=== PATIENT | female | born 1985 | race Caucasian/White ===

== ENCOUNTER → 2017-01-07 | Outpatient (CLI) | payer OTHER ==
[~2017-01-07] MED LIST: PRENTAB55 PO; ZOFR20TA PO
--- NOTE | 2017-01-07 13:58 | REP ---
MRI BRAIN WITHOUT CONTRAST: HISTORY: Migraine headache. COMPARISON: 12/13/2013. There are no areas of abnormal signal intensity in the brain. There is no intraparenchymal hemorrhage, infarct, mass or midline shift. The ventricular system is normal in appearance. There is no extracerebral collection. Mucosal thickening is present in the left maxillary and frontal sinuses. IMPRESSION: There is no intracranial lesion. Signed by Edison Deal MD 01/07/2017 01:59 P
== END ==
LOC: M RAD 12:25
PROVIDERS: ATTEND Psychiatry & Neurology Neurology
DX: G43.719 Chronic migraine without aura, intractable, without status migrainosus (principal); M43.02 Spondylolysis, cervical region; M54.2 Cervicalgia; Q07.00 Arnold-Chiari syndrome without spina bifida or hydrocephalus

== ENCOUNTER → 2017-01-17 | Outpatient (CLI) | payer OTHER ==
--- NOTE | 2017-01-18 09:28 | REP ---
MR CERVICAL SPINE WITHOUT AND WITH CONTRAST: HISTORY: Cervicalgia. CONTRAST: ProHance 16.8 mL. COMPARISON: 06/19/2007. A disc bulge and small left paracentral disc protrusion are present at the C5-6 level. There is minimal effacement of the thecal sac without spinal cord compression. Uncinate process hypertrophy is present on the right. This produces minimal narrowing of the right C5 neural foramen. The left C5 neural foramen is patent. There is no other disc bulge or herniation. The remaining neural foramina are patent. The spinal cord is normal in signal intensity. The cerebellar tonsils extend 4 mm inferior through the foramen magnum. There is no abnormal enhancement. The C5-6 intervertebral disc is decreased in height consistent with disc degeneration. Normal signal intensity is present in the cervical vertebral bodies. IMPRESSION: There is cervical spondylosis at the C5-6 level without spinal cord compression. There is no significant change compared to the previous study. Signed by Edison Deal MD 01/18/2017 09:38 A
--- NOTE | 2017-01-18 13:29 | REP ---
MR CINE VIEWS: HISTORY: Cervicalgia. A 2D phase contrast CSF flow study was performed with a velocity encoding of 10 cm/s. CSF flow is present in the prepontine and medullary cisterns, aqueduct and Sylvius, fourth ventricle and outlet foramina. CSF is present in the subarachnoid space posterior to the cerebellar tonsils. CSF flow is present in the anterior and posterior subarachnoid space at the cervicomedullary junction. The CSF flow appears normal. IMPRESSION: CSF flow study as described above. Signed by Edison Deal MD 01/18/2017 01:36 P
== END ==
LOC: M RAD 15:48
PROVIDERS: ATTEND Psychiatry & Neurology Neurology
DX: Q07.00 Arnold-Chiari syndrome without spina bifida or hydrocephalus (principal); M54.2 Cervicalgia; M43.02 Spondylolysis, cervical region
CPT/HCPCS: 72156; 76125; A9576

== ENCOUNTER → 2017-11-09 | Outpatient (CLI) | payer OTHER ==
[2017-11-09 10:32] LABS: HEMATOCRIT 44.4 % (36.0-47.0); HEMOGLOBIN 14.7 g/dl (12.0-16.0); MEAN CORPUSCULAR HEMOGLOBIN 28.4 pg (27.0-33.0); MEAN CORPUSCULAR HGB CONC 33.1 g/dl (32.0-36.5); MEAN CORPUSCULAR VOLUME 85.7 fl (80.0-96.0); PLATELET COUNT, AUTOMATED 161 10^3/uL (150-450); RED BLOOD COUNT 5.18 10^6/uL (4.00-5.40); RED CELL DISTRIBUTION WIDTH 12.6 % (11.5-14.5); WHITE BLOOD COUNT 6.3 10^3/uL (4.0-10.0)
[2017-11-09 11:02] LABS: ALBUMIN 4.1 GM/DL (3.2-5.2); ALBUMIN/GLOBULIN RATIO 1.05 (1.00-1.93); ALKALINE PHOSPHATASE 41 U/L (45-117); ALT/SGPT 26 U/L (12-78); ANION GAP 7 MEQ/L (8-16); AST/SGOT 16 U/L (7-37); BILIRUBIN,TOTAL 0.7 MG/DL (0.2-1.0); BLOOD UREA NITROGEN 19 MG/DL (7-18); CALCIUM LEVEL 8.7 MG/DL (8.5-10.1); CARBON DIOXIDE LEVEL 30 MEQ/L (21-32); CHLORIDE LEVEL 104 MEQ/L (98-107); CHOLESTEROL LEVEL 191 MG/DL (<200); CHOLESTEROL RISK RATIO 4.897 (<5); CREATININE FOR GFR 0.91 MG/DL (0.55-1.02); GLOMERULAR FILTRATION RATE > 60.0 (>60); GLUCOSE, FASTING 92 MG/DL (70-105); HDL CHOLESTEROL 39 MG/DL (>40); IRON (FE) 77 UG/DL (50-170); NON-HDL-C 152 MG/DL; PERCENT SATURATION 23.5 % (13.2-45.0); POTASSIUM SERUM 3.9 MEQ/L (3.5-5.1); SODIUM LEVEL 141 MEQ/L (136-145); THYROXINE (T4) 7.6 UG/DL (4.5-12.0); TOTAL IRON BINDING CAPACITY 328 UG/DL (250-450); TRIGLYCERIDES LEVEL 125 MG/DL (<150); URIC ACID 4.9 MG/DL (2.6-6.0)
[2017-11-09 11:20] LABS: ESTIMATED AVERAGE GLUCOSE 105 MG/DL (60-110); HEMOGLOBIN A1c 5.3 %
[2017-11-09 11:34] LABS: TOTAL 25(OH) VITAMIN D 24.8 NG/ML (30.0-100.0)
[2017-11-09 11:36] LABS: TOTAL T3 110.6 NG/DL (60.0-181.0)
[2017-11-09 11:38] LABS: VITAMIN B12 LEVEL 445 PG/ML (247-911)
== END ==
LOC: M LAB 09:53
DX: D64.9 Anemia, unspecified (principal); E03.9 Hypothyroidism, unspecified; M79.671 Pain in right foot
CPT/HCPCS: 73630

== ENCOUNTER 2018-05-16 15:09 | Emergency (ER) | payer MEDICAID, OTHER ==
[2018-05-16] MEDS: predniSONE 20 MG TAB PO (16:10)
[2018-05-16] MEDS: ALBUTEROL SULFATE 2.5 MG/0.5 ML INH NEB SOLN NEB (16:14)
== END 2018-05-16 16:59 | disposition home or self-care (01) ==
LOC: M ED 15:09
DX: J45.901 Unspecified asthma with (acute) exacerbation (principal); E03.9 Hypothyroidism, unspecified; G93.5 Compression of brain; M35.1 Other overlap syndromes; Z79.899 Other long term (current) drug therapy; Z79.82 Long term (current) use of aspirin; Z79.890 Hormone replacement therapy
CPT/HCPCS: 71046

== ENCOUNTER 2018-10-23 13:22 | Emergency (ER) | payer MEDICAID, OTHER ==
[~2018-10-23] VITALS: Ht 172.7 cm; Wt 86.4 kg
[~2018-10-23 13:22] MED LIST changes: +ALBU17IN2 INH; +ALBU83IN NEB; +ASPI81TA85 PO; +LEVO112T2 PO; +PRED20TA PO; -ZOFR20TA PO; +ZOFR4TAB16 PO
[2018-10-23] MEDS ORDERED: ALL10TAB27 PO (13:32)
[2018-10-23] MEDS ORDERED: ALBU83IN NEB (13:32)
[2018-10-23] MEDS ORDERED: VITA50005 PO (13:32)
[2018-10-23] MEDS ORDERED: diazePAM 5 MG TAB PO ONE (14:15)
[2018-10-23] MEDS ORDERED: KETOROLAC 60 MG/2 ML VIAL (J1885) IM ONE (14:15)
[2018-10-23] MEDS ORDERED: ROBA500T PO (14:44)
[2018-10-23] MEDS ORDERED: NAPR-49 PO (14:44)
[2018-10-23 14:55] VITALS: BP 126/86
== END 2018-10-23 15:02 | disposition home or self-care (01) ==
LOC: M ED 13:22
DX: S43.402A Unspecified sprain of left shoulder joint, initial encounter (principal); J45.909 Unspecified asthma, uncomplicated; S93.401A Sprain of unspecified ligament of right ankle, initial encounter; X50.1XXA Overexertion from prolonged static or awkward postures, initial encounter; Y92.9 Unspecified place or not applicable
CPT/HCPCS: 96372; 99283; J1885

== ENCOUNTER → 2018-11-22 | Outpatient (CLI) | payer OTHER ==
[~2018-11-22] MED LIST changes: +ALL10TAB28 PO; +NAPR-50 PO; +ROBA500T PO; +VITA50005 PO
[2018-11-22 10:15] LABS: HEMATOCRIT 44.1 % (36.0-47.0); HEMOGLOBIN 14.8 g/dl (12.0-15.5); MEAN CORPUSCULAR HGB CONC 33.6 g/dl (32.0-36.5); MEAN CORPUSCULAR VOLUME 86.3 fl (80.0-96.0); PLATELET COUNT, AUTOMATED 168 10^3/uL (150-450); RED BLOOD COUNT 5.11 10^6/uL (4.00-5.40); WHITE BLOOD COUNT 6.3 10^3/uL (4.0-10.0)
[2018-11-22 10:48] LABS: ALBUMIN 3.7 GM/DL (3.2-5.2); ALT/SGPT 19 U/L (12-78); BILIRUBIN,TOTAL 0.7 MG/DL (0.2-1.0); BLOOD UREA NITROGEN 13 MG/DL (7-18); CALCIUM LEVEL 8.4 MG/DL (8.5-10.1); CARBON DIOXIDE LEVEL 27 MEQ/L (21-32); CHLORIDE LEVEL 106 MEQ/L (98-107); CHOLESTEROL LEVEL 160 MG/DL (<200); CHOLESTEROL RISK RATIO 3.902 (<5); CREATININE FOR GFR 0.96 MG/DL (0.55-1.30); GLOMERULAR FILTRATION RATE > 60.0 (>60); GLUCOSE, FASTING 88 MG/DL (70-100); HDL CHOLESTEROL 41 MG/DL (>40); LDL CHOLESTEROL 102 MG/DL (<100); NON-HDL-C 119 MG/DL; POTASSIUM SERUM 4.1 MEQ/L (3.5-5.1); SODIUM LEVEL 139 MEQ/L (136-145); TOTAL PROTEIN 7.3 GM/DL (6.4-8.2); TRIGLYCERIDES LEVEL 87 MG/DL (<150)
[2018-11-22 14:42] LABS: TOTAL 25(OH) VITAMIN D 34.7 NG/ML (30.0-100.0)
== END ==
LOC: M LAB 09:07
PROVIDERS: ATTEND Family Medicine
DX: E03.9 Hypothyroidism, unspecified (principal)

== ENCOUNTER → 2019-04-27 | Outpatient (REF) | payer OTHER ==
[~2019-04-27] MED LIST changes: -NAPR-50 PO; +NAPR-837 PO
== END ==
LOC: M LAB REF 10:07
PROVIDERS: ATTEND Physician Assistant
DX: R30.0 Dysuria (principal)

== ENCOUNTER → 2019-07-27 | Outpatient (REF) | payer MEDICAID ==
[~2019-07-27] MED LIST changes: -ALBU17IN2 INH; -ALL10TAB28 PO; +ALL10TAB29 PO; +PROV108A INH
== END ==
LOC: M LAB REF 19:31
PROVIDERS: ATTEND Nurse Practitioner Family
DX: R30.0 Dysuria (principal)

== ENCOUNTER → 2019-08-01 | Outpatient (REF) | payer OTHER, MEDICAID ==
[2019-08-01 19:30] LABS: APPEARANCE, URINE CLOUDY (CLEAR); BACTERIA, URINE AUTO 1+ (NEGATIVE); BILIRUBIN, URINE AUTO NEGATIVE (NEGATIVE); BLOOD, URINE BLOOD NEGATIVE (NEGATIVE); COLOR, URINE YELLOW (YELLOW); GLUCOSE, URINE (UA) AUTO NEGATIVE (NEGATIVE); KETONE, URINE AUTO NEGATIVE (NEGATIVE); LEUKOCYTE ESTERASE, URINE AUTO TRACE (NEGATIVE); MUCUS, URINE SMALL (NEGATIVE); NITRITE, URINE AUTO NEGATIVE (NEGATIVE); PROTEIN, URINE AUTO NEGATIVE (NEGATIVE); RBC, URINE AUTO 1 /HPF (0-3); SPECIFIC GRAVITY URINE AUTO 1.019 (1.002-1.035); SQUAMOUS EPITHELIAL CELL UR AU 24 /HPF (0-6); UROBILINOGEN, URINE AUTO 0.2 mg/dL (0.0-2.0); WBC, URINE AUTO 2 /HPF (0-3)
== END ==
LOC: M LAB REF 18:45
PROVIDERS: ATTEND Nurse Practitioner Family
DX: R30.0 Dysuria (principal)

== ENCOUNTER → 2019-08-10 | Outpatient (REF) | payer OTHER, MEDICAID ==
[2019-08-10 12:24] LABS: FREE T4 0.87 NG/DL (0.76-1.46); THYROID STIMULATING HORMONE 2.52 uIU/ML (0.358-3.740)
== END ==
LOC: M LAB REF 11:50
PROVIDERS: ATTEND Nurse Practitioner Women's Health
DX: O36.80X0 Pregnancy with inconclusive fetal viability, not applicable or unspecified (principal); Z3A.00 Weeks of gestation of pregnancy not specified

== ENCOUNTER → 2019-08-15 | Outpatient (REF) | payer OTHER, MEDICAID ==
[2019-08-15 13:56] LABS: HEMOGLOBIN A1c 5.1 %
[2019-08-15 13:57] LABS: APPEARANCE, URINE HAZY (CLEAR); BACTERIA, URINE AUTO 1+ (NEGATIVE); BILIRUBIN, URINE AUTO NEGATIVE (NEGATIVE); BLOOD, URINE BLOOD NEGATIVE (NEGATIVE); COLOR, URINE YELLOW (YELLOW); GLUCOSE, URINE (UA) AUTO NEGATIVE (NEGATIVE); KETONE, URINE AUTO NEGATIVE (NEGATIVE); LEUKOCYTE ESTERASE, URINE AUTO 3+ (NEGATIVE); MUCUS, URINE MODERATE (NEGATIVE); NITRITE, URINE AUTO NEGATIVE (NEGATIVE); PROTEIN, URINE AUTO NEGATIVE (NEGATIVE); RBC, URINE AUTO 1 /HPF (0-3); SPECIFIC GRAVITY URINE AUTO 1.021 (1.002-1.035); SQUAMOUS EPITHELIAL CELL UR AU 9 /HPF (0-6); UROBILINOGEN, URINE AUTO 0.2 mg/dL (0.0-2.0); WBC, URINE AUTO 3 /HPF (0-3)
[2019-08-15 14:05] LABS: ALBUMIN 3.8 GM/DL (3.2-5.2); ALT/SGPT 20 U/L (12-78); BILIRUBIN,TOTAL 0.8 MG/DL (0.2-1.0); BLOOD UREA NITROGEN 11 MG/DL (7-18); CALCIUM LEVEL 8.8 MG/DL (8.5-10.1); CARBON DIOXIDE LEVEL 27 MEQ/L (21-32); CHLORIDE LEVEL 106 MEQ/L (98-107); CHOLESTEROL LEVEL 150 MG/DL (<200); CHOLESTEROL RISK RATIO 3.658 (<5); CREATININE FOR GFR 0.91 MG/DL (0.55-1.30); GLOMERULAR FILTRATION RATE > 60.0 (>60); GLUCOSE, FASTING 85 MG/DL (70-100); HDL CHOLESTEROL 41 MG/DL (>40); LDL CHOLESTEROL 93 MG/DL (<100); NON-HDL-C 109 MG/DL; POTASSIUM SERUM 3.9 MEQ/L (3.5-5.1); SODIUM LEVEL 138 MEQ/L (136-145); TOTAL 25(OH) VITAMIN D 28.3 NG/ML (30.0-100.0); TOTAL PROTEIN 7.3 GM/DL (6.4-8.2); TRIGLYCERIDES LEVEL 81 MG/DL (<150)
== END ==
LOC: M LAB REF 12:20
PROVIDERS: ATTEND Nurse Practitioner Family
DX: Z00.01 Encounter for general adult medical examination with abnormal findings (principal); R30.0 Dysuria

== ENCOUNTER → 2019-08-21 | Outpatient (REF) | payer OTHER | LOC: M LAB REF 13:21 | PROVIDERS: ATTEND Nurse Practitioner Women's Health | DX: O36.80X0 Pregnancy with inconclusive fetal viability, not applicable or unspecified (principal); Z32.01 Encounter for pregnancy test, result positive; Z3A.00 Weeks of gestation of pregnancy not specified ==

== ENCOUNTER → 2019-09-18 | Outpatient (REF) | payer OTHER ==
[2019-09-18 13:46] LABS: HEMATOCRIT 42.5 % (36.0-47.0); HEMOGLOBIN 14.2 g/dl (12.0-15.5); MEAN CORPUSCULAR HEMOGLOBIN 29.6 pg (27.0-33.0); MEAN CORPUSCULAR HGB CONC 33.4 g/dl (32.0-36.5); MEAN CORPUSCULAR VOLUME 88.7 fl (80.0-96.0); PLATELET COUNT, AUTOMATED 146 10^3/uL (150-450); RED BLOOD COUNT 4.79 10^6/uL (4.00-5.40); WHITE BLOOD COUNT 9.4 10^3/uL (4.0-10.0)
[2019-09-19 12:06] LABS: HEPATITIS C VIRUS ABY INDEX 0.1 INDEX (<0.8); HIV 1&2 SCREEN CENTAUR NEGATIVE (NEGATIVE); RUBELLA IgG QUALITATIVE IMMUNE (IMMUNE)
== END ==
LOC: M LAB REF 12:53
PROVIDERS: ATTEND Nurse Practitioner Women's Health
DX: Z34.01 Encounter for supervision of normal first pregnancy, first trimester (principal); Z3A.00 Weeks of gestation of pregnancy not specified

== ENCOUNTER 2019-12-07 10:22 | Outpatient (CLI) | payer OTHER ==
[~2019-12-07] VITALS: Ht 172.7 cm; Wt 95.5 kg
[2019-12-07] MEDS ORDERED: PRENTAB9 PO (11:22)
[2019-12-07] MEDS ORDERED: ACET1TAB55 PO (11:22)
[2019-12-07] MEDS ORDERED: PRIL20TA2 PO (11:22)
[2019-12-07] MEDS ORDERED: PLAQ200T4 PO (11:22)
[2019-12-07] MEDS ORDERED: ZOFR4TAB16 PO (11:22)
[2019-12-07 11:23] VITALS: BP 136/81
--- NOTE | 2019-12-07 13:10 | REP ---
Obstetric ultrasound for hematuria: There is a single intrauterine gestation in a breech presentation. The heart rate is 137 beats minute. The placenta is anterior. There is no previa. There is no abruptio. The amniotic fluid volume subjectively is normal. The amniotic fluid index is 10.7 (9.7 - 21.6). Umbilical artery mid cord Doppler assessment: S/D ratio 2.82 (2.30-3.30) Resistive Index 0.65 (0.59-0.75 Diastolic Velocity 12.4 (>10 cm/sec). Gestational age by LMP is 22 weeks 1 day/PALOMA 04/10/2020. Electronically Signed by Cesar Gabriel MD 12/07/2019 01:01 P
--- NOTE | 2019-12-07 14:23 | IPNPDOC ---
Text Note Date of Service The patient was seen on 12/07/19. NOTE Outpatient 34yo PALOMA 04/10/2020 patient of [facility]. Presents @ 22w1d with reports of bleeding. Reports "feeling full" but denies LOF, regular UC. Reports sporadic movement. FH via doppler 130's-150's Abdomen soft, gravid, nontender. No UC Spec exam - cervix visually LTC. No evidence of blood in vagina Urine significant for gross hematuria. UA 1+ protein, 3+ blood, RBC TNTC. O therwise negative TVUS shows cervical length 5.5cm, no previa, abruption or inner os funneling. Renal scan essentially normal Pt reports 2nd void upon arrival clear, no visible blood Discharged home. Routine precautions. Urine sent for culture. Keep next appt with [facility]. Will update [facility] oncall provider VS,Fausto, I+O VS, Fausto, I+O Vital Signs Date Time Temp Pulse Resp B/P (MAP) Pulse Ox O2 Delivery O2 Flow Rate FiO2 12/07/19 11:23 98.3 86 18 136/81 (99) 97 Room Air Patience Rubio CNM Dec 07, 2019 14:23
--- NOTE | 2019-12-07 15:45 | REP ---
Renal ultrasound for hematuria: The right kidney measures 11.6 x 4.9 x 3.6 cm. The left kidney measures 15 24 x 5.0 x 6.0 cm. The kidneys are in the normal size range, however, the left kidney is larger than right. The The there is mild dilatation of the right renal pelvis. There is no dilatation of the left renal pelvis. There are no solid or cystic masses. There are no renal calculi. With color Doppler ultrasound there are bilateral ureteral jets into the bladder. Impression: Mild dilatation of the right renal pelvis. No renal calculi. No solid or cystic renal masses. Both kidneys are normal size, however are asymmetric in size. The Electronically Signed by Cesar Gabriel MD 12/07/2019 12:44 P
== END 2019-12-07 13:30 | disposition home or self-care (01) ==
LOC: M LDO 10:22
PROVIDERS: ATTEND Advanced Practice Midwife
DX: O26.852 Spotting complicating pregnancy, second trimester (principal); Z3A.22 22 weeks gestation of pregnancy

== ENCOUNTER → 2020-10-17 | Outpatient (REF) | payer OTHER ==
[~2020-10-17] MED LIST changes: +ACET1TAB55 PO; -ALL10TAB29 PO; -ASPI81TA85 PO; +ASPI81TA86 PO; +CETI-24 PO; +PLAQ200T4 PO; +PRENTAB9 PO; +PRIL20TA2 PO
[2020-10-17 17:17] LABS: BASO # 0.1 10^3/uL (0.0-0.2); BASO % 0.8 % (0.0-1.0); EOS # 0.2 10^3/uL (0.0-0.5); EOS % 2.4 % (0.0-3.0); HEMATOCRIT 41.9 % (36.0-47.0); HEMOGLOBIN 12.7 g/dl (12.0-15.5); LYMPH % 26.1 % (24.0-44.0); MEAN CORPUSCULAR HEMOGLOBIN 24.1 pg (27.0-33.0); MEAN CORPUSCULAR HGB CONC 30.3 g/dl (32.0-36.5); MEAN CORPUSCULAR VOLUME 79.7 fl (80.0-96.0); MONO # 0.7 10^3/uL (0.0-0.8); MONO % 9.2 % (0.0-5.0); NEUTROPHILS # 4.8 10^3/uL (1.5-8.5); NEUTROPHILS % 61.2 % (36.0-66.0); PLATELET COUNT, AUTOMATED 188 10^3/uL (150-450); RED BLOOD COUNT 5.26 10^6/uL (4.00-5.40); WHITE BLOOD COUNT 7.8 10^3/uL (4.0-10.0)
[2020-10-17 17:39] LABS: ALBUMIN 3.8 GM/DL (3.2-5.2); ALT/SGPT 23 U/L (12-78); BILIRUBIN,TOTAL 0.5 MG/DL (0.2-1.0); BLOOD UREA NITROGEN 13 MG/DL (7-18); CALCIUM LEVEL 8.8 MG/DL (8.5-10.1); CARBON DIOXIDE LEVEL 29 MEQ/L (21-32); CHLORIDE LEVEL 104 MEQ/L (98-107); CREATININE FOR GFR 1.06 MG/DL (0.55-1.30); FERRITIN 10 NG/ML (8-252); FREE T4 0.93 NG/DL (0.76-1.46); GLOMERULAR FILTRATION RATE > 60.0 (>60); GLUCOSE, FASTING 103 MG/DL (70-100); IRON (FE) 47 UG/DL (50-170); SODIUM LEVEL 140 MEQ/L (136-145); TOTAL IRON BINDING CAPACITY 393 UG/DL (250-450); TOTAL PROTEIN 7.8 GM/DL (6.4-8.2)
[2020-10-17 17:41] LABS: TOTAL 25(OH) VITAMIN D 20.9 NG/ML (30.0-100.0)
== END ==
LOC: M LAB REF 16:18
PROVIDERS: ATTEND Physician Assistant
DX: D50.9 Iron deficiency anemia, unspecified (principal); E55.9 Vitamin D deficiency, unspecified

== ENCOUNTER → 2020-11-06 | Outpatient (REF) | payer OTHER ==
[2020-11-06 17:22] LABS: BASO # 0.1 10^3/uL (0.0-0.2); BASO % 0.8 % (0.0-1.0); EOS # 0.2 10^3/uL (0.0-0.5); EOS % 3.4 % (0.0-3.0); HEMATOCRIT 40.3 % (36.0-47.0); HEMOGLOBIN 12.5 g/dl (12.0-15.5); LYMPH # 1.6 10^3/uL (1.5-5.0); MEAN CORPUSCULAR HEMOGLOBIN 25.3 pg (27.0-33.0); MEAN CORPUSCULAR VOLUME 81.4 fl (80.0-96.0); MONO # 0.7 10^3/uL (0.0-0.8); MONO % 10.9 % (0.0-5.0); NEUTROPHILS # 3.7 10^3/uL (1.5-8.5); NEUTROPHILS % 59.6 % (36.0-66.0); PLATELET COUNT, AUTOMATED 149 10^3/uL (150-450); RED BLOOD COUNT 4.95 10^6/uL (4.00-5.40); WHITE BLOOD COUNT 6.2 10^3/uL (4.0-10.0)
[2020-11-06 17:38] LABS: ALBUMIN 3.7 GM/DL (3.2-5.2); ALT/SGPT 20 U/L (12-78); BILIRUBIN,TOTAL 0.4 MG/DL (0.2-1.0); BLOOD UREA NITROGEN 17 MG/DL (7-18); CALCIUM LEVEL 8.6 MG/DL (8.5-10.1); CARBON DIOXIDE LEVEL 28 MEQ/L (21-32); CHLORIDE LEVEL 107 MEQ/L (98-107); CREATININE FOR GFR 0.84 MG/DL (0.55-1.30); FERRITIN 9 NG/ML (8-252); FREE T4 0.98 NG/DL (0.76-1.46); GLOMERULAR FILTRATION RATE > 60.0 (>60); GLUCOSE, FASTING 96 MG/DL (70-100); IRON (FE) 35 UG/DL (50-170); PERCENT SATURATION 9.4 % (13.2-45.0); POTASSIUM SERUM 4.8 MEQ/L (3.5-5.1); SODIUM LEVEL 139 MEQ/L (136-145); TOTAL IRON BINDING CAPACITY 373 UG/DL (250-450); TOTAL PROTEIN 7.2 GM/DL (6.4-8.2)
[2020-11-06 17:40] LABS: TOTAL 25(OH) VITAMIN D 22.9 NG/ML (30.0-100.0)
== END ==
LOC: M LAB REF 16:18
PROVIDERS: ATTEND Physician Assistant
DX: E55.9 Vitamin D deficiency, unspecified (principal); E03.9 Hypothyroidism, unspecified; D50.9 Iron deficiency anemia, unspecified

== ENCOUNTER → 2020-12-23 | Outpatient (REF) | payer OTHER ==
[~2020-12-23] MED LIST changes: +ACET-683 PO; +ACET-897 PO; +ALBU83IN INH; +ASPI-161 PO; +DOXY100T27 PO; +FERR1TAB8 PO; +FERR325T18; +FLAG500T PO; +IBUP-1022 PO; +IBUP1TAB6 PO; +LEVO125T4; +MACR100C43 PO; +NITR100C2; +PHEN-501; +PHEN1TAB74 PO; +PRED5TA PO; +PROAAER10 INH; +SYNT125T PO; +VITA1CAP14 PO; +VITA500T21; +VITA500T21 PO
== END ==
LOC: M LAB REF 08:22
PROVIDERS: ATTEND Physician Assistant
DX: R30.0 Dysuria (principal)

== ENCOUNTER 2020-12-24 19:17 | Inpatient (IN) | payer OTHER ==
[~2020-12-24] VITALS: Ht 172.7 cm; Wt 97.8 kg
[~2020-12-24 19:17] MED LIST changes: -ACET-683 PO; -ACET-897 PO; -ALBU83IN INH; -ASPI-161 PO; -DOXY100T27 PO; -FERR1TAB8 PO; -FERR325T18; -FLAG500T PO; -IBUP-1022 PO; -IBUP1TAB6 PO; -LEVO125T4; -MACR100C43 PO; -NITR100C2; -PHEN-501; -PHEN1TAB74 PO; -PRED5TA PO; -PROAAER10 INH; -SYNT125T PO; -VITA1CAP14 PO; -VITA500T21; -VITA500T21 PO
--- OUTSIDE RECORDS SUMMARY | 2020-12-24 19:24 | CCD | Continuity of Care Document ---
Author Author Carrie SMITH PA Organization Unknown Address [address] [place] [address] [place] [address] Phone [phone] Care Team Providers Care Administration Internship Name Role Phone [facility] AUTM [phone] Problems Active Problems Provider Date Asthma without status asthmaticus Onset: Tobacco user Onset: Social History Type Date Description Comments Sex Unknown Tobacco Use Start: Unknown End: Unknown Quit 2010 ETOH Use Denies alcohol use Tobacco Use Start: Unknown End: Unknown Patient is a former smoker Smoking Status Reviewed: 06/19/20 Patient is a former smoker Allergies, Adverse Reactions, Alerts Description No Known Drug Allergies Medications Active Medications SIG Qnty Indications Ordering Provide r Date Macrobid 100mg Capsules 1 tab by mouth twice a day x 7 days 14caps R30.0 Claudia Fuentes JR. 12/23/2020 Phenazopyridine HCL 200mg Tablets take one tab by mouth three times a day x 2 days 6tabs R30.0 Kenan Green JR., M.D. 12/23/2020 Fluconazole 150mg Tablets 1 by mouth day one, may repeat in one week if needed 2tabs R30.0 Kenan Green JR., M.D. 12/23/2020 Aerochamber Plus Theodore-Vu Misc use as directed with inhaler dx: J45.909 1units J45.909 Kenan varma JR., M.D. 12/10/2015 Albuterol Fha 90mcg/Act Aerosol as needed Unknown Levothyroxine Sodium 75mcg Tablets qd J01.10 Unknown Aspirin [address] Kelley Hydroxychloroquine Sulfate 1 by mouth every day Unknown Azo Bladder Control/Go-Less Unknown Vitamin C Unknown Iron (Ferrous Sulfate) Unknown Vitamin D Unknown Tylenol Unknown Ibuprofen Unknown Immunizations Description No Information Available Vital Signs Date Vital Result Comment 12/23/2020 6:16pm BP Systolic 132 mmHg BP Diastolic 86 mmHg Heart Rate 129 /min Respiratory Rate 18 /min O2 % BldC Oximetry 97 % Body Temperature 99.6 F Weight 206.00 lb Height 68 inches 5'8" BMI (Body Mass Index) 31.3 kg/m2 Pain Level 8 06/19/2020 12:35pm BP Systolic 126 mmHg BP Diastolic 84 mmHg Heart Rate 98 /min Respiratory Rate 16 /min O2 % BldC Oximetry 96 % Body Temperature 96.9 F Weight 201.00 lb Height 68 inches 5'8" BMI (Body Mass Index) 30.6 kg/m2 Pain Level 0 Results Test Acquired Date Facility Test Result H/L Range Note Laboratory test finding 12/23/2020 [facility] [address] [id number] [phone] Urine Culture <pending> Procedures Description No Information Available Medical Devices Description No Information Available Encounters Type Date Location Provider Dx Diagnosis Office Visit 12/23/2020 4:35p Main Office MIKE Silver R30 .0 Dysuria Assessments Date Code Description Provider 12/23/2020 R30.0 Dysuria MIKE Weller Plan of Treatment No Information Available Functional Status Description No Information Available Mental Status Description No Information Available Referrals Description No Information Available
--- OUTSIDE RECORDS SUMMARY | 2020-12-24 19:24 | CCD | Continuity of Care Document ---
Author Author Carrie SMITH PA Organization Unknown Address [address] [place] [address] [place] [address] Phone [phone] Care Team Providers Care Pathology Secretary Name Role Phone [facility] AUTM [phone] Problems Active Problems Provider Date Asthma without [...] H/L Range Note Laboratory test finding 12/23/2020 Health system [address] [id number] [phone] Urine Culture <pending> Procedures Description No Information [...]
--- OUTSIDE RECORDS SUMMARY | 2020-12-24 19:25 | CCD ---
Author Organization Unknown Address [address] [place] [address] Phone [phone] Care Team Providers Care Showroom Manager Name Role Phone Kenzie Maza Unavailable Unavailable Allergies Code Code System Name Reaction Severity Status Onset NKDA Medications Name Status Start Date Stop Date albuterol sulfate 2.5 mg/3 mL (0.083 %) solution for nebulizatio n Active Not available albuterol sulfate HFA 90 mcg/actuation aerosol inhaler Active Not available aspirin 81 mg tablet,delayed release Active Not available DOK 100 mg capsule TAKE 1 CAPSULE BY MOUTH TWICE DAILY Active Not available Euthyrox 125 mcg tablet TAKE 1 TABLET BY MOUTH ONCE DAILY IN THE MORNING ON AN EMPTY STOMACH Active Not available ferrous sulfate 324 mg (65 mg iron) tablet,delayed release Compl eted 10/17/2020 ferrous sulfate 325 mg (65 mg iron) tabl et TAKE 1 TABLET BY MOUTH ONCE DAILY Active Not a vailable hydroxychloroquine 200 mg tablet Active Not available ibuprofen 600 mg tablet TAKE 1 TABLET BY MOUTH EVERY 6 HOURS NEEDED FOR DISCOMFORT Active Not available omeprazole 20 mg capsule,delayed release TAKE 1 CAPSULE BY MOUTH ONCE DAILY Completed 09/30 ondansetron HCl 4 mg tablet Completed 09/30 oseltamivir 75 mg capsule Completed 2019 oxycodone 5 mg tablet Completed 10/17/2020 permethrin 5 % topical cream APPLY CREAM FROM NECK DOWN LEAVE ON FOR 8 HOURS THEN WASH OFF. MAY REPEAT IN 1 WEEK IF NEEDED. Active Not available prednisone 5 mg tablet TAKE 1 TABLET BY MOUTH ONCE DAILY Completed 10/17 promethazine 12.5 mg tablet Active Not available Vitamin C With Dea Hips 500 mg tablet TAKE 1 TABLET BY MOUTH ONCE DAILY Active Not a vailable Problems Name Status Onset Date Source Headache Active 11/27/2012 History Clinical Finding Unknown 11/27/2012 History Dysuria Unknown 07/27/2019 History Procedure by Method Unknown 07/27/2019 History Acute Maxillary Sinusitis Unknown 08/22/2019 Histor y Clinical Finding Unknown 08/22/2019 History Arthropathy Active 10/17/2020 Asthma Active History Procedures Date Name Performed by 04/04/2020 Bilateral Tubal Ligation Information not available 10/17/2020 US, Thyroid Information not avai lable Notes: Rt hip , , Results Lab Results Date Name Specimen Result Interpretation Description Value Range Status Address 10/17/2020 CBC W/ Auto Diff Blood venous Normal White Blood C ount 7.8 10 4.0-10.0 10 [facility]: [address] [facility] Blood venous Normal Red Blood Count 5.26 10 4.00- 5.40 10 [facility]: [address] [facility] Blood venous Normal Hemoglobin 12.7 g/dL 12.0-15. 5 g/dL [facility]: [address] [facility] Blood venous Normal Hematocrit 41.9 % 36.0-47.0 % [facility]: [address] [facility] Blood venous Low Mean Corpuscular Volume 79.7 fL 80.0-96.0 fL [facility]: 0 [facility] Blood venous Low Mean Corpuscular Hemoglob in 24.1 pg 27.0-33.0 pg [facility]: [address] [facility] Blood venous Low Mean Corpuscular HGB Conc 30.3 g/dL 32.0-36.5 g/dL [facility]: [address] [facility] Blood venous High Red Cell Distribution Width 1 4.6 % 11.5-14.5 % [facility]: [address] [facility] Blood venous Normal Platelet Count, Automated 188 10 150-450 10 [facility]: [address] [facility] Blood venous Normal Neutrophils % 61.2 % 36.0-66. 0 % [facility]: [address] [facility] Blood venous Normal Lymph % 26.1 % 24.0-44.0 % [facility]: [address] [facility] Blood venous High Attala % 9.2 % 0.0-5.0 % [facility]: [address] [facility] Blood venous Normal Eos % 2.4 % 0.0-3.0 % [facility]: [address] [place] [address] Blood venous Normal Baso % 0.8 % 0.0-1.0 % [facility]: [address] [place] [address] Blood venous Normal Immature Granulocyte % 0.3 % 0-3.0 % [facility]: [address] [place] [address] Blood venous Normal Nucleated Red Blood Cell % 0. 0 % 0-0 % [facility]: [address] [place] [address] Blood venous Normal Neutrophils # 4.8 10 1.5-8.5 10 [facility]: [address] [place] [address] Blood venous Normal Lymph # 2.0 10 1.5-5.0 10 [facility]: [address] [place] [address] Blood venous Normal Attala # 0.7 10 0.0-0.8 10 [facility]: [address] [place] [address] Blood venous Normal Eos # 0.2 10 0.0-0.5 10 [facility]: [address] [place] [address] Blood venous Normal Baso # 0.1 10 0.0-0.2 10 [facility]: [address] [place] [address] 10/17/2020 CMP, Serum or Plasma Blood venous High Glu cose, Fasting 103 mg/dL 70-100 mg/dL [facility] nter: [address] [place] [address] Blood venous Normal Blood Urea Nitrogen 13 mg/dL 7-18 mg/dL [facility]: [address] [place] [address] Blood venous Normal Creatinine for GFR 1.06 mg/dL 0.55-1.30 mg/dL [facility]: [address] [place] [address] Blood venous Normal Glomerular Filtration Rate > 60.0 >60 [facility]: [address] [place] [address] Blood venous Normal Sodium Level 140 mEq/L 136-14 5 mEq/L [facility]: [address] [place] [address] Blood venous Normal Potassium Serum 4.0 mEq/L 3.5 -5.1 mEq/L [facility]: [address] [facility] Blood venous Normal Chloride Level 104 mEq/L 98-1 07 mEq/L [facility]: [address] [facility] Blood venous Normal Carbon Dioxide Level 29 mEq/L 21-32 mEq/L [facility]: [address] [facility] Blood venous Low Anion Gap 7 mEq/L 8-16 mEq/L [facility]: [address] [facility] Blood venous Normal Calcium Level 8.8 mg/dL 8.5-1 0.1 mg/dL [facility]: [address] [facility] Blood venous Normal AST/SGOT 9 U/L 7-37 U/L [facility]: [address] [facility] Blood venous Normal ALT/SGPT 23 U/L 12-78 U/L [facility]: [address] [place] [address] Blood venous Normal Alkaline Phosphatase 59 U/L 4 5-117 U/L [facility]: [address] [facility] Blood venous Normal Bilirubin,total 0.5 mg/dL 0.2 -1.0 mg/dL [facility]: 0 [facility] Blood venous Normal Total Protein 7.8 gm/dL 6.4-8 .2 gm/dL [facility]: [address] [place] [address] Blood venous Normal Albumin 3.8 gm/dL 3.2-5.2 gm/ dL [facility]: [address] [place] [address] Blood venous Low Albumin/globulin Ratio 1.0 1.2-2.2 [facility]: [address] [place] [address] 10/17/2020 TIBC (Total Iron-binding Capacity), Serum Low Iron (Fe) 47 ug/dL 50-170 ug/dL [facility] nter: [address] [place] [address] Normal Total Iron Binding Capacity 393 ug/d L 250-450 ug/dL [facility]: [address] [place] [address] Low Percent Saturation 12.0 % 13.2-45.0 % [facility]: [address] [place] [address] 10/17/2020 TSH + Free T4, Serum Blood venous Normal Thyroid Stimulating Hormone 2.630 uIU/mL 0.358-3.740 uIU/mL Final [facility] ical Center: [address] [facility] Blood venous Normal Free T4 0.93 NG/dL 0.76-1.46 NG/dL Final [facility]: 0 [facility] 10/17/2020 Vitamin D, 25-Hydroxy, Total, Serum Blood venous Low Total 25(Oh) Vitamin D 20.9 NG/mL 30.0-100.0 NG/mL Final [facility] al Center: 0 [facility] 10/17/2020 Ferritin, Serum or Plasma Normal Ferritin 10 NG/mL 8-252 NG/mL Final [facility]: 0 [facility] Past Encounters 11/06/2020 Kenzie Maza PA-C: [address] [place] [phone], Ph. 10/17/2020 Hypothyroidism; Iron Deficiency Anemia; Vitamin D Deficiency; Goiter; Loss of Hair Kenzie Maza PA-C: [address] [place] [address], Ph. Social History Tobacco Smoking Status Never Smoker Vaccine List Vaccine Type influenza, injectable, quadrivalent 03/04/2020 Plan of Care Reminders Provider Appointments None recorded. Lab None recorded. Referral None recorded. Procedures None recorded. Surgeries None recorded. Imaging None recorded. Vitals 10/17/2020 01:40PM ESTABLISHED [id number] Height Weight BMI Blood Pressure 68 in 210 lbs 6 oz 32 kg/m2 129/87 mm[Hg] 08/22/2019 Height Weight Blood Pressure 68 in 198 lbs 12.8 oz 123/88 mm[Hg] 07/27/2019 Height Weight Blood Pressure 68 in 195 lbs 132/91 mm[Hg]
--- OUTSIDE RECORDS SUMMARY | 2020-12-24 19:25 | CCD ---
Author Organization Unknown Address [address] [place] [address] Phone [phone] Care Team Providers Care [employer] Product Consultant Name Role Phone Kenzie Maza Unavailable Unavailable [...] Rt hip , , Results Lab Results None recorded. Past Encounters 10/17/2020 Hypothyroidism; Iron Deficiency Anemia; Vitamin D Deficiency; Goiter; Loss of Hair Kenzie Maza PA-C: [address] [place] [phone], Ph. Social History Tobacco Smoking Status Never Smoker Vaccine List Vaccine Type influenza, injectable, quadrivalent 03/04/2020 Plan of Care Reminders Provider Appointments None recorded. Lab None recorded. Referral None recorded. Procedures None recorded. Surgeries None recorded. Imaging None recorded. Vitals 10/17/2020 01:40PM ESTABLISHED [id number] Height Weight BMI Blood Pressure 68 in 210 lbs 6 oz 32 kg/m2 129/87 mm[Hg] 08/22/2019 Height Weight Blood Pressure 68 in 198 lbs 12.8 oz 123/88 mm[Hg] 07/27/2019 Height Weight Blood Pressure 68 in 195 lbs 132/91 mm[Hg]
--- OUTSIDE RECORDS SUMMARY | 2020-12-24 19:26 | CCD ---
Author Author [facility] Organization [facility] Address Unknown Phone Unavailable Care Team Providers Care [facility] Treatment Specialist Name Role Phone Verito Feldman CREATIVE SERVICES SPECIALIST, CNM Unavailable Unavailable FeldmanVerito CREATIVE SERVICES SPECIALIST, CNM Unavailable Unavailable FeldmanVerito CREATIVE SERVICES SPECIALIST, CNM Unavailable Unavailable FeldmanVerito akhtar NP, CNM Unavailable Unavailable FeldmanVerito NP, CNM Unavailable Unavailable FeldmanVerito CREATIVE SERVICES SPECIALIST, CNM Unavailable Unavailable FeldmanVerito akhtar CREATIVE SERVICES SPECIALIST, CNM Unavailable Unavailable FeldmanVerito CREATIVE SERVICES SPECIALIST, CNM Unavailable Unavailable FeldmanVerito CREATIVE SERVICES SPECIALIST, CNM Unavailable Unavailable FeldmanVerito CREATIVE SERVICES SPECIALIST, CNM Unavailable Unavailable FeldmanVerito CREATIVE SERVICES SPECIALIST, CNM Unavailable Unavailable FeldmanVerito CREATIVE SERVICES SPECIALIST, CNM Unavailable Unavailable FeldmanVerito CREATIVE SERVICES SPECIALIST, CNM Unavailable Unavailable FeldmanVerito akhtar CREATIVE SERVICES SPECIALIST, CNM Unavailable Unavailable FeldmanVerito CREATIVE SERVICES SPECIALIST, CNM Unavailable Unavailable FeldmanVerito CREATIVE SERVICES SPECIALIST, CNM Unavailable Unavailable FeldmanVerito CREATIVE SERVICES SPECIALIST, CNM Unavailable Unavailable FeldmanVerito akhtar CREATIVE SERVICES SPECIALIST, CNM Unavailable Unavailable FeldmanVerito CREATIVE SERVICES SPECIALIST, CNM Unavailable Unavailable FeldmanVerito CREATIVE SERVICES SPECIALIST, CNM Unavailable Unavailable Feldman, M Tamara CREATIVE SERVICES SPECIALIST, CNM Unavailable Unavailable Feldman, M Tamara CREATIVE SERVICES SPECIALIST, CNM Unavailable Unavailable Feldman, M Tamara CREATIVE SERVICES SPECIALIST, CNM Unavailable Unavailable Feldman, M Tamara CREATIVE SERVICES SPECIALIST, CNM Unavailable Unavailable Feldman, M Tamara CREATIVE SERVICES SPECIALIST, CNM Unavailable Unavailable Feldman, M Tamara CREATIVE SERVICES SPECIALIST, CNM Unavailable Unavailable Feldman, M Tamara CREATIVE SERVICES SPECIALIST, CNM Unavailable Unavailable Feldman, M Tamara CREATIVE SERVICES SPECIALIST, CNM Unavailable Unavailable Feldman, M Tamara CREATIVE SERVICES SPECIALIST, CNM Unavailable Unavailable Feldman, M Tamara CREATIVE SERVICES SPECIALIST, CNM Unavailable Unavailable Feldman, M Tamara CREATIVE SERVICES SPECIALIST, CNM Unavailable Unavailable Feldman, M Tamara CREATIVE SERVICES SPECIALIST, CNM Unavailable Unavailable Feldman, M Tamara CREATIVE SERVICES SPECIALIST, CNM Unavailable Unavailable Scordo, M Kenzie PA Unavailable Unavailable Scordo, M Kenzie PA Unavailable Unavailable Scordo, M Kenize PA Unavailable Unavailable Scordo, M Kenzie PA Unavailable Unavailable Scordo, M Kenzie PA Unavailable Unavailable Scordo, M Kenzie PA Unavailable Unavailable Scordo, M Kenzie PA Unavailable Unavailable Scordo, M Kenzie PA Unavailable Unavailable Scordo, M Kenzie PA Unavailable Unavailable Scordo, M Kenzie PA Unavailable Unavailable Scordo, M Kenzie PA Unavailable Unavailable Scordo, M Kenzie PA Unavailable Unavailable Scordo, M Kenzie PA Unavailable Unavailable Scordo, M Kenzie PA Unavailable Unavailable Scordo, M Kenzie PA Unavailable Unavailable Scordo, M Kenzie PA Unavailable Unavailable Scordo, M Kenzie PA Unavailable Unavailable Scordo, M Kenzie PA Unavailable Unavailable Scordo, M Kenzie PA Unavailable Unavailable Scordo, M Kenzie PA Unavailable Unavailable Scordo, M Kenzie PA Unavailable Unavailable Scordo, M Kenzie PA Unavailable Unavailable Scordo, M Kenzie PA Unavailable Unavailable Scordo, M Kenzie PA Unavailable Unavailable Scordo, M Kenzie PA Unavailable Unavailable Scordo, M Kenzie PA Unavailable Unavailable Scordo, M Kenzie PA Unavailable Unavailable Scordo, M Kenzie PA Unavailable Unavailable Scordo, M Kenzie PA Unavailable Unavailable Scordo, M Kenzie PA Unavailable Unavailable Scordo, M Kenzie PA Unavailable Unavailable Scordo, M Kenzie PA Unavailable Unavailable Scordo, M Kenzie PA Unavailable Unavailable Scordo, M Kenzie PA Unavailable Unavailable Scordo, M Kenzie PA Unavailable Unavailable Scordo, M Kenzie PA Unavailable Unavailable Scordo, M Kenzie PA Unavailable Unavailable Scordo, M Kenzie PA Unavailable Unavailable Scordo, M Kenzie PA Unavailable Unavailable Scordo, M Kenzie PA Unavailable Unavailable Scordo, M Kenzie PA Unavailable Unavailable Scordo, M Kenzie PA Unavailable Unavailable Scordo, M Kenzie PA Unavailable Unavailable NISH, C MARY CREATIVE SERVICES SPECIALIST Unavailable Unavailable NISH, C MARY CREATIVE SERVICES SPECIALIST Unavailable Unavailable NISH, C MARY CREATIVE SERVICES SPECIALIST Unavailable Unavailable NISH, C MARY CREATIVE SERVICES SPECIALIST Unavailable Unavailable NISH, C MARY CREATIVE SERVICES SPECIALIST Unavailable Unavailable NISH, C MARY CREATIVE SERVICES SPECIALIST Unavailable Unavailable NISH, C MARY CREATIVE SERVICES SPECIALIST Unavailable Unavailable NISH, C MARY CREATIVE SERVICES SPECIALIST Unavailable Unavailable NISH, C MARY CREATIVE SERVICES SPECIALIST Unavailable Unavailable NISH, C MARY CREATIVE SERVICES SPECIALIST Unavailable Unavailable NISH, C MARY CREATIVE SERVICES SPECIALIST Unavailable Unavailable NISH, C MARY CREATIVE SERVICES SPECIALIST Unavailable Unavailable NISH, C MARY CREATIVE SERVICES SPECIALIST Unavailable Unavailable NISH, C MARY CREATIVE SERVICES SPECIALIST Unavailable Unavailable NISH, C MARY CREATIVE SERVICES SPECIALIST Unavailable Unavailable NISH, C MARY CREATIVE SERVICES SPECIALIST Unavailable Unavailable NISH, C MARY CREATIVE SERVICES SPECIALIST Unavailable Unavailable NISH, C MARY CREATIVE SERVICES SPECIALIST Unavailable Unavailable NISH, C MARY CREATIVE SERVICES SPECIALIST Unavailable Unavailable NISH, C MARY CREATIVE SERVICES SPECIALIST Unavailable Unavailable NISH, C MARY CREATIVE SERVICES SPECIALIST Unavailable Unavailable NISH, C MARY CREATIVE SERVICES SPECIALIST Unavailable Unavailable NISH, C MARY CREATIVE SERVICES SPECIALIST Unavailable Unavailable NISH, C MARY CREATIVE SERVICES SPECIALIST Unavailable Unavailable Sanchez, Sangita DOPE AND FABRIC WORKER DOPE AND FABRIC WORKER Unavailable Unavailable FARTUN, KARINA Unavailable Unavailable AFUA, R TRISTIAN Unavailable Unavailable Daniel, Cristopher Sangita DOPE AND FABRIC WORKER-BC Unavailable Unavailable Daniel, F Sangita DOPE AND FABRIC WORKER-BC Unavailable Unavailable Daniel, F Sangita DOPE AND FABRIC WORKER-BC Unavailable Unavailable Daniel, F Sangita DOPE AND FABRIC WORKER-BC Unavailable Unavailable Sanchez, F Sangita DOPE AND FABRIC WORKER-BC Unavailable Unavailable Daniel, F Sangita DOPE AND FABRIC WORKER-BC Unavailable Unavailable Sanchez, F Sangita DOPE AND FABRIC WORKER-BC Unavailable Unavailable Sanchez, F Sangita DOPE AND FABRIC WORKER-BC Unavailable Unavailable Sanchez, F Sangita DOPE AND FABRIC WORKER-BC Unavailable Unavailable Sanchez, F Sangita DOPE AND FABRIC WORKER-BC Unavailable Unavailable Sanchez, F Sangita DOPE AND FABRIC WORKER-BC Unavailable Unavailable Daniel, F Sangita DOPE AND FABRIC WORKER-BC Unavailable Unavailable Sanchez, F Sangita DOPE AND FABRIC WORKER-BC Unavailable Unavailable Cristopher Sanchez Sangita DOPE AND FABRIC WORKER-BC Unavailable Unavailable Cristopher Sanchez DOPE AND FABRIC WORKER-BC Unavailable Unavailable Cristopher Sanchez Sangita DOPE AND FABRIC WORKER-BC Unavailable Unavailable Cristopher Sanchez Sangita DOPE AND FABRIC WORKER-BC Unavailable Unavailable Crisotpher Sanchez Sangita DOPE AND FABRIC WORKER-BC Unavailable Unavailable Cristopher Sanchez Sangita DOPE AND FABRIC WORKER-BC Unavailable Unavailable Cristopher Sanchez Sangita DOPE AND FABRIC WORKER-BC Unavailable Unavailable Cristopher Sanchez DOPE AND FABRIC WORKER-BC Unavailable Unavailable Cristopher Sanchez Sangita DOPE AND FABRIC WORKER-BC Unavailable Unavailable CRISTIANO SLATER MD Unavailable Unavailable CRISTIANO SLATER MD Unavailable Unavailable CRISTIANO SLATER MD Unavailable Unavailable CRISTIANO SLATER MD Unavailable Unavailable CRISTIANO SLATER MD Unavailable Unavailable CRISTIANO SLATER MD Unavailable Unavailable CRISTIANO SLATER MD Unavailable Unavailable CRISTIANO SLATER MD Unavailable Unavailable CRISTIANO SLATER MD Unavailable Unavailable CRISTIANO SLATER MD Unavailable Unavailable CRISTIANO SLATER MD Unavailable Unavailable CRISTIANO SLATER MD Unavailable Unavailable CRISTIANO SLATER MD Unavailable Unavailable CRISTIANO SLATER MD Unavailable Unavailable CRISTIANO SLATER MD Unavailable Unavailable CRISTIANO SLATER MD Unavailable Unavailable CRISTIANO SLATER MD Unavailable Unavailable CRISTIANO SLATER MD Unavailable Unavailable CRISTIANO SLATER MD Unavailable Unavailable CRISTIANO SLATER MD Unavailable Unavailable CRISTIANO SLATER MD Unavailable Unavailable CRISTIANO SLATER MD Unavailable Unavailable CRISTIANO SLATER MD Unavailable Unavailable CRISTIANO SLATER MD Unavailable Unavailable CRISTIANO SLATER MD Unavailable Unavailable CRISTIANO SLATER MD Unavailable Unavailable CRISTIANO SLATER MD Unavailable Unavailable CRISTIANO SLATER MD Unavailable Unavailable CRISTIANO SLATER MD Unavailable Unavailable CRISTIANO SLATER MD Unavailable Unavailable CRISTIANO SLATER MD Unavailable Unavailable CRISTIANO SLATER MD Unavailable Unavailable CRISTIANO SLATER MD Unavailable Unavailable CRISTIANO SLATER MD Unavailable Unavailable CRISTIANO SLATER MD Unavailable Unavailable CRISTIANO SLATER MD Unavailable Unavailable CRISTIANO SLATER MD Unavailable Unavailable CRISTIANO SLATER MD Unavailable Unavailable CRISTIANO SLATER MD Unavailable Unavailable CRISTIANO SLATER MD Unavailable Unavailable CRISTIANO SLATER MD Unavailable Unavailable CRISTIANO SLATER MD Unavailable Unavailable CRISTIANO SLATER MD Unavailable Unavailable CRISTIANO SLATER MD Unavailable Unavailable CRISTIANO SLATER MD Unavailable Unavailable CRISTIANO SLATER MD Unavailable Unavailable CRISTIANO SLATER MD Unavailable Unavailable CRISTIANO SLATER MD Unavailable Unavailable CRISTIANO SLATER MD Unavailable Unavailable CRISTIANO SLATER MD Unavailable Unavailable CRISTIANO SLATER MD Unavailable Unavailable CRISTIANO SLATER MD Unavailable Unavailable CRISTIANO SLATER MD Unavailable Unavailable CRISTIANO SLATER MD Unavailable Unavailable CRISTIANO SLATER MD Unavailable Unavailable CRISTIANO SLATER MD Unavailable Unavailable CRISTIANO SLATER MD Unavailable Unavailable CRISTIANO SLATER MD Unavailable Unavailable CRISTIANO SLATER MD Unavailable Unavailable CRISTIANO SLATER MD Unavailable Unavailable CRISTIANO SLATER MD Unavailable Unavailable CRISTIANO SLATER MD Unavailable Unavailable CRISTIANO SLATER MD Unavailable Unavailable CRISTIANO SLATER MD Unavailable Unavailable CRISTIANO SLATER MD Unavailable Unavailable CRISTIANO SLATER MD Unavailable Unavailable CRISTIANO SLATER MD Unavailable Unavailable CRISTIANO SLATER MD Unavailable Unavailable CRISTIANO SLATER MD Unavailable Unavailable CRISTIANO SLATER MD Unavailable Unavailable CRISTIANO SLATER MD Unavailable Unavailable CRISTIANO SLATER MD Unavailable Unavailable CRISTIANO SLATER MD Unavailable Unavailable CRISTIANO SLATER MD Unavailable Unavailable CRISTIANO SLATER MD Unavailable Unavailable CRISTIANO SLATER MD Unavailable Unavailable CRISTIANO SLATER MD Unavailable Unavailable CRISTIANO SLATER MD Unavailable Unavailable CRISTIANO SLATER MD Unavailable Unavailable CRISTIANO SLATER MD Unavailable Unavailable CRISTIANO SLATER MD Unavailable Unavailable CRISTIANO SLATER MD Unavailable Unavailable CRISTIANO SLATER MD Unavailable Unavailable CRISTIANO SLATER MD Unavailable Unavailable Alison DEL ANGEL MD Unavailable Unavailable Alison DEL ANGEL MD Unavailable Unavailable Alison DEL ANGEL MD Unavailable Unavailable Alison DEL ANGEL MD Unavailable Unavailable Alison DEL ANGEL MD Unavailable Unavailable Alison DEL ANGEL MD Unavailable Unavailable Alison DEL ANGEL MD Unavailable Unavailable Alison DEL ANGEL MD Unavailable Unavailable BEAN K HÉCTOR COLLINS Unavailable Unavailable BEAN K HÉCTOR COLLINS Unavailable Unavailable BEAN K HÉCTOR COLLINS Unavailable Unavailable BEAN K HÉCTOR COLLINS Unavailable Unavailable BEAN K HÉCTOR COLLINS Unavailable Unavailable BEAN K HÉCTOR COLLINS Unavailable Unavailable BEAN, K HÉCTOR COLLINS Unavailable Unavailable BEAN K HÉCTOR COLLINS Unavailable Unavailable BEAN, K HÉCTOR COLLINS Unavailable Unavailable BEAN K HÉCTOR COLLINS Unavailable Unavailable BEAN K HÉCTOR COLLINS Unavailable Unavailable BEAN, K HÉCTOR COLLINS Unavailable Unavailable BEAN K HÉCTOR COLLINS Unavailable Unavailable BEAN K HÉCTOR COLLINS Unavailable Unavailable BEAN K HÉCTOR COLLINS Unavailable Unavailable BEAN K HÉCTOR COLLINS Unavailable Unavailable BEAN, K HÉCTOR COLLINS Unavailable Unavailable BEAN, K HÉCTOR COLLINS Unavailable Unavailable BEAN, K HÉCTOR COLLINS Unavailable Unavailable BEAN K HÉCTOR COLLINS Unavailable Unavailable BEAN K HÉCTOR COLLINS Unavailable Unavailable BEAN K HÉCTOR COLLINS Unavailable Unavailable BEAN K HÉCTOR COLLINS Unavailable Unavailable BEAN K HÉCTOR COLLINS Unavailable Unavailable BEAN K HÉCTOR COLLINS Unavailable Unavailable BEAN K HÉCTOR COLLINS Unavailable Unavailable BEAN K HÉCTOR COLLINS Unavailable Unavailable BEAN K HÉCTOR COLLINS Unavailable Unavailable BEAN K HÉCTOR COLLINS Unavailable Unavailable BEAN K HÉCTOR COLLINS Unavailable Unavailable Alison DEL ANGEL MD Unavailable Unavailable Alison DEL ANGEL MD Unavailable Unavailable BEAN K HÉCTOR COLLINS Unavailable Unavailable BEAN K HÉCTOR COLLINS Unavailable Unavailable BEAN K HÉCTOR COLLINS Unavailable Unavailable Alison DEL ANGEL MD Unavailable Unavailable Alison DEL ANGEL MD Unavailable Unavailable Alison DEL ANGEL MD Unavailable Unavailable Alison DEL ANGEL MD Unavailable Unavailable Alison DEL ANGEL MD Unavailable Unavailable Alison DEL ANGEL MD Unavailable Unavailable Alison DEL ANGEL MD Unavailable Unavailable Alison DEL ANGEL MD Unavailable Unavailable Alison DEL ANGEL MD Unavailable Unavailable Alison DEL ANGEL MD Unavailable Unavailable Alison DEL ANGEL MD Unavailable Unavailable Alison DEL ANGEL MD Unavailable Unavailable Alison DEL ANGEL MD Unavailable Unavailable Alison DEL ANGEL MD Unavailable Unavailable Alison DEL ANGEL MD Unavailable Unavailable Alison DEL ANGEL MD Unavailable Unavailable Alison DEL ANGEL MD Unavailable Unavailable Alison DEL ANGEL MD Unavailable Unavailable Alison DEL ANGEL MD Unavailable Unavailable Alison DEL ANGEL MD Unavailable Unavailable Alison DEL ANGEL MD Unavailable Unavailable Alison DEL ANGEL MD Unavailable Unavailable Alison DEL ANGEL MD Unavailable Unavailable Alison DEL ANGEL MD Unavailable Unavailable Alison DEL ANGEL MD Unavailable Unavailable Alison DEL ANGEL MD Unavailable Unavailable Alison DEL ANGEL MD Unavailable Unavailable Alison DEL ANGEL MD Unavailable Unavailable Alison DEL ANGEL MD Unavailable Unavailable Alison DEL ANGEL MD Unavailable Unavailable Alison DEL ANGEL MD Unavailable Unavailable Alison DEL ANGEL MD Unavailable Unavailable Alison DEL ANGEL MD Unavailable Unavailable Alison DEL ANGEL MD Unavailable Unavailable Alison DEL ANGEL MD Unavailable Unavailable BEAN, K HÉCTOR COLLINS Unavailable Unavailable Alison DEL ANGEL MD Unavailable Unavailable BEAN K HÉCTOR COLLINS Unavailable Unavailable BEAN K HÉCTOR COLLINS Unavailable Unavailable Alison DEL ANGEL MD Unavailable Unavailable Alison DEL ANGEL MD Unavailable Unavailable Alison DEL ANGEL MD Unavailable Unavailable Alison DEL ANGEL MD Unavailable Unavailable Alison DEL ANGEL MD Unavailable Unavailable Alison DEL ANGEL MD Unavailable Unavailable Alison DEL ANGEL MD Unavailable Unavailable Alison DEL ANGEL MD Unavailable Unavailable Alison DEL ANGEL MD Unavailable Unavailable Alison DEL ANGEL MD Unavailable Unavailable Alison DEL ANGEL MD Unavailable Unavailable Alison DEL ANGEL MD Unavailable Unavailable Alison DEL ANGEL MD Unavailable Unavailable Alison DEL ANGEL MD Unavailable Unavailable Alison DEL ANGEL MD Unavailable Unavailable Alison DEL ANGEL MD Unavailable Unavailable Alison DEL ANGEL MD Unavailable Unavailable Alison DEL ANGEL MD Unavailable Unavailable Alison DEL ANGEL MD Unavailable Unavailable Alison DEL ANGEL MD Unavailable Unavailable Alison DEL ANGEL MD Unavailable Unavailable Alison DEL ANGEL MD Unavailable Unavailable Alison DEL ANGEL MD Unavailable Unavailable Alison DEL ANGEL MD Unavailable Unavailable Alison DEL ANGEL MD Unavailable Unavailable Alison DEL ANGEL MD Unavailable Unavailable CARISSIMI, A ZHEN CNM Unavailable Unavailable CARISSIMI, A ZHEN CNM Unavailable Unavailable CARISSIMI, A ZHEN CNM Unavailable Unavailable CARISSIMI, A ZHEN CNM Unavailable Unavailable CARISSIMI, A ZHEN CNM Unavailable Unavailable CARISSIMI, A ZHEN CNM Unavailable Unavailable CARISSIMI, A ZHEN CNM Unavailable Unavailable CARISSIMI, A ZHEN CNM Unavailable Unavailable CARISSIMI, A ZHEN CNM Unavailable Unavailable CARISSIMI, A ZHEN CNM Unavailable Unavailable CARISSIMI, A ZHEN CNM Unavailable Unavailable CARISSIMI, A ZHEN CNM Unavailable Unavailable CARISSIMI, A ZHEN CNM Unavailable Unavailable CARISSIMI, A ZHEN CNM Unavailable Unavailable CARISSIMI, A ZHEN CNM Unavailable Unavailable CARISSIMI, A ZHEN CNM Unavailable Unavailable CARISSIMI, A ZHEN CNM Unavailable Unavailable CARISSIMI, A ZHEN CNM Unavailable Unavailable CARISSIMI, A ZHEN CNM Unavailable Unavailable CARISSIMI, A ZHEN CNM Unavailable Unavailable DALIA, L MICHAEL CREATIVE SERVICES SPECIALIST Unavailable DALIA, L MICHAEL CREATIVE SERVICES SPECIALIST Unavailable DALIA, L MICHAEL CREATIVE SERVICES SPECIALIST Unavailable DALIA, L MICHAEL CREATIVE SERVICES SPECIALIST Unavailable DALIA, L MICHAEL CREATIVE SERVICES SPECIALIST Unavailable DALIA, L MICHAEL CREATIVE SERVICES SPECIALIST Unavailable DALIA, L MICHAEL CREATIVE SERVICES SPECIALIST Unavailable DALIA, L MICHAEL CREATIVE SERVICES SPECIALIST Unavailable DALIA, L MICHAEL CREATIVE SERVICES SPECIALIST Unavailable DALIA, L MICHAEL CREATIVE SERVICES SPECIALIST Unavailable DALIA, L MICHAEL CREATIVE SERVICES SPECIALIST Unavailable DALIA, L MICHAEL CREATIVE SERVICES SPECIALIST Unavailable DALIA, L MICHAEL CREATIVE SERVICES SPECIALIST Unavailable LETTIERE, A CHRISTIAN PA Unavailable Unavailable LETTIERE, A CHRISTIAN PA Unavailable Unavailable LETTIERE, A CHRISTIAN PA Unavailable Unavailable LETTIERE, A CHRISTIAN PA Unavailable Unavailable LETTIERE, A CHRISTIAN PA Unavailable Unavailable LETTIERE, A CHRISTIAN PA Unavailable Unavailable LETTIERE, A CHRISTIAN PA Unavailable Unavailable LETTIERE, A CHRISTIAN PA Unavailable Unavailable LETTIERE, A CHRISTIAN PA Unavailable Unavailable LETTIERE, A CHRISTIAN PA Unavailable Unavailable LETTIERE, A CHRISTIAN PA Unavailable Unavailable LETTIERE, A CHRISTIAN PA Unavailable Unavailable LETTIERE, A CHRISTIAN PA Unavailable Unavailable LETTIERE, A CHRISTIAN PA Unavailable Unavailable LETTIERE, A CHRISTIAN PA Unavailable Unavailable LETTIERE, A CHRISTIAN PA Unavailable Unavailable LETTIERE, A CHRISTIAN PA Unavailable Unavailable LETTIERE, A CHRISTIAN PA Unavailable Unavailable LETTIERE, A CHRISTIAN PA Unavailable Unavailable LETTIERE, A CHRISTIAN PA Unavailable Unavailable LETTIERE, A CHRISTIAN PA Unavailable Unavailable LETTIERE, A CHRISTIAN PA Unavailable Unavailable LETTIERE, A CHRISTIAN PA Unavailable Unavailable LETTIERE, A CHRISTIAN PA Unavailable Unavailable LETTIERE, A CHRISTIAN PA Unavailable Unavailable LETTIERE, A CHRISTIAN PA Unavailable Unavailable LETTIERE, A CHRISTIAN PA Unavailable Unavailable LETTIERE, A CHRISTIAN PA Unavailable Unavailable LETTIERE, A CHRISTIAN PA Unavailable Unavailable Natalio ORTEGA MD Unavailable Unavailable Natalio ORTEGA MD Unavailable Unavailable Natalio ORTEGA MD Unavailable Unavailable Natalio ORTEGA MD Unavailable Unavailable Natalio ORTEGA MD Unavailable Unavailable Natalio ORTEGA MD Unavailable Unavailable Natalio ORTEGA MD Unavailable Unavailable Natalio ORTEGA MD Unavailable Unavailable DERMADY, KARINA CNM Unavailable Unavailable DERMADY, KARINA CNM Unavailable Unavailable DERMADY, KARINA CNM Unavailable Unavailable DERMADY, KARINA CNM Unavailable Unavailable DERMADY, KARINA CNM Unavailable Unavailable DERMADY, KARINA CNM Unavailable Unavailable DERMADY, KARINA CNM Unavailable Unavailable DERMADY, KARINA CNM Unavailable Unavailable DERMADY, KARINA CNM Unavailable Unavailable DERMADY, KARINA CNM Unavailable Unavailable DERMADY, KARINA CNM Unavailable Unavailable DERMADY, KARINA CNM Unavailable Unavailable DERMADY, KARINA CNM Unavailable Unavailable DERMADY, KARINA CNM Unavailable Unavailable DERMADY, KARINA CNM Unavailable Unavailable DERMADY, KARINA CNM Unavailable Unavailable DERMADY, KARINA CNM Unavailable Unavailable DERMADY, KARINA CNM Unavailable Unavailable DERMADY, KARINA CNM Unavailable Unavailable DERMADY, KARINA CNM Unavailable Unavailable DERMADY, KARINA CNM Unavailable Unavailable FELISHA, VIKI PA Unavailable Unavailable FELISHA, VIKI PA Unavailable Unavailable FELISHA, VIKI PA Unavailable Unavailable FELISHA, VIKI PA Unavailable Unavailable FELISHA, VIKI PA Unavailable Unavailable FELISHA, VIKI PA Unavailable Unavailable FELISHA, VIKI PA Unavailable Unavailable FELISHA, VIKI PA Unavailable Unavailable FELISHA, VIKI PA Unavailable Unavailable FELISHA, VIKI PA Unavailable Unavailable FELISHA, VIKI PA Unavailable Unavailable FELISHA, VIKI PA Unavailable Unavailable FELISHA, VIKI PA Unavailable Unavailable FELISHA, VIKI PA Unavailable Unavailable FELISHA, VIKI PA Unavailable Unavailable FELISHA, VIKI PA Unavailable Unavailable FELISHA, VIKI PA Unavailable Unavailable FELISHA, VIKI PA Unavailable Unavailable FELISHA, VIKI PA Unavailable Unavailable FELISHA, VIKI PA Unavailable Unavailable FELISHA, VIKI PA Unavailable Unavailable FELISHA, VIKI PA Unavailable Unavailable FELISHA, VIKI PA Unavailable Unavailable FELISHA, VIKI PA Unavailable Unavailable FELISHA, VIKI PA Unavailable Unavailable FELISHA, VIKI PA Unavailable Unavailable FELISHA, VIKI PA Unavailable Unavailable FELISHA, VIKI PA Unavailable Unavailable FELISHA, VIKI PA Unavailable Unavailable FELISHA, VIKI PA Unavailable Unavailable FELISHA, VIKI PA Unavailable Unavailable FELISHA, VIKI PA Unavailable Unavailable FELISHA, VIKI PA Unavailable Unavailable FELISHA, VIKI PA Unavailable Unavailable FELISHA, VIKI PA Unavailable Unavailable FELISHA, VIKI PA Unavailable Unavailable FELISHA, VIKI PA Unavailable Unavailable FELISHA, VIKI PA Unavailable Unavailable FELISHA, VIKI PA Unavailable Unavailable TOM THAPA MD Unavailable Unavailable TOM THAPA MD Unavailable Unavailable TOM THAPA MD Unavailable Unavailable TOM THAPA MD Unavailable Unavailable TOM THAPA MD Unavailable Unavailable TOM THAPA MD Unavailable Unavailable TOM THAPA MD Unavailable Unavailable TOM THAPA MD Unavailable Unavailable TOM THAPA MD Unavailable Unavailable TOM THAPA MD Unavailable Unavailable TOM THAPA MD Unavailable Unavailable TOM THAPA MD Unavailable Unavailable TOM THAPA MD Unavailable Unavailable TOM THAPA MD Unavailable Unavailable TOM THAPA MD Unavailable Unavailable TOM THAPA MD Unavailable Unavailable TOM THAPA MD Unavailable Unavailable TOM THAPA MD Unavailable Unavailable TOM THAPA MD Unavailable Unavailable TOM THAPA MD Unavailable Unavailable TOM THAPA MD Unavailable Unavailable TOM THAPA MD Unavailable Unavailable TOM THAPA MD Unavailable Unavailable TOM THAPA MD Unavailable Unavailable TOM THAPA MD Unavailable Unavailable TOM THAPA MD Unavailable Unavailable TOM THAPA MD Unavailable Unavailable TOM THAPA MD Unavailable Unavailable TOM THAPA MD Unavailable Unavailable TOM THAPA MD Unavailable Unavailable TOM THAPA MD Unavailable Unavailable TOM THAPA MD Unavailable Unavailable TOM THAPA MD Unavailable Unavailable TOM THAPA MD Unavailable Unavailable TOM THAPA MD Unavailable Unavailable ALANIS, TOM MD Unavailable Unavailable ALANISTOM MD Unavailable Unavailable ALANIS, TMO MD Unavailable Unavailable ALANISTOM MD Unavailable Unavailable ALANISTOM MD Unavailable Unavailable ALANISTOM MD Unavailable Unavailable ALANISTOM MD Unavailable Unavailable ALANIS, TOM MD Unavailable Unavailable ALANIS TOM MD Unavailable Unavailable ALANIS, TOM MD Unavailable Unavailable ALANISTOM MD Unavailable Unavailable ALANIS, TOM MD Unavailable Unavailable ALANISTOM MD Unavailable Unavailable ALANIS, TOM MD Unavailable Unavailable ALANIS, TOM MD Unavailable Unavailable ALANIS, TOM MD Unavailable Unavailable ALANIS, TOM MD Unavailable Unavailable ALANIS, TOM MD Unavailable Unavailable ALANISTOM MD Unavailable Unavailable ALANIS, TOM MD Unavailable Unavailable ALANISTOM MD Unavailable Unavailable ALANIS, TOM MD Unavailable Unavailable GENARO, JAZMYNE Unavailable Unavailable LOHNES, JANE Unavailable Unavailable MCCRAYKOBE MD Unavailable Unavailable MCCRAYKOBE MD Unavailable Unavailable MCCRAY KOBE MD Unavailable Unavailable MCCRAYKOBE MD Unavailable Unavailable MCCRAYKOBE MD Unavailable Unavailable MCCRAY KOBE MD Unavailable Unavailable MCCRAY KOBE MD Unavailable Unavailable MCCRAY KOBE MD Unavailable Unavailable MCCRAY KOBE MD Unavailable Unavailable MCCRAY KOBE MD Unavailable Unavailable MCCRAY KOBE MD Unavailable Unavailable MCCRAY KOBE MD Unavailable Unavailable MCCRAY KOBE MD Unavailable Unavailable MCCRAY KOBE MD Unavailable Unavailable MCCRAY KOBE MD Unavailable Unavailable MCCRAY KOBE MD Unavailable Unavailable MCCRAY KOBE MD Unavailable Unavailable MCCRAY KOBE MD Unavailable Unavailable MCCRAY, KOBE MD Unavailable Unavailable MCCRAY KOBE MD Unavailable Unavailable MCCRAY KOBE MD Unavailable Unavailable MCCRAY KOBE MD Unavailable Unavailable MCCRAY KOBE MD Unavailable Unavailable MCCRAY KOBE MD Unavailable Unavailable MCCRAY KOBE MD Unavailable Unavailable MCCRAY KOBE MD Unavailable Unavailable MCCRAY, KOBE MD Unavailable Unavailable MCCRAY, KOBE MD Unavailable Unavailable MCCRAY KOBE MD Unavailable Unavailable MCCRAY, KOBE MD Unavailable Unavailable MCCRAY, KOBE MD Unavailable Unavailable MCCRAY KOBE MD Unavailable Unavailable MCCRAY, KOBE MD Unavailable Unavailable MCCRAY, KOBE MD Unavailable Unavailable MCCRAY, KOBE MD Unavailable Unavailable MCCRAY, KOBE MD Unavailable Unavailable MCCRAY, KOBE MD Unavailable Unavailable MCCRAY, KOBE MD Unavailable Unavailable MCCRAY, KOBE MD Unavailable Unavailable MCCRAY, KOBE MD Unavailable Unavailable MCCRAY, KOBE MD Unavailable Unavailable MCCRAY, KOBE MD Unavailable Unavailable MCCRAY, KOBE MD Unavailable Unavailable MCCRAY, KOBE MD Unavailable Unavailable MCCRAY, KOBE MD Unavailable Unavailable MCCRAY, KOBE MD Unavailable Unavailable MCCRAY, KOBE MD Unavailable Unavailable MCCRAY, KOBE MD Unavailable Unavailable MCCRAY, KOBE MD Unavailable Unavailable MCCRAY, KOBE MD Unavailable Unavailable MCCRAY, KOBE MD Unavailable Unavailable MCCRAY, KOBE MD Unavailable Unavailable MCCRAY, KOBE MD Unavailable Unavailable MCCRAY, KOBE MD Unavailable Unavailable MCCRAY, KOBE MD Unavailable Unavailable MCCRAY, KOBE MD Unavailable Unavailable MCCRAY, KOBE MD Unavailable Unavailable MCCRAY, KOBE MD Unavailable Unavailable MCCRAY, KOBE MD Unavailable Unavailable MCCRAY, KOBE MD Unavailable Unavailable MCCRAY, KOBE MD Unavailable Unavailable MCCRAY, KOBE MD Unavailable Unavailable MCCRAY, KOBE MD Unavailable Unavailable MCCRAY, KOBE MD Unavailable Unavailable MCCRAY, KOBE MD Unavailable Unavailable MCCRAY, KOBE MD Unavailable Unavailable MCCRAY, KOBE MD Unavailable Unavailable MCCRAY, KOBE MD Unavailable Unavailable MCCRAY, KOBE MD Unavailable Unavailable ABDALLAH, HADEEL Unavailable Unavailable JULY, 0000{ Unavailable Unavailable Re-disclosure Warning The records that you are about to access may contain information from federally-assisted alcohol or drug abuse programs. If such information is present, then the following federally mandated warning applies: This information has been disclosed to you from records protected by federal confidentiality rules (42 CFR part 2). The federal rules prohibit you from making any further disclosure of this information unless further disclosure is expressly permitted by the written consent of the person to whom it pertains or as otherwise permitted by 42 CFR part 2. A general authorization for the release of medical or other information is NOT sufficient for this purpose. The Federal rules restrict any use of the information to criminally investigate or prosecute any alcohol or drug abuse patient.The records that you are about to access may contain highly sensitive health information, the redisclosure of which is protected by Article 27-F of the [place] State Public Health law. If you continue you may have access to information: Regarding HIV / AIDS; Provided by facilities licensed or operated by the [facility] Office of Mental Health; or Provided by the [facility] Office for People With Developmental Disabilities. If such information is present, then the following [facility] mandated warning applies: This information has been disclosed to you from confidential records which are protected by state law. State law prohibits you from making any further disclosure of this information without the specific written consent of the person to whom it pertains, or as otherwise permitted by law. Any unauthorized further disclosure in violation of state law may result in a fine or retirement sentence or both. A general authorization for the release of medical or other information is NOT sufficient authorization for further disc losure. Family History Family Member Name Family Member Gender Family Member Status Date o f Status Description Data Source(s) Unknown Female Problem MEDENT ([facility]) Unknown Female Problem MEDENT ([facility]) Unknown Female Problem MEDENT ([facility]) Encounters Encounter Providers Location Date Indications Data Source(s ) Outpatient Attender: HALIE SLATER MD 03/04/2021 12:00:00 A M [facility] Outpatient Attender: CHRISTIAN Mckeon kika 12/24/2020 04:10:00 PM EST MEDENT ([facility] Outpatient Attender: CHRISTIAN Preston Prim kika 12/23/2020 03:35:00 PM EST MEDENT ([facility]) Kenzie Maza PA-C: [address] [place] [address], Ph. Attender: Kenzie MCKEON [facility] Medical 11/06/2020 12:00:00 AM EST KRISTOPHER ([facility]) Kenzie Maza PA-C: [address], [place] [address], Ph. Attender: Kenzie MCKEON [facility] Medical 10/17/2020 12:00:00 AM EST KRISTOPHER ([facility]) Kenzie Maza PA-C: [address] [place] [phone], Ph. Attender: Kenzie MCKEON NM - [facility] Medical 10/17/2020 12:00:00 AM EST KRISTOPHER ([facility]) Outpatient Attender: HALIE SLATER MDReferrer: KOBE MCCRAY MD [id number] 08/27/2020 12:00:00 AM EDT Sicca syndrome, unspecified [facility] Sicca syndrome, unspecified Outpatient Attender: ROGELIO VANG 06/30/2020 12:02:08 AM EDT [facility] Outpatient Attender: VKII wild 06/19/2020 01:10:00 PM EDT MEDENT ([facility] Outpatient Attender: ROGELIO VANG 06/04/2020 03:59:00 PM EDT [facility] Outpatient Attender: ZHEN GILMORE CNMReferrer: Tamara Feldman NP, CN [id number] 05/19/2020 12:00:00 AM EDT - 05/19/2020 02:00:28 PM ED T Encounter for routine follow-up [facility] Encounter for routine follow- up Outpatient Attender: MARY MOCK NPReferrer: Jazmin Feldman NP, CN [id number] 04/14/2020 12:00:00 AM EDT - 04/14/2020 03:13:17 PM EDT [facility] Outpatient Attender: ROGELIO VANG 04/08/2020 07:36:28 PM EDT [facility] Inpatient Attender: LEON ORTEGA MD 04/03/2020 08:58:27 AM EDT [facility] Inpatient Attender: HÉCTOR DEL ANGEL MDAdmitter: HÉCTOR MARTIN MD 04/03/2020 07:36:00 AM EDT - 04/07/2020 01:37:00 PM EDT INDUCTION OF LABOR [facility] INDUCTION OF LABOR Patient discharged. Outpatient Attender: ROGELIO VANG 03/29/2020 12:10:48 AM EDT [facility] Outpatient Attender: MARY MOCK NPReferrer: Jazmin Feldman NP, CN [id number] 03/26/2020 12:00:00 AM EDT - 03/26/2020 01:43:29 PM ED T Sicca syndrome, unspecified [facility] Sicca syndrome, unspecified Outpatient Attender: TRISTIAN CAAL 03/26/2020 12:00:00 A M [facility] Outpatient 03/26/2020 12:00:00 AM [facility] Outpatient Attender: ZHEN GILMORE CNMReferrer: Tamara Feldman NP, CN [id number] 03/21/2020 12:00:00 AM T - 03/21/2020 10:45:56 AM [facility] Outpatient Attender: KARINA WILLOUGHBYAttender: JANE Lance 03/21/2020 12:00:00 AM [facility] Outpatient 03/21/2020 12:00:00 AM [facility] Outpatient Attender: ZHEN GILMORE CNMReferrer: Tamara Feldman NP, [facility] [id number] 03/19/2020 12:00:00 AM T - 03/20/2020 12:00:00 AM [facility] Outpatient Attender: TRISTIAN CAAL 03/19/2020 12:00:00 A M [facility] Outpatient 03/19/2020 12:00:00 AM [facility] Outpatient Attender: ZHEN GILMORE CNMReferrer: Tamara Feldman NP, [facility] [id number] 03/12/2020 12:00:00 AM EDT - 03/12/2020 01:56:58 PM ED T Other specified related conditions, third trimester [facility] Other specified related condit ions, third trimester Outpatient Attender: KARINA WILLOUGHBY 03/12/2020 12:00:00 AM [facility] Outpatient 03/12/2020 12:00:00 AM [facility] Outpatient Attender: MARY MOCK NPReferrer: Jazmin Feldman NP, CN [id number] 03/05/2020 12:00:00 AM EDT - 03/06/2020 12:00:00 AM [facility] Outpatient Attender: TRISTIAN CAAL 03/05/2020 12:00:00 A M [facility] Outpatient 03/05/2020 12:00:00 AM [facility] Outpatient Attender: KARINA Wright NMAttender: MARY MOCK NPReferrer: Tamara Feldman NP, [facility] [id number] 02/27/2020 12:00:00 AM EDT - 02/27/2020 01:38:03 PM EDT Sicca syndrome, unspecified [facility] Sicca syndrome, unspecified Outpatient Attender: TRISTIAN CAAL 02/27/2020 12:00:00 A M [facility] Outpatient 02/27/2020 12:00:00 AM [facility] Outpatient Attender: ROGELIO VANG 02/25/2020 01:58:00 PM EDT [facility] Outpatient Attender: MARY MOCK NPReferrer: Jazmin Feldman NP, [facility] [id number] 02/20/2020 12:00:00 AM EDT - 02/20/2020 01:29:04 PM [facility] Outpatient Attender: JANE HERNANDESAttender: JONY NUÑEZ 02/20/2020 12:00:00 AM EDT Sicca syndrome, unspecified [facility] Sicca syndrome, unspecified Outpatient 02/20/2020 12:00:00 AM [facility] Outpatient Attender: ZHEN GILMORE CNMReferrer: Tamara Feldman NP, [facility] [id number] 02/13/2020 12:00:00 AM EDT - 02/13/2020 01:47:05 PM ED T Other specified related conditions, unspecified trimester [facility] Other specified related condit ions, unspecified trimester Outpatient Attender: TRISTIAN CAAL 02/13/2020 12:00:00 A M [facility] Outpatient 02/13/2020 12:00:00 AM [facility] Outpatient Attender: MICHAEL GÓMEZ NPReferrer: Tamara eFldman NP, C[facility] [id number] 02/07/2020 12:00:00 AM EDT - 02/07/2020 02:50:40 PM EDT Anemia complicating , third trimester [facility] Anemia complicating , third tri [facility] Outpatient Attender: KARINA WILLOUGHBYAttender: JAZMYNE LAM 02/07/2020 12:00:00 AM EDT [facility] Outpatient 02/07/2020 12:00:00 AM T [facility] Outpatient Attender: ZHEN GILMORE CNMReferrer: Tamara Feldman NP, [facility] [id number] 01/23/2020 12:00:00 AM EDT - 01/23/2020 03:02:22 PM ED T Unspecified asthma, uncomplicated [facility] Unspecified asthma, uncomplicated Outpatient Attender: ROGELIO MERCADO FP 01/14/2020 10:28:01 AM EDT [facility] Outpatient Attender: MARY MOCK NPReferrer: Jazmin Feldman NP, [facility] [id number] 01/09/2020 12:00:00 AM EDT - 01/09/2020 02:32:41 PM ED T Other specified related conditions, unspecified trimester [facility] Other specified related condit ions, unspecified trimester Outpatient Attender: TRISTIAN CAAL 01/09/2020 12:00:00 A M [facility] Outpatient Attender: ROGELIO VANG 12/27/2019 02:53:01 PM [facility] Outpatient Attender: ZHEN GILMORE CNMReferrer: Tamara Feldman NP, [facility] [id number] 12/19/2019 12:00:00 AM EST - 12/19/2019 01:51:09 PM ES T Sicca syndrome, unspecified [facility] Sicca syndrome, unspecified Outpatient 12/13/2019 01:36:00 PM [facility] Outpatient Attender: HALIE SLATER MD 12/03/2019 12:00:00 A M [facility] Outpatient Attender: ZHEN GILMORE CNMReferrer: Tamara Feldman NP, [facility] [id number] 11/28/2019 12:00:00 AM EST - 11/28/2019 03:32:17 PM ES T Gastro- esophageal reflux disease without esophagitis [facility] Gastro-esophageal reflux disease without esophagitis Outpatient Attender: JANE HERNANDES 11/28/2019 12:00:00 AM E 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 [facility] ARNOLD-CHIARI SYNDROME WITHOUT SPINA BIF KYUNG OR HYDROCEPHALUS Outpatient Attender: Sangita Sanchez DOPE AND FABRIC WORKER-BC FP 11/07/2019 01: 47:03 PM EST [facility] Outpatient Attender: HÉCTOR DEL ANGEL MDReferrer: Ying Feldman CREATIVE SERVICES SPECIALIST, [facility] [id number] 11/06/2019 12:00:00 AM EST - 11/06/2019 01:35:45 PM ES T Other specified abnormal immunological findings in [facility] Other specified abnormal immunological f indings in serum Outpatient Attender: JANE HERNANDES 11/06/2019 12:00:00 AM E [facility] Immunizations Vaccine Date Status Description Data Source(s) New in 2012. IIV4 03/04/2020 12:00:00 AM EDT completed 03/04/20 20 [facility]) New in 2012. IIV4 03/04/2020 12:00:00 AM EDT completed 03/04/20 20 [facility]) New in 2011. IIV4 02/07/2020 12:00:00 AM EDT completed In fluenza Quad IM Pres Free (0.5 mL dose) 02/07/2020 [facility] Tdap 02/07/2020 12:00:00 AM EDT completed Tdap 02/07/2020, 07/30/2014 [facility] Medications Medication Brand Name Start Date Product Form Dose Route Admi nistrative Instructions Pharmacy Instructions Status Indications Reaction Description Data Source(s) Fluconazole 150 MG Oral Tablet Fluconazole 12/23/2020 12:00:00 AM EST ORAL active MEDENT ([facility]) Phenazopyridine hydrochloride 200 MG Delayed Release O ral Tablet Phenazopyridine HCL 12/23/2020 12:00:00 AM EST ORAL active MEDENT ([facility]) NITROFURANTOIN, MACROCRYSTALS 25 MG / Ni trofurantoin, Monohydrate 75 MG Oral Capsule [Macrobid] Macrobid 12/23/2020 12:00:00 AM EST ORAL active MEDENT ([facility]) Prednisone 5 MG Oral Tablet predniSONE 5 MG Oral Table t (DELTASONE) predniSONE 5 MG Oral Tablet (DELTASONE) 08/27/2020 12:00:00 AM EDT 5 mg Oral active Take 1 tablet by mouth daily [facility] Permethrin 50 MG/ML Topical Cream Permethrin 06/19/2020 12:00:00 AM EDT active MEDENT ([facility]) Albuterol Sulfate HFA 108 (90 Base) MCG/ ACT Inhalation Aerosol Solution (PROVENTIL HFA) 6247-9814-33 03/26/2020 12:00:00 AM EDT active [facility] ferrous sulfate 325 MG Oral Tablet Ferrous Sulfate 325 (65 Fe) MG Oral Tablet Ferrous Sulfate 325 (65 Fe) MG Oral Tablet 02/07/2020 12:00:00 AM EDT 325 mg Oral active Anemia affecting in third trimester Take 1 tablet by mouth daily [facility] Anemia affecting in third trim emily Ascorbic Acid 500 MG Oral Tablet Vitamin C 500 MG Oral Tablet (ASCORBIC ACID) Vitamin C 500 MG Oral Tablet (ASCORBIC ACID) 02/07/2020 12:00:00 AM EDT 500 mg Oral active Anemia affecting in third trimester Take 1 tablet by mouth daily [facility] Anemia affecting in third trim emily Albuterol 0.83 MG/ML Inhalant Solution A lbuterol Sulfate (2.5 MG/3ML) 0.083% Inhalation Nebulization Solution Albuterol Sulfate (2.5 MG/3ML) 0.083% Inhalation Nebulization Solution 01/24/2020 12:00:00 AM EDT 2.5 mg Nebulization active Asthma, unspecif ied asthma severity, unspecified whether complicated, unspecified whether persistent Take 3 mL s by nebulization every 6 (six) hours as needed for Wheezing or Shortness of Breath [facility] Asthma, unspecified asthma severity, uns pecified whether complicated, unspecified whether persistent 200 ACTUAT Albuterol 0.09 MG/ACTUAT Dry Powder Inhaler Albuterol Sulfate 108 (90 Base) MCG/ACT Inhalation Aerosol Powder Breath Activated Albuterol Sulfate 108 (90 Base) MCG/ACT Inhalation Aerosol Powder Breath Activated 01/23/2020 12:00:00 AM EDT 2 {puff} Inhalation active 28 weeks gestation of pregnancyAsthma, unspecified asthma severity, unspecified whether complicated, unspecified whether persistent Inhale 2 puffs into the lung s every 6 (six) hours as needed [facility] 28 weeks gestation of Asthma, unspecified asthma severity, uns pecified whether complicated, unspecified whether persistent Wrist Brace/Left Medium [id number] 01/09/2020 12:00:00 AM EDT aborted Carpal tunnel syndrome during Use as d irected. O26.899 [facility] Carpal tunnel syndrome during Ondansetron 4 MG Oral Tablet Ondansetron HCl 4 MG Oral Tablet (ZOFRAN) Ondansetron HCl 4 MG Oral Tablet (ZOFRAN) 01/09/2020 12:00:00 AM EDT 4 mg Oral active Multigravida of advanced maternal age in second trimesterSjogren's syndrome, with unspecified organ involvement Take 1 ta blet by mouth every 8 (eight) hours as needed for Nausea [facility] Multigravida of advanced maternal age in second trimester Sjogren's syndrome, with unspecified org an involvement Wrist Brace/Right Medium [id number] 01/09/2020 12:00:00 AM EDT aborted Carpal tunnel syndrome during Use as d irected. O26.899 [facility] Carpal tunnel syndrome during Omeprazole 20 MG Delayed Release Oral Ca psule Omeprazole 20 MG Oral Capsule Delayed Release (PriLOSEC) Omeprazole 20 MG Oral Capsule Delayed Re lease (PriLOSEC) 11/28/2019 12:00:00 AM EST 20 mg Oral ac tive Gastroesophageal reflux disease without esophagitisMultigravida of advanced maternal age in second trimester Take 1 capsule by mouth daily [facility] Gastroesophageal reflux disease without esophagitis Multigravida of advanced maternal age in second trimester Aspirin 81 MG Delayed Release Oral Table t Aspirin EC 81 MG Oral Tablet Delayed Release Aspirin EC 81 MG Oral Tablet Delayed Release 11/06/2019 12:0 0:00 AM EST 81 mg Oral active Take 1 tablet by mouth daily [facility] Hydroxychloroquine Sulfate 200 MG Oral T ablet hydroxychloroquine (PLAQUENIL) 200 MG tablet hydroxychloroquine (PLAQUENIL) 200 MG tablet 12:00:00 AM EDT 200 mg Oral active Take 1 tablet by mouth Two Times Daily [facility] Aspirin 81 MG Delayed Release Oral Tablet aspirin EC 8 1 MG EC tablet aspirin EC 81 MG EC tablet 11/06/2018 12:00:00 AM EST 81 mg Oral ac tive Take 1 tablet by mouth daily [facility] ferrous sulfate 324 mg (65 mg iron) tablet,delayed release [id number] completed ferrous sulfate 324 MG Delayed R elease Oral Tablet [place] ([facility]) Omeprazole 20 MG Delayed Release Oral Ca psule omeprazole 20 mg capsule,delayed release TAKE 1 CAPSULE BY MOUTH ONCE DAILY omeprazole 20 mg capsule,delayed release TAKE 1 CAPSULE BY MOUTH ONCE DAILY completed omeprazole 20 MG Delayed Release Oral Capsule [facility]) Oseltamivir 75 MG Oral Capsule oseltamivir 75 mg capsu le oseltamivir 75 mg capsule completed oseltamivir 75 MG Oral Capsule [place] ([facility]) Ondansetron 4 MG Oral Tablet ondansetron HCl 4 mg tabl et ondansetron HCl 4 mg tablet completed ondansetron 4 M G Oral Tablet [place] ([facility]) Oseltamivir 75 MG Oral Capsule oseltamivir 75 mg capsu le oseltamivir 75 mg capsule completed oseltamivir 75 MG Oral Capsule [place] ([facility]) Oxycodone Hydrochloride 5 MG Oral Tablet oxycodone 5 m g tablet oxycodone 5 mg tablet completed oxycodone hydro chloride 5 MG Oral Tablet [place] ([facility]) Prednisone 5 MG Oral Tablet prednisone 5 mg tablet TAKE 1 TABLET BY MOUTH ONCE DAILY prednisone 5 mg tablet TAKE 1 TABLET BY MOUTH ONCE DAILY completed prednisone 5 MG Oral Tablet [facility]) Oxycodone Hydrochloride 5 MG Oral Tablet oxycodone 5 m g tablet oxycodone 5 mg tablet completed oxycodone hydro chloride 5 MG Oral Tablet [place] ([facility]) Ondansetron 4 MG Oral Tablet ondansetron HCl 4 mg tabl et ondansetron HCl 4 mg tablet completed ondansetron 4 M G Oral Tablet [place] ([facility]) Prednisone 5 MG Oral Tablet prednisone 5 mg tablet TAKE 1 TABLET BY MOUTH ONCE DAILY prednisone 5 mg tablet TAKE 1 TABLET BY MOUTH ONCE DAILY completed prednisone 5 MG Oral Tablet [place] ([facility]) ferrous sulfate 324 mg (65 mg iron) tablet,delayed release [id number] completed ferrous sulfate 324 MG Delayed R elease Oral Tablet [facility] ([facility]) Omeprazole 20 MG Delayed Release Oral Ca psule omeprazole 20 mg capsule,delayed release TAKE 1 CAPSULE BY MOUTH ONCE DAILY omeprazole 20 mg capsule,delayed release TAKE 1 CAPSULE BY MOUTH ONCE DAILY completed omeprazole 20 MG Delayed Release Oral Capsule [facility] ([facility]) Insurance Providers Payer name Policy type / Coverage type Policy ID Covered alliance party ID Covered alliance party's relationship to littlejhon Policy [place] Plan Information [facility] MCDO [id number] SP [id number] [facility] I [id number] Self [id number] Medicaid S [id number] S [id number] Managed Care - [facility] Community Plan P [id number] S [id number] MEDICAID GME [id number] S [id number] [facility] HEA [id number] S [id number] [facility]) O [id number] S [id number] [facility] MCDO [id number] SP [id number] MEDICAID [id number] SP [id number] Medicaid S [id number] S [id number] Self Pay O UNAVAILABLE S UNAVAILA BLE Medicaid P [id number] S [id number] Managed Care BCBS P [id number] S [id number] [facility] Health Maintenance Organization (HMO) [id number] Self [id number] [facility] Health Maintenance Organization (HMO) [id number] Self [id number] [facility] MCDO [id number] SP [id number] MEDICAID M [id number] S [id number] [facility] MCDO [id number] SP [id number] [facility] Health Maintenance Organization (HMO) [id number] Self [id number] [facility] Health Maintenance Organization (HMO) [id number] Self [id number] [facility] I [id number] Self [id number] [facility] Community Plan Medicaid [id number] Self [id number] [facility] MC [id number] 18 [id number] [employer] COMMUNITY PLAN MCDHMO [id number] SP [id number] [facility] Community Plan Medicaid [id number] Self [id number] [facility] Community Plan Medicaid Self [facility] [facility]) Self UHC Medicare Comm Plan F [id number] SELF [id number] UNHC COMMUNITY PLAN MCDHMO [id number] SP [id number] MEDICAID W [id number] O [id number] Medicaid [facility]SC Healthcare S D [id number] SELF [id number] UHC COMM PLAN EVAN W [id number] S [id number] UNHC AMERICHOICE XIX -HMO [id number] 18 [id number] MEDICAID GME W [id number] S [id number] UHC COMM PLAN FHP W [id number] S [id number] MEDICAID M [id number] Self [id number] MEDICAID M [id number] Self [id number] UH I [id number] Self [id number] UH I [id number] Self [id number] UNHC XIX HMO-CLINIC [id number] 18 [id number] BLUE DRIFT[employer] BLUE 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-CLINIC [id number] Problems, Conditions, and Diagnoses Code Display Name Description Problem Type Effective Dates Data Source(s) 450833835 Arthropathy Arthropathy Problem 10/17/2020 12:00:00 AM HELEN SUMMERS ([facility]) [id number] Arthropathy Arthropathy Problem 10/17/2020 12:00:00 AM HELEN SUMMERS ([facility]) [id number] Asthma Asthma Problem 08/14/2020 05:52:55 PM ED T KRISTOPHER ([facility]) [id number] Asthma Asthma Problem 08/14/2020 05:52:55 PM ED T KRISTOPHER ([facility]) [id number] Clinical finding Clinical Finding Problem 12:00:00 AM EDT - 10/17/2020 12:00:00 AM HELEN SUMMERS ([facility] er) [id number] Acute maxillary sinusitis Acute Maxillary Sinusitis Pr oblem 08/22/2019 12:00:00 AM EDT - 10/17/2020 12:00:00 AM HELEN SUMMERS ([facility]) [id number] Clinical finding Clinical Finding Problem 019 12:00:00 AM EDT - 10/17/2020 12:00:00 AM EST KRISTOPHER ([facility]) [id number] Acute maxillary sinusitis Acute Maxillary Sinusitis Pr oblem 08/22/2019 12:00:00 AM EDT - 10/17/2020 12:00:00 AM EST KRISTOPHER ([facility]) [id number] Procedure by method Procedure by Method Problem 0 07/27/2019 12:00:00 AM EDT - 10/17/2020 12:00:00 AM EST KRISTOPHER ([facility]) [id number] Dysuria Dysuria Problem 07/27/2019 12:0 0:00 AM EDT - 10/17/2020 12:00:00 AM EST KRISTOPHER ([facility]) [id number] Procedure by method Procedure by Method Problem 0 07/27/2019 12:00:00 AM EDT - 10/17/2020 12:00:00 AM EST KRISTOPHER ([facility]) [id number] Dysuria Dysuria Problem 07/27/2019 12:0 0:00 AM EDT - 10/17/2020 12:00:00 AM EST KRISTOPHER ([facility]) [id number] Clinical finding Clinical Finding Problem 013 12:00:00 AM EST - 10/17/2020 12:00:00 AM EST KRISTOPHER ([facility]) [id number] Clinical finding Clinical Finding Problem 013 12:00:00 AM EST - 10/17/2020 12:00:00 AM EST KRISTOPHER ([facility]) Z39.2 Encounter for routine follow- up Encounter for routine follow-up Diagnosis 05/19/2020 01:09:21 PM [facility] O40.9XX0 Polyhydramnios, unspecified trimester, n ot applicable or unspecified Polyhydramnios, unspecified trimester, not applicable or unspecified Diagnosis 03/26/2020 12:09:08 PM [facility] O09.529 Supervision of elderly multigravida, uns pecified trimester Supervision of elderly multigravida, unspecified trimester Diagnosis 020 12:09:08 PM [facility] O12.10 Gestational proteinuria, unspecified tri mester Gestational proteinuria, unspecified trimester Diagnosis 03/12/2020 12:11:35 PM EDT [facility] R51 Headache Headache Diagnosis 03/12/2020 12:11:35 PM ED [facility] O26.893 Other specified related condit ions, third trimester Other specified related conditions, third trimester Diagnosis 03/12/2020 12:11:35 PM [facility] D69.6 Thrombocytopenia, unspecified Thrombocytopenia, unspec ified Diagnosis 03/06/2020 11:00:35 AM [facility] O99.119 Other diseases of the blood and blood-forming organs and certain disorders involving the immune mechanism complicating , unspecified trimester Other diseases of the blood and blood-fo rming organs and certain disorders involving the immune mechanism complicating , unspecified trimester Diagnosis 03/06/2020 11:00:35 AM [facility] Z34.90 Encounter for supervision of normal , unspecified, unspecified trimester Encounter for supervision of normal preg tiburcio, unspecified, unspecified trimester Diagnosis 02/13/2020 12:15:56 PM T [facility] O36.63X0 Maternal care for excessive growth, third trimester, not applicable or unspecified Maternal care for excessive growth , third trimester, not applicable or unspecified Diagnosis 02/07/2020 02:40:01 PM [facility] O99.013 Anemia complicating , third tri mester Anemia complicating , third trimester Diagnosis 02/07/2020 01:08:47 PM EDT [facility] J45.909 Unspecified asthma, uncomplicated Unspecified as thma, uncomplicated Diagnosis 01/23/2020 02:46:06 PM [facility] E03.9 Hypothyroidism, unspecified Hypothyroidism, unspecifie d Diagnosis 01/23/2020 01:53:46 PM [facility] O99.280 Endocrine, nutritional and m etabolic diseases complicating , unspecified trimester Endocrine, nutritional and metabolic dis eases complicating , unspecified trimester Diagnosis 01/23/2020 01:53:46 PM [facility] Z3A.28 28 weeks gestation of 28 weeks gestati on of Diagnosis 01/23/2020 01:53:46 PM EDT [facility] G56.00 Carpal tunnel syndrome, unspecified uppe r limb Carpal tunnel syndrome, unspecified upper limb Diagnosis 01/09/2020 02:26:51 PM EDT [facility] O26.899 Other specified related condit ions, unspecified trimester Other specified related conditions, unspecified trimester Diagnosis 01/09/2020 02:26:51 PM [facility] K21.9 Gastro-esophageal reflux disease without esophagitis Gastro-esophageal reflux disease without esophagitis Diagnosis 11/28/2019 12:33:38 PM [facility] O09.522 Supervision of elderly multigravida, sec ond trimester Supervision of elderly multigravida, second trimester Diagnosis 11/06/2019 01:25:36 P M [facility] Surgeries/Procedures Procedure Description Date Indications Data Source(s) US, thyroid 10/17/2020 12:00:00 AM EST A THENA ([facility]) US, thyroid 10/17/2020 12:00:00 AM EST A THENA ([facility]) Bilateral Tubal Ligation 04/04/2020 12:00:00 AM EDT KRISTOPHER ([facility]) Bilateral Tubal Ligation 04/04/2020 12:00:00 AM EDT [place] ([facility]) 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 CAR 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 ULTRASOUND ORDER (IN OFFICE) MONITOR CAR OPERATOR ULTRASOUND ORDER (IN OFFICE) Routine 02/20/2020 3:08 PM EDT Sjogren's syndrome, with unspecified organ involvement 02/20/2020 07:08:02 PM EDT Sjogren's syndrome, with unspecified organ involvement [facility] Sjogren's syndrome, with unspecified org an involvement Results ID Date Data Source [id number] 12/23/2020 06:27:00 PM EST MEDENT ([facility]) Name Value Range Interpretation Code Description Data Kelli rce(s) Supporting Document(s) Bacteria identified in Urine by Culture Laboratory test result MEDENT ([facility]) Rx Macrobid/pyridium/fluconazole ID Date Data Source [id number] 10/17/2020 02:30:00 PM EST KRISTOPHER [facility]) Name Value Range Interpretation Code Description Data Kelli rce(s) Supporting Document(s) ferritin 10 NG/mL 8-252 normal Ferritin KRISTOPHER ([facility]) ID Date Data Source [id number] 10/17/2020 02:30:00 PM EST KRISTOPHER ([facility]) Name Value Range Interpretation Code Description Data Kelli rce(s) Supporting Document(s) total 25(oh) vitamin D 20.9 NG/mL 30.0-100.0 Below low normal T otal 25(Oh) Vitamin D KRISTOPHER ([facility]) ID Date Data Source [id number] 10/17/2020 02:30:00 PM EST KRISTOPHER ([facility]) Name Value Range Interpretation Code Description Data Kelli rce(s) Supporting Document(s) free T4 0.93 NG/dL 0.76-1.46 normal Free T4 KRISTOPHER ([facility]) thyroid stimulating hormone 2.630 uIU/mL 0.358-3.740 normal Thyroid Stimulating Hormone [place] ([facility]) ID Date Data Source [id number] 10/17/2020 02:30:00 PM EST KRISTOPHER ([facility]) Name Value Range Interpretation Code Description Data Kelli rce(s) Supporting Document(s) percent saturation 12.0 % 13.2-45.0 Below low normal Percent Sat uration KRISTOPHER ([facility]) total iron binding capacity 393 ug/dL 250-450 normal Total Iron Binding Capacity KRISTOPHER ([facility]) iron (fe) 47 ug/dL 50-170 Below low normal Iron (Fe) [place] ( [facility]) ID Date Data Source [id number] 10/17/2020 02:30:00 PM EST KRISTOPHER ([facility]) Name Value Range Interpretation Code Description Data Kelli rce(s) Supporting Document(s) glucose, fasting 103 mg/dL 70-100 Above high normal Glucose, Fas ting KRISTOPHER ([facility]) blood urea nitrogen 13 mg/dL 7-18 normal Blood Urea Nitro gen KRISTOPHER ([facility]) creatinine for GFR 1.06 mg/dL 0.55-1.30 normal Creatinine for GF R KRISTOPHER ([facility]) sodium level 140 mEq/L 136-145 normal Sodium Level KRISTOPHER ([facility]) glomerular filtration rate > 60.0 >60 normal Glomerula r Filtration Rate KRISTOPHER ([facility]) potassium serum 4.0 mEq/L 3.5-5.1 normal Potassium Serum ATHE NA ([facility]) carbon dioxide level 29 mEq/L 21-32 normal Carbon Dioxide Level KRISTOPHER ([facility]) chloride level 104 mEq/L 98-107 normal Chloride Level KRISTOPHER ([facility]) anion gap 7 mEq/L 8-16 Below low normal Anion Gap KRISTOPHER ( [facility]) calcium level 8.8 mg/dL 8.5-10.1 normal Calcium Level KRISTOPHER ( [facility]) AST/SGOT 9 U/L 7-37 normal AST/SGOT KRISTOPHER ([facility]) ALT/SGPT 23 U/L 12-78 normal ALT/SGPT KRISTOPHER ([facility]) bilirubin,total 0.5 mg/dL 0.2-1.0 normal Bilirubin,total ATHE ([facility]) albumin 3.8 gm/dL 3.2-5.2 normal Albumin KRISTOPHER ([facility]) alkaline phosphatase 59 U/L 45-117 normal Alkaline Phosph atase KRISTOPHER ([facility]) total protein 7.8 gm/dL 6.4-8.2 normal Total Protein KRISTOPHER ( [facility]) albumin/globulin ratio 1.2-2.2 Below low normal Albumin /globulin Ratio KRISTOPHER ([facility]) ID Date Data Source [id number] 10/17/2020 02:30:00 PM EST KRISTOPHER ([facility]) Name Value Range Interpretation Code Description Data Kelli rce(s) Supporting Document(s) white blood count 7.8 10 4.0-10.0 normal White Blood Count KRISTOPHER ([facility]) hemoglobin 12.7 g/dL 12.0-15.5 normal Hemoglobin KRISTOPHER ([facility]) red blood count 5.26 10 4.00-5.40 normal Red Blood Count ATHE NA ([facility]) mean corpuscular hemoglobin 24.1 pg 27.0-33.0 Below low nor mal Mean Corpuscular Hemoglobin KRISTOPHER ([facility]) hematocrit 41.9 % 36.0-47.0 normal Hematocrit KRISTOPHER ([facility]) mean corpuscular volume 79.7 fL 80.0-96.0 Below low normal Mean Corpuscular Volume KRISTOPHER ([facility]) mean corpuscular HGB conc 30.3 g/dL 32.0-36.5 Below low spike l Mean Corpuscular HGB Conc KRISTOPHER ([facility]) neutrophils % 61.2 % 36.0-66.0 normal Neutrophils % KRISTOPHER ( [facility]) platelet count, automated 188 10 150-450 normal Platelet C ount, Automated KRISTOPHER ([facility]) red cell distribution width 14.6 % 11.5-14.5 Above high no rmal Red Cell Distribution Width KRISTOPHER ([facility]) lymph % 26.1 % 24.0-44.0 normal Lymph % KRISTOPHER ([facility]) mono % 9.2 % 0.0-5.0 Above high normal [place] % KRISTOPHER ([facility]) immature granulocyte % 0.3 % 0-3.0 normal Immature Gran ulocyte % KRISTOPHER ([facility]) eos % 2.4 % 0.0-3.0 normal Eos % KRISTOPHER ([facility]) baso % 0.8 % 0.0-1.0 normal Baso % KRISTOPHER ([facility]) nucleated red blood cell % 0.0 % 0-0 normal Nucleated Red Blood Cell % KRISTOPHER ([facility]) neutrophils # 4.8 10 1.5-8.5 normal Neutrophils # KRISTOPHER ( [facility]) mono # 0.7 10 0.0-0.8 normal [place] # KRISTOPHER ([facility]) lymph # 2.0 10 1.5-5.0 normal Lymph # KRISTOPHER ([facility]) baso # 0.1 10 0.0-0.2 normal Baso # KRISTOPHER ([facility]) eos # 0.2 10 0.0-0.5 normal Eos # KRISTOPHER ([facility]) ID Date Data Source [id number] 08/27/2020 10:40:07 AM EDT [facility] Name Value Range Interpretation Code Description Data Kelli rce(s) Supporting Document(s) Progress Note [facility] AKGPMo9eQvIPKtPm09/QJDocOOLtv8KwKErpRBb1ULavGECqA1OiKVW9zU3sYTX7YUuHYsYmQsYfIUQ2 lbm [file] 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+BcR3gznAGDpLVoh5IbW3lZsDFVpqsTWoqqcR8TirFaqHgrYJYT4ZcA+OV+4DXgLeoGBIHRgFe+Xo [file] ICAgICAgICAgICAgICAgICAgICAgICAgICAgICAgICAgICAgICAgICAgICAgICAgICAgICANCiAgICAg ICAgICAgICAgICAgICAgICAgICAgICAgICAgICAgIC AgICAgICAgICAgICAgICAgICAgICAgICAgICAgICAgICAgICAgICAgICAgICAgICAgICAgICAgICAgIC AgICANCiAgICAgICAgICAgICAgICAgICAgICAgICAgICAgICAgICAgICAgICAgICAgICAgICAgICAgIC AgICAgICAgICAgICAgICAgICAgICAgICAgICAgICAg ICAgICAgICAgICAgICANCiAgICAgICAgICAgICAgICAgICAgICAgICAgICAgICAgICAgICAgICAgICAg ICAgICAgICAgICAgICAgICAgICAgICAgICAgICAgICAgICAgICAgICAgICAgICAgICAgICAgICANCiAg ICAgICAgICAgICAgICAgICAgICAgICAgICAgICAgIC AgICAgICAgICAgICAgICAgICAgICAgICAgICAgICAgICAgICAgICAgICAgICAgICAgICAgICAgICAgIC AgICAgICANCiAgICAgICAgICAgICAgICAgICAgICAgICAgICAgICAgICAgICAgICAgICAgICAgICAgIC AgICAgICAgICAgICAgICAgICAgICAgICAgICAgICAg ICAgICAgICAgICAgICAgICANCiAgICAgICAgICAgICAgICAgICAgICAgICAgICAgICAgICAgICAgICAg ICAgICAgICAgICAgICAgICAgICAgICAgICAgICAgICAgICAgICAgICAgICAgICAgICAgICAgICAgICAN CiAgICAgICAgICAgICAgICAgICAgICAgICAgICAgIC AgICAgICAgICAgICAgICAgICAgICAgICAgICAgICAgICAgICAgICAgICAgICAgICAgICAgICAgICAgIC AgICAgICAgICANCiAgICAgICAgICAgICAgICAgICAgICAgICAgICAgICAgICAgICAgICAgICAgICAgIC AgICAgICAgICAgICAgICAgICAgICAgICAgICAgICAg ICAgICAgICAgICAgICAgICAgICANCiAgICAgICAgICAgICAgICAgICAgICAgICAgICAgICAgICAgICAg ICAgICAgICAgICAgICAgICAgICAgICAgICAgICAgICAgICAgICAgICAgICAgICAgICAgICAgICAgICAg ICANCjw/bXAmO8rgwJEvtrN5D3pnXs5VOu7OBK2to9 GlQIZmXWmyhnVvHjbDBgRtFSEyAjeTHet8GJawYP6AdJXiJ5XfX5NqUFwpTF0SSNAeGTFypLMuCWZbGM RyRuM9VFZtXYsvEH6MbMNvPFweZFVcSEHyFhSxBWPmFSNuFOQlDYUsHNLFSHEeWJUsGjVhGLxvKI3Ta4 PloZW0XXe+Ij7COD4qf2CaEKehPeZqPN8blx0RIPdY IvIfT1QykbH5LCH6SAGkMj6CPXByCJNuzNGqERWpPPLNXlIkH8AgyI19NHRRNu2+DQplbmRvYmoNCjM0 TJZhy4HgTUy4XZ8TGAQvTXr7kZExQEHbP6Wea0HaVl51HKWmFxlfFekvhalys88rBDx8HAOEQAVzmGOs CJ9lWE7hBIHlGHLhEbYbAYIMDD2ASTMwAPSbiDWeSA FoBYPMBX5THAmfFWX2RBFqiyTeuETfKPddIW4RFSPemxOqCuGvGVPDJHp+Zq2HUO5jx6SfNEcmHXTdOD 1vlg3KNBdRYoGlJ9A1gTGnK5H4UDjwJk8TZWGiUVHaPzYfQNYEEWxoJQ5LTH5ssdT1BP7DvGIsZZOvUQ TmjZStGCz4X37cjUFiVXeuQM7VCKW+Emma+Da2ECDJy NHZwJGHtIwAwYEVQUqZtC2IlH8VCr0YkE6YgEI86fLucjcNyVRcxOA3FKD6uMEWuVZCMQI2SxIMhmG3v ycIhQsHuDMTDUnEdT82zvHUwTITyMPFoIBVmGg8UFDZuU1DigeRxcUgfugSjFYXwLQRLWK3XIViaatIm gXPkgXvzGE30wMzsUQ4KPq3ZYfNePV6ahp2RhAJzAr 5LRHJwLh9UDBAqXJDlLBPsBMM1YEFsDjDeOFiuFPPuIMAzHWN8PHXeGZNzXP5KArIpAIGcHkZeNPMdPA PmVUTvqy8IHLByBIAsYqPjWtZlPXQmJYUvMExvJJFmYKWlIPV7YGZdOARpQB0MLwCcMNGyBDA4LBSyRX CiNEEdwh5FTHArLKIkDET9IiKdENJlOWEfRZtnLJHa WYB3KcPqIOIeWCWdSZ6WMdEvTZNqYEr4QUOjNWZdQQUfng6FJDXaGYRfTGr1OyZiRWRhLBDdOBmeWDOs SNMcJSbnBXYzLVJaAP5GXvAoZIOzQAU7BIUrFPAnATJhgg1RZAXwCRStGZH8UyJsYBJyZJYjGAmhVFTm VOF5NVsbSMDuRLJvTI4WPjOhBWEoQTm7HIqjUMVnLM Nqsf5LFQNdKGFkJNH4PEZiDEOuRECvNCkmPNLbQCB1XAD3NBIsXLGyAK8MPoPtVNKpOEjwSyljHTVrJO Ichq7ZSGNoZTEfUSi1NbIkOKCqYBEzPGyiAASnXFWjNAg7PEOlICEpNO9ZIlMoQUNxSgQcCrdoSTPiKF Vylr6WEAMtWCAjDXotTyEsWYEcZGEgCCciVZDgYHFn IOYwHEDxWKMbVM9ROsEtRUYzSqAyLNTqYBTiLDYgfl6TNSApPLPpGvG4XUPxQBWcLHTsAEruSJGxJJUr FjY8CGTnNYTsXH0XLoQzDOXfXwA2JHTmRLBmKDLosi8HIWWkICGvHuf9CITxDUVxLXKpJAwoPIIqDXG2 SCS4ISHbCHBjMS3ROuYrWGHaMsZ7JCWiNRJnLTUgbv 4QPZHmKGOiOUR4PGBvRWGgDTXdAFbqBHOfSBS8KhR2VJAuSQWtST5CRnKgNEJbBzJ9OMPgJHNaCGObqr 4UZYNeWCWfMnI0AiPfYABeHVBnFBwvLQZfTFX4ZlS5CSVtHMXcVJ6SRhSuNMZcOhg1NpInVRMjHBUjlr 1DqWWhcQuzjw0RAVqWQj8SiHnuBGM8WAlqVk7umSHa IDFnESMKGj6TbcThPXXjKAYNMKkiDMWyOKd4LGCuXAKySEG7Dzz3LhjsMBF9NBTjGmDcEWl2C0UoWqJ7 BVdoYkN1J9BzZlwxXfj1W0TyWqLxG2KgUWLjPKE4YPJ+VC2hOIk+Zu1Yu6XqmxQ8zxFaDXanXhjrGH1L SHMJM8SUPm== ID Date Data Source [id number] 05/19/2020 02:04:40 PM EDT [facility] Name Value Range Interpretation Code Description Data Kelli rce(s) Supporting Document(s) Progress Note [facility] STWEWd0xFxPKYaCs58/KFDroDCGsi5BsAZpkSYr1UNnvTKLgV2PlPNT8lO9fWDM4YYsUDxFlQgSpQdHs lbm [file] NkRgLkL1DDOqCsQeP7VmOj6gITHWFn6+YFoqqTTtfTgjZBYPJyCgCso3TZmxURBMFz9L ID Date Data Source [id number] 04/14/2020 03:29:09 PM EDT [facility] Name Value Range Interpretation Code Description Data Kelli rce(s) Supporting Document(s) Progress Note [facility] PMURKj3qPiRTRmPm38/DGXjsZTVhz7CjUEhiTBi0FYceFIWqG0OlSYD8iW8aITN6WMkRKvImAmJdWnM9 lbm [file] ID Date Data Source [id number] 04/05/2020 05:42:34 AM EDT [facility] Name Value Range Interpretation Code Description Data Kelli rce(s) Supporting Document(s) WBC 19.5 10*3/uL (4.1-11.0) H [facility] RBC 3.35 10*6/uL (4.00-5.40) L [facility] HGB 8.7 g/dL (12.0-16.0) L [facility] HCT 26.6 % (36.0-47.0) L [facility] MCV 79.4 fL (80.0-95.0) L [facility] MCH 26.0 pg (27.0-32.0) L [facility] MCHC 32.7 g/dL (32.0-36.0) [facility] RDW 16.6 % (10.5-14.5) H [facility] PLT 129 10*3/uL (150-450) L [facility] MPV 10.3 fL (7.1-10.7) [facility] ID Date Data Source [id number] 04/04/2020 11:09:25 AM EDT [facility] Name Value Range Interpretation Code Description Data Kelli rce(s) Supporting Document(s) WBC 23.8 10*3/uL (4.1-11.0) H [facility] RBC 3.89 10*6/uL (4.00-5.40) L [facility] HGB 10.2 g/dL (12.0-16.0) L [facility] HCT 31.1 % (36.0-47.0) L [facility] MCV 80.0 fL (80.0-95.0) [facility] MCH 26.2 pg (27.0-32.0) L [facility] MCHC 32.7 g/dL (32.0-36.0) [facility] RDW 16.5 % (10.5-14.5) H [facility] PLT 131 10*3/uL (150-450) L [facility] MPV 10.5 fL (7.1-10.7) [facility] ID Date Data Source [id number] 04/07/2020 03:00:32 PM EDT [place] [address] [address] [id number]# SURGICAL PATHOLOGY REPORTPatient Name:VIVIAN ARCHEROB:1985Received:04/04/2020Accession #:[id number](s) Received: A: PlacentaB: Right fallopian tube segmentC: Left fallopian tube segmentClinical Diagnosis and History: Gestational age 39.1 weeks. Emergent primary section withnon-reassuring heartrate, and bilateral tubal ligation. DIAGNOSIS:A) PLACENTA 939 GM (LARGE FOR GESTATIONAL AGE) PLACENTA WITH INTERVILLOUS THROMBUS; THREE VESSEL UMBILICAL CORD.B) RIGHT FALLOPIAN TUBE, SEGMENT UNREMARKABLE CROSS SECTION OF FALLOPIAN TUBE.C) LEFT FALLOPIAN TUBE, SEGMENT UNREMARKABLE CROSS SECTION OF FALLOPIAN TUBE. GROSS DESCRIPTION: Specimen A placenta, received in formalin labeled "placenta": *Weight 939 grams, greater than the 90th percentile. Measurement 20.5 x 18.4 x 3.2 cm. Umbilical cord: Insertion Paracentral, 4.7 cm from a margin. Measurement 52.5 x up to 1.4 cm. Number of vessels Three. Appearance Normal coiled right to left. There are twofalse knots located 2.0 cm and 19.0 cm fromthe insertion site. Additionally there is a true knot located 39.4 cm from insertion site. Membranes: Insertion Marginal. Site of rupture 6.0 cm from a margin. Appearance Thin, red-montalvo to pink-montalvo, semi-translucent. Comments: The surface is glistening purple-teran with focal areas ofcentral and peripheral subchorionic fibrin deposition. The maternalsurface is lobulated and intact and the cut surfaces reveal a 2.8 cmprominent layered area of predominantly hemorrhage with interspersedfibrin. This area is well demarcated and located pericentrally and doesnot communicate with the maternal surface. It accounts for approximately2% of the entire specimen. The remaining cut surfaces are soft, spongyand red- purple. Also received in the same container is a 6.0 x 4.0 x upto 1.0 cm aggregate of fresh blood clot. The specimen is sectioned andsections are submitted for microscopic examination as designated: A1 membranes and umbilical cord; A2 additional sections of umbilical cordproximal and distal to true knot; A3 area of hemorrhage and fibrin; A4-A6 additional random sections. (6 blocks) *Note: Weight given is after formalin fixation. Post fixation weightsare higher than the true wet tissue weight. Specimen B received in formalin labeled "right fallopian tube" is a 2.5 cmsegment of fimbriated fallopian tube. The outer surface is smooth,glistening, pink-montalvo and the cut surface reveals a central lumen. Thespecimen is sectioned and sections are submitted for microscopicexamination. (1 block) Specimen C received in formalin labeled "left fallopian tube" is a 2.7 cmin length segment of fimbriated fallopian tube that measures up to 1.0 cmin diameter. The outer surface is smooth, glistening, pink-montalvo and thecut surface reveals a central lumen. The specimen is sectioned andsections are submitted for microscopic examination. (1 block) jglrff/tbsProcessed at [facility], [facility], Histopathology,[address] [place] [address], [facility]. Reported at [facility], [address] [place] [address], [facility].Reported: 04/07/2020Electronically Signed Out By Sarah Guzman MD [facility], [facility].This re port may include immunohistochemical or in-situ hybridizationresults. Testing was developed and the performance characteristicsdetermined by [facility] as required by CLIA '88. The FDAhas determined that approval for specific use is not necessary forclinical use. The quality of Hematoxylin and Eosin stains and asapplicable, for all immunohistochemical and/or special stains, includingpositive and negative controls, were reviewed and considered appropriate.ICD codes: O43.819 Z30.2CPT4 codes: A: 44807PX: 59208GK: 23448N Name Value Range Interpretation Code Description Data Kelli rce(s) Supporting Document(s) ID Date Data Source [id number] 04/03/2020 12:03:18 PM EDT [facility] Name Value Range Interpretation Code Description Data Kelli rce(s) Supporting Document(s) TREPONEMA IGG/IGM @ (NEG) [facility] ID Date Data Source [id number] 04/03/2020 08:58:26 AM EDT [facility] Name Value Range Interpretation Code Description Data Kelli rce(s) Supporting Document(s) WBC 10.6 10*3/uL (4.1-11.0) [facility] RBC 4.36 10*6/uL (4.00-5.40) [facility] HGB 11.6 g/dL (12.0-16.0) L [facility] HCT 34.4 % (36.0-47.0) L [facility] MCV 79.0 fL (80.0-95.0) L [facility] MCH 26.6 pg (27.0-32.0) L [facility] MCHC 33.6 g/dL (32.0-36.0) [facility] RDW 16.4 % (10.5-14.5) H [facility] PLT 132 10*3/uL (150-450) L [facility] MPV 10.1 fL (7.1-10.7) [facility] ID Date Data Source [id number] 04/07/2020 01:00:22 AM EDT [facility] SPEC EXP DATE 04/06/2020CONV ERT COMMENT TWO UNIT XM ADDED DUE TO PRESENCE OR HISTORY OF ATYPICAL ANTIBODIES.PATIENT ABO/Rh O POSITIVEANTIBODY SCREEN POSITIVETESTING SITE PERFORMED AT [address] [place] [address] BANK COMMENT BLOOD TYPE CONFIRMED.ANTIBODY IDENT ALL MAJOR ALLOANTIBODIES EXCLUDED.UNIT NUMBER [id number] COMPONENT TYPE LEUKOPOOR RED CELLSUNIT DIVISION 00STATUS OF UNIT REL FROM ALLOCTRANSFUSION STATUS OK TO TRANSFUSE CROSSMATCH RESULT COMPATIBLEUNIT NUMBER [id number] COMPONENT TYPE LEUKOPOOR RED CELLSUNIT DIVISION 00STATUS OF UNIT REL FROM ALLOCTRANSFUSION STATUS OK TO TRANSFUSECROSSMATCH RESULT COMPATIBLE Name Value Range Interpretation Code Description Data Kelli rce(s) Supporting Document(s) TYPE AND SCREEN [facility] [place] [facility] PATIENT ABO/Rh O POSITIVE ID Date Data Source [id number] 03/26/2020 03:06:33 PM EDT [facility] Name Value Range Interpretation Code Description Data Kelli rce(s) Supporting Document(s) Progress Note [facility] OBCDTk8rLnCGJxSk92/DJFqhANGjg9LpEAsmXBk9ZTmwTCSyC4KgOZV2jX9aZHE5VLuNNtBeShWvWNQ8 lbm [file] ICAgICAgICAgICAgICAgICAgICAgICAgICAgICAgIC AgICAgICAgICAgICAgICAgICAgICAgICAgICAgICAgICAgICAgICAgICAgICAgICAgICAgICAgICAgIC SlAWHcGB0PEMAyGBYcACBnAJWaCAZlDAOuNRGeOBVqCHUpBCHnGSStGRMcOMBeBJIeGGYvZYOhMRFxDR AgICAgICAgICAgICAgICAgICAgICAgICAgICAgICAg DNRvZSEoPHGgDEDeLKKiER6HIGBtJSEeMWFaRAFoSEZhZMJwTTGcAAPmTRLtBASgNPKpQMHdSGZmEOFy XNWgIWSyUJHyKIPgHTKiEAChITYcDZWzXIJwTMFgQYLhIHGvBUQlIDGnUZRvRFWlBXVlRXMsBPEcRU9Y ICAgICAgICAgICAgICAgICAgICAgICAgICAgICAgIC AgICAgICAgICAgICAgICAgICAgICAgICAgICAgICAgICAgICAgICAgICAgICAgICAgICAgICAgICAgIC CgDWGwBXXmWA0YJVKtSRNbKXXmYOCzWNKaFYHxRQRwBPUuRVTxBDQyCFMwSJGaTQLbMUOtDQZyDWPmDH AgICAgICAgICAgICAgICAgICAgICAgICAgICAgICAg RZBzWBAoBKMaAGFcAOKyLEMaWB4SIKFwPHYrSQLsFRFzZMVkBUNjOWJuCSEdZPUwGXBmAGOtFYMfYXGm ICAgICAgICAgICAgICAgICAgICAgICAgICAgICAgICAgICAgICAgICAgICAgICAgICAgICAgICAgICAg NL6YIDFqVLMtMJUpGUNgMSLtLQHtHBYrFUTrZJEjWU AgICAgICAgICAgICAgICAgICAgICAgICAgICAgICAgICAgICAgICAgICAgICAgICAgICAgICAgICAgIC WkAWAdKVRlUCAaEK2QYCKsMMEwNLHaUXXmRGWwCHFlUJOlNMLbGERiIPYlCTZfJVAbARCwVQKdAFMvLM AgICAgICAgICAgICAgICAgICAgICAgICAgICAgICAg QBZwEVOpWCIlCHQuGPTmLGHfGGChAB5UYGBoUUFpPYTrAEKeYXHgCHSuMSWwXQXqJEUeNYMhZAEzZINf ICAgICAgICAgICAgICAgICAgICAgICAgICAgICAgICAgICAgICAgICAgICAgICAgICAgICAgICAgICAg OLWgHU2DYFOuXHImLCGzHDZgANNzZBCdDGUgIMMwNS AgICAgICAgICAgICAgICAgICAgICAgICAgICAgICAgICAgICAgICAgICAgICAgICAgICAgICAgICAgIC GhFEIiLLKfCVGhRWOqDV4LFN22oKFrb2B9SOWwUK2vxol/Nt5QZTnxvkJjjXUvFG7EFkTwHB5khy4WEa TwLL9xqq7BHOjPDdEpZ9S3sSYzDZUeVKXICrLrG15y BUmnEg80QRebKQVjSuHgKFh8Fu1GRnNpS5qlZBKjEjG9BCHnBbW3XRMhAqMfXQqyTL0Ax2NupZEtBUv+ Mw5WLU0rp3IuWJhfYHGiIO5qkm5PCMeENmUeZ8EtlxF9XCX9FAMfOc8KOINxVANdeNZkGSUgJQISQsLo I8GqrU26PWPNYn0+KKpdzwEtElzFFsF2TXMzl5RnGV u4AE5FCHSwGEh1mMWbMSZrL1Mfw9PdSr00ZBEtQmvfLzPtiohqDTDrFvKSc6nmRJOcFW5PKJE0WLXnUx wwBeGzQVEuABq0ZUEVXKfEWoXiA1Efb8RrArC4CDPvRcRpUPoaSXGmBwV1EK85wNfhBG2YGBAcKRFfBB 64HGO4THUfBo3JJl2RWhOqXJ5cfy2YOjTdXTHcDamY Ldw9XSyvZT9ToUYeX9EzeZWmk0sPDzQyB4UKXLSgQJOyQz1CNBGmDzLrEEUkJRxnAA3gRLOvNEORkXuc nbE7WD7JVR0vqdPrCF2WFrQiTd9sHc0DFoTnA0TsB3RcIWIzWYGWILolQA7HKZjzTO5wUU6Qe3VAaLWh fH3jwy9ICGArZMPoPeswfl2EBgzgY7O2uZikQPRwVl DrLPZIEFqeCO4QSNNaWYD3KFHwSvLmLKAPAqQeF77qMW7AM8Wxu53kAzU8NLLqOrCbMMawHX75zEcmdm BngGUqyUrgAL1CEr6+BDzdjyPnFooZFzpcQYIJIkMaRzsWHiLoSAExIRIqFPTjGhO9ZyBjCc7LXFLbAU AwMDAxNyAwMDAwMCBuDQowMDAwMDIxMjYwIDAwMDAw EX4BEgYsHJWpYrW3GJPuFXJyDUHzpa1YEMCrSAAnYAX5IkDiVJFzLMBmUFpyKGOgNZRgFAXqRQHxPQPe XW4EXlBcJTBkPPXpIvLaLMSmKZMhae6SHOEoLRRdVBP9DzCwYJTbKFYqFYegBXCgCJY6DBpdLGCiASBg XW2QLaNnRWBoBIK4PVSjCDWkPZCzrx1WFGEnTRHbXf QqVpSzRAQbJBYeNZvuSGSpJTS7WoQ7HGMeGVLvVJ0JAqWzCMMqYZraXrOvRYLwDKBmis0RISMkDOCxKr N8URLcGCBmQKWiFJouHPUvPZM1NZL1EAEmTOLbDK5MCfMlUMGkGJl8XDCgJJPrKKKcqn0OGXVbZYOqXM KwHJImXYBgONQsJYrkSMHpRWM4PSFwELYhOOPdNI1Q PbJzXGNdPMw3HJNtDHMqVDInvo4YXZWrGWLjALokLvRhQTSnSMIxXUyrKZMfFOScPKX7GVKxWDIqXD0P XpQeYUPxCbElIaMcGRUfCASvsv9UMHXgPELaGQZzVRJmRPUfUGGcGTdaIDBaOQYuFaE6CBPrMMJkJY5B OoAkCYDyQeBhVMyiVYZmDOFmff2CIHTvWKNmMnQ6QE SnUIIiYSBzXXaxBIGsHAGzYzKyATMmHKWbUU8YJyJhLOyjFNGQXgj1KGtoO8y1GFWnYu0YS9Dof3TgJe IfBIFMQEhaUL0uozOtLPPpUj5XH5aSGph5TUH0DBU2QqptCAXdNRXaG1MzN3Z3UfHrLSN1UOByFr6eKZ KnUMBcIMf1UKPkOUB9OHJxYUCqKdNeQLH9EycmGIIo XhBxDA4GGy4GJwM0BUD8wKHaJk7LQhX1PhQNBxBgHN5OCWs= ID Date Data Source [id number] 03/26/2020 12:55:33 PM EDT [facility] Name Value Range Interpretation Code Description Data Kelli rce(s) Supporting Document(s) Color of Urine [facility] Clarity of Urine [facility] Glucose [Mass/volume] in Urine by Test strip Negative [facility] Bilirubin.total [Presence] in Urine by Test strip Negative [facility] Ketones [Mass/volume] in Urine by Test strip Negative [facility] Specific gravity of Urine by Test strip 1.025 1.005-1.025 [facility] Hemoglobin [Presence] in Urine by Test strip Negative [facility] pH of Urine by Test strip 6.5 5.0-8.0 [facility] Protein [Mass/volume] in Urine by Test strip 30 mg/dL Negative [facility] Urobilinogen [Units/volume] in Urine by Test strip 0.2 {Ehrlich_U}/ dL 0.2-1.0 [facility] Nitrite [Presence] in Urine by Test strip Negative [facility] Leukocyte esterase [Presence] in Urine by Test strip Negat panda [facility] ID Date Data Source [id number] 03/21/2020 10:51:03 AM EDT [facility] Name Value Range Interpretation Code Description Data Kelli rce(s) Supporting Document(s) Progress Note [facility] [id number]/JAXfnEVTyo1UnSZacJSf8TNiqBCAqM2ObXNV6nS8hVIU7YNgSKhIgPlIbJMEb lbm [file] [id number]= ID Date Data Source [id number] 03/21/2020 08:58:21 AM EDT [facility] Name Value Range Interpretation Code Description Data Kelli rce(s) Supporting Document(s) Color of Urine [facility] Clarity of Urine [facility] Glucose [Mass/volume] in Urine by Test strip Negative [facility] Bilirubin.total [Presence] in Urine by Test strip Negative [facility] Ketones [Mass/volume] in Urine by Test strip Negative [facility] Specific gravity of Urine by Test strip 1.025 1.005-1.025 [facility] Hemoglobin [Presence] in Urine by Test strip Negative [facility] pH of Urine by Test strip 6.0 5.0-8.0 [facility] Protein [Mass/volume] in Urine by Test strip 30 mg/dL Negative [facility] Urobilinogen [Units/volume] in Urine by Test strip 0.2 {Ehrlich_U}/ dL 0.2-1.0 [facility] Nitrite [Presence] in Urine by Test strip Negative [facility] Leukocyte esterase [Presence] in Urine by Test strip Negat panda [facility] ID Date Data Source [id number] 03/21/2020 08:34:06 AM EDT [facility] Name Value Range Interpretation Code Description Data Kelli rce(s) Supporting Document(s) Progress Note [facility] [id number]/SJGuoOTClv7YfWPpcQWi2VJxeCUUiC1WwTUK9lJ9hJQZ9BCeGCkScFlAvDHFn lbm [file] [id number]aoLm+ayLn9y1zI18UKh5q+V891l+jx21x2vFq0u70hUGLYwkzu+Mary [place] [file] [id number]sZpNR8BOEf= ID Date Data Source [id number] 03/19/2020 05:26:34 PM [facility] Name Value Range Interpretation Code Description Data Kelli rce(s) Supporting Document(s) Lactate dehydrogenase [Enzymatic activit y/volume] in Serum or Plasma by Lactate to pyruvate reaction 148 U/L 122-214 [facility] ID Date Data Source [id number] 03/19/2020 05:26:34 PM [facility] Name Value Range Interpretation Code Description Data Kelli rce(s) Supporting Document(s) Albumin [Mass/volume] in Serum or Plasma by Bromocresol green (BCG) dye binding method 3.2 g/dL 3.5-5.2 [facility] Bil[facility].total [Mass/volume] in Serum or Plasma 0.4 mg/dL <1.2 [facility] Calcium [Mass/volume] in Serum or Plasma 8.6 mg/dL 8.6-10.0 [facility] Chloride [Moles/volume] in Serum or Plasma 102 mmol/L 98-107 [facility] Creatinine [Mass/volume] in Serum or Plasma 0.65 mg/dL 0.50-0.90 [facility] Glucose [Mass/volume] in Serum or Plasma 113 mg/dL 70-140 [facility] Alkaline phosphatase [Enzymatic activity/volume] in Serum or Plasma 83 U/L 35-104 [facility] Potassium [Moles/volume] in Serum or Plasma 3.5 mmol/L 3.4-5.1 [facility] Protein [Mass/volume] in Serum or Plasma 6.5 g/dL 6.4-8.3 [facility] Sodium [Moles/volume] in Serum or Plasma 133 mmol/L 136-145 L [facility] Aspartate aminotransferase [Enzymatic activity/volume] in Serum or Plasma 11 U/L <32 [facility] Urea nitrogen [Mass/volume] in Serum or Plasma 7 mg/dL 6-20 [facility] Osmolality of Serum or Plasma by calculation 275 mosm/kg 275-300 [facility] Creatinine/Urea nitrogen [Mass Ratio] in Serum or Plasma 11 [facility] Bicarbonate [Moles/volume] in Serum 20 mmol/L 22-29 L [facility] Alanine aminotransferase [Enzymatic activity/volume] in Seru m or Plasma 6 U/L <33 [facility] Anion gap 3 in Serum or Plasma 12 mmol/L 8-15 [facility] Albumin/Globulin [Mass Ratio] in Serum or Plasma 1.0 [facility] Glomerular filtration rate/1.73 sq M pre dicted among non-blacks [Volume Rate/Area] in Serum or Plasma by Creatinine-based formula (MDRD) >6 0 [facility] Glomerular filtration rate/1.73 sq M pre dicted among blacks [Volume Rate/Area] in Serum or Plasma by Creatinine-based formula (MDRD) >60 [facility] ID Date Data Source [id number] 03/19/2020 05:26:34 PM [facility] Name Value Range Interpretation Code Description Data Kelli rce(s) Supporting Document(s) Urate [Mass/volume] in Serum or Plasma 5.2 mg/dl 2.4-5.7 [facility] ID Date Data Source [id number] 03/19/2020 06:21:11 PM [facility] Name Value Range Interpretation Code Description Data Kelli rce(s) Supporting Document(s) Leukocytes [#/volume] in Blood by Automated count 11.1 10*3/uL 4-10 H [facility] Erythrocytes [#/volume] in Blood by Automated count 4.23 10*6/uL 4.1- 5.3 [facility] Hemoglobin [Mass/volume] in Blood 11.4 g/dL 11.5-15.5 L [facility] Hematocrit [Volume Fraction] of Blood by Automated count 33.6 % 3 6-45 L [facility] Erythrocyte mean corpuscular volume [Entitic volume] by Auto mated count 79.4 fL 80-96 L [facility] Erythrocyte mean corpuscular hemoglobin [Entitic mass] by Automated count 27.0 pg 27-33 [facility] Erythrocyte mean corpuscular hemoglobin concentration [Mass/volume] by Automated count 34.0 g/dL 32.0-36.0 [facility] E[facility]th[facility] distribution width [Ratio] by Automated count 15.8 % 11.5-14.5 H [facility] Platelets [#/volume] in Blood by Automated count 132 10*3/uL 150-400 L [facility] Differential cell count method - Blood [facility] Neutrophils/100 leukocytes in Blood by Automated count 81 % [facility] Lymphocytes/100 leukocytes in Blood by Automated count 10 % [facility] Monocytes/100 leukocytes in Blood by Automated count 6 % [facility] Eosinophils/100 leukocytes in Blood by Automated count 1 % [facility] Basophils/100 leukocytes in Blood by Automated count 1 % [facility] Neutrophils [#/volume] in Blood by Automated count 9.00 10*3/uL 1.8-7 .0 H [facility] Lymphocytes [#/volume] in Blood by Automated count 1.15 10*3/uL 1.2-4 .0 L [facility] Monocytes [#/volume] in Blood by Automated count 0.63 10*3/uL 0-0.8 [facility] Eosinophils [#/volume] in Blood by Automated count 0.10 10*3/uL 0-0.5 [facility] Basophils [#/volume] in Blood by Automated count 0.10 10*3/uL 0-0.2 [facility] Metamyelocytes/100 leukocytes in Blood by Manual count 1 % [facility] Metamyelocytes [#/volume] in Blood by Manual count 0.10 10*3/uL 0-0 [facility] ID Date Data Source [id number] 03/21/2020 06:05:18 AM [facility] Value Range Interpretation Code Description Data Kelli rce(s) Supporting Document(s) Toxoplasma gondii IgM Ab [Units/volume] in Serum by Immunoassay 0.0-7.9 [facility] (NOTE) Negati ve <8.0 Equivocal 8.0 - 9.9 Positive > 9.9Performed At: [facility] [place], [place] [id number] Blanco MD Ph:[phone] ID Date Data Source [id number] 03/21/2020 06:05:18 AM [facility] Value Range Interpretation Code Description Data Kelli rce(s) Supporting Document(s) [facility] (NOTE)It is presumed the patient has not been infected with and is notundergoing an acute infection with Toxoplasma. If symptoms persist,submit a new specimen after three weeks.Performed At: [facility] [place], [place] [id number] Blanco MD Ph:[phone] ID Date Data Source [id number] 03/25/2020 12:04:19 PM EDT [facility] Name Value Range Interpretation Code Description Data Kelli rce(s) Supporting Document(s) Toxoplasma gondii IgG Ab [Units/volume] in Serum or Pl asma by Immunoassay 0.25 ISR <0.91 [facility] Negative ID Date Data Source [id number] 03/26/2020 10:05:29 PM EDT [facility] Name Value Range Interpretation Code Description Data Kelli rce(s) Supporting Document(s) Herpes simplex virus 1 IgM Ab [Titer] in Serum by Immunofluorescenc e <1:10 [facility] Herpes simplex virus 2 IgM Ab [Titer] in Serum by Immunofluorescenc e <1:10 [facility] (NOTE)HSV 1 and HSV 2 share many cross-r eacting antigens. Elevated titersto both HSV 1 and HSV 2 may represent crossreactive HSV antibodiesrather than exposure to both HSV 1 and HSV 2.Results for this test are for research purposes only by the assay'smanufacturer. The performance characteristics of this product havenot been established. Results should not be used as a diagnosticprocedure without confirmation of the diagnosis by anothermedically established diagnostic product or procedure.Performed At: [facility] [id number] Mckee MD Ph:[phone] ID Date Data Source [id number] 03/28/2020 12:05:19 AM EDT [facility] Name Value Range Interpretation Code Description Data Kelli rce(s) Supporting Document(s) Parvovirus B19 DNA [Presence] in Unspeci fied specimen by Probe and target amplification method Negative [facility] (NOTE)No Parvovirus B19 DNA detected.Thi s test was developed and its performance characteristicsdetermined by [employer] It has not been cleared orapproved by the U.[place]. Food and Drug Administration. The FDA hasdetermined that such clearance or approval is not necessary. Thistest is used for clinical purposes. It should not be regarded asinvestigational or research.Performed At: [facility] [id number] Mckee MD Ph:[phone] ID Date Data Source [id number] 03/19/2020 05:24:05 PM [facility] Name Value Range Interpretation Code Description Data Kelli rce(s) Supporting Document(s) Glucose [Mass/volume] in Serum or Plasma --1 hour post 50 g glucose PO 114 mg/dL <136 [facility] ID Date Data Source [id number] 03/19/2020 12:25:54 PM [facility] Value Range Interpretation Code Description Data Kelli rce(s) Supporting Document(s) Color of Urine [facility] Clarity of Urine [facility] Glucose [Mass/volume] in Urine by Test strip Negative [facility] Bilirubin.total [Presence] in Urine by Test strip Negative [facility] Ketones [Mass/volume] in Urine by Test strip Negative [facility] Specific gravity of Urine by Test strip 1.020 1.005-1.025 [facility] Hemoglobin [Presence] in Urine by Test strip [facility] pH of Urine by Test strip 7.0 5.0-8.0 [facility] Protein [Mass/volume] in Urine by Test strip 30 mg/dL Negative [facility] Urobilinogen [Units/volume] in Urine by Test strip 0.2 {Ehrlich_U}/ dL 0.2-1.0 [facility] Nitrite [Presence] in Urine by Test strip Negative [facility] Leukocyte esterase [Presence] in Urine by Test strip Negat panda [facility] ID Date Data Source [id number] 03/12/2020 07:56:49 PM [facility] Name Value Range Interpretation Code Description Data Kelli rce(s) Supporting Document(s) Protein [Mass/volume] in Urine 36 mg/dl [facility] Creatinine [Mass/volume] in Urine 248.4 mg/dL [facility] Protein/Creatinine [Mass Ratio] in Urine 0.14 mg/mg{creat} [facility] ID Date Data Source [id number] 03/12/2020 02:14:03 PM [facility] Value Range Interpretation Code Description Data Kelli rce(s) Supporting Document(s) Progress Note [facility] [id number]YiYQuMkVyVvRIIo lbm [file] [id number]= ID Date Data Source [id number] 03/12/2020 03:23:43 PM T [facility] Name Value Range Interpretation Code Description Data Kelli e(s) Supporting Document(s) Leukocytes [#/volume] in Blood by Automated count 11.2 10*3/uL 4-10 H [facility] Erythrocytes [#/volume] in Blood by Automated count 4.08 10*6/uL 4.1- 5.3 L [facility] Hemoglobin [Mass/volume] in Blood 11.2 g/dL 11.5-15.5 L [facility] Hematocrit [Volume Fraction] of Blood by Automated count 33.1 % 3 6-45 L [facility] Erythrocyte mean corpuscular volume [Entitic volume] by Auto mated count 81.0 fL 80-96 [facility] Erythrocyte mean corpuscular hemoglobin [Entitic mass] by Automated count 27.4 pg 27-33 [facility] Erythrocyte mean corpuscular hemoglobin concentration [Mass/volume] by Automated count 33.8 g/dL 32.0-36.0 [facility] E[facility]th[facility] distribution width [Ratio] by Automated count 15.5 % 11.5-14.5 H [facility] Platelets [#/volume] in Blood by Automated count 133 10*3/uL 150-400 L [facility] Differential cell count method - Blood [facility] Neutrophils/100 leukocytes in Blood by Automated count 74 % [facility] Lymphocytes/100 leukocytes in Blood by Automated count 12 % [facility] Monocytes/100 leukocytes in Blood by Automated count 11 % [facility] Eosinophils/100 leukocytes in Blood by Automated count 2 % [facility] Basophils/100 leukocytes in Blood by Automated count 1 % [facility] Neutrophils [#/volume] in Blood by Automated count 8.38 10*3/uL 1.8-7 .0 H [facility] Lymphocytes [#/volume] in Blood by Automated count 1.34 10*3/uL 1.2-4 .0 [facility] Monocytes [#/volume] in Blood by Automated count 1.25 10*3/uL 0-0.8 H [facility] Eosinophils [#/volume] in Blood by Automated count 0.17 10*3/uL 0-0.5 [facility] Basophils [#/volume] in Blood by Automated count 0.05 10*3/uL 0-0.2 [facility] Nucleated erythrocytes/100 leukocytes [Ratio] in Blood by Automated count 0 /100{WBCs} 0-0 [facility] ID Date Data Source [id number] 03/12/2020 03:43:58 PM [facility] Name Value Range Interpretation Code Description Data Kelli rce(s) Supporting Document(s) Lactate dehydrogenase [Enzymatic activit y/volume] in Serum or Plasma by Lactate to pyruvate reaction 167 U/L 122-214 [facility] ID Date Data Source [id number] 03/12/2020 03:43:58 PM [facility] Name Value Range Interpretation Code Description Data Kelli rce(s) Supporting Document(s) Albumin [Mass/volume] in Serum or Plasma by Bromocresol green (BCG) dye binding method 3.0 g/dL 3.5-5.2 L [facility] Bilirubin.total [Mass/volume] in Serum or Plasma 0.5 mg/dL <1.2 [facility] Calcium [Mass/volume] in Serum or Plasma 8.5 mg/dL 8.6-10.0 L [facility] Chloride [Moles/volume] in Serum or Plasma 102 mmol/L 98-107 [facility] Creatinine [Mass/volume] in Serum or Plasma 0.66 mg/dL 0.50-0.90 [facility] Glucose [Mass/volume] in Serum or Plasma 93 mg/dL 70-140 [facility] Alkaline phosphatase [Enzymatic activity/volume] in Serum or Plasma 76 U/L 35-104 [facility] Potassium [Moles/volume] in Serum or Plasma 3.9 mmol/L 3.4-5.1 [facility] Protein [Mass/volume] in Serum or Plasma 6.1 g/dL 6.4-8.3 L [facility] Sodium [Moles/volume] in Serum or Plasma 136 mmol/L 136-145 [facility] Aspartate aminotransferase [Enzymatic activity/volume] in Serum or Plasma 12 U/L <32 [facility] Urea nitrogen [Mass/volume] in Serum or Plasma 8 mg/dL 6-20 [facility] Osmolality of Serum or Plasma by calculation 280 mosm/kg 275-300 [facility] Creatinine/Urea nitrogen [Mass Ratio] in Serum or Plasma 12 [facility] Bicarbonate [Moles/volume] in Serum 24 mmol/L 22-29 [facility] Alanine aminotransferase [Enzymatic activity/volume] in Seru m or Plasma 7 U/L <33 [facility] Anion gap 3 in Serum or Plasma 11 mmol/L 8-15 [facility] Albumin/Globulin [Mass Ratio] in Serum or Plasma 1.0 [facility] Glomerular filtration rate/1.73 sq M pre dicted among non-blacks [Volume Rate/Area] in Serum or Plasma by Creatinine-based formula (MDRD) >6 0 [facility] Glomerular filtration rate/1.73 sq M pre dicted among blacks [Volume Rate/Area] in Serum or Plasma by Creatinine-based formula (MDRD) >60 [facility] ID Date Data Source [id number] 03/12/2020 03:43:58 PM [facility] Name Value Range Interpretation Code Description Data Kelli rce(s) Supporting Document(s) Urate [Mass/volume] in Serum or Plasma 5.4 mg/dl 2.4-5.7 [facility] ID Date Data Source [id number] 03/12/2020 12:42:35 PM EDT [facility] Name Value Range Interpretation Code Description Data Kelli rce(s) Supporting Document(s) Color of Urine [facility] Clarity of Urine [facility] Glucose [Mass/volume] in Urine by Test strip Negative [facility] Bilirubin.total [Presence] in Urine by Test strip Negative [facility] Ketones [Mass/volume] in Urine by Test strip Negative [facility] Specific gravity of Urine by Test strip 1.005-1.025 [facility] Hemoglobin [Presence] in Urine by Test strip Negative [facility] pH of Urine by Test strip 6.5 5.0-8.0 [facility] Protein [Mass/volume] in Urine by Test strip 100 mg/dL Negative [facility] Urobilinogen [Units/volume] in Urine by Test strip 0.2 {Ehrlich_U}/ dL 0.2-1.0 [facility] Nitrite [Presence] in Urine by Test strip Negative [facility] Leukocyte esterase [Presence] in Urine by Test strip Negat panda A [facility] ID Date Data Source [id number] 03/05/2020 04:27:33 PM EDT [facility] Name Value Range Interpretation Code Description Data Kelli rce(s) Supporting Document(s) Leukocytes [#/volume] in Blood by Automated count 10.4 10*3/uL 4-10 H [facility] Erythrocytes [#/volume] in Blood by Automated count 4.30 10*6/uL 4.1- 5.3 [facility] Hemoglobin [Mass/volume] in Blood 12.0 g/dL 11.5-15.5 [facility] Hematocrit [Volume Fraction] of Blood by Automated count 35.2 % 3 6-45 L [facility] Erythrocyte mean corpuscular volume [Entitic volume] by Auto mated count 81.9 fL 80-96 [facility] Erythrocyte mean corpuscular hemoglobin [Entitic mass] by Automated count 27.9 pg 27-33 [facility] Erythrocyte mean corpuscular hemoglobin concentration [Mass/volume] by Automated count 34.0 g/dL 32.0-36.0 [facility] width [Ratio] by Automated count 15.5 % 11.5-14.5 H [facility] Platelets [#/volume] in Blood by Automated count 155 10*3/uL 150-400 [facility] Differential cell count method - Blood [facility] Neutrophils/100 leukocytes in Blood by Automated count 74 % [facility] Lymphocytes/100 leukocytes in Blood by Automated count 15 % [facility] Monocytes/100 leukocytes in Blood by Automated count 10 % [facility] Eosinophils/100 leukocytes in Blood by Automated count 1 % [facility] Basophils/100 leukocytes in Blood by Automated count 0 % [facility] Neutrophils [#/volume] in Blood by Automated count 7.70 10*3/uL 1.8-7 .0 H [facility] Lymphocytes [#/volume] in Blood by Automated count 1.51 10*3/uL 1.2-4 .0 [facility] Monocytes [#/volume] in Blood by Automated count 1.07 10*3/uL 0-0.8 H [facility] Eosinophils [#/volume] in Blood by Automated count 0.10 10*3/uL 0-0.5 [facility] Basophils [#/volume] in Blood by Automated count 0.04 10*3/uL 0-0.2 [facility] Nucleated erythrocytes/100 leukocytes [Ratio] in Blood by Automated count 0 /100{WBCs} 0-0 [facility] ID Date Data Source [id number] 03/05/2020 02:51:34 PM T [facility] Name Value Range Interpretation Code Description Data Kelli rce(s) Supporting Document(s) Progress Note [facility] PXMQEx4tKgNIRbRb63/CGRttZKDev7VcFRxyLHi9JKepHQWzR6TfEYX5pH7wKYO6KXdPNtUdWmAvZIF3 [facility] [file] [id number]+TVaknNRbmTrkRDJQAvRmUsXsVMmuOCNOVo4K ID Date Data Source [id number] 03/07/2020 10:31:29 AM T [facility] Service Cmnt XXX-Imp : NoneMicroorganism XXX Cult : No beta hemolytic streptococci Group B isolated. For the best recovery of Group B streptococci a combined Vaginal/Rectal swab is recommended. Name Value Range Interpretation Code Description Data Kelli rce(s) Supporting Document(s) ID Date Data Source [id number] 03/05/2020 12:40:10 PM EDT [facility] Name Value Range Interpretation Code Description Data Kelli rce(s) Supporting Document(s) Color of Urine [facility] Clarity of Urine [facility] Glucose [Mass/volume] in Urine by Test strip Negative [facility] Bilirubin.total [Presence] in Urine by Test strip Negative [facility] Ketones [Mass/volume] in Urine by Test strip Negative [facility] Specific gravity of Urine by Test strip 1.025 1.005-1.025 [facility] Hemoglobin [Presence] in Urine by Test strip Negative [facility] pH of Urine by Test strip 6.0 5.0-8.0 [facility] Protein [Mass/volume] in Urine by Test strip Negative [facility] Urobilinogen [Units/volume] in Urine by Test strip 0.2 {Ehrlich_U}/ dL 0.2-1.0 [facility] Nitrite [Presence] in Urine by Test strip Negative [facility] Leukocyte esterase [Presence] in Urine by Test strip Negat panda A [facility] ID Date Data Source [id number] 02/28/2020 08:42:35 AM EDT [facility] Name Value Range Interpretation Code Description Data Kelli rce(s) Supporting Document(s) Progress Note [facility] ZVQWJt6aGrUERhNh59/MRCoaTHHmy4LeCTfoEKx4RRztJWQkJ4GfWYQ9eA8qBZO7HGePKcZjBdEcRDMs lbm [file] ICAgICAgICAgICAgICAgICAgICAgICAgICAgICAgICAgICAgICAgICAgICAgICAgICAgICAgICAgICAg ICAgICAgICAgICAgICAgICAgICAgDQogICAgICAgICAgICAgICAgICAgICAgICAgICAgICAgICAgICAg ICAgICAgICAgICAgICAgICAgICAgICAgICAgICAgIC AgICAgICAgICAgICAgICAgICAgICAgICAgICAgICAgDQogICAgICAgICAgICAgICAgICAgICAgICAgIC AgICAgICAgICAgICAgICAgICAgICAgICAgICAgICAgICAgICAgICAgICAgICAgICAgICAgICAgICAgIC AgICAgICAgICAgICAgDQogICAgICAgICAgICAgICAg ICAgICAgICAgICAgICAgICAgICAgICAgICAgICAgICAgICAgICAgICAgICAgICAgICAgICAgICAgICAg ICAgICAgICAgICAgICAgICAgICAgICAgDQogICAgICAgICAgICAgICAgICAgICAgICAgICAgICAgICAg ICAgICAgICAgICAgICAgICAgICAgICAgICAgICAgIC AgICAgICAgICAgICAgICAgICAgICAgICAgICAgICAgICAgDQogICAgICAgICAgICAgICAgICAgICAgIC AgICAgICAgICAgICAgICAgICAgICAgICAgICAgICAgICAgICAgICAgICAgICAgICAgICAgICAgICAgIC AgICAgICAgICAgICAgICAgDQogICAgICAgICAgICAg ICAgICAgICAgICAgICAgICAgICAgICAgICAgICAgICAgICAgICAgICAgICAgICAgICAgICAgICAgICAg ICAgICAgICAgICAgICAgICAgICAgICAgICAgDQogICAgICAgICAgICAgICAgICAgICAgICAgICAgICAg ICAgICAgICAgICAgICAgICAgICAgICAgICAgICAgIC AgICAgICAgICAgICAgICAgICAgICAgICAgICAgICAgICAgICAgDQogICAgICAgICAgICAgICAgICAgIC AgICAgICAgICAgICAgICAgICAgICAgICAgICAgICAgICAgICAgICAgICAgICAgICAgICAgICAgICAgIC AgICAgICAgICAgICAgICAgICAgDQogICAgICAgICAg ICAgICAgICAgICAgICAgICAgICAgICAgICAgICAgICAgICAgICAgICAgICAgICAgICAgICAgICAgICAg OKQbGVUwLCXfSQMcWQQvETLcNPGtEKPbBNUtJPUpOCq7M4wnSODjGPBfUJ8pXXy5Tn0+DQoNCmVuZHN0 qfFaeV3LSF0ej8FfOItdTILoi8FtLGw9IB4MIBYoOZ itSQ9ZRNofjc2KRWHlMMRnbFITp7ioWoPvBBF5WNUiUjhpER6QGMDfX1uwbtPdPVCzBORQZBzkIKHZYU tkYVKYHX6WGpPsN5WlwT99JILBUr5+RUtlvvNbEjcIQoKwYKKfc7WzCDm3UR5ECDNjKskla7BvFhDbJN XHTIhvIZ3ILJZ0IAQ4USEmMj2UZQJuW799uqJtSW1H Xk6KJhHrRW8git5IPtYtHGItCabGQtv3BEblUJ2FlOEmMKmClq3tvkXfqsYVn4TnfqRwqRPHGXUdpLTm voAUDORmWUI9KTWCOw1oRAXtNI8dWP8mKDObOVVbXlWiXCRKCX0ZIXJiCWDhdWMaSPRcGOTKME9KDLtl TFJ4WDAsgcKsfZFbNJdxPH0EONUygiZwXoJfXICKKO o+Ca7FCU4hl5GoRSyjXUCqIY7aot7JEBfSIjDbH0T7cCTkA8R3HBpmRm3DWFAdEGElFkXnLHYMHUhnLM 8VXJ5iunB1YC9RdIAmRGRiFBLwxRMtDIw2D03bcYXtCZcpNZ3CGON+Emma+Od8NVINdABUfRNTpRuDyZB NJHwMeQ8RxW0CXj6MyI2XqPE08bMumayGfYJkxVZ2Q OP5mUTGlIEUXGK8KxKAxaX1depKgWcZnPPISIeBoI66kmLAiWUTnHDZxPGCuPi3SHLKiS3QvdqSimBdi tpLkOFYkJIQQVQ4QTXwnwkOrjDIkpKzaNW70dGixLH6ARj0HHvPsBZ5twn1FwRMpRg7HMWMoPf3LBXLa XMMrIANzHYS1ONZiQlObWHquXKTfTGMiFOE8ZFXeZH PgXA5WJpEdVKElLhX1KzdoKFTiSQMfmp9PDRAvEDAhRJH4OpZgXKTlYQGxWSimAWUxIXZfXZT0GPQdWU KcVH9CQlKrGZAjMZY0CMwlZIIfSKKbdv3KVTDcHSOkAksqLRDmXQOcDYGePEjsRTMfJTR2CXD8UJTyJC MpCW0ZJiJuKGXiVIqcPdafGDWuAOHopr2SHKZyACDb XNP6KiHzYFOdBKIdZCuqCPZlBYM1Hlh0JWCqMARvXY9BZxSwKTUkREj2WFOyTNOxCKUpdc8OYCRqXWXu TMa7AnPsZIRmCPYzEBotHTHmPBYcMPD4NYWnKPIpSR5SOeGzUFGqQLOmDRMwKVXiUBIdvn0ZIGKlARIr VPU0WbIkVSEhZJAdCEuoKDJnJSVuXOd0WMXtUXLqDB 7HQgGfAPDwTlD6LYGzWYDrPWGtnb7VGVOnOWKuZpT9RXEfBBSiQMGpIMhfMSOtTNJcCLB6QPElZSHcOE 4AGxDgLJXwHoL9ERzlTVFjYWZmpp3VZBFlCYRsSlb1YMWmFNDfBQOwQYwaPUGeWBL3JjV4MFUoNGCwKZ 9UHiByQUGtMeD3NQKhCITmAMGngm1RCBDtJPGqEDc8 HaZgDTXrJTKzIIlbZKKsGVB7ATT2LLReLWPuVI2QVqLpXKujCGCNVdj3EQfcJ8t5FFAiYa1XN8Wyt1Pj FvJmQFCJRFhoQO2gobMlCOPyNx2SK4gRFvu9YoopFTPnQrIoLkwlOQMcCZCdUPFkNSUuXpRbVwOxFY8d ZGWuCDG8ZIImEGNoHcQmYVP5KaYjEvM8VFOuPUHbG2 O7YbIuDY1ZWm8QDqB0HMR2tNIzIt4DEqWrVvGPJqPdJD4ROOi= ID Date Data Source [id number] 02/27/2020 12:45:50 PM EDT [facility] Name Value Range Interpretation Code Description Data Kelli rce(s) Supporting Document(s) Color of Urine [facility] Clarity of Urine [facility] Glucose [Mass/volume] in Urine by Test strip Negative [facility] Bilirubin.total [Presence] in Urine by Test strip Negative A [facility] Ketones [Mass/volume] in Urine by Test strip Negative [facility] Specific gravity of Urine by Test strip 1.005-1.025 [facility] Hemoglobin [Presence] in Urine by Test strip Negative [facility] pH of Urine by Test strip 7.0 5.0-8.0 [facility] Protein [Mass/volume] in Urine by Test strip 30 mg/dL Negative [facility] Urobilinogen [Units/volume] in Urine by Test strip 1.0 {Ehrlich_U}/ dL 0.2-1.0 [facility] Nitrite [Presence] in Urine by Test strip Negative [facility] Leukocyte esterase [Presence] in [facility] Source [id number] 02/20/2020 01:35:53 PM EDT [facility] Name Value Range Interpretation Code Description Data Kelli rce(s) Supporting Document(s) Progress Note [facility] IGYYLa3vSzWUWgNt84/IFCqwFLNps7BwXLejYTk1BKjxMHZnW6SbODP6iR3zEYZ8LPtTStAqPoRgIOCw lbm [file] ID Date Data Source [id number] 02/20/2020 12:34:45 PM EDT [facility] Name Value Range Interpretation Code Description Data Kelli rce(s) Supporting Document(s) Color of Urine [facility] Clarity of Urine [facility] Glucose [Mass/volume] in Urine by Test strip Negative [facility] Bilirubin.total [Presence] in Urine by Test strip Negative [facility] Ketones [Mass/volume] in Urine by Test strip Negative [facility] Specific gravity of Urine by Test strip 1.020 1.005-1.025 [facility] Hemoglobin [Presence] in Urine by Test strip Negative [facility] pH of Urine by Test strip 7.0 5.0-8.0 [facility] Protein [Mass/volume] in Urine by Test strip Negative [facility] Urobilinogen [Units/volume] in Urine by Test strip 0.2 {Ehrlich_U}/ dL 0.2-1.0 [facility] Nitrite [Presence] in Urine by Test strip Negative [facility] Leukocyte esterase [Presence] in Urine by Test strip Negat panda [facility] ID Date Data Source [id number] 02/13/2020 02:05:50 PM EDT [facility] Name Value Range Interpretation Code Description Data Kelli rce(s) Supporting Document(s) Progress Note [facility] VEZXPu4pQmXCUsXr83/ZVRhrDLMbl2ArDVpjXVb2SYnhEGSzN8UiGRK1pJ0eDLL2JJeGUeQyRuFmKLJ8 lbm YmFuvMCeHuFVGpHbmHJkZrKDwkOemukGPcLF3AmNR3HMBcD74wHUYtFBAlX9YgZNObPGZ+Jf2DPQHveW HeVM7XHdlO9U6uompXSl5xpU0yzRLYG4PZ1b39XZXRlxfKUOnABtbm9m5mhIMILVuhTJZQ/hT5t29602 qoPvWzm5iRA9bfrJMrcXvCUeZ1cpDC//MfMUrjIAhGricelda [file] [id number]= ID Date Data Source [id number] 02/13/2020 12:58:19 PM EDT [facility] Name Value Range Interpretation Code Description Data Kelli e(s) Supporting Document(s) Color of Urine [facility] Clarity of Urine [facility] Glucose [Mass/volume] in Urine by Test strip Negative [facility] Bilirubin.total [Presence] in Urine by Test strip Negative [facility] Ketones [Mass/volume] in Urine by Test strip Negative [facility] Specific gravity of Urine by Test strip 1.025 1.005-1.025 [facility] Hemoglobin [Presence] in Urine by Test strip Negative [facility] pH of Urine by Test strip 5.5 5.0-8.0 [facility] Protein [Mass/volume] in Urine by Test strip Negative [facility] Urobilinogen [Units/volume] in Urine by Test strip 0.2 {Ehrlich_U}/ dL 0.2-1.0 [facility] Nitrite [Presence] in Urine by Test strip Negative [facility] Leukocyte esterase [Presence] in Urine by Test strip Palat panda Morton [facility] ID Date Data Source [id number] 02/07/2020 02:45:16 PM EDT [facility] Name Value Range Interpretation Code Description Data Kelli rce(s) Supporting Document(s) Progress Note [facility] RKKSHl8kYfJIZwZr10/NYUkySSFpx3FqFHojIWa3WBgkKETxR6VkANL1hB3wYMF4NTpIBaGpLrZoVRJ8 lbm [file] [id number]= ID Date Data Source [id number] 02/07/2020 01:46:41 PM EDT [facility] Name Value Range Interpretation Code Description Data Kelli rce(s) Supporting Document(s) Color of Urine [facility] Clarity of Urine [facility] Glucose [Mass/volume] in Urine by Test strip Negative [facility] Bilirubin.total [Presence] in Urine by Test strip Negative [facility] Ketones [Mass/volume] in Urine by Test strip Negative [facility] Specific gravity of Urine by Test strip 1.025 1.005-1.025 [facility] Hemoglobin [Presence] in Urine by Test strip Negative [facility] pH of Urine by Test strip 6.0 5.0-8.0 [facility] Protein [Mass/volume] in Urine by Test strip 30 mg/dL Negative A [facility] Urobilinogen [Units/volume] in Urine by Test strip 0.2 {Ehrlich_U}/ dL 0.2-1.0 [facility] Nitrite [Presence] in Urine by Test strip Negative [facility] Leukocyte esterase [Presence] in Urine by Test strip Negat panda [facility] ID Date Data Source [id number] 01/23/2020 05:41:30 PM [facility] Name Value Range Interpretation Code Description Data Kelli rce(s) Supporting Document(s) Thyroxine (T4) free [Mass/volume] in Serum or Plasma 0.74 ng/dL 0.93- 1.70 [facility] ID Date Data Source [id number] 01/23/2020 05:41:30 PM [facility] Name Value Range Interpretation Code Description Data Kelli rce(s) Supporting Document(s) Lactate dehydrogenase [Enzymatic activit y/volume] in Serum or Plasma by Lactate to pyruvate reaction 134 U/L 122-214 [facility] ID Date Data Source [id number] 01/23/2020 05:41:30 PM [facility] Name Value Range Interpretation Code Description Data Kelli rce(s) Supporting Document(s) Albumin [Mass/volume] in Serum or Plasma by Bromocresol green (BCG) dye binding method 3.3 g/dL 3.5[facility]5.2 [facility] Bil[facility].total [Mass/volume] in Serum or Plasma 0.3 mg/dL <1.2 [facility] Calcium [Mass/volume] in Serum or Plasma 8.2 mg/dL 8.6-10.0 L [facility] Chloride [Moles/volume] in Serum or Plasma 102 mmol/L 98-107 [facility] Creatinine [Mass/volume] in Serum or Plasma 0.63 mg/dL 0.50-0.90 [facility] Glucose [Mass/volume] in Serum or Plasma 119 mg/dL 70-140 [facility] Alkaline phosphatase [Enzymatic activity/volume] in Serum or Plasma 45 U/L 35-104 [facility] Potassium [Moles/volume] in Serum or Plasma 3.5 mmol/L 3.4-5.1 [facility] Protein [Mass/volume] in Serum or Plasma 6.5 g/dL 6.4-8.3 [facility] Sodium [Moles/volume] in Serum or Plasma 134 mmol/L 136-145 L [facility] Aspartate aminotransferase [Enzymatic activity/volume] in Serum or Plasma 10 U/L <32 [facility] Urea nitrogen [Mass/volume] in Serum or Plasma 8 mg/dL 6-20 [facility] Osmolality of Serum or Plasma by calculation 278 mosm/kg 275-300 [facility] Creatinine/Urea nitrogen [Mass Ratio] in Serum or Plasma 13 [facility] Bicarbonate [Moles/volume] in Serum 21 mmol/L 22-29 L [facility] Alanine aminotransferase [Enzymatic activity/volume] in Seru m or Plasma 7 U/L <33 [facility] Anion gap 3 in Serum or Plasma 12 mmol/L 8-15 [facility] Albumin/Globulin [Mass Ratio] in Serum or Plasma 1.0 [facility] Glomerular filtration rate/1.73 sq M pre dicted among non-blacks [Volume Rate/Area] in Serum or Plasma by Creatinine-based formula (MDRD) >6 0 [facility] Glomerular filtration rate/1.73 sq M pre dicted among blacks [Volume Rate/Area] in Serum or Plasma by Creatinine-based formula (MDRD) >60 [facility] ID Date Data Source [id number] 01/23/2020 05:41:30 PM [facility] Name Value Range Interpretation Code Description Data Kelli rce(s) Supporting Document(s) Thyrotropin [Units/volume] in Serum or Plasma 1.600 u[IU]/mL 0.270-4. 200 [facility] ID Date Data Source [id number] 01/23/2020 05:41:30 PM [facility] Name Value Range Interpretation Code Description Data Kelli rce(s) Supporting Document(s) Urate [Mass/volume] in Serum or Plasma 4.1 mg/dl 2.4-5.7 [facility] ID Date Data Source [id number] 01/23/2020 09:01:37 PM [facility] Name Value Range Interpretation Code Description Data Kelli rce(s) Supporting Document(s) Leukocytes [#/volume] in Blood by Automated count 11.5 10*3/uL 4-10 H [facility] Erythrocytes [#/volume] in Blood by Automated count 4.18 10*6/uL 4.1- 5.3 [facility] Hemoglobin [Mass/volume] in Blood 12.3 g/dL 11.5-15.5 [facility] Hematocrit [Volume Fraction] of Blood by Automated count 34.9 % 3 6-45 L [facility] Erythrocyte mean corpuscular volume [Entitic volume] by Auto mated count 83.4 fL 80-96 [facility] Erythrocyte mean corpuscular hemoglobin [Entitic mass] by Automated count 29.4 pg 27-33 [facility] Erythrocyte mean corpuscular hemoglobin concentration [Mass/volume] by Automated count 35.3 g/dL 32.0-36.0 [facility] E[facility] distribution width [Ratio] by Automated count 14.1 % 11.5-14.5 [facility] Platelets [#/volume] in Blood by Automated count 139 10*3/uL 150-400 L [facility] Differential cell count method - Blood [facility] Neutrophils/100 leukocytes in Blood by Automated count 79 % [facility] Lymphocytes/100 leukocytes in Blood by Automated count 11 % [facility] Monocytes/100 leukocytes in Blood by Automated count 8 % [facility] Eosinophils/100 leukocytes in Blood by Automated count 1 % [facility] Neutrophils [#/volume] in Blood by Automated count 9.15 10*3/uL 1.8-7 .0 H [facility] Lymphocytes [#/volume] in Blood by Automated count 1.23 10*3/uL 1.2-4 .0 [facility] Monocytes [#/volume] in Blood by Automated count 0.90 10*3/uL 0-0.8 H [facility] Eosinophils [#/volume] in Blood by Automated count 0.12 10*3/uL 0-0.5 [facility] Nucleated erythrocytes/100 leukocytes [Ratio] in Blood by Automated count 1 /100{WBCs} 0-0 H [facility] Promyelocytes/100 leukocytes in Blood by Manual count 1 % [facility] Promyelocytes [#/volume] in Blood by Manual count 0.12 10*3/uL 0-0 H [facility] Anisocytosis [Presence] in Blood by Light microscopy [facility] Microcytes [Presence] in Blood by Light microscopy [facility] Poikilocytosis [Presence] in Blood by Light microscopy [facility] ID Date Data Source [id number] 01/23/2020 05:56:38 PM EDT [facility] Value Range Interpretation Code Description Data Kelli rce(s) Supporting Document(s) HIV 1+2 Ab+HIV1 p24 Ag [Presence] in Serum or Plasma by Immu noassay Non Reactive [facility] Negative for HIV-1 p24 antigenand HIV-1/ HIV-2 antibodies. Nolaboratory evidence of HIVinfection. ID Date Data Source [id number] 01/23/2020 05:46:50 PM EDT [facility] Value Range Interpretation Code Description Data Kelli rce(s) Supporting Document(s) Treponema pallidum Ab [Presence] in Serum Non Reactive [facility] ID Date Data Source [id number] 01/23/2020 05:33:30 PM EDT [facility] Value Range Interpretation Code Description Data Kelli rce(s) Supporting Document(s) Hemoglobin A1c/Hemoglobin.total in Blood by HPLC 4.9 % 4.0-6.0 [facility] (NOTE)<5.7% Average risk of diabetes (ADA)5.7-6.4% Increased risk of diabetes(ADA)>/= 6.5% Diagnostic for diabetes(ADA) Glucose mean value [Mass/volume] in Blood Estimated fr om glycated hemoglobin 94 mg/dL <126 [facility] ID Date Data Source [id number] 01/23/2020 05:32:50 PM [facility] Value Range Interpretation Code Description Data Kelli rce(s) Supporting Document(s) Glucose [Mass/volume] in Serum or Plasma --1 hour post 50 g glucose PO 125 mg/dL <136 [facility] ID Date Data Source [id number] 01/23/2020 03:08:53 PM EDT [facility] Value Range Interpretation Code Description Data Kelli rce(s) Supporting Document(s) Progress Note [facility] FJEJFx6tOiQRYdAm78/LCCawDLGot7EiFDzeYSv0FMemSQFyL0OmYYU8rF3kRXJ0EAwANiVuOyTbWtY1 [facility] [file] AgICAgICAgICAgICAgICAgICAgICAgICAgICAgICAgICAgICAgICAgICAgICAgICAgICAgICAgICAgIC AgICAgICAgICAgICAgICAgICAgICAgICAgICAgICAg ICAgICAgDQogICAgICAgICAgICAgICAgICAgICAgICAgICAgICAgICAgICAgICAgICAgICAgICAgICAg ICAgICAgICAgICAgICAgICAgICAgICAgICAgICAgICAgICAgICAgICAgICAgICAgDQogICAgICAgICAg ICAgICAgICAgICAgICAgICAgICAgICAgICAgICAgIC AgICAgICAgICAgICAgICAgICAgICAgICAgICAgICAgICAgICAgICAgICAgICAgICAgICAgICAgICAgDQ ogICAgICAgICAgICAgICAgICAgICAgICAgICAgICAgICAgICAgICAgICAgICAgICAgICAgICAgICAgIC AgICAgICAgICAgICAgICAgICAgICAgICAgICAgICAg ICAgICAgICAgDQogICAgICAgICAgICAgICAgICAgICAgICAgICAgICAgICAgICAgICAgICAgICAgICAg ICAgICAgICAgICAgICAgICAgICAgICAgICAgICAgICAgICAgICAgICAgICAgICAgICAgDQogICAgICAg ICAgICAgICAgICAgICAgICAgICAgICAgICAgICAgIC AgICAgICAgICAgICAgICAgICAgICAgICAgICAgICAgICAgICAgICAgICAgICAgICAgICAgICAgICAgIC AgDQogICAgICAgICAgICAgICAgICAgICAgICAgICAgICAgICAgICAgICAgICAgICAgICAgICAgICAgIC AgICAgICAgICAgICAgICAgICAgICAgICAgICAgICAg ICAgICAgICAgICAgDQogICAgICAgICAgICAgICAgICAgICAgICAgICAgICAgICAgICAgICAgICAgICAg ICAgICAgICAgICAgICAgICAgICAgICAgICAgICAgICAgICAgICAgICAgICAgICAgICAgICAgDQogICAg ICAgICAgICAgICAgICAgICAgICAgICAgICAgICAgIC AgICAgICAgICAgICAgICAgICAgICAgICAgICAgICAgICAgICAgICAgICAgICAgICAgICAgICAgICAgIC AgICAgDQogICAgICAgICAgICAgICAgICAgICAgICAgICAgICAgICAgICAgICAgICAgICAgICAgICAgIC AgICAgICAgICAgICAgICAgICAgICAgICAgICAgICAg MQTbZUWtZDCdJFNiMHDyDMi7I4lbDTKcJIMxNM1tXUp7Bn9+TIkUCkTiHDX8xwEclV3WPR2pr4FlEVvg OZQfz4WmZDz2GY5BABXmKAnbCN5YWXdbsr0DVPOxIDYxbTJLp6zpSgTgPXV3HLZdSekmTL5YSSOtB0tx ikOuFGQyABWCHVpqMTIGAT9QUmCoI4JscR90ICMVRu 4+FOfckdEzHkzGRjP2ESQlt7RhRTd3GH2GHCQfJqbrt6RxErhfTFZPOCmrKO6QIGP7ZQD2UWRlMv9WMG AbE800jjEoVB2YEl3CUeTaXM7opk8DEotfXIPlNusSKdb7OGycXZ2JrLNyBCxUce5pglHqkcOBm7Isqd XukAQTpLRqrU7wQKPaV2BnfVMxhZ2fRXLRGa0pUDPl Kf5qTV3eTZDeCXJlLfUvLFAPXW4BKDUfEKKryFIuJGPyVPNRIF9NUBpdURR8MDAswvAimLXbEVckJW1V YXJlbnQgMjcgMCBSDQo+Ko0KGH0so1BrTPosKZKhIJ2jiy0YAGeNFhXuC5Z9jNEuO4S0XUjcSs0GAQBt KGUtRsHmCWBQMKeuMR5ONW7rhaF5PC5VnLAmSNUkLD UabBVmMIe6G06ldELkBUikLO9QIRK+Emma+Me1HBQEeBXXwUSAzFhYrCXMFHwDrD5MdX8ECn2CzY5HeMM 95vOwkfyJcHBenOB8PAI6cMUWmHZIWUC1YvSXloS9gcsOcFuPtJGLAKhQrX60qfYVrUGHzVUM8GFTaCt 6UXSMwC8BjnrLkdVthwmBrLEFyWKTCGG9XMBwltoJe bTOlkCxeOT83pNxuCZ3ZJa9QNcJnDO0xtu2FnWUfYn6UTGWbKT9FZAQhQFNhWOPvUKD3DWZlGxHeTFse ENLoAKZaLHU2RIQwUOTyDE7HLfNvZEAgDwDvJwTuLBOsLYXesg8APCWwQEIfBkMxAxSgMDByRCQaKWog LTSyFLGhSZF4HEGmMHPiMB7MPyLyFIHdOGQ9HKIdDH IjTNNzld1UBKXpKCMvFEvkPSEhSDJlHNEvZSlbMYZyFSK8Tak3ZHKyWNAyPI5KNkQfLYRvMXw8GRFlNK WaMPZbok6PRVBzUYEeYYC5LTPxABOcNIYgUCqzVUOiSBF7DdF1OAHwMCXwYI3VQhZyNGAdLSf7KqNyJH SjQDZexx7QCMGmZBZhJQi8PPYwNXNlWBVsNHfiFVYy WVEfVJs8XZVmWHMrTP4KVpJtISFrTUOdGKDlPDLmGXGtbh8HGISuCMRuAZtiPJEkHCXkDOGyRKcgJURt JOMpRPTcTVGnQUSqKC9WExCzBBTzPxLfUOqoKHBuUMRphe9KKOHhXBNtKbC2XAHjRIXbMNHkUPijLHOe ZJUsVwT3KIRgDOPoBV1HFgVsLCDrWaR7ADblQQYkJD Neoq6WOVUoWCNpNms1FPXeNPZxQRVuZWbrTYQaADPeFNPaVYNdMMJiNV0PPgBjFUMdAsY2TVLxIILbHI Dekr1AFYNkTUHrVAC3BZSkGOXfARJhPAkmOVUkXYL9MzIcKERtYBFsXP4CFzZoOZChTeG2VWIqPEWfFW Megi3IZRVnYYGuZwFdPRNaUNIxYMZiVKybXWTkEVY5 QqJjFUKxDBJuCX9NXzOuSFXnKoshIPPkPNMqMHKrla7FdJQwrRajyf9UMFgJYl0AnKxoQMDmFIhjNn8n zINgSUYdMXFSRe6TpfTrFSUaJMDLRJcvRUYuEONtCHPkCKJ3XJVzIEIzWPWdIUThWMK9BAOnIDSqQEA3 AiF1LVZqACFwHQkuLtK1O8Z7OLEkFqY9BCg3T4MsQN E0ZDc+PD0zCKo+Ax4Wj2CvzfK0tpOqVFiiUmWcHO8JFYSRV7GIDs== ID Date Data Source [id number] 01/23/2020 02:04:58 PM EDT [facility] Name Value Range Interpretation Code Description Data Kelli rce(s) Supporting Document(s) Color of Urine [facility] Clarity of Urine [facility] Glucose [Mass/volume] in Urine by Test strip Negative [facility] Bilirubin.total [Presence] in Urine by Test strip Negative [facility] Ketones [Mass/volume] in Urine by Test strip Negative [facility] Specific gravity of Urine by Test strip 1.025 1.005-1.025 [facility] Hemoglobin [Presence] in Urine by Test strip Negative [facility] pH of Urine by Test strip 6.0 5.0-8.0 [facility] Protein [Mass/volume] in Urine by Test strip 30 mg/dL Negative [facility] Urobilinogen [Units/volume] in Urine by Test strip 0.2 {Ehrlich_U}/ dL 0.2-1.0 [facility] Nitrite [Presence] in Urine by Test strip Negative [facility] Leukocyte esterase [Presence] in Urine by Test strip Negat panda [facility] ID Date Data Source [id number] 01/09/2020 02:41:35 PM EDT [facility] Name Value Range Interpretation Code Description Data Kelli rce(s) Supporting Document(s) Progress Note [facility] SFYNBl3gZcLGEfAu16/LEPloUQMup5UhQEisNDs0WIeyZGVkN1VeEPQ9uV4xJVE0PGfIZaEqDwPuVkDv m [file] 1wPWTB/Q5wrNx34+yo8tBnZhKCd9QtgYeNlMhLccRxj5l8FaIhhDn2bEEzeCSHbKidDwf1y6l/0K+corporate 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 coordinator [file] HrSEV1WIJ3MTZ2ZBJpUtd2PWTnB0M2Fv8mFYQHMh1+NYtdtKIjcKgcEBLYNxZ9KTV8IDpkJLHIMm7K ID Date Data Source [id number] 01/09/2020 01:49:35 PM EDT [facility] Name Value Range Interpretation Code Description Data Kelli rce(s) Supporting Document(s) Color of Urine [facility] Clarity of Urine [facility] Glucose [Mass/volume] in Urine by Test strip Negative [facility] Bilirubin.total [Presence] in Urine by Test strip Negative [facility] Ketones [Mass/volume] in Urine by Test strip Negative [facility] Specific gravity of Urine by Test strip 1.025 1.005-1.025 [facility] Hemoglobin [Presence] in Urine by Test strip Negative [facility] pH of Urine by Test strip 6.5 5.0-8.0 [facility] Protein [Mass/volume] in Urine by Test strip 30 mg/dL Negative A [facility] Urobilinogen [Units/volume] in Urine by Test strip 0.2 {Ehrlich_U}/ dL 0.2-1.0 [facility] Nitrite [Presence] in Urine by Test strip Negative [facility] Leukocyte esterase [Presence] in Urine by Test strip Negat panda [facility] ID Date Data Source [id number] 12/19/2019 01:56:53 PM EST [facility] Name Value Range Interpretation Code Description Data Kelli rce(s) Supporting Document(s) Progress Note [facility] TQIXXa6fAjHURwZw65/KVHujWUOsa6IoSYiaUXj5ARboMBJqM4XtFXJ4rT8xIXT5KOdVAsWfLnSdDwY1 [facility] QfWgrNMrYdEKIgEzzFElXxZBmuXlbsjUAkKC0PbZX0UWOsC29uJHKzEZXjL5CpGSX8BQN+Qh4LNGOhvZ NxFK3BXccW2Z2cjwqHNy0pwS7sNLVqFcAxF1e7feOMkAo6CWzQkB2z4f6Mcl2vQtXSHWmcDrqMh0sgv2 x/6PhFpvA9t887bCS01+bMiBGi+vAxLvDmv7FZ7t/m iv5kAI2D6/5GtMtstVnWfmWLyAPKCiy/Paola/janSJ8dnv/0TS+ENbTgmh4uIbppAudBspQw86wFa0mYL [file] ogICAgICAgICAgICAgICAgICAgICAgICAgICAgICAgICAgICAgICAgICAgICAgICAgICAgICAgICAgIC AgICAgICAgICAgICAgICAgICAgICAgICAgICAgICAgICAgICAgICAgDQogICAgICAgICAgICAgICAgIC AgICAgICAgICAgICAgICAgICAgICAgICAgICAgICAg ICAgICAgICAgICAgICAgICAgICAgICAgICAgICAgICAgICAgICAgICAgICAgICAgICAgDQogICAgICAg ICAgICAgICAgICAgICAgICAgICAgICAgICAgICAgICAgICAgICAgICAgICAgICAgICAgICAgICAgICAg ICAgICAgICAgICAgICAgICAgICAgICAgICAgICAgIC AgDQogICAgICAgICAgICAgICAgICAgICAgICAgICAgICAgICAgICAgICAgICAgICAgICAgICAgICAgIC AgICAgICAgICAgICAgICAgICAgICAgICAgICAgICAgICAgICAgICAgICAgDQogICAgICAgICAgICAgIC AgICAgICAgICAgICAgICAgICAgICAgICAgICAgICAg ICAgICAgICAgICAgICAgICAgICAgICAgICAgICAgICAgICAgICAgICAgICAgICAgICAgICAgDQogICAg ICAgICAgICAgICAgICAgICAgICAgICAgICAgICAgICAgICAgICAgICAgICAgICAgICAgICAgICAgICAg ICAgICAgICAgICAgICAgICAgICAgICAgICAgICAgIC AgICAgDQogICAgICAgICAgICAgICAgICAgICAgICAgICAgICAgICAgICAgICAgICAgICAgICAgICAgIC AgICAgICAgICAgICAgICAgICAgICAgICAgICAgICAgICAgICAgICAgICAgICAgDQogICAgICAgICAgIC AgICAgICAgICAgICAgICAgICAgICAgICAgICAgICAg ICAgICAgICAgICAgICAgICAgICAgICAgICAgICAgICAgICAgICAgICAgICAgICAgICAgICAgICAgDQog ICAgICAgICAgICAgICAgICAgICAgICAgICAgICAgICAgICAgICAgICAgICAgICAgICAgICAgICAgICAg ICAgICAgICAgICAgICAgICAgICAgICAgICAgICAgIC AgICAgICAgDQogICAgICAgICAgICAgICAgICAgICAgICAgICAgICAgICAgICAgICAgICAgICAgICAgIC RcGUJhCNZbOVQzYLTwSHXmZKHmOKWpDRVwJMJdIMNyWQKaELLbRMIyDBGjCAIvCJGxQEx1Q2yeYXObUG YhFQ6vANl8Kd4+WRgDMoMhWDU4kyZhxU9ENB8jk8Sw UKwcAMFps9WaZYd0DF7TYCBhJQdjSQ0MMKiiqz5RONJrOXUfoYOUj7seYuKyYTB3PDRyGbepOS8RGLEk U9hmdwKtGEZoOSOWICgzGFXPOM7WEtAlT0OzxT44DJUBYq9+HFgupzMnKpuNZbL3ZVEhr1WnAHx9AO7K JYObQpfee8GmUeGoGWFNBCdwQX6WUZD3CSQ8LJXuVd 6IMVLkT833cvZoUG8PAz2JCqLaTQ3hsu2BQoZwJACmCxgCSkh4BEkzYX3NcFBtAXfTki4cflXvlcIOk4 UwbjRnbCRFyDZocU7sZYUnQ4PwaNHmwS9gDTLXXs3hGDWjBs8oOB5fEYUdCZPvOmKzFDUZUJ7BBMXxDF BoaTHlKMBvSPQFWJ0NCLrtGMZ8FIQywkRzeFQiUNaq HK5MBLEaugFmBlAfCPQSGSg+Uv0IJZ2hx4AlRPexVkDhGD1jzv6ETXoRJtQjA4B8zOUgK2Q1GSvuGn7V FNGvRVOaRpKcJABUDQztWL3HVQ7ywwN0QX5WeSBjJEZdEUCmeMDrETq9O45hpKMbSSugKE2LFGV+Emma+ Ul9BGXCiMKEdQNKhZdSeXYAMWyIvL5RaV3PRc8JlQ2 FqFA80dNrfwcVrXYnzYA8VKL0mOWJpFGNEBD6NnSJldB7miyFkACVjNTRHNnVkA22koHWoSONrDUUuXY RgPv0MIBGxS5PhlwZyhZhsrqSnKFBeYPASFI7PLVxtndBzzBWjnAjyVD29tXeeXO2AIn9BTqAhMY3ikq 2KlWQbNc2DGKAgUr4NVMCjPSCaBPUqMKC9RZBkGwAf VBemZIKjYFViMOD3FHSpGLTvEO0FGmCbUEUhXtB5ZYKsXVBbCIZhav4ETFSqRDFzUcBjNiOoPZHkUGVy VUwiHBLeMCLwNAS6EAHrSOEvDE2JDfHrXWGaYMJjIYCgSWNdDCMavz1BNRGzLVSiNdR3WCOqVBEuYIDn LAlgWTLpDBF8HxT7KMNhGZPoKQ2UZzUuYAHzYYM7Ks ScVVLgYYIbbr3KLCEkYQJpYsS7FVRsDYUlKZVfQMhqANWzLGJ5Dfq7SMLaBAFoRA3QNoJbWBNrJRR2WC ubMVYuGXVnck4SLFXeAWLrYdzpCqXyQVPyUCCiTJlvIRRjVUY2NYQ4UYAdCJWyHI2ZEqWiFGXtBFgaFK kqYQZvADFryv9JIPAoKJXpYINsYdNsCNFbKQCpCLhg WMRjECH1DUSwNSAvNHFrGS4NPhRsFKUhFpDlDuGpFHQnOJDsmw6OBUKwPKBvOGInWQPxPNKhPLYfAAjc GMHyYPFlOUS3MBMcEOFnDH9DOmZrWWDcDkR7WOLaBVNfBVQuwn4LFVKiISXkRDcnOWNwUUAsTOPrFEpn FHRuPZVdIJx4TIYyFFFpVY7JIbSoBLVwZlQjZIDuVN WvWHVqpd9BSDXmAMYkAbc9KOJgJXDbAQHzWGozAGReQCNcYXSyHXHgHFFsBZ6DZsIjFCNcLhN9BxHyBV TnNAEpbg3RhEBrrPzwwx2UHGpAMu5SpFuyMJJ4YQpwLv5qkJCvBcHmVJGWBa9ApzUqXNOaSXSWYKxlUR PrOEYuGvAlKQVoEsCzZVw3I2QmFqBuRLMbSnGzWcQ4 TpnaYpL8BWPwVYLkLIAnUeZ8GuefNnShKjStVODtU2BiRuboOSG+OA3zHAd+Ac7Cg0AcfmL2pjPzDBbg YNFiFG3WSTNGE8TTGp== ID Date Data Source [id number] 12/19/2019 01:30:29 PM [facility] Name Value Range Interpretation Code Description Data Kelli rce(s) Supporting Document(s) Color of Urine [facility] Clarity of Urine [facility] Glucose [Mass/volume] in Urine by Test strip Negative [facility] Bilirubin.total [Presence] in Urine by Test strip Negative [facility] Ketones [Mass/volume] in Urine by Test strip Negative [facility] Specific gravity of Urine by Test strip 1.025 1.005-1.025 [facility] Hemoglobin [Presence] in Urine by Test strip Negative [facility] pH of Urine by Test strip 6.5 5.0-8.0 [facility] Protein [Mass/volume] in Urine by Test strip Negative A [facility] Urobilinogen [Units/volume] in Urine by Test strip 0.2 {Ehrlich_U}/ dL 0.2-1.0 [facility] Nitrite [Presence] in Urine by Test strip Negative [facility] Leukocyte esterase [Presence] in Urine by Test strip Negat panda [facility] ID Date Data Source [id number] 11/28/2019 03:37:10 PM [facility] Name Value Range Interpretation Code Description Data Kelli rce(s) Supporting Document(s) Progress Note [facility] MHCSAy5tGfMUYoHh87/MICsfVRYwq3MqXExfBEc0UNunXGLfN1KwPTS8sU4oAYE5PInVBjIqNlIlSIU8 lbm [file] ICAgICAgICAgICAgICAgICAgICAgICAgICAgICAgICAgICAgICAgICAgICAgICAgICAgICAgICAgICAg ICAgICAgICAgICAgICAgICAgICAgICAgICAgICAgICANCiAgICAgICAgICAgICAgICAgICAgICAgICAg ICAgICAgICAgICAgICAgICAgICAgICAgICAgICAgIC AgICAgICAgICAgICAgICAgICAgICAgICAgICAgICAgICAgICAgICAgICANCiAgICAgICAgICAgICAgIC AgICAgICAgICAgICAgICAgICAgICAgICAgICAgICAgICAgICAgICAgICAgICAgICAgICAgICAgICAgIC AgICAgICAgICAgICAgICAgICAgICAgICANCiAgICAg ICAgICAgICAgICAgICAgICAgICAgICAgICAgICAgICAgICAgICAgICAgICAgICAgICAgICAgICAgICAg ICAgICAgICAgICAgICAgICAgICAgICAgICAgICAgICAgICANCiAgICAgICAgICAgICAgICAgICAgICAg ICAgICAgICAgICAgICAgICAgICAgICAgICAgICAgIC AgICAgICAgICAgICAgICAgICAgICAgICAgICAgICAgICAgICAgICAgICAgICANCiAgICAgICAgICAgIC AgICAgICAgICAgICAgICAgICAgICAgICAgICAgICAgICAgICAgICAgICAgICAgICAgICAgICAgICAgIC AgICAgICAgICAgICAgICAgICAgICAgICAgICANCiAg ICAgICAgICAgICAgICAgICAgICAgICAgICAgICAgICAgICAgICAgICAgICAgICAgICAgICAgICAgICAg ICAgICAgICAgICAgICAgICAgICAgICAgICAgICAgICAgICAgICANCiAgICAgICAgICAgICAgICAgICAg ICAgICAgICAgICAgICAgICAgICAgICAgICAgICAgIC AgICAgICAgICAgICAgICAgICAgICAgICAgICAgICAgICAgICAgICAgICAgICAgICANCiAgICAgICAgIC AgICAgICAgICAgICAgICAgICAgICAgICAgICAgICAgICAgICAgICAgICAgICAgICAgICAgICAgICAgIC AgICAgICAgICAgICAgICAgICAgICAgICAgICAgICAN CiAgICAgICAgICAgICAgICAgICAgICAgICAgICAgICAgICAgICAgICAgICAgICAgICAgICAgICAgICAg ICAgICAgICAgICAgICAgICAgICAgICAgICAgICAgICAgICAgICAgICANCjw/yYBrB0gmpSNwucF6U8in Wc2AIa0YNI3gf4FwSLRxRVznfbEnEenQZlBbQZWzVc iQCes8HTwzYV7EoELaL7PvG0JvNRnqKI4PDMEjARYduXVxNKSaZFEkDlH7ZETzOXqwMS4LpCXjRZecMZ RoZYJgEoVaMZCgUC4PBSWgA750grPiAn1HYu9AGnUiCV5law7CAxLpPWNvIwvIXer7CJzcDA4GoYDthT NpJAIhSJKVVxFsG5hhm5VyGbKxCGFLKYgmIH2Ef7Nr dCAxDQo+Hv6AEO5ye2WaOBcrVVEfKM8ltf9WXTqXEsAqT4IrzUixSWEva6lpQTUpRA0sdQBcTRA0FFVq DPPkxtZiCLLEUDGwi4UwaBtfGWKTLDFlrSXtIzX4ZqIiKzZaDMC2WpKoLB8uNLnqLE9RTCS1ZQqbFHDd FKVsK8nNEnIaKBHgTXJpkHrgHA9NQcJsA5SsaxZuuS AyNCAwIFINCj4+ZJywofYrBnwDUzY5WWSpc5MgFEg9CL6NPFDxDVocSI9BNFKxcC2yINabFU0WXhVfWp XlVJDBMvImW60btGRdATf4H9AcOjKpMIRwUlawPAIpCOeoQtVaLBMqLcFpKPqmDV4+ID4+SJeaZZ5EVK qvowSiMCViXk1ANULiOEVmZL1uYUFmCDCcB0D2iXlo MLRUVcTjJ6skrkpkEC2oBKKfZ208eEowuzYfUVU1YQUaAx0VNCMzNEB9OTByvIGgZnEjTAIOTBzrWG1P wDWoXNU7bO0hNTekJOQxEXHyG5pTXeAfzZgeKW97dHxcbyHtbUSaORm+Ut6JHZ6uo1XfNIh8ruLgOCwj AAK0OGkiVRTuLEPxKZYiJWU2RZB2NSRSDhUiGOMeST XzWHkyWLCiJJLgpw6HJUMxZXZsFDIgTRDkRNJzPJCxLPazEZTgIWSfDZnzJUKiJHCfEX0OSdTgFBJaTU GtPIpeUDGiHWLnwz0SRMWlXFSpUrDqLvMeBUDiSDMsIUumDGFzPLTbVeJmWAElNXShCF8POxTiSVWvZD U1XCErATHqENEiva5GRUScIEEdWTA2JUVhSRIqXIWv JFanAOEeFJH1PUB7AMAeQMGbBK2HUcEkDIWhPWBmSBPwLWVwVLFzng1RGTGfZDNwWvE7EIWzHHHkWPOf YIxiGGLtHHC6MeT3VWWbUNYkUT5XRhFuBTRhOEb7SWXeTRFsBQOxyw6OQSOvAQYiGkp8FVMpZEJnSAGc MWsbEISvQGY4TVh9YHOqTBVfOV0HFnQaGIZxMQt7EE sqLMByHYAaku5RCZVaQBVbWIxmMHZhMJViEWTgLJhgMNXtNXC7WVU1TQFjMPXzUP4UFwCgIUItImOcJG VfZGLmWTMcul9ENPVnTSZsZBG3LqRoYOYsLHMxGXuvFDIyVPJwUvE1GSVkANXvRV0EXlKfITUmChV7OQ SvOFJwLSFuxn5ZYYKqIYAwLYoiRoKqANMmFNWsMQzh SYTjRGNrIax0BMVvTSTyJD1WNyJyFUEeEfInRUwfSMDhCBBcab9SIGBwSVKhAfPlIjJjJPJcFGAuADv9 diRzkMMoSQk4SZ8PL7NujnXoKsbNFx9Cj510CSI6TTMbCm7BX7adRq6fYYNjRZEVAt2PKJf7YkTzPFss UnReGWZzTbI9HjV9ULWaFESbAnJeWPJhMHE+IDxiY2 C4ULXcPrD3DHC9TqBmURLbFYIfIiAnGZDiYfNpPz1sHJVNHl6+ZJitqMUycNjtYLKWAjYlAoH8ZJjzUQ VPRg0K ID Date Data Source [id number] 11/28/2019 03:35:26 PM EST [facility] Name Value Range Interpretation Code Description Data Kelli rce(s) Supporting Document(s) Color of Urine [facility] Clarity of Urine [facility] Glucose [Mass/volume] in Urine by Test strip Negative [facility] Bilirubin.total [Presence] in Urine by Test strip Negative [facility] Ketones [Mass/volume] in Urine by Test strip Negative [facility] Specific gravity of Urine by Test strip 1.025 1.005-1.025 [facility] Hemoglobin [Presence] in Urine by Test strip [facility] pH of Urine by Test strip 6.5 5.0-8.0 [facility] Protein [Mass/volume] in Urine by Test strip Negative [facility] Urobilinogen [Units/volume] in Urine by Test strip 1.0 {Ehrlich_U}/ dL 0.2-1.0 [facility] Nitrite [Presence] in Urine by Test strip Negative [facility] Leukocyte esterase [Presence] in Urine by Test strip Negat panda [facility] ID Date Data Source [id number] 11/21/2019 11:10:00 AM EST [facility] DATE OF EXAM: 11/21/2019MRI BRAIN WITHOU T CONTRAST 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 COMPARISON: None FINDINGS: The cerebellar tonsils are normally positioned. There is preserved CSF flow on the cine phase contrast CSF flow images. No acute infarct or restricted diffusion is seen. No intracranial hemorrhage or midline shift is identified. No intra or extra-axial fluid collections are seen. The ventricles are symmetric and normal in size. Visualized orbits, paranasal sinuses and mastoid air cells are unremarkable. IMPRESSION: Unremarkable noncontrast MRI of the brain. Professional interpretation performed at [facility] .End of diagnostic report for accession: [id number] Interpreted: Cherry Georges MDTranscribed: 11/21/2019 11:06 AMSigned: 11/21/2019 11:10 AM Cherry Georges MD [facility] # [id number] BILL # [id number] [facility] Name Value Range Interpretation Code Description Data Kelli rce(s) Supporting Document(s) ID Date Data Source [id number] 11/12/2019 08:35:29 AM [facility] Name Value Range Interpretation Code Description Data Kelli rce(s) Supporting Document(s) Progress Note [facility] DHBHJi8xTtKACgYn78/FLYxkXBGck6UhKDloIWs6TUlwUIQuB3EzBAT3pT6iCOL9JFrEZgHjXdWgXZHr [facility] LqVtrKEgBwVTGxFrvZXhJgLXnrLjlxcNOwBY8LrCM3JTCxW02cVAIrOLXaW4OuYEHqHFW+Br8VJGQjzO AnED7XTaqP5T6cn6zOUo/jhh2WR7Udx10fMyd9HZ1dkLpDbBUVEGNx4HPkFqUPnVGLJMs++7O8zIh88N qswMStiPWXLVfQu3pz7kGTnohqI8YGWrjb6Enves4V 5ndNbiphw0IwRd0s9Fu6al8KYzVp7TiSO/DzMk1gN6606n5fj8CeiwhNA8kLjtuw77jWxr0/xdmg9+mV GwmSu1b6Ulsfll5RytyqItU6+cnXjoawuhnYL5yq9Y7q1eAXx55RbcoM1ba5WgP7SxVunOWGkquc0IEC JPcxPiAwTbhJStaJzI6jiUt9G+Vladislav+q2Yd5XzQ33QI m3SxIKGlBVICa3iGpF1oRek44j6VNkU+vJGmbNpJyMknFM480XOBjxupxFJ3uICX7RXz/MARjqK5F4Kg Vy3lo9VFWCHllAlM6GL3Q93yqUx2dccZsem6EdRqyIPg0F5Hznw3MEh7wUwZeM5tE8WtSf2tvd5PNYlc 5P3xj5kSlD1+D9sAAf+4pcUhDIXzn99N6A85uM87rB F7qlhNNszRb4cbApTj5y/+rcX/l7hihFNgMWuCL/3rz9Z/ftqTr+c6Sg0P1NmGxl/4jgo1VbnlfRLaTG Uq9jsSnw+RTCWKNnYJtkhYSzUPEFfRQtW7E3+Ts6jxBOuP3MkeUk0E4kAw6y5+k07X/ZXrG3agvxlkFU eo30lWX4LySKDtKSTA6MyI8udNkgUznxkhwlTCUyBD qAVaCsPy1jtQIMtsTdGTP1RG7Zi/WyR/qNv2R8q6DCYpBb28/h31Zir+irHJj3Mpyng7Aciz9U2kXLhW HeRLkg6ygM9y87muZdrH+utqJt9R5JO6o8A8SQ7EslQJwqFN7a6llhGeZ9PSKWkbWto2g/IzUpevHMZG /5wg7G5t76wydjEjhDYIb3amcPiS7yyk8xJLTeOqu+ 0A/cGfPTq5vIdUDur/BEhFTxEiQV7scDw2pJEWhZQcOgEWuYU4iVNSJBTDExEUZLW/dDZrKLnDt4c+BRIONES [file] ICAgICAgICAgICAgICAgICAgICAgICAgICAgICAgICAgICAgICAgICAgICAgICAgICAgICAgICAgICAg ICAgICAgICAgICAgICAgICAgICAgICAgICAgICAgICAgICAgICANCiAgICAgICAgICAgICAgICAgICAg ICAgICAgICAgICAgICAgICAgICAgICAgICAgICAgIC AgICAgICAgICAgICAgICAgICAgICAgICAgICAgICAgICAgICAgICAgICAgICAgICANCiAgICAgICAgIC AgICAgICAgICAgICAgICAgICAgICAgICAgICAgICAgICAgICAgICAgICAgICAgICAgICAgICAgICAgIC AgICAgICAgICAgICAgICAgICAgICAgICAgICAgICAN CiAgICAgICAgICAgICAgICAgICAgICAgICAgICAgICAgICAgICAgICAgICAgICAgICAgICAgICAgICAg ICAgICAgICAgICAgICAgICAgICAgICAgICAgICAgICAgICAgICAgICANCiAgICAgICAgICAgICAgICAg ICAgICAgICAgICAgICAgICAgICAgICAgICAgICAgIC AgICAgICAgICAgICAgICAgICAgICAgICAgICAgICAgICAgICAgICAgICAgICAgICAgICANCiAgICAgIC AgICAgICAgICAgICAgICAgICAgICAgICAgICAgICAgICAgICAgICAgICAgICAgICAgICAgICAgICAgIC AgICAgICAgICAgICAgICAgICAgICAgICAgICAgICAg ICANCiAgICAgICAgICAgICAgICAgICAgICAgICAgICAgICAgICAgICAgICAgICAgICAgICAgICAgICAg ICAgICAgICAgICAgICAgICAgICAgICAgICAgICAgICAgICAgICAgICAgICANCiAgICAgICAgICAgICAg ICAgICAgICAgICAgICAgICAgICAgICAgICAgICAgIC AgICAgICAgICAgICAgICAgICAgICAgICAgICAgICAgICAgICAgICAgICAgICAgICAgICAgICANCiAgIC AgICAgICAgICAgICAgICAgICAgICAgICAgICAgICAgICAgICAgICAgICAgICAgICAgICAgICAgICAgIC AgICAgICAgICAgICAgICAgICAgICAgICAgICAgICAg ICAgICANCiAgICAgICAgICAgICAgICAgICAgICAgICAgICAgICAgICAgICAgICAgICAgICAgICAgICAg ICAgICAgICAgICAgICAgICAgICAgICAgICAgICAgICAgICAgICAgICAgICAgICANCjw/lCUbV6ofqUVe bzQ5A0kuZf3LZg9QLT3ga0UzSVJfRMpesePjIehXOm SpGNMmLbgIPgv9CZtdNO5OkWXaQ5ZxA8SfXUvjRM0IFVGdLVBuoTYxPEVlJPVuNqW4CYHbQKzkZF2QiO BhUCqtIGKcZRUgFrWyCPKsLR3ERYNaB026iaErRq7OIp6BFjKyZD4uzt1UDtEbZRKiOldMXyv2LXgxWC 4TaWFveERfRVJpDYFYIxLzA7sjy1HnRhEzJGDPMZlw ML3Ph5OqcJFcPTj+Vx4FKD3fu4DjWJwtQTQxIU5vuj7ELAuQXwFsZ4NneXboZJYti7hjLVFjXC4weBTw OEA8UIVbNgDptEAKUSFkaSEwbp0psmxxQMAwCLPsSW51AnXrJrMtJIG4RSOcGI2jPEpeJI2PACF7ZOcu GVRuJSXeV8sRKeWoXTSiMLNahRgwHQ4QHrVfY4Bpkk VudCAyNCAwIFINCj4+XZxfszSfHyaZKlE9QEQtb1ZdHYi9CM0GOFEmJPdgGP5AIEAkcB2kWPmeEZ9BPk VoGuZmEGBNFgIfQ37gaKNcTUf5G2YoHsKmKBRlBovdXVDcGKthLnBcXVJsUzYwEJwnZB5+ID4+DQogIC 6OAKtqxzUxGSQrQt4BCDIxVRHwDF1eZSXbQKIzE8G7 oWyzAJGJCiNyM0iyfxcgPG5cZHNoF715bFfxefThXGL3GZTrDk0QLZIkOFL4OBZwtIAuCqJwTWOPIOli MA8GuPGwLLH6dG1bMGtiRSLqUGCkK6gIQnYdcGhbRU80vBxkjkJmdTUmJFx+Ba6BUF4ok4BoHYs5rxYh ETagVJS4LGjkCKFcWRHrJVRpPLP8FCY7JICSIdYoDE SzJTSdEQusTIXiPXAsor4NTGTvMZDrJXZsLMPwUOIjQGPcWQwtDGAtPAQdSyitBEGaYQBmBX0ZJbNbZY OeJREbIEizWGSiBYUuez4GMAMaUOCcKlBdXGNkHXZrQWHhHVvqNLAeSLNoIBB0MYGgSNYdQR2LXsQrFY DhRJXxYlOlWXIjVMBrkk6FMPVdVMQkYET7ZaPbIVVo ZWGmYKpvZYObKHJ7QcI3ANQdLPDiAO4LVyDhFIReTDV0HcNlOSZfXPNzrd5TMFUzNCPgTKYcUkHkLKKc OAKdGNypOAUkDQK4MTHgWVMqJMFtTX4IQyQdAHNlSNU4RgCyFSEsLPWyip5UJEGvUIFvQbm6MHOmHCXk UVIaKOekMPUjAJR1JjK6QZUrRXQrMO7SNrIgJFByFE y9TmKaVUNdRBDims1UCWOaAVUjREspAPGnLELkRIYmGKjlKVEyQML9SFatJYUvZZUpOD8XOeDuKYQbYK muSGegYAUeUBPgfs7MCYDjQEOwGWU3FWXhMEPrQRKoOXfjNVNaAZKkPhTgUFTnUYOkRL4LSkIwGHFfRc B2GQYdETFgOEWeab9HSVQmYTSjCDraPOElCHAyBHTr XOtdOCZxHYXdBbk6HYGsFVCdAW9SZpAaGBQwWwD8DSQfUTYqQAWbbc8NTWSjQJRoVqV5DhZxVXMuPQZn PUp3vfPtbZHzCRv5FM5WW0AjcfJdOrkLQs4As548WZK0GGFdLb4KR5ptJq4uQITaJXDWTs5EBWl4MOMv GIBnCQPfSMu9YENlVKMwYkW9ZLItQOW4MZboLZK+ID yoMtKqLWEiIOQ1SCdsJNFhFCHzBdSfZSFuCIE1SWFhZz8xOSIFSl1+DQpzdGFydHhyZWYNCjIyODQxDQ vcJMKTUb0P Procedure Social History Code Duration Value Status Description Data Source(s ) Smoking 06/19/2020 12:00:00 AM EDT Patient is a former smoker completed Patient is a former smoker [facility] ([facility] [employer] [facility]) Alcohol intake 04/10/2020 12:00:00 AM EDT Current non-d ellen of alcohol (finding) completed Current non-drinker of alcohol (finding) [facility] Tobacco use and exposure 04/10/2020 12:00:00 AM EDT Never used co mpleted Never used [facility] Smoking 04/10/2020 12:00:00 AM EDT Former smoker completed Former smoker [facility] Smoking 04/03/2020 08:27:00 AM EDT Former Smoker completed Former Smoker [facility] Alcohol intake 01/23/2020 12:00:00 AM EDT Current non-d ellen of alcohol (finding) completed Current non-drinker of alcohol (finding) [facility] Smoking 01/23/2020 12:00:00 AM EDT Former smoker completed Former smoker [facility] 11/21/2019 12:00:00 AM EST Patient has never smo ked (pipe, cigarette, cigar) completed Patient has never smoked (pipe, cigarette, cigar) [facility] ([facility]) Vital Signs ID Date Data Source UNK Name Value Range Interpretation Code Description Data Source(s) Body mass index (BMI) [Ratio] 31.3 kg/m2 31.3 k g/m2 [facility] ([facility] [employer] [facility]) Body height 68 [in_i] 68 [in_i] [facility] ([facility] [employer] [facility]) 5'8" Body weight 206.00 [lb_av] 206.00 [lb_av] [facility] T ([facility] [employer] [facility]) Body temperature 96.2 [degF] 96.2 [degF] [facility] ([facility] [employer] [facility]) Oxygen saturation in Arterial blood by Pulse oximetry 99 % 99 % [facility] ([facility]) Respiratory rate 12 /min 12 /min [facility] ( [facility] [employer]) Heart rate 91 /min 91 /min [facility] ([facility] [employer] [facility]) Diastolic blood pressure 90 mm[Hg] 90 mm[Hg] [facility] ([facility] [employer] [facility]) Systolic blood pressure 131 mm[Hg] 131 mm[Hg] [facility] [employer] [facility] Body mass index (BMI) [Ratio] 31.3 kg/m2 31.3 k g/m2 [facility] ([facility] [employer] [facility]) Body height 68 [in_i] 68 [in_i] [facility] ([facility] [employer] [facility]) 5'8" Body weight 206.00 [lb_av] 206.00 [lb_av] [facility] T ([facility] [employer] [facility]) Body temperature 99.6 [degF] 99.6 [degF] [facility] ([facility] [facility]) Oxygen saturation in Arterial blood by Pulse oximetry 97 % 97 % [facility] ([facility] [facility]) Respiratory rate 18 /min 18 /min [facility] ( [facility]) Heart rate 129 /min 129 /min [facility] ([facility] [employer] [facility]) Diastolic blood pressure 86 mm[Hg] 86 mm[Hg] [facility] ([facility] [employer] [facility]) Systolic blood pressure 132 mm[Hg] 132 mm[Hg] M [facility] ([facility]) Body weight 3366 [oz_av] 3366 [oz_av] [facility] ([facility]) Systolic blood pressure 129 mm[Hg] 129 mm[Hg] A THENA ([facility]) Body mass index (BMI) [Ratio] 32 kg/m2 32 kg/ m2 [facility] ([facility]) Body height 68 [in_i] 68 [in_i] [facility] ([facility]) Diastolic blood pressure 87 mm[Hg] 87 mm[Hg] [facility] ([facility]) Body weight 3366 [oz_av] 3366 [oz_av] [facility] ([facility]) Systolic blood pressure 129 mm[Hg] 129 mm[Hg] A THENA ([facility]) Body mass index (BMI) [Ratio] 32 kg/m2 32 kg/ m2 [facility] ([facility]) Body height 68 [in_i] 68 [in_i] [facility] ([facility]) Diastolic blood pressure 87 mm[Hg] 87 mm[Hg] [facility] ([facility]) Body mass index (BMI) [Ratio] 30.6 kg/m2 30.6 k g/m2 [facility] ([facility]) Body height 68 [in_i] 68 [in_i] [facility] ([facility] [employer] [facility]) 5'8" Body weight 201.00 [lb_av] 201.00 [lb_av] MED[facility] T ([facility] [facility]) Body temperature 96.9 [degF] 96.9 [degF] [facility] ([facility]) Oxygen saturation in Arterial blood by Pulse oximetry 96 % 96 % [facility] ([facility] [employer] [facility]) Respiratory rate 16 /min 16 /min [facility] ( [facility] [employer] [facility]) Heart rate 98 /min 98 /min [facility] ([facility] [employer] [facility]) Diastolic blood pressure 84 mm[Hg] 84 mm[Hg] [facility] ([facility] [facility]) Systolic blood pressure 126 mm[Hg] 126 mm[Hg] M ED[facility] ([facility] [employer] [facility]) Body temperature 36.5 jazmyn Normal (applies to non-numeric results) 36.5 jazmyn [facility] Respiratory rate 18 min Normal (applies to non-numeric results) 18 min [facility] Heart rate 98 min Normal (applies to non-numeric resul ts) 98 min [facility] Diastolic blood pressure 81 mm[Hg] Normal (applies to non-numeric results) 81 mm[Hg] [facility] Systolic blood pressure 136 mm[Hg] Normal (applies t o non-numeric results) 136 mm[Hg] [facility] Body weight Measured 225 [lb_av] Normal (applies to n on-numeric results) 225 [lb_av] [facility] Body height 171.9072 cm Normal (applies to non-numeric res ults) 171.9072 cm [facility] Body mass index (BMI) [Ratio] 34.21 kg/m2 No rmal (applies to non-numeric results) 34.21 kg/m2 [facility] Body temperature 36.7 Jazmyn 36.7 Jazmyn [facility] ( [facility]) Body temperature 98.0 [degF] 98.0 [degF] [facility] ([facility]) Heart rate 85 /min 85 /min [facility] ([facility]) Diastolic blood pressure 78 mm[Hg] 78 mm[Hg] [facility] ([facility]) Systolic blood pressure 109 mm[Hg] 109 mm[Hg] M ED[facility] ([facility]) Body mass index (BMI) [Ratio] 31.6 kg/m2 31.6 k g/m2 [facility] ([facility]) Body weight 208.00 [lb_av] 208.00 [lb_av] MEDEN T ([facility]) Body height 68 [in_i] 68 [in_i] [facility] ([facility]) 5'8" ID Date Data Source [id number] 05/20/2020 10:42:41 AM T [facility] Name Value Range Interpretation Code Description Data Source(s) WEIGHT RECORDED 202.8 lb 202.8 lb [facility] ID Date Data Source [id number] [facility] Interpretation Code Description Data Source(s) WEIGHT RECORDED 201 lb 201 lb [facility] ID Date Data Source [id number] 03/28/2020 10:38:18 AM [facility] Name Value Range Interpretation Code Description Data Source(s) WEIGHT RECORDED 228.2 lb 228.2 lb [facility] ID Date Data Source [id number] 03/13/2020 01:37:08 PM EDT [facility] Name Value Range Interpretation Code Description Data Source(s) WEIGHT RECORDED 233 lb 233 lb [facility] ID Date Data Source [id number] 02/28/2020 11:12:53 AM EDT [facility] Value Range Interpretation Code Description Data Source(s) WEIGHT RECORDED 223.13 lb 223.13 lb [facility] ID Date Data Source [id number] 02/13/2020 02:05:50 PM EDT [facility] Name Value Range Interpretation Code Description Data Source(s) WEIGHT RECORDED 220 lb 220 lb [facility] ID Date Data Source [id number] 02/08/2020 11:24:32 AM EDT [facility] Value Range Interpretation Code Description Data Source(s) WEIGHT RECORDED 220 lb 220 lb [facility] ID Date Data Source [id number] 01/24/2020 11:05:19 AM EDT [facility] Name Value Range Interpretation Code Description Data Source(s) WEIGHT RECORDED 221 lb 221 lb [facility] ID Date Data Source [id number] 01/10/2020 02:09:20 PM EDT [facility] Value Range Interpretation Code Description Data Source(s) WEIGHT RECORDED 216 lb 216 lb [facility] ID Date Data Source [id number] 12/19/2019 01:56:53 PM [facility] Value Range Interpretation Code Description Data Source(s) WEIGHT RECORDED 213 lb 213 lb [facility] ID Date Data Source [id number] 11/29/2019 10:51:11 AM [facility] Name Value Range Interpretation Code Description Data Source(s) WEIGHT RECORDED 208 lb 208 lb [facility] ID Date Data Source [id number] 11/12/2019 08:35:29 AM [facility] Name Value Range Interpretation Code Description Data Source(s) WEIGHT RECORDED 204 lb 204 lb [facility] Patient Treatment Plan of Care Planned Activity Planned Date Details Description Data Source (s) Prednisone 5 MG Oral Tablet 08/27/2020 12:00:00 AM [facility] Albuterol Sulfate HFA 108 (90 Base) MCG/ ACT Inhalation Aerosol Solution (PROVENTIL HFA) 03/26/2020 12:00:00 AM [facility] Ascorbic Acid 500 MG Oral Tablet 02/07/2020 12:00:00 AM [facility] ferrous sulfate 325 MG Oral Tablet 02/07/2020 12:00:00 AM [facility] Albuterol 0.83 MG/ML Inhalant Solution 01/24/2020 12:00:00 AM [facility] 200 ACTUAT Albuterol 0.09 MG/ACTUAT Dry Powder Inhaler 01/23/2020 12:00:00 AM [facility] ospital Wrist Brace/Right Medium 01/09/2020 12:00:00 AM [facility] Wrist Brace/Left Medium 01/09/2020 12:00:00 AM [facility] Ondansetron 4 MG Oral Tablet 01/09/2020 12:00:00 AM [facility] Omeprazole 20 MG Delayed Release Oral Capsule 11/28/2019 12:00:00 A M [facility] Aspirin 81 MG Delayed Release Oral Tablet 11/06/2019 12:00:00 AM [facility] Hydroxychloroquine Sulfate 200 MG Oral Tablet 05/22/2019 12:00:00 [facility] Aspirin 81 MG Delayed Release Oral Tablet 11/06/2018 12:00:00 AM [facility] Prednisone 5 MG Oral Tablet [facility] ([facility]) Oxycodone Hydrochloride 5 MG Oral Tablet [facility] ([facility]) Oseltamivir 75 MG Oral Capsule [facility] ([facility]) Ondansetron 4 MG Oral Tablet [facility] ([facility]) Omeprazole 20 MG Delayed Release Oral Capsule [facility] ([facility]) ferrous sulfate 324 mg (65 mg iron) tablet,delayed release [facility] ([facility]) Prednisone 5 MG Oral Tablet [facility] ([facility]) Oxycodone Hydrochloride 5 MG Oral Tablet [facility] ([facility]) Oseltamivir 75 MG Oral Capsule [facility] ([facility]) Ondansetron 4 MG Oral Tablet [facility] ([facility]) Omeprazole 20 MG Delayed Release Oral Capsule [facility] ([facility]) ferrous sulfate 324 mg (65 mg iron) tablet,delayed release [facility] ([facility])
[2020-12-24] MEDS ORDERED: NITR100C2 (19:33)
[2020-12-24] MEDS ORDERED: PHEN-501 (19:33)
[2020-12-24] MEDS ORDERED: LEVO125T4 (19:33)
[2020-12-24] MEDS ORDERED: ACET-683 PO (19:33)
[2020-12-24] MEDS ORDERED: IBUP-1022 PO (19:33)
[2020-12-24] MEDS ORDERED: VITA500T21 (19:33)
[2020-12-24] MEDS ORDERED: FERR325T18 (19:33)
[2020-12-24 20:38] LABS: BASO % 0.2 % (0.0-1.0); EOS # 0.1 10^3/uL (0.0-0.5); EOS % 0.9 % (0.0-3.0); HEMATOCRIT 39.6 % (36.0-47.0); LYMPH # 1.3 10^3/uL (1.5-5.0); LYMPH % 8.8 % (24.0-44.0); MEAN CORPUSCULAR HEMOGLOBIN 25.1 pg (27.0-33.0); MEAN CORPUSCULAR HGB CONC 30.3 g/dl (32.0-36.5); MEAN CORPUSCULAR VOLUME 82.7 fl (80.0-96.0); MONO # 1.2 10^3/uL (0.0-0.8); MONO % 8.1 % (2.0-8.0); NEUTROPHILS # 11.5 10^3/uL (1.5-8.5); NEUTROPHILS % 81.5 % (36.0-66.0); PLATELET COUNT, AUTOMATED 158 10^3/uL (150-450); RED BLOOD COUNT 4.79 10^6/uL (4.00-5.40); WHITE BLOOD COUNT 14.2 10^3/uL (4.0-10.0)
[2020-12-24 21:16] LABS: ALBUMIN 3.6 GM/DL (3.2-5.2); ALT/SGPT 17 U/L (12-78); BILIRUBIN,DIRECT 0.2 MG/DL (0.0-0.2); BILIRUBIN,TOTAL 0.7 MG/DL (0.2-1.0); BLOOD UREA NITROGEN 16 MG/DL (7-18); CALCIUM LEVEL 8.6 MG/DL (8.5-10.1); CARBON DIOXIDE LEVEL 29 MEQ/L (21-32); CHLORIDE LEVEL 106 MEQ/L (98-107); CREATININE FOR GFR 0.89 MG/DL (0.55-1.30); GLOMERULAR FILTRATION RATE > 60.0 (>60); GLUCOSE, FASTING 86 MG/DL (70-100); LIPASE 83 U/L (73-393); POTASSIUM SERUM 3.5 MEQ/L (3.5-5.1); SODIUM LEVEL 140 MEQ/L (136-145); TOTAL PROTEIN 7.5 GM/DL (6.4-8.2)
[2020-12-24] MEDS ORDERED: MORPHINE 2 MG/ML 1ML VIAL (J2270) IV ONE (21:20)
[2020-12-24 21:21] LABS: HCG, SERUM QUALITATIVE NEGATIVE (NEGATIVE)
[2020-12-24] MEDS ORDERED: ONDANSETRON 4MG/2ML VIAL IV ONE (21:35)
[2020-12-24] MEDS ORDERED: ISOVUE-370 76% 100ML VIAL As Ordered ONE (21:41)
[2020-12-24] MEDS: NS 1,000 ML IV SCH (21:42)
--- NOTE | 2020-12-24 22:44 | REPVR ---
PROCEDURE INFORMATION: Exam: CT Abdomen And Pelvis With Contrast Exam date and time: 12/24/2020 10:04 PM Age: 35 years old Clinical indication: Abdominal pain; Localized; Upper; Additional info: Upper abdominal pain TECHNIQUE: Imaging protocol: Computed tomography of the abdomen and pelvis with contrast. Radiation optimization: All CT scans at this facility use at least one of these dose optimization techniques: automated exposure control; mA and/or kV adjustment per patient size (includes targeted exams where dose is matched to clinical indication); or iterative reconstruction. Contrast material: ISOVUE 370; Contrast volume: 100 ml; Contrast route: INTRAVENOUS (IV); COMPARISON: 1. TRANSVAGINAL US 2019-12-07 11:43 2. RENAL US 2019-12-07 11:35 FINDINGS: Liver: Normal. No mass. Gallbladder and bile ducts: Normal. No calcified stones. No ductal dilation. Pancreas: Normal. No ductal dilation. Spleen: Splenomegaly. Adrenal glands: Normal. No mass. Kidneys and ureters: Normal. No hydronephrosis. Stomach and bowel: Unremarkable. No obstruction. No mucosal thickening. Appendix: No evidence of appendicitis. Intraperitoneal space: Unremarkable. No free air. No significant fluid collection. Vasculature: Unremarkable. No abdominal aortic aneurysm. Lymph nodes: Unremarkable. No enlarged lymph nodes. Urinary bladder: Unremarkable as visualized. Reproductive: Prominent bilateral ovaries with numerous small follicles insists, the right is larger than the left and appears more lobulated, with a possible tubular area of fluid, question hydrosalpinx or pyosalpinx. Bones/joints: Unremarkable. No acute fracture. Soft tissues: Unremarkable. IMPRESSION: 1. Splenomegaly. 2. Prominent bilateral ovaries with numerous small follicles insists, the right is larger than the left and appears more lobulated, with a possible tubular area of fluid, question hydrosalpinx or pyosalpinx. Electronically signed by: Chilango Guevara On 12/24/2020 22:43:39 PM
[2020-12-24] MEDS ORDERED: KETOROLAC 30 MG/ML 1ML VIAL IV ONE (22:50)
[2020-12-25] MEDS ORDERED: MORPHINE 2 MG/ML 1ML VIAL (J2270) IV ONE (00:35)
--- NOTE | 2020-12-25 01:15 | REPVR ---
PROCEDURE INFORMATION: Exam: US Nonobstetric Pelvis; Complete Exam date and time: 12/25/2020 12:17 AM Age: 35 years old Clinical indication: Pelvic pain; Additional info: Rlq abdominal pain, US showed pyo salpinx TECHNIQUE: Imaging protocol: Transabdominal pelvic nonobstetric ultrasound. Complete exam. Real time ultrasound with image documentation. COMPARISON: CT ABD PELVIS WITH CONTRAST 12/24/2020 9:55 PM FINDINGS: Uterus/cervix: Uterus measures 9.1 x 4.6 x 6.6 cm. Endometrium measures 7 mm. Trace fluid in the endometrial canal. No uterine or endometrial masses. Right adnexa: There is a dilated fluid-filled tubular structure in the right adnexa measuring up to 17 mm containing some internal debris. Right ovary measures 3.5 cm. No ovarian mass. Mild adnexal varices. Possible mild hydrosalpinx. Left adnexa: Limited evaluation due to bowel gas. Ovary is unremarkable. Intraperitoneal space: No intraperitoneal fluid. Urinary bladder: Normal. IMPRESSION: 1. Large dilated tubular structure in the right adnexa concerning for hydrosalpinx or pyosalpinx. 2. Possible hydrosalpinx on the left. Evaluation is limited by bowel gas. Electronically signed by: Elio Segal On 12/25/2020 01:15:28 AM
--- OUTSIDE RECORDS SUMMARY | 2020-12-25 01:39 | CCD | Continuity of Care Document ---
Author Author Carrie SMITH PA Organization Unknown Address [address] [place] [address] [place] [address] Phone [phone] Care Team Providers Care Manager Landscape Name Role Phone [facility] AUTM [phone] Problems Active Problems Provider Date Asthma without [...] H/L Range Note Laboratory test finding 12/23/2020 [facility] [address] [id number] [phone] Urine Culture FULL REPORT IN L <SEE NOTE> Normal 1, 2 1 Rx Macrobid/pyridium/flucona zole 2 FULL REPORT IN LAB NOTES ([facility] and [facility]). NO GROWTH CLINICAL SIGNIFICANCE 2 OR MORE ORGANISMS Procedures Description No Information Available Medical Devices [...]
--- OUTSIDE RECORDS SUMMARY | 2020-12-25 01:39 | CCD | Continuity of Care Document ---
Author Author Carrie SMITH PA Organization Unknown Address [address] [place] [address] [place] [address] Phone [phone] Care Team Providers Care Organ Tuner Name Role Phone [facility] AUTM [phone] Problems Active Problems Provider Date Asthma without [...] Available Vital Signs Date Vital Result Comment 12/24/2020 6:33pm BP Systolic 131 mmHg BP Diastolic 90 mmHg Heart Rate 91 /min Respiratory Rate 12 /min O2 % BldC Oximetry 99 % Body Temperature 96.2 F Weight 206.00 lb Height 68 inches 5'8" BMI (Body Mass Index) 31.3 kg/m2 Pain Level 10 12/23/2020 6:16pm BP Systolic 132 mmHg BP Diastolic 86 mmHg Heart Rate 129 /min Respiratory Rate 18 /min O2 % BldC Oximetry 97 % Body Temperature 99.6 F Weight 206.00 lb Height 68 inches 5'8" BMI (Body Mass Index) 31.3 kg/m2 Pain Level 8 Results Test Acquired Date Facility Test Result H/L Range Note Laboratory test finding 12/23/2020 [facility] [address] [id number] [phone] Urine Culture FULL REPORT IN L <SEE NOTE> Normal 1, 2 1 Rx Macrobid/pyridium/flucona zole 2 FULL REPORT IN LAB NOTES ([facility] and [facility]). NO GROWTH CLINICAL SIGNIFICANCE 2 OR MORE ORGANISMS Procedures Description No Information Available Medical Devices Description No Information Available Encounters Type Date Location Provider Dx Diagnosis Office Visit 12/24/2020 5:10p Main Office MIKE Silver R10 .813 Right lower quadrant abdominal tenderness Office Visit 12/23/2020 4:35p Main Office MIKE Silver R30 .0 Dysuria Assessments Date Code Description Provider 12/24/2020 R10.813 Right lower quadrant abdominal t enderness MIKE Silver 12/23/2020 R30.0 Dysuria MIKE Weller Plan of Treatment No Information Available Functional Status Description No Information Available Mental Status Description No Information Available Referrals Description No Information Available
[2020-12-25] MEDS ORDERED: MOM 30ML SUSPENSION UDC PO PRN (01:40)
[2020-12-25] MEDS ORDERED: ACETAMINOPHEN TAB 650MG DOSE (2X325MG) PO PRN (01:40)
[2020-12-25] MEDS ORDERED: MAALOX 30 ML SUSP *UDC PO PRN (01:40)
--- OUTSIDE RECORDS SUMMARY | 2020-12-25 01:41 | CCD ---
Author Author [facility] Organization [facility] Address Unknown Phone Unavailable Care Team Providers Care Combat Systems Officer Name Role Phone Verito Feldman BILL RECAPITULATION CLERK, CNM Unavailable Unavailable FeldmanVerito BILL RECAPITULATION CLERK, CNM Unavailable Unavailable FeldmanVerito BILL RECAPITULATION CLERK, CNM Unavailable Unavailable FeldmanVerito NP, CNM Unavailable Unavailable FeldmanVerito NP, CNM Unavailable Unavailable FeldmanVerito BILL RECAPITULATION CLERK, CNM Unavailable Unavailable FeldmanVerito akhtar BILL RECAPITULATION CLERK, CNM Unavailable Unavailable FeldmanVerito BILL RECAPITULATION CLERK, CNM Unavailable Unavailable FeldmanVerito BILL RECAPITULATION CLERK, CNM Unavailable Unavailable FeldmanVerito BILL RECAPITULATION CLERK, CNM Unavailable Unavailable FeldmanVerito BILL RECAPITULATION CLERK, CNM Unavailable Unavailable FeldmanVerito BILL RECAPITULATION CLERK, CNM Unavailable Unavailable FeldmanVerito akhtar BILL RECAPITULATION CLERK, CNM Unavailable Unavailable FeldmanVerito BILL RECAPITULATION CLERK, CNM Unavailable Unavailable FeldmanVerito BILL RECAPITULATION CLERK, CNM Unavailable Unavailable FeldmanVerito BILL RECAPITULATION CLERK, CNM Unavailable Unavailable FeldmanVerito BILL RECAPITULATION CLERK, CNM Unavailable Unavailable FeldmanVerito BILL RECAPITULATION CLERK, CNM Unavailable Unavailable FeldmanVerito BILL RECAPITULATION CLERK, CNM Unavailable Unavailable FeldmanVerito BILL RECAPITULATION CLERK, CNM Unavailable Unavailable Feldman, M Tamara BILL RECAPITULATION CLERK, CNM Unavailable Unavailable Feldman, M Tamara BILL RECAPITULATION CLERK, CNM Unavailable Unavailable Feldman, M Tamara BILL RECAPITULATION CLERK, CNM Unavailable Unavailable Feldman, M Tamara BILL RECAPITULATION CLERK, CNM Unavailable Unavailable Feldman, M Tamara BILL RECAPITULATION CLERK, CNM Unavailable Unavailable Feldman, M Tamara BILL RECAPITULATION CLERK, CNM Unavailable Unavailable Feldman, M Tamara BILL RECAPITULATION CLERK, CNM Unavailable Unavailable Feldman, M Tamara BILL RECAPITULATION CLERK, CNM Unavailable Unavailable Feldman, M Tamara BILL RECAPITULATION CLERK, CNM Unavailable Unavailable Feldman, M Tamara BILL RECAPITULATION CLERK, CNM Unavailable Unavailable Feldman, M Tamara BILL RECAPITULATION CLERK, CNM Unavailable Unavailable Feldman, M Tamara BILL RECAPITULATION CLERK, CNM Unavailable Unavailable Feldman, M Tamara BILL RECAPITULATION CLERK, CNM Unavailable Unavailable Scordo, M Kenzie PA [...] Kenzie PA Unavailable Unavailable NISH, C MARY BILL RECAPITULATION CLERK Unavailable Unavailable NISH, C MARY BILL RECAPITULATION CLERK Unavailable Unavailable NISH, C MARY BILL RECAPITULATION CLERK Unavailable Unavailable NISH, C MARY BILL RECAPITULATION CLERK Unavailable Unavailable NISH, C MARY BILL RECAPITULATION CLERK Unavailable Unavailable NISH, C MARY BILL RECAPITULATION CLERK Unavailable Unavailable NISH, C MARY BILL RECAPITULATION CLERK Unavailable Unavailable NISH, C MARY BILL RECAPITULATION CLERK Unavailable Unavailable NISH, C MARY BILL RECAPITULATION CLERK Unavailable Unavailable NISH, C MARY BILL RECAPITULATION CLERK Unavailable Unavailable NISH, C MARY BILL RECAPITULATION CLERK Unavailable Unavailable NISH, C MARY BILL RECAPITULATION CLERK Unavailable Unavailable NISH, C MARY BILL RECAPITULATION CLERK Unavailable Unavailable NISH, C MARY BILL RECAPITULATION CLERK Unavailable Unavailable NISH, C MARY BILL RECAPITULATION CLERK Unavailable Unavailable NISH, C MARY BILL RECAPITULATION CLERK Unavailable Unavailable NISH, C MARY BILL RECAPITULATION CLERK Unavailable Unavailable NISH, C MARY BILL RECAPITULATION CLERK Unavailable Unavailable NISH, C MARY BILL RECAPITULATION CLERK Unavailable Unavailable NISH, C MARY BILL RECAPITULATION CLERK Unavailable Unavailable NISH, C MARY BILL RECAPITULATION CLERK Unavailable Unavailable NISH, C MARY BILL RECAPITULATION CLERK Unavailable Unavailable NISH, C MARY BILL RECAPITULATION CLERK Unavailable Unavailable NISH, C MARY BILL RECAPITULATION CLERK Unavailable Unavailable Sanchez, Sangita MANAGER R D MANAGER R D Unavailable Unavailable FARTUN, KARINA Unavailable Unavailable AFUA, R TRISTIAN Unavailable Unavailable Daniel, F Sangita MANAGER R D-BC Unavailable Unavailable Daniel, F Sangita MANAGER R D-BC Unavailable Unavailable Daniel, F Sangita MANAGER R D-BC Unavailable Unavailable Daniel, F Sangita MANAGER R D-BC Unavailable Unavailable Sanchez, F Sangita MANAGER R D-BC Unavailable Unavailable Daniel, F Sangita MANAGER R D-BC Unavailable Unavailable Sanchez, F Sangita MANAGER R D-BC Unavailable Unavailable Daniel, F Sangita MANAGER R D-BC Unavailable Unavailable Sanchez, F Sangita MANAGER R D-BC Unavailable Unavailable Sanchez, F Sangita MANAGER R D-BC Unavailable Unavailable Sanchez, F Sangita MANAGER R D-BC Unavailable Unavailable Daniel, F Sangita MANAGER R D-BC Unavailable Unavailable Daniel, F Sangita MANAGER R D-BC Unavailable Unavailable Sanchez, F Sangita MANAGER R D-BC Unavailable Unavailable Cristopher Sanchez MANAGER R D-BC Unavailable Unavailable Cristopher Sanchez Sangita MANAGER R D-BC Unavailable Unavailable Cristopher Sanchez Sangita MANAGER R D-BC Unavailable Unavailable Cristopher Sanchez Sangita MANAGER R D-BC Unavailable Unavailable Cristopher Sanchez Sangita MANAGER R D-BC Unavailable Unavailable Cristopher Sanchez Sangita MANAGER R D-BC Unavailable Unavailable Cristopher Sanchez MANAGER R D-BC Unavailable Unavailable Cristopher Sanchez Sangita MANAGER R D-BC Unavailable Unavailable CRISTIANO SLATER MD Unavailable Unavailable [...] Unavailable Alison DEL ANGEL MD Unavailable Unavailable BEANAlison GARCIA MD Unavailable Unavailable Alison DEL ANGEL MD [...] ZHEN CNM Unavailable Unavailable DALIA, L MICHAEL BILL RECAPITULATION CLERK Unavailable DALIA, L MICHAEL BILL RECAPITULATION CLERK Unavailable DALIA, L MICHAEL BILL RECAPITULATION CLERK Unavailable DALIA, L MICHAEL BILL RECAPITULATION CLERK Unavailable DALIA, L MICHAEL BILL RECAPITULATION CLERK Unavailable DALIA, L MICHAEL BILL RECAPITULATION CLERK Unavailable DALIA, L MICHAEL BILL RECAPITULATION CLERK Unavailable DALIA, L MICHAEL BILL RECAPITULATION CLERK Unavailable DALIA, L MICHAEL BILL RECAPITULATION CLERK Unavailable DALIA, L MICHAEL BILL RECAPITULATION CLERK Unavailable DALIA, L MICHAEL BILL RECAPITULATION CLERK Unavailable DALIA, L MICHAEL BILL RECAPITULATION CLERK Unavailable DALIA, L MICHAEL BILL RECAPITULATION CLERK Unavailable LETTIERE, A CHRISTIAN PA Unavailable Unavailable [...] Unavailable Unavailable TOM THAPA MD Unavailable Unavailable OTM THAPA MD Unavailable Unavailable TOM THAPA MD [...] Unavailable Unavailable LOHNES, JANE Unavailable Unavailable MCCRAYKOBE TOMPKINS MD Unavailable Unavailable MCCRAYKOBE TOMPKINS MD Unavailable Unavailable MCCRAYKOBE MD Unavailable Unavailable MCCRAYKOBE MD Unavailable Unavailable MCCRAYKOBE MD Unavailable Unavailable MCCRAYKOBE MD Unavailable Unavailable MCCRAYKOBE TOMPKINS MD Unavailable Unavailable MCCRAYKOBE TOMPKINS MD Unavailable Unavailable MCCRYAKOBE MD Unavailable Unavailable MCCRAYKOBE MD Unavailable Unavailable [...] is protected by Article 27-F of the [facility] Public Health law. If you continue you may have access to information: Regarding HIV / AIDS; Provided by facilities licensed or operated by the [facility] Office of Mental Health; or Provided by the [facility] Office for People With Developmental Disabilities. If such information is present, then the following [facility] mandated warning applies: This information has been [...] law may result in a fine or senior care sentence or both. A general authorization for the release of medical or other information is NOT sufficient authorization for further disc losure. Family History Family Member Name Family Member Gender Family Member Status Date o f Status Description Data Source(s) Unknown Female Problem MEDENT ([facility]) Unknown Female Problem MEDENT ([facility]) Unknown Female Problem MEDENT ([facility]) Encounters Encounter Providers Location Date Indications Data Source(s ) Outpatient Attender: HALIE SLATER MD 03/04/2021 12:00:[address] [facility] [place] Outpatient Attender: CHRISTINA alvarezy 12/24/2020 04:10:00 PM EST MEDENT ([facility]) Outpatient Attender: CHRISTIAN Preston Prim kika 12/23/2020 03:35:00 PM EST MEDENT ([facility]) Kenzie Maza PA-C: [address], [place] [address], Ph. Attender: Kenzie MCKEON [facility] Medical 11/06/2020 12:00:00 AM EST KRISTOPHER ([facility]) Kenzie Maza PA-C: [address], [place] [address], Ph. Attender: Kenzie MCKEON [facility] Medical 10/17/2020 12:00:00 AM EST KRISTOPHER ([facility]) Kenzie Maza PA-C: [address] [place] [phone], Ph. Attender: Kenzie [place] [facility] Medical 10/17/2020 12:00:00 AM EST KRISTOPHER ([facility]) Outpatient Attender: HALIE SLATER MDReferrer: KOBE MCCRAY MD [id number] 08/27/2020 12:00:00 AM EDT Sicca syndrome, unspecified [facility] Sicca syndrome, unspecified Outpatient Attender: ROGELIO VANG 06/30/2020 12:02:08 AM EDT [facility] Outpatient Attender: VIKI wild 06/19/2020 01:10:00 PM EDT MEDENT ([facility], [facility]) Outpatient Attender: ROGELIO VANG 06/04/2020 03:59:00 PM EDT [facility] Outpatient Attender: ZHEN GILMORE CNMReferrer: Tamara Feldman NP, CASH [id number] 05/19/2020 12:00:00 AM EDT - 05/19/2020 02:00:28 PM ED T Encounter for routine follow-up [facility] Encounter for routine follow- up Outpatient Attender: MARY MOCK NPReferrer: Jazmin Feldman NP, THEA [id number] 04/14/2020 12:00:00 AM EDT - 04/14/2020 03:13:[address] [facility] Outpatient Attender: ROGELIO VANG 04/08/2020 07:36:28 PM EDT [facility] Inpatient Attender: LEON ORTEGA MD 04/03/2020 08:58:27 AM EDT [facility] [place] [facility] Inpatient Attender: HÉCTOR DEL ANGEL MDAdmitter: HÉCTOR MARTIN MD 04/03/2020 07:36:00 AM EDT - 04/07/2020 01:37:00 PM EDT INDUCTION OF LABOR [facility] INDUCTION OF LABOR Patient discharged. Outpatient Attender: ROGELIO VANG 03/29/2020 12:10:48 AM EDT [facility] Outpatient Attender: MARY MOCK NPReferrer: Jazmin Feldman NP, CN [id number] 03/26/2020 12:00:00 AM EDT - 03/26/2020 01:43:29 PM ED T Sicca syndrome, unspecified [facility] Sicca syndrome, unspecified Outpatient Attender: TRISTIAN CAAL 03/26/2020 12:00:[address] [facility] [place] Outpatient 03/26/2020 12:00:[address] [facility] Outpatient Attender: ZHEN GILMORE CNMReferrer: Tamara Feldman NP, CN [id number] 03/21/2020 12:00:00 AM T - 03/21/2020 10:45:[address] [facility] [place] Outpatient Attender: KARINA WILLOUGHBYAttender: JANE Lance 03/21/2020 12:00:[address] [facility] [place] Outpatient 03/21/2020 12:00:[address] [facility] Outpatient Attender: ZHEN GILMORE CNMReferrer: Tamara Feldman NP, [facility] [id number] 03/19/2020 12:00:00 AM T - 03/20/2020 12:00:[address] [facility] Outpatient Attender: TRISTIAN CAAL 03/19/2020 12:00:[address] [facility] [place] Outpatient 03/19/2020 12:00:[address] [facility] Outpatient Attender: ZHEN GILMORE CNMReferrer: Tamara Feldman NP, [facility] [id number] 03/12/2020 12:00:00 AM EDT - 03/12/2020 01:56:58 PM ED T Other specified related conditions, third trimester [facility] Other specified related condit ions, third trimester Outpatient Attender: KARINA WILLOUGHBY 03/12/2020 12:00:[address] [facility] [place] Outpatient 03/12/2020 12:00:[address] [facility] [place] Outpatient Attender: MARY MOCK NPReferrer: Jazmin Feldman NP, CN [id number] 03/05/2020 12:00:00 AM EDT - 03/06/2020 12:00:[address] [facility] [place] Outpatient Attender: TRISTIAN CAAL 03/05/2020 12:00:[address] [facility] [place] Outpatient 03/05/2020 12:00:[address] [facility] [place] Outpatient Attender: KARINA Wright NMAttender: MARY MOCK NPReferrer: Tamara Feldman NP, CASH [id number] 02/27/2020 12:00:00 AM EDT - 02/27/2020 01:38:03 PM EDT Sicca syndrome, unspecified [facility] Sicca syndrome, unspecified Outpatient Attender: TRISTIAN CAAL 02/27/2020 12:00:[address] [facility] [place] Outpatient 02/27/2020 12:00:[address] [facility] Outpatient Attender: ROGELIO VANG 02/25/2020 01:58:00 PM EDT [facility] Outpatient Attender: MARY MOCK NPReferrer: Jazmin Feldman NP, [facility] [id number] 02/20/2020 12:00:00 AM EDT - 02/20/2020 01:29:[address] [facility] Outpatient Attender: JANE HERNANDESAttender: JONY NUÑEZ 02/20/2020 12:00:00 AM EDT Sicca syndrome, unspecified [facility] Sicca syndrome, unspecified Outpatient 02/20/2020 12:00:[address] [facility] Outpatient Attender: ZHEN GILMORE CNMReferrer: Tamara Feldman NP, [facility] [id number] 02/13/2020 12:00:00 AM EDT - 02/13/2020 01:47:05 PM ED T Other specified related conditions, unspecified trimester [facility] Other specified related condit ions, unspecified trimester Outpatient Attender: TRISTIAN CAAL 02/13/2020 12:00:[address] [facility] [place] Outpatient 02/13/2020 12:00:[address] [facility] Outpatient Attender: MICHAEL GÓMEZ NPReferrer: Tamara Feldman NP, CASH [id number] 02/07/2020 12:00:00 AM EDT - 02/07/2020 02:50:40 PM EDT Anemia complicating , third trimester [facility] Attender: KARINA WILLOUGHBYAttender: JAZMYNE LAM [facility] 12[facility]:[address] [facility] [place] Outpatient Attender: ZHEN GILMORE CNMReferrer: Tamara Feldman NP, CASH [id number] 01/23/2020 12:00:00 AM EDT - 01/23/2020 03:02:22 PM ED T Unspecified asthma, uncomplicated [facility] Unspecified asthma, uncomplicated Outpatient Attender: ROGELIO MERCADO FP 01/14/2020 10:28:01 AM EDT [facility] Outpatient Attender: MARY MOCK NPReferrer: Jazmin Feldman NP, CASH [id number] 01/09/2020 12:00:00 AM EDT - 01/09/2020 02:32:41 PM ED T Other specified related conditions, unspecified trimester [facility] Other specified related condit ions, unspecified trimester Outpatient Attender: TRISTIAN CAAL 01/09/2020 12:00:[address] [facility] Outpatient Attender: ROGELIO VANG 12/27/2019 02:53:01 PM [facility] Outpatient Attender: ZHEN GILMORE CNMReferrer: Tamara Feldman NP, CASH [id number] 12/19/2019 12:00:00 AM EST - 12/19/2019 01:51:09 PM ES T Sicca syndrome, unspecified [facility] Sicca syndrome, unspecified Outpatient 12/13/2019 01:36:00 PM [facility] Outpatient Attender: HALIE SLATER MD 12/03/2019 12:00:00 A M [facility] Outpatient Attender: ZHEN GILMORE CNMReferrer: Tamara Feldman NP, CASH [id number] 11/28/2019 12:00:00 AM EST - 11/28/2019 03:32:17 PM ES T Gastro- esophageal reflux disease without esophagitis 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 [facility] ARNOLD-CHIARI SYNDROME WITHOUT SPINA BIF KYUNG OR HYDROCEPHALUS Outpatient Attender: Sangtia Sanchez MANAGER R D-BC FP 11/07/2019 01: 47:03 PM EST [facility] Outpatient Attender: HÉCTOR DEL ANGEL MDReferrer: Ying Feldman BILL RECAPITULATION CLERK, [facility] [id number] 11/06/2019 12:00:00 AM EST - 11/06/2019 01:35:45 PM ES T Other specified abnormal immunological findings in [facility] Other specified abnormal immunological f indings in serum Outpatient Attender: JANE HERNANDES 11/06/2019 12:00:00 AM E [facility] Immunizations Vaccine Date Status Description Data Source(s) New in 2012. IIV4 03/04/2020 12:00:00 AM EDT completed 03/04/20 [facility]) New in 2012. IIV4 03/04/2020 12:00:00 AM EDT completed 03/04/20 [facility]) New in 2011. IIV4 02/07/2020 12:00:00 AM EDT completed In fluenza Quad IM Pres Free (0.5 mL dose) 02/07/2020 [facility] Tdap 02/07/2020 12:00:00 AM EDT completed Tdap 02/07/2020, 07/30/2014 [facility] Medications Medication Brand Name Start Date Product Form Dose Route Admi nistrative Instructions Pharmacy Instructions Status Indications Reaction Description Data Source(s) Fluconazole 150 MG Oral Tablet Fluconazole 12/23/2020 12:00:00 AM EST ORAL active MEDENT ([facility]) Phenazopyridine hydrochloride 200 MG Delayed Release O ral Tablet Phenazopyridine HCL 12/23/2020 12:00:00 AM EST ORAL active MEDENT ([facility]) NITROFURANTOIN, MACROCRYSTALS 25 MG / Ni trofurantoin, Monohydrate 75 MG Oral Capsule [Macrobid] Macrobid 12/23/2020 12:00:00 AM EST ORAL active MEDENT ([facility]) Prednisone 5 MG Oral Tablet predniSONE 5 MG Oral Table t (DELTASONE) predniSONE 5 MG Oral Tablet (DELTASONE) 08/27/2020 12:00:00 AM EDT 5 mg Oral active Take 1 tablet by mouth daily [facility] Permethrin 50 MG/ML Topical Cream Permethrin 06/19/2020 12:00:00 AM EDT active MED[facility] ([facility]) Albuterol Sulfate HFA 108 (90 Base) MCG/ ACT Inhalation Aerosol Solution (PROVENTIL HFA) 7732-0716-01 03/26/2020 12:00:[address] [facility] ferrous sulfate 325 MG Oral Tablet Ferrous Sulfate 325 (65 Fe) MG Oral Tablet Ferrous Sulfate 325 (65 Fe) MG Oral Tablet 02/07/2020 12:00:00 AM EDT 325 mg Oral active Anemia affecting in third trimester Take 1 tablet by mouth daily [facility] Anemia affecting in third trim emily Ascorbic Acid 500 MG Oral Tablet Vitamin C 500 MG Oral Tablet (ASCORBIC ACID) Vitamin C 500 MG Oral Tablet (ASCORBIC ACID) 02/07/2020 12:00:00 AM EDT 500 mg Oral active Anemia affecting in third trimester Take 1 tablet by mouth daily [facility] Anemia affecting in third trim emily Albuterol [...] needed for Wheezing or Shortness of Breath [facility] Asthma, unspecified asthma severity, uns pecified whether [...] s every 6 (six) hours as needed [facility] 28 weeks gestation of Asthma, unspecified asthma severity, uns pecified whether complicated, unspecified whether persistent Wrist Brace/Left Medium [id number] 01/09/2020 12:00:00 AM EDT aborted Carpal tunnel syndrome during Use as d irected. O26.899 [facility] Carpal tunnel syndrome during Ondansetron 4 MG Oral Tablet Ondansetron HCl 4 MG Oral Tablet (ZOFRAN) Ondansetron HCl 4 MG Oral Tablet (ZOFRAN) 01/09/2020 12:00:00 AM EDT 4 mg Oral active Multigravida of advanced maternal age in second trimesterSjogren's syndrome, with unspecified organ involvement Take 1 ta blet by mouth every 8 (eight) hours as needed for Nausea [facility] Multigravida of advanced maternal age in second trimester Sjogren's syndrome, with unspecified org an involvement Wrist Brace/Right Medium [id number] 01/09/2020 12:00:00 AM EDT aborted Carpal tunnel syndrome during Use as d irected. O26.899 [facility] Carpal tunnel syndrome during Omeprazole 20 MG Delayed Release Oral Ca psule Omeprazole 20 MG Oral Capsule Delayed Release (PriLOSEC) Omeprazole 20 MG Oral Capsule Delayed Re lease (PriLOSEC) 11/28/2019 12:00:00 AM EST 20 mg Oral ac tive Gastroesophageal reflux disease without esophagitisMultigravida of advanced maternal age in second trimester Take 1 capsule [address] mouth daily [facility] Gastroesophageal reflux disease without esophagitis Multigravida of advanced maternal age in second trimester Aspirin 81 MG Delayed Release Oral Table t Aspirin EC 81 MG Oral Tablet Delayed Release Aspirin EC 81 MG Oral Tablet Delayed Release 11/06/2019 12:0 0:00 AM EST 81 mg Oral active Take 1 tablet by mouth daily [facility] Hydroxychloroquine Sulfate 200 MG Oral T ablet hydroxychloroquine (PLAQUENIL) 200 MG tablet hydroxychloroquine (PLAQUENIL) 200 MG tablet 12:00:00 AM EDT 200 mg Oral active Take 1 tablet by mouth Two Times Daily [facility] Aspirin 81 MG Delayed Release Oral Tablet aspirin EC 8 1 MG EC tablet aspirin EC 81 MG EC tablet 11/06/2018 12:00:00 AM EST 81 mg Oral ac tive Take 1 tablet by mouth daily [facility] ferrous sulfate 324 mg (65 mg iron) tablet,delayed release [id number] completed ferrous sulfate 324 MG Delayed R elease Oral Tablet SUNDANCE ([facility]) Omeprazole 20 MG Delayed Release Oral Ca psule omeprazole 20 mg capsule,delayed release TAKE 1 CAPSULE BY MOUTH ONCE DAILY omeprazole 20 mg capsule,delayed release TAKE 1 CAPSULE BY MOUTH ONCE DAILY completed omeprazole 20 MG Delayed Release Oral Capsule [facility]) Oseltamivir 75 MG Oral Capsule oseltamivir 75 mg capsu le oseltamivir 75 mg capsule completed oseltamivir 75 MG Oral Capsule SUNDANCE ([facility]) Ondansetron 4 MG Oral Tablet ondansetron HCl 4 mg tabl et ondansetron HCl 4 mg tablet completed ondansetron 4 M G Oral Tablet SUNDANCE ([facility]) Oseltamivir 75 MG Oral Capsule oseltamivir 75 mg capsu le oseltamivir 75 mg capsule completed oseltamivir 75 MG Oral Capsule SUNDANCE ([facility]) Oxycodone Hydrochloride 5 MG Oral Tablet oxycodone 5 m g tablet oxycodone 5 mg tablet completed oxycodone hydro chloride 5 MG Oral Tablet [facility] ([facility]) Prednisone 5 MG Oral Tablet prednisone 5 mg tablet TAKE 1 TABLET BY MOUTH ONCE DAILY prednisone 5 mg tablet TAKE 1 TABLET BY MOUTH ONCE DAILY completed prednisone 5 MG Oral Tablet [facility] ([facility]) Oxycodone Hydrochloride 5 MG Oral Tablet oxycodone 5 m g tablet oxycodone 5 mg tablet completed oxycodone hydro chloride 5 MG Oral Tablet SUNDANCE ([facility]) Ondansetron 4 MG Oral Tablet ondansetron HCl 4 mg tabl et ondansetron HCl 4 mg tablet completed ondansetron 4 M G Oral Tablet SUNDANCE ([facility]) Prednisone 5 MG Oral Tablet prednisone 5 mg tablet TAKE 1 TABLET BY MOUTH ONCE DAILY prednisone 5 mg tablet TAKE 1 TABLET BY MOUTH ONCE DAILY completed prednisone 5 MG Oral Tablet ATHE NA ([facility]) ferrous sulfate 324 mg (65 mg iron) tablet,delayed release [id number] completed ferrous sulfate 324 MG Delayed R elease Oral Tablet KRISTOPHER ([facility]) Omeprazole 20 MG Delayed Release Oral Ca psule omeprazole 20 mg capsule,delayed release TAKE 1 CAPSULE BY MOUTH ONCE DAILY omeprazole 20 mg capsule,delayed release TAKE 1 CAPSULE BY MOUTH ONCE DAILY completed omeprazole 20 MG Delayed Release Oral Capsule KRISTOPHER ([facility]) Insurance Providers Payer name Policy type / Coverage type Policy ID Covered republican ID Covered republican's relationship to littlejohn Policy [place] Plan Information [facility] COMMUNITY PLAN MCDO [id number] SP [id number] [facility] I [id number] Self [id number] Medicaid S [id number] S [id number] Managed Care - [facility] Community Plan P [id number] S [id number] MEDICAID GME [id number] S [id number] [facility] HEA [id number] S [id number] [facility] O [id number] S [id number] [facility] COMMUNITY PLAN MCDO [id number] SP [id number] MEDICAID [id number] SP [id number] Medicaid S [id number] S [id number] Self Pay O UNAVAILABLE S UNAVAILA BLE Medicaid P [id number] S [id number] Managed Care BCBS P [id number] S [id number] [facility] Health Maintenance Organization (HMO) [id number] Self [id number] [facility] Health Maintenance Organization (HMO) [id number] Self [id number] [facility] COMMUNITY PLAN MCDO [id number] SP [id number] MEDICAID M [id number] S [id number] [facility] COMMUNITY PLAN MCDO [id number] SP [id number] [facility] Health Maintenance Organization (HMO) [id number] Self [id number] [facility] Health Maintenance Organization (HMO) [id number] Self [id number] [facility] I [id number] Self [id number] [facility] Community Plan Medicaid [id number] Self [id number] [facility] COMMUNITY PLAN MC [id number] 18 [id number] [employer] COMMUNITY PLAN MCDHMO [id number] SP [id number] [facility] Community Plan Medicaid [id number] Self [id number] [facility] Community Plan Medicaid Self [facility] Health Maintenance Organization (HMO) Self UHC Medicare Comm Plan F [id number] SELF [id number] [employer] COMMUNITY PLAN MCDHMO [id number] SP [id number] MEDICAID W [id number] O [id number] Medicaid [facility] S D [id number] SELF [id number] UHC COMM PLAN EVAN W [id number] S [id number] UNHC AMERICHOICE XIX -HMO [id number] 18 [id number] MEDICAID GME W [id number] S [id number] UHC COMM PLAN FHP W [id number] S [id number] MEDICAID M [id number] Self [id number] MEDICAID M [id number] Self [id number] UHC I [id number] Self [id number] UH I [id number] Self [id number] UNHC XIX HMO-CLINIC [id number] 18 [id number] [facility] BLUE [facility] [id number] Problems, Conditions, and Diagnoses Code Display Name Description Problem Type Effective Dates Data Source(s) 787624872 Arthropathy Arthropathy Problem 10/17/2020 12:00:00 AM HELEN SUMMERS ([facility]) [id number] Arthropathy Arthropathy Problem 10/17/2020 12:00:00 AM HELEN SUMMERS ([facility]) [id number] Asthma Asthma Problem 08/14/2020 05:52:55 PM ED T KRISTOPHER ([facility]) [id number] Asthma Asthma Problem 08/14/2020 05:52:55 PM ED T KRISTOPHER ([facility]) [id number] Clinical finding Clinical Finding Problem 019 12:00:00 AM EDT - 10/17/2020 12:00:00 AM HELEN SUMMERS ([facility]) [id number] Acute maxillary sinusitis Acute Maxillary Sinusitis Pr oblem 08/22/2019 12:00:00 AM EDT - 10/17/2020 12:00:00 AM HELEN SUMMERS ([facility]) [id number] Clinical finding Clinical Finding Problem 019 12:00:00 AM EDT - 10/17/2020 12:00:00 AM EST KRISTOPHER ([facility] er) [id number] Acute maxillary sinusitis Acute Maxillary Sinusitis Pr oblem 08/22/2019 12:00:00 AM EDT - 10/17/2020 12:00:00 AM EST KRISTOPHER ([facility]) [id number] Procedure by method Procedure by Method Problem 0 07/27/2019 12:00:00 AM EDT - 10/17/2020 12:00:00 AM EST KRISTOPHER ([facility]) [id number] Dysuria Dysuria Problem 07/27/2019 12:0 0:00 AM EDT - 10/17/2020 12:00:00 AM EST KRISTOPHER ([facility]) [id number] Procedure by method Procedure by Method Problem 0 07/27/2019 12:00:00 AM EDT - 10/17/2020 12:00:00 AM EST KRISTOPHER ([facility]) [id number] Dysuria Dysuria Problem 07/27/2019 12:0 0:00 AM EDT - 10/17/2020 12:00:00 AM EST KRISTOPHER ([facility]) [id number] Clinical finding Clinical Finding Problem 013 12:00:00 AM EST - 10/17/2020 12:00:00 AM EST KRISTOPHER ([facility]) [id number] Clinical finding Clinical Finding Problem 013 12:00:00 AM EST - 10/17/2020 12:00:00 AM EST KRISTOPHER ([facility]) Z39.2 Encounter for routine follow- up Encounter for routine follow-up Diagnosis 05/19/2020 01:09:21 PM [facility] O40.9XX0 Polyhydramnios, unspecified trimester, n ot applicable or unspecified Polyhydramnios, unspecified trimester, not applicable or unspecified Diagnosis 03/26/2020 12:09:[address] [facility] O09.529 Supervision of elderly multigravida, uns pecified trimester Supervision of elderly multigravida, unspecified trimester Diagnosis 020 12:09:[address] [facility] O12.10 Gestational proteinuria, unspecified tri mester Gestational proteinuria, unspecified trimester Diagnosis 03/12/2020 12:11:35 PM [facility] R51 Headache Headache Diagnosis 03/12/2020 12:11:35 PM [facility] O26.893 Other specified related condit ions, third trimester Other specified related conditions, third trimester Diagnosis 03/12/2020 12:11:[address] [facility] D69.6 Thrombocytopenia, unspecified Thrombocytopenia, unspec ified Diagnosis 03/06/2020 11:00:[address] [facility] O99.119 Other diseases of the blood and blood-forming organs and certain disorders involving the immune mechanism complicating , unspecified trimester Other diseases of the blood and blood-fo rming organs and certain disorders involving the immune mechanism complicating , unspecified trimester Diagnosis 03/06/2020 11:00:35 AM [facility] Z34.90 Encounter for supervision of normal , unspecified, unspecified trimester Encounter for supervision of normal preg tiburcio, unspecified, unspecified trimester Diagnosis 02/13/2020 12:15:56 PM [facility] O36.63X0 Maternal care for excessive growth, third trimester, not applicable or unspecified Maternal care for excessive growth , third trimester, not applicable or unspecified Diagnosis 02/07/2020 02:40:[address] [facility] O99.013 Anemia complicating , third tri mester Anemia complicating , third trimester Diagnosis 02/07/2020 01:08:47 PM [facility] J45.909 Unspecified asthma, uncomplicated Unspecified as thma, uncomplicated Diagnosis 01/23/2020 02:46:[address] [facility] E03.9 Hypothyroidism, unspecified Hypothyroidism, unspecifie d Diagnosis 01/23/2020 01:53:[address] [facility] O99.280 Endocrine, nutritional and m etabolic diseases complicating , unspecified trimester Endocrine, nutritional and metabolic dis eases complicating , unspecified trimester Diagnosis 01/23/2020 01:53:[address] [facility] Z3A.28 28 weeks gestation of 28 weeks gestati on of Diagnosis 01/23/2020 01:53:[address] [facility] G56.00 Carpal tunnel syndrome, unspecified uppe r limb Carpal tunnel syndrome, unspecified upper limb Diagnosis 01/09/2020 02:26:[address] [facility] O26.899 Other specified related condit ions, unspecified trimester Other specified related conditions, unspecified trimester Diagnosis 01/09/2020 02:26:[address] [facility] K21.9 Gastro-esophageal reflux disease without esophagitis Gastro-esophageal reflux disease without esophagitis Diagnosis 11/28/2019 12:33:38 PM [facility] O09.522 Supervision of elderly multigravida, sec ond trimester Supervision of elderly multigravida, second trimester Diagnosis 11/06/2019 01:25:36 P [facility] Surgeries/Procedures Procedure Description Date Indications Data Source(s) US, thyroid 10/17/2020 12:00:00 AM EST A THENA ([facility]) US, thyroid 10/17/2020 12:00:00 AM EST A THENA ([facility]) Bilateral Tubal Ligation 04/04/2020 12:00:00 AM EDT KRISTOPHER ([facility]) Bilateral Tubal Ligation 04/04/2020 12:00:00 AM EDT SUNDANCE ([facility]) 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 Sjogren's syndrome, with unspecified org an involvement Results ID Date Data Source [id number] 12/23/2020 06:27:00 PM EST MEDENT ([facility]) Name Value Range Interpretation Code Description Data Kelli rce(s) Supporting Document(s) Bacteria identified in Urine by Culture Laboratory test result MEDENT ([facility]) Rx Macrobid/pyridium/fluconazole ID Date Data Source [id number] 10/17/2020 02:30:00 PM EST KRISTOPHER [facility]) Name Value Range Interpretation Code Description Data Kelli rce(s) Supporting Document(s) ferritin 10 NG/mL 8-252 normal Ferritin SUNDANCE ([facility]) ID Date Data Source [id number] 10/17/2020 02:30:00 PM EST KRISTOPHER ([facility]) Name Value Range Interpretation Code Description Data Kelli rce(s) Supporting Document(s) total 25(oh) vitamin D 20.9 NG/mL 30.0-100.0 Below low normal T otal 25(Oh) Vitamin D SUNDANCE ([facility]) ID Date Data Source [id number] 10/17/2020 02:30:00 PM EST SUNDANCE ([facility]) Name Value Range Interpretation Code Description Data Kelli rce(s) Supporting Document(s) free T4 0.93 NG/dL 0.76-1.46 normal Free T4 KRISTOPHER ([facility]) thyroid stimulating hormone 2.630 uIU/mL 0.358-3.740 normal Thyroid Stimulating Hormone SUNDANCE ([facility]) ID Date Data Source [id number] 10/17/2020 02:30:00 PM EST KRISTOPHER ([facility]) Name Value Range Interpretation Code Description Data Kelli rce(s) Supporting Document(s) percent saturation 12.0 % 13.2-45.0 Below low normal Percent Sat uration KRISTOPHER ([facility]) total iron binding capacity 393 ug/dL 250-450 normal Total Iron Binding Capacity KRISTOPHER ([facility]) iron (fe) 47 ug/dL 50-170 Below low normal Iron (Fe) [facility]) ID Date Data Source [id number] 10/17/2020 02:30:00 PM [facility] Name Value Range Interpretation Code Description Data Kelli rce(s) Supporting Document(s) glucose, fasting 103 mg/dL 70-100 Above high normal Glucose, Fas ting SUNDANCE ([facility]) blood urea nitrogen 13 mg/dL 7-18 normal Blood Urea Nitro gen KRISTOPHER ([facility]) creatinine for GFR 1.06 mg/dL 0.55-1.30 normal Creatinine for GF R KRISTOPHER ([facility]) sodium level 140 mEq/L 136-145 normal Sodium Level KRISTOPHER ([facility]) glomerular filtration rate > 60.0 >60 normal Glomerula r Filtration Rate KRISTOPHER ([facility]) potassium serum 4.0 mEq/L 3.5-5.1 normal Potassium Serum ATHE NA ([facility]) carbon dioxide level 29 mEq/L 21-32 normal Carbon Dioxide Level KRISTOPHER ([facility]) chloride level 104 mEq/L 98-107 normal Chloride Level KRISTOPHER ([facility]) anion gap 7 mEq/L 8-16 Below low normal Anion Gap KRISTOPHER ( [facility]) calcium level 8.8 mg/dL 8.5-10.1 normal Calcium Level KRISTOPHER ( [facility]) AST/SGOT 9 U/L 7-37 normal AST/SGOT KRISTOPHER ([facility]) ALT/SGPT 23 U/L 12-78 normal ALT/SGPT KRISTOPHER ([facility]) bilirubin,total 0.5 mg/dL 0.2-1.0 normal Bilirubin,total ATHE ([facility]) albumin 3.8 gm/dL 3.2-5.2 normal Albumin KRISTOPHER ([facility]) alkaline phosphatase 59 U/L 45-117 normal Alkaline Phosph atase KRISTOPHER ([facility]) total protein 7.8 gm/dL 6.4-8.2 normal Total Protein KRISTOPHER ( [facility]) albumin/globulin ratio 1.2-2.2 Below low normal Albumin /globulin Ratio KRISTOPHER ([facility]) ID Date Data Source [id number] 10/17/2020 02:30:00 PM EST KRISTOPHER ([facility]) Name Value Range Interpretation Code Description Data Kelli rce(s) Supporting Document(s) white blood count 7.8 10 4.0-10.0 normal White Blood Count KRISTOPHER ([facility]) hemoglobin 12.7 g/dL 12.0-15.5 normal Hemoglobin KRISTOPHER ([facility]) red blood count 5.26 10 4.00-5.40 normal Red Blood Count ATHE NA ([facility]) mean corpuscular hemoglobin 24.1 pg 27.0-33.0 Below low nor mal Mean Corpuscular Hemoglobin KRISTOPHER ([facility]) hematocrit 41.9 % 36.0-47.0 normal Hematocrit KRISTOPHER ([facility]) mean corpuscular volume 79.7 fL 80.0-96.0 Below low normal Mean Corpuscular Volume KRISTOPHER ([facility]) mean corpuscular HGB conc 30.3 g/dL 32.0-36.5 Below low spike l Mean Corpuscular HGB Conc KRISTOPHER ([facility]) neutrophils % 61.2 % 36.0-66.0 normal Neutrophils % KRISTOPHER ( [facility]) platelet count, automated 188 10 150-450 normal Platelet C ount, Automated KRISTOPHER ([facility]) red cell distribution width 14.6 % 11.5-14.5 Above high no rmal Red Cell Distribution Width KRISTOPHER ([facility]) lymph % 26.1 % 24.0-44.0 normal Lymph % KRISTOPHER ([facility]) mono % 9.2 % 0.0-5.0 Above high normal Kings % KRISTOPHER ([facility]) immature granulocyte % 0.3 % 0-3.0 normal Immature Gran ulocyte % KRISTOPHER ([facility]) eos % 2.4 % 0.0-3.0 normal Eos % KRISTOPHER ([facility]) baso % 0.8 % 0.0-1.0 normal Baso % KRISTOPHER ([facility]) nucleated red blood cell % 0.0 % 0-0 normal Nucleated Red Blood Cell % KRISTOPHER ([facility]) neutrophils # 4.8 10 1.5-8.5 normal Neutrophils # KRISTOPHER ( [facility]) mono # 0.7 10 0.0-0.8 normal Kings # KRISTOPHER ([facility]) lymph # 2.0 10 1.5-5.0 normal Lymph # KRISTOPHER ([facility]) baso # 0.1 10 0.0-0.2 normal Baso # KRISTOPHER ([facility]) eos # 0.2 10 0.0-0.5 normal Eos # KRISTOPHER ([facility]) ID Date Data Source [id number] 08/27/2020 10:40:07 AM EDT [facility] Name Value Range Interpretation Code Description Data Kelli rce(s) Supporting Document(s) Progress Note [facility] KWWCSa6xMfBHQpBh33/FUSfjEDCxk8OjFFjpPVi1QSzmOIQpG0WcZTR8bJ5jOOC2DOiBWxNsZuOgFNN1 lbm [file] senior writer+IfI9jzsFXViTQee1KwN9rFpRPDvwlRLvjtjI8JslJncYflGAZM4EoX+OV+4DXgLeoGBIHRgFe+Xo [file] ICAgICAgICAgICAgICAgICAgICAgICAgICAgICAgICAgICAgICAgICAgICAgICAgICAgICANCiAgICAg ICAgICAgICAgICAgICAgICAgICAgICAgICAgICAgIC AgICAgICAgICAgICAgICAgICAgICAgICAgICAgICAgICAgICAgICAgICAgICAgICAgICAgICAgICAgIC AgICANCiAgICAgICAgICAgICAgICAgICAgICAgICAgICAgICAgICAgICAgICAgICAgICAgICAgICAgIC AgICAgICAgICAgICAgICAgICAgICAgICAgICAgICAg ICAgICAgICAgICAgICANCiAgICAgICAgICAgICAgICAgICAgICAgICAgICAgICAgICAgICAgICAgICAg ICAgICAgICAgICAgICAgICAgICAgICAgICAgICAgICAgICAgICAgICAgICAgICAgICAgICAgICANCiAg ICAgICAgICAgICAgICAgICAgICAgICAgICAgICAgIC AgICAgICAgICAgICAgICAgICAgICAgICAgICAgICAgICAgICAgICAgICAgICAgICAgICAgICAgICAgIC AgICAgICANCiAgICAgICAgICAgICAgICAgICAgICAgICAgICAgICAgICAgICAgICAgICAgICAgICAgIC AgICAgICAgICAgICAgICAgICAgICAgICAgICAgICAg ICAgICAgICAgICAgICAgICANCiAgICAgICAgICAgICAgICAgICAgICAgICAgICAgICAgICAgICAgICAg ICAgICAgICAgICAgICAgICAgICAgICAgICAgICAgICAgICAgICAgICAgICAgICAgICAgICAgICAgICAN CiAgICAgICAgICAgICAgICAgICAgICAgICAgICAgIC AgICAgICAgICAgICAgICAgICAgICAgICAgICAgICAgICAgICAgICAgICAgICAgICAgICAgICAgICAgIC AgICAgICAgICANCiAgICAgICAgICAgICAgICAgICAgICAgICAgICAgICAgICAgICAgICAgICAgICAgIC AgICAgICAgICAgICAgICAgICAgICAgICAgICAgICAg ICAgICAgICAgICAgICAgICAgICANCiAgICAgICAgICAgICAgICAgICAgICAgICAgICAgICAgICAgICAg ICAgICAgICAgICAgICAgICAgICAgICAgICAgICAgICAgICAgICAgICAgICAgICAgICAgICAgICAgICAg ICANCjw/zUIoX8itbTJpwzY1G3mgIh9SOu3EXQ3pm0 PmQIKnVUsbmxDqGtzNAfAmWQKoWqxYDjz8UCupFS5MqCSvH4WqE9UrPEqeXB9RRNLrNHRwfODsNPXbYM GfFoI4UMEfHHoeEI4ZlZXkEZxrJGTqDEIgSwAdVLYkJOFyTJNfNELoVFZCSKRjSLYcEfBtKBdcFG2Ke3 UccPI9NWl+Ol1WKJ0ho4PrEXloGgApXF4nkb8OCOdV JeIpO8LtroA3AHR6LTKpRq1FJUSkFOZxxOHxYRSuETRZOgVfQ4KqgD11OTGSWa0+DQplbmRvYmoNCjM0 LXUks3TqIHj7VV6MSBJzDOx3cWHwURLjB8Wpn4TsKl22QDTuVajvSvtlromut89nHKj1RFNJKGVmeBQf UU2xLG5rDWIsRWRdXxItJOJLNX5VNVFuYVSbhQVqKD EtMXISHY6NKTxsCJC2MJCligIhzXExXXptFO4MWZQxtbJiTzDcXDUMJJy+Id7WMF6pu3UpENegYOWyTG 6foj8WMFxBQkUfT8A5bWTjF6V8MLhsQk9HPDTlEUIxNbBjTKZXBLovAC5WIY1fvcK7WP1BqDAbJEDbSE XksAVbBFt2P99crGHbFVdmEK8LEPR+Emma+Oz7SOVLd MEMxCPPsRvHyUMOBAdOdY5SaD8VMp7HsK3LyOF27dOmxsiXpUWjgHX4HFJ0qSRRmMQANCX1KmBSdqY0v hgZwBkZcYINOUhPuQ70nsLBpTKAkWKDqMVZuIf8TBHEeG5FnerVvnBcywtPzJGHvSKHASX6ONQpusaKm gYBxbQkmXB73qInmLF5BKf4AJfAcXM3dzf9UnOHpRe 8CVEJmGx5QAFTqEEEdFZGaZZX4OSYtBzYgCMktPIZfXVJbOJK9VUSgTWJaFP0LMzMoAOInMpZoNTNrJC MiHURxok7YZTFlEKVoRyCzIbBxDIMhIVXwJMotVWXxEUYgOLT7CCTeVHYiJB1TBmIkBATaPRU2JDArOE XzTVUfag0UATXqCIQrELR9LuSwXKTvMHTjLFioVJKn ZWZ3RjGpWVBcSSVmXF5UDeDmPBEmSNi7TERbFNKcKZAnds1AYBOsDEMoPBb8BoKkRBExMDDnWWgfXIPu GKVnHYmpXXVlJPRpDW0GVpErXVPwQKC5IEWrLWLpKSTkrj5AMUUxQRKjYYF7KmTlDFHpPJIkAOmyUGWe KTG7NYptBILtOZZsLQ9CPySvEVDdRIs3FSwqDENaQH Ulpn3COZBhZWUnITK9CFNrLBEsUXRhXRktZGFtMAO6LWK4DRYyLECmHC5CEqToHRYbSKsoDojrPZTaYA Fyql7KSQKyMOUlSPg8WfOySDJzIIKtZLurGNXwMDOlBCd9NWSlUFKvBW3WBqJsTWGxIjQcSumeOJRuDO Sbwt1YQRLdCHUpDFkkDzLtIRVjFRCaEWfmNPQtEPVq KYQfNEQfDWMaBF9GTcOpMBMlDcXkZJKmSKYlKYGncg8BWDFzBCEcMlE9WCPuAXIaNOWhXRglTNWxDFVl VrU0JMBwUJXlNQ8LPnLjZDFnMsM1HVMbBFZqCFOpce9MSZXhZSYgPll2ZOVhWRVkXOAeGUvvEJVcICX5 HSB2FAQlECRxSZ7TFyMnLDIfQsB3RXXmSUBcFNZrcr 5HYXAkNZHnNZU6BOOpAKNwTVWvOFgkCNVqUBU7XpA1HEWzIZYnLH3LFxVpDRJsOsA4LJKsPPNiAEJbla 4TWNTsBOMdNiY3GhQjKUInVHFxDZadKRFmSNO6QxK6ESVuEWCiFD1NAsOyRYEdVkj5DpBzPJViDZXtyw 2DmUMfvBmsiy7FKPnLJb3IuUonYCC3HJjeVy3stOCy DKRcYITVNa7GoxRnBJPcXCDNQQdyODGvZPd6IDHmCFLfKXP4Uxn6YmpcFWW8YAJlAqNdREf4E8RlThQ4 SLilGrX9X5VbZufyXbu7F8YvFmLyD4VfOZNbUDC7CAR+BJ1kADb+Fn6Nz3DbodJ4wtUgLGjfUmqyEP9C XHBBR0EIUx== ID Date Data Source [id number] 05/19/2020 02:04:40 PM EDT [facility] Name Value Range Interpretation Code Description Data Kelli rce(s) Supporting Document(s) Progress Note [facility] QIEHFi4fVeFQRoNt56/QIGldRPZrf8PqZXomMYt9SWmqBSVsV1IdYPQ9pA3qLFQ3QJrWBcZhLpTeMyQq lbm [file] RyJoUpH8IMYcZqRnH2OaXw2dTFWKTn4+BAivhGLxzEknLFROOdArTrc6IIkhBDPQWd6J ID Date Data Source [id number] 04/14/2020 03:29:09 PM EDT [facility] Name Value Range Interpretation Code Description Data Kelli rce(s) Supporting Document(s) Progress Note [facility] BCEXHt8aUkQLTdQi16/OIYbjEPYwb0LqEFgoTCt8FFitQCRjT0WlBFT2xG8iTDH0FXfJMgMdHnWkVmN3 lbm [file] ID Date Data Source [id number] 04/05/2020 05:42:34 AM EDT [facility] Name Value Range Interpretation Code Description Data Kelli rce(s) Supporting Document(s) WBC 19.5 10*3/uL (4.1-11.0) H [facility] RBC 3.35 10*6/uL (4.00-5.40) L [facility] HGB 8.7 g/dL (12.0-16.0) L [facility] HCT 26.6 % (36.0-47.0) L [facility] MCV 79.4 fL (80.0-95.0) L [facility] MCH 26.0 pg (27.0-32.0) L [facility] MCHC 32.7 g/dL (32.0-36.0) [facility] RDW 16.6 % (10.5-14.5) H [facility] PLT 129 10*3/uL (150-450) L [facility] MPV 10.3 fL (7.1-10.7) [facility] ID Date Data Source [id number] 04/04/2020 11:09:25 AM EDT [facility] Name Value Range Interpretation Code Description Data Kelli rce(s) Supporting Document(s) WBC 23.8 10*3/uL (4.1-11.0) H [facility] RBC 3.89 10*6/uL (4.00-5.40) L [facility] HGB 10.2 g/dL (12.0-16.0) L [facility] HCT 31.1 % (36.0-47.0) L [facility] MCV 80.0 fL (80.0-95.0) [facility] MCH 26.2 pg (27.0-32.0) L [facility] MCHC 32.7 g/dL (32.0-36.0) [facility] RDW 16.5 % (10.5-14.5) H [facility] PLT 131 10*3/uL (150-450) L [facility] MPV 10.5 fL (7.1-10.7) [facility] ID Date Data Source [id number] 04/07/2020 03:00:32 PM EDT [facility] [place] [address] [address] [place] [id number]# SURGICAL PATHOLOGY REPORTPatient Name:VIVIAN ARCHEROB:1985Received:04/04/2020Accession #:[id number](s) Received: A: PlacentaB: Right fallopian tube segmentC: [...] for microscopic examination. (1 block) jglrff/tbsProcessed at [facility], [facility], Histopathology,[address] [place] [address], [id number]. Reported at [facility], [address] [place] [address], [facility].Reported: 04/07/2020Electronically Signed Out By Sarah Guzman MD [facility], [facility].This re port may include immunohistochemical or in-situ hybridizationresults. Testing was developed and the performance characteristicsdetermined by [facility] as required by CLIA '88. The FDAhas determined that approval for specific use is not necessary forclinical use. The quality of Hematoxylin and Eosin stains and asapplicable, for all immunohistochemical and/or special stains, includingpositive and negative controls, were reviewed and considered appropriate.ICD codes: O43.819 Z30.2CPT4 codes: A: 74066FX: 67431RA: 87272G Name Value Range Interpretation Code Description Data Kelli rce(s) Supporting Document(s) ID Date Data Source [id number] 04/03/2020 12:03:18 PM EDT [facility] Name Value Range Interpretation Code Description Data Kelli rce(s) Supporting Document(s) TREPONEMA IGG/IGM @ (NEG) [facility] ID Date Data Source [id number] 04/03/2020 08:58:26 AM EDT [facility] Name Value Range Interpretation Code Description Data Kelli rce(s) Supporting Document(s) WBC 10.6 10*3/uL (4.1-11.0) [facility] RBC 4.36 10*6/uL (4.00-5.40) [facility] HGB 11.6 g/dL (12.0-16.0) L [facility] HCT 34.4 % (36.0-47.0) L [facility] MCV 79.0 fL (80.0-95.0) L [facility] MCH 26.6 pg (27.0-32.0) L [facility] MCHC 33.6 g/dL (32.0-36.0) [facility] RDW 16.4 % (10.5-14.5) H [facility] PLT 132 10*3/uL (150-450) L [facility] MPV 10.1 fL (7.1-10.7) [facility] [place] [facility] ID Date Data Source [id number] 04/07/2020 01:00:22 AM EDT [facility] [place] [facility] SPEC EXP DATE 04/06/2020CONV ERT COMMENT TWO UNIT XM ADDED DUE TO PRESENCE OR HISTORY OF ATYPICAL ANTIBODIES.PATIENT ABO/Rh O POSITIVEANTIBODY SCREEN POSITIVETESTING SITE PERFORMED AT [address] [place] [address] BANK COMMENT BLOOD TYPE CONFIRMED.ANTIBODY IDENT ALL MAJOR ALLOANTIBODIES EXCLUDED.UNIT NUMBER [id number] COMPONENT TYPE LEUKOPOOR RED CELLSUNIT DIVISION 00STATUS OF UNIT REL FROM ALLOCTRANSFUSION STATUS OK TO TRANSFUSE CROSSMATCH RESULT COMPATIBLEUNIT NUMBER [id number] COMPONENT TYPE LEUKOPOOR RED CELLSUNIT DIVISION 00STATUS OF UNIT REL FROM ALLOCTRANSFUSION STATUS OK TO TRANSFUSECROSSMATCH RESULT COMPATIBLE Name Value Range Interpretation Code Description Data Kelli rce(s) Supporting Document(s) TYPE AND SCREEN Lab [place] o f [facility] PATIENT ABO/Rh O POSITIVE ID Date Data Source [id number] 03/26/2020 03:06:33 PM EDT [facility] Name Value Range Interpretation Code Description Data Kelli rce(s) Supporting Document(s) Progress Note [facility] [id number]WJKkT5KuMCY5tK6aNQM2VWpWUpSmUoUlICG3 lbm [file] ICAgICAgICAgICAgICAgICAgICAgICAgICAgICAgIC AgICAgICAgICAgICAgICAgICAgICAgICAgICAgICAgICAgICAgICAgICAgICAgICAgICAgICAgICAgIC NrFIPiOO9HIEEfQEWkCVXmPJItHSSkMGWaHGQgANOuZGXdOGStZTJcMIWwGVXvDJTdFHBvFNKpVGQfGN AgICAgICAgICAgICAgICAgICAgICAgICAgICAgICAg VKAyDSGnYPKuKFLhZWWwHJ7PXMVbSRBcIZSoOANwXHWkPIMlIQTeCAXmJSXcEBMlWWPpCAVnINSfZCKo PESrZCViOOJsKCOiXHXlSDMyUNVgGCAdMBYrVFElDBMjDQXnUEJkWDNfTCQfJAWwQPSdEJPlSZPyFJ6L ICAgICAgICAgICAgICAgICAgICAgICAgICAgICAgIC AgICAgICAgICAgICAgICAgICAgICAgICAgICAgICAgICAgICAgICAgICAgICAgICAgICAgICAgICAgIC IkDHPtEPPeUS9WLVIxVNNqGGPjPCDbTULdTBLjGDNhIWXbPCDmMUJoFTFfOHJtOTTnQRMuABBpQWEvJF AgICAgICAgICAgICAgICAgICAgICAgICAgICAgICAg VBXzVEQuSJXeZGEsHGVxLOBpJT9ONJFjPYObEHApKKHnALMvAYXdRQIcIJHbDLLnHYWfVMChRUSsJSRw ICAgICAgICAgICAgICAgICAgICAgICAgICAgICAgICAgICAgICAgICAgICAgICAgICAgICAgICAgICAg JR7ZXAKsUCWjJXJgMIEsAQGjQUWqUDTaOQNfAAAlTU AgICAgICAgICAgICAgICAgICAgICAgICAgICAgICAgICAgICAgICAgICAgICAgICAgICAgICAgICAgIC TmLZPkRTXeZKEbPO8MYIVcTEUeQHLaOWKxCSRbWSRaSPSfUSXlEAMjQJVdKFPqGHWwVOIxMOOcLLIdOA AgICAgICAgICAgICAgICAgICAgICAgICAgICAgICAg OSUhWJArHLWdFSEjJZWlRWRbKEHeDB4PUEAuZNPoROXsUEJqVTQiJXEaRVOcIXXaAEUmUZMwRTWfTCCd ICAgICAgICAgICAgICAgICAgICAgICAgICAgICAgICAgICAgICAgICAgICAgICAgICAgICAgICAgICAg WFZcSK9HLABsNOAtAKUuWQJdLIGzVZDnPDKzLRBcQH AgICAgICAgICAgICAgICAgICAgICAgICAgICAgICAgICAgICAgICAgICAgICAgICAgICAgICAgICAgIC JjLFVyWQLvTSGoBDSrKI9OJF75rRHvp3N7DFMyDO5ydqc/Et0EWTnhpqYbbMYgPM7QDrXnIY6jga2YEc VeQN5wum1REVwGKwGhJ7C1vGIfOFZcYIYYIhWyH64d MJayEn15SFgeGGKmYzIwWRu2Fc0ZJsGpL5puCMJqKeT8XGMgOkU0ZURxFqQpWUcrVG3Gg4SuqSKaWQk+ Fo3CWM5rd3MnHFzdDYTnHN0fgv1CHFvGBfQaX3YvrjR5UMF9YHLtKf1GOSEtFQYuhRKhLYKdDSFLEhKm W4FwkS00HVHAVs6+NKeuenXcGapNIiM1GYZob7RmJO e6XE2NNVEqTBa6iJLcFGAcY5Kmw6LqOp74LRArWtbmVoVshovgCFDgAxFCv3suCDOiJU7SORW1VHDrFi ieVcSlHLZmUOq9ZKIYXNgLXfHdZ5Krn3CwKnU4IMZuThRsLHbiVBVhLrB6UU89eQrsSG8KBPWfEAWaQM 30ZKC2RXToPc7AUi6TVsYwMG8oip2NPpDiKFLeDntN Hhp5KMjbQR4TtJDkB6IojLNyr3oHNsNhX4YSFYCpEHIoYz0BUZVrVuYmDVJmHWoqET2iDWAwXSGPoHev tgA1NA2BNH1egxOdFW7TDcBaHh9mNh4IAiKiI2IgA7DgIOOkEPRSUKneDP3IPBumYC7qSU2Cg6XAdAHo cB3kmd9NCGFfDNSvYicyff8CQfuyU2G0oCavPICpPo CrTXKYPHpeLF0QBWDbRZG0XEPjUrKuNCPCDfNoR82qSN6EG5Emh45lVfS3GPMfDnOmDQwiMP15lVnsds SluTYshFxfID9JZg0+BVamotOnIrhMOmmoJPBCHlCqFroRFsVwVHMgCJSvMOVfMvN7UaSnSu5YDHSnVU AwMDAxNyAwMDAwMCBuDQowMDAwMDIxMjYwIDAwMDAw WJ9HIxSxDYDpPbS6RNMqKKWnVWIdib7RIUGrLARsMSS8BqLqBPMpAQWqCHmtPDTnJTJqQZPxUXTeEOTl CW5GYnXaPVNdEBZoVnOzESTsARHtzr9WBUYmIZAsPKQ4PwZvXPBhETDrNWkbUNBbKMA4BNmlFNXgHRWf RZ7QIxAvMXHfVUB7JABuWAJdPCNory2HTPDkDQJhMo TeCkLnLFSbYFImWVzaRRMgMAA5QpJ9HSPpUURmLT9UXdZhZJUaIKtiFgBxYLAnYHJnun3ODPQnXUQuYv Q3PHDiHUTyBWJrYIduBZAbOSC7TNT7LBRuNQBfUV8UClFeSLRzDJi3HORhPCAbZWLdim5AYMVbNZRwAA GyABHmMTVzODByTIbsXUVvTBZ7IVQgCSPaPTUyTU9O GbWlOVBlKOl7PRIfWCTfNWQuzg3FSLGfLXLjQQwvXbIwZOZiBFNsCAdlXCMmBORoJEY5LIElEYVvBJ3P ArYrUQAfGaZuNiBdQKKpLJMfgv9DYUPpLDYyIJYcPMIsTCPhTBGyTEloZNCjQUJhLwM8VQFtOOScUZ8N MxUcKPMgUeBbNDorPSBtQGOggq9XGQPzJILuHuL0FJ KkBIReFDLeHHadUWPsFAElNjApUWXsYBArJR3HCuDpKZwfQFZHAny4XRhxF1c0FZItTf9BE1Dqu4JkGv ZcKQHDIQfbDC4yhsLzXSHxFe4RD0yCFda0TBG7CWS9TwuqUAKgLIQtH8LiY6B8JoEgNDE0HBMuHu9mSA DlDWOnFXs3BZAtEFY6MPBtMVGjJlCmRGV4DartLWMq WoIlRN7HKw1QRxP1EZA1mHJjLn7KMwT7YpMNKrSjRD9NRFg= ID Date Data Source [id number] 03/26/2020 12:55:33 PM EDT [facility] Name Value Range Interpretation Code Description Data Kelli rce(s) Supporting Document(s) Color of Urine [facility] Clarity of Urine [facility] Glucose [Mass/volume] in Urine by Test strip Negative [facility] Bilirubin.total [Presence] in Urine by Test strip Negative [facility] Ketones [Mass/volume] in Urine by Test strip Negative [facility] Specific gravity of Urine by Test strip 1.025 1.005-1.025 [facility] Hemoglobin [Presence] in Urine by Test strip Negative [facility] pH of Urine by Test strip 6.5 5.0-8.0 [facility] Protein [Mass/volume] in Urine by Test strip 30 mg/dL Negative [facility] Urobilinogen [Units/volume] in Urine by Test strip 0.2 {Ehrlich_U}/ dL 0.2-1.0 [facility] Nitrite [Presence] in Urine by Test strip Negative [facility] Leukocyte esterase [Presence] in Urine by Test strip Negat panda [facility] ID Date Data Source [id number] 03/21/2020 10:51:03 AM EDT [facility] Name Value Range Interpretation Code Description Data Kelli rce(s) Supporting Document(s) Progress Note [facility] [id number]/OLDvgTSGvn6HvUEpbPYd9ZGyhMDVpH9JaYMQ8hP7pZVJ6BYjUDqPiBfWnFKLv lbm [file] [id number]= ID Date Data Source [id number] 03/21/2020 08:58:21 AM EDT [facility] Name Value Range Interpretation Code Description Data Kelli rce(s) Supporting Document(s) Color of Urine [facility] Clarity of Urine [facility] Glucose [Mass/volume] in Urine by Test strip Negative [facility] Bilirubin.total [Presence] in Urine by Test strip Negative [facility] Ketones [Mass/volume] in Urine by Test strip Negative [facility] Specific gravity of Urine by Test strip 1.025 1.005-1.025 [facility] Hemoglobin [Presence] in Urine by Test strip Negative [facility] pH of Urine by Test strip 6.0 5.0-8.0 [facility] Protein [Mass/volume] in Urine by Test strip 30 mg/dL Negative [facility] Urobilinogen [Units/volume] in Urine by Test strip 0.2 {Ehrlich_U}/ dL 0.2-1.0 [facility] Nitrite [Presence] in Urine by Test strip Negative [facility] Leukocyte esterase [Presence] in Urine by Test strip Negat panda [facility] ID Date Data Source [id number] 03/21/2020 08:34:06 AM EDT [facility] Name Value Range Interpretation Code Description Data Kelli rce(s) Supporting Document(s) Progress Note [facility] [id number]/DCDvfSKCwn7ZzYDhlCKt5GFowIDJmA2YqMSY2jA1fBHW4BNhNEcYnKzUwJLYm lbm [file] [id number]+ebQp1t5dA90GVd9c+V891l+vi31a1mPv7g11tDICOocgz+Mary Kate [file] [id number]HL3WCNp= ID Date Data Source [id number] 03/19/2020 05:26:34 PM [facility] Name Value Range Interpretation Code Description Data Kelli rce(s) Supporting Document(s) Lactate dehydrogenase [Enzymatic activit y/volume] in Serum or Plasma by Lactate to pyruvate reaction 148 U/L 122-214 [facility] ID Date Data Source [id number] 03/19/2020 05:26:34 PM [facility] Name Value Range Interpretation Code Description Data Kelli rce(s) Supporting Document(s) Albumin [Mass/volume] in Serum or Plasma by Bromocresol green (BCG) dye binding method 3.2 g/dL 3.5-5.2 L [facility] al Bilirubin.total [Mass/volume] in Serum or Plasma 0.4 mg/dL <1.2 [facility] Calcium [Mass/volume] in Serum or Plasma 8.6 mg/dL 8.6-10.0 [facility] Chloride [Moles/volume] in Serum or Plasma 102 mmol/L 98-107 [facility] Creatinine [Mass/volume] in Serum or Plasma 0.65 mg/dL 0.50-0.90 [facility] Glucose [Mass/volume] in Serum or Plasma 113 mg/dL 70-140 [facility] Alkaline phosphatase [Enzymatic activity/volume] in Serum or Plasma 83 U/L 35-104 [facility] Potassium [Moles/volume] in Serum or Plasma 3.5 mmol/L 3.4-5.1 [facility] Protein [Mass/volume] in Serum or Plasma 6.5 g/dL 6.4-8.3 [facility] Sodium [Moles/volume] in Serum or Plasma 133 mmol/L 136-[address] [facility] Aspartate aminotransferase [Enzymatic activity/volume] in Serum or Plasma 11 U/L <32 [facility] Urea nitrogen [Mass/volume] in Serum or Plasma 7 mg/dL 6-20 [facility] Osmolality of Serum or Plasma by calculation 275 mosm/kg 275-300 [facility] Creatinine/Urea nitrogen [Mass Ratio] in Serum or Plasma 11 [facility] Bicarbonate [Moles/volume] in Serum 20 mmol/L 22-[address] [facility] Alanine aminotransferase [Enzymatic activity/volume] in Seru m or Plasma 6 U/L <33 [facility] Anion gap 3 in Serum or Plasma 12 mmol/L 8-15 [facility] Albumin/Globulin [Mass Ratio] in Serum or Plasma 1.0 [facility] Glomerular filtration rate/1.73 sq M pre dicted among non-blacks [Volume Rate/Area] in Serum or Plasma by Creatinine-based formula (MDRD) >[address] [facility] Glomerular filtration rate/1.73 sq M pre dicted among blacks [Volume Rate/Area] in Serum or Plasma by Creatinine-based formula (MDRD) >60 [facility] ID Date Data Source [id number] 03/19/2020 05:26:34 PM [facility] Name Value Range Interpretation Code Description Data Kelli rce(s) Supporting Document(s) Urate [Mass/volume] in Serum or Plasma 5.2 mg/dl 2.4-5.7 [facility] ID Date Data Source [id number] 03/19/2020 06:21:11 PM [facility] Name Value Range Interpretation Code Description Data Kelli rce(s) Supporting Document(s) Leukocytes [#/volume] in Blood by Automated count 11.1 10*3/uL 4-[address] [facility] Erythrocytes [#/volume] in Blood by Automated count 4.23 10*6/uL 4.1- 5.3 [facility] Hemoglobin [Mass/volume] in Blood 11.4 g/dL 11.5-15.5 [facility] Hematocrit [Volume Fraction] of Blood by Automated count 33.6 % 3 6-[address] [facility] Erythrocyte mean corpuscular volume [Entitic volume] by Auto mated count 79.4 fL 80-[address] [facility] Erythrocyte mean corpuscular hemoglobin [Entitic mass] by Automated count 27.0 pg 27-33 [facility] Erythrocyte mean corpuscular hemoglobin concentration [Mass/volume] by Automated count 34.0 g/dL 32.0-36.0 [facility] al Erythrocyte distribution width [Ratio] by Automated count 15.8 % 11.5-14.[address] [facility] Platelets [#/volume] in Blood by Automated count 132 10*3/uL 150-[address] [facility] Differential cell count method - Blood [facility] Neutrophils/100 leukocytes in Blood by Automated count 81 % [facility] Lymphocytes/100 leukocytes in Blood by Automated count 10 % [facility] Monocytes/100 leukocytes in Blood by Automated count 6 % [facility] Eosinophils/100 leukocytes in Blood by Automated count 1 % [facility] Basophils/100 leukocytes in Blood by Automated count 1 % [facility] Neutrophils [#/volume] in Blood by Automated count 9.00 10*3/uL 1.8-[address] [facility] Lymphocytes [#/volume] in Blood by Automated count 1.15 10*3/uL 1.2-[address] [facility] Monocytes [#/volume] in Blood by Automated count 0.63 10*3/uL 0-0.8 [facility] Eosinophils [#/volume] in Blood by Automated count 0.10 10*3/uL 0-0.5 [facility] Basophils [#/volume] in Blood by Automated count 0.10 10*3/uL 0-0.2 [facility] Metamyelocytes/100 leukocytes in Blood by Manual count 1 % [facility] Metamyelocytes [#/volume] in Blood by Manual count 0.10 10*3/uL 0-[address] [facility] ID Date Data Source [id number] 03/21/2020 06:05:18 AM [facility] Value Range Interpretation Code Description Data Kelli rce(s) Supporting Document(s) Toxoplasma gondii IgM Ab [Units/volume] in Serum by Immunoassay 0.0-7.9 [facility] (NOTE) Negati ve <8.0 Equivocal 8.0 - 9.9 Positive > 9.9Performed At: [facility] [place], [place] [id number] Blanco MD Ph:[phone] ID Date Data Source [id number] 03/21/2020 06:05:18 AM [facility] Value Range Interpretation Code Description Data Kelli rce(s) Supporting Document(s) [facility] (NOTE)It is presumed the patient has not been infected with and is notundergoing an acute infection with Toxoplasma. If symptoms persist,submit a new specimen after three weeks.Performed At: [facility] [place], [place] [id number] Blanco MD Ph:[phone] ID Date Data Source [id number] 03/25/2020 12:04:19 PM EDT [facility] Name Value Range Interpretation Code Description Data Kelli rce(s) Supporting Document(s) Toxoplasma gondii IgG Ab [Units/volume] in Serum or Pl asma by Immunoassay 0.25 ISR <0.91 [facility] Negative ID Date Data Source [id number] 03/26/2020 10:05:29 PM EDT [facility] Name Value Range Interpretation Code Description Data Kelli rce(s) Supporting Document(s) Herpes simplex virus 1 IgM Ab [Titer] in Serum by Immunofluorescenc e <1:10 [facility] Herpes simplex virus 2 IgM Ab [Titer] in Serum by Immunofluorescenc e <1:10 [facility] (NOTE)HSV 1 and HSV 2 share many [...] anothermedically established diagnostic product or procedure.Performed At: [facility] [id number] Mckee MD Ph:[phone] ID Date Data Source [id number] 03/28/2020 12:05:19 AM EDT [facility] Name Value Range Interpretation Code Description Data Kelli rce(s) Supporting Document(s) Parvovirus B19 DNA [Presence] in Unspeci fied specimen by Probe and target amplification method Negative [facility] (NOTE)No Parvovirus B19 DNA detected.Thi s test was developed and its performance characteristicsdetermined by [employer]. It has not been cleared orapproved by the U.S. Food and Drug Administration. The FDA hasdetermined that such clearance or approval is not necessary. Thistest is used for clinical purposes. It should not be regarded asinvestigational or research.Performed At: [facility] [id number] Mckee MD Ph:[phone] ID Date Data Source [id number] 03/19/2020 05:24:05 PM [facility] Name Value Range Interpretation Code Description Data Kelli rce(s) Supporting Document(s) Glucose [Mass/volume] in Serum or Plasma --1 hour post 50 g glucose PO 114 mg/dL <136 [facility] ID Date Data Source [id number] 03/19/2020 12:25:54 PM [facility] Value Range Interpretation Code Description Data Kelli rce(s) Supporting Document(s) Color of Urine [facility] Clarity of Urine [facility] Glucose [Mass/volume] in Urine by Test strip Negative [facility] Bilirubin.total [Presence] in Urine by Test strip Negative [facility] Ketones [Mass/volume] in Urine by Test strip Negative [facility] Specific gravity of Urine by Test strip 1.020 1.005-1.025 [facility] Hemoglobin [Presence] in Urine by Test strip [facility] pH of Urine by Test strip 7.0 5.0-8.0 [facility] Protein [Mass/volume] in Urine by Test strip 30 mg/dL Negative [facility] Urobilinogen [Units/volume] in Urine by Test strip 0.2 {Ehrlich_U}/ dL 0.2-1.0 [facility] Nitrite [Presence] in Urine by Test strip Negative [facility] Leukocyte esterase [Presence] in Urine by Test strip Negat panda [facility] ID Date Data Source [id number] 03/12/2020 07:56:49 PM [facility] Value Range Interpretation Code Description Data Kelli rce(s) Supporting Document(s) Protein [Mass/volume] in Urine 36 mg/dl [facility] Creatinine [Mass/volume] in Urine 248.4 mg/dL [facility] Protein/Creatinine [Mass Ratio] in Urine 0.14 mg/mg{creat} [facility] ID Date Data Source [id number] 03/12/2020 02:14:03 PM [facility] Value Range Interpretation Code Description Data Kelli rce(s) Supporting Document(s) Progress Note [facility] [id number]/[id number]4QFjNNvWhLcIbUSIh lbm [file] [id number]= ID Date Data Source [id number] 03/12/2020 03:23:43 PM EDT [facility] Name Value Range Interpretation Code Description Data Kelli rce(s) Supporting Document(s) Leukocytes [#/volume] in Blood by Automated count 11.2 10*3/uL 4-[address] [facility] Erythrocytes [#/volume] in Blood by Automated count 4.08 10*6/uL 4.1- 5.[address] [facility] Hemoglobin [Mass/volume] in Blood 11.2 g/dL 11.5-15.[address] [facility] Hematocrit [Volume Fraction] of Blood by Automated count 33.1 % 3 6-[address] [facility] Erythrocyte mean corpuscular volume [Entitic volume] by Auto mated count 81.0 fL 80-96 [facility] Erythrocyte mean corpuscular hemoglobin [Entitic mass] by Automated count 27.4 pg 27-33 [facility] Erythrocyte mean corpuscular hemoglobin concentration [Mass/volume] by Automated count 33.8 g/dL 32.0-36.[facility] E[facility] distribution width [Ratio] by Automated count 15.5 % 11.5-14.[address] [facility] Platelets [#/volume] in Blood by Automated count 133 10*3/uL 150-[address] [facility] Differential cell count method - Blood [facility] Neutrophils/100 leukocytes in Blood by Automated count 74 % [facility] Lymphocytes/100 leukocytes in Blood by Automated count 12 % [facility] Monocytes/100 leukocytes in Blood by Automated count 11 % [facility] Eosinophils/100 leukocytes in Blood by Automated count 2 % [facility] Basophils/100 leukocytes in Blood by Automated count 1 % [facility] Neutrophils [#/volume] in Blood by Automated count 8.38 10*3/uL 1.8-[address] [facility] Lymphocytes [#/volume] in Blood by Automated count 1.34 10*3/uL 1.2-[address] [facility] Monocytes [#/volume] in Blood by Automated count 1.25 10*3/uL 0-0.[address] [facility] Eosinophils [#/volume] in Blood by Automated count 0.17 10*3/uL 0-0.5 [facility] Basophils [#/volume] in Blood by Automated count 0.05 10*3/uL 0-0.2 [facility] Nucleated erythrocytes/100 leukocytes [Ratio] in Blood by Automated count 0 /100{WBCs} 0-0 [facility] ID Date Data Source [id number] 03/12/2020 03:43:58 PM [facility] Name Value Range Interpretation Code Description Data Kelli rce(s) Supporting Document(s) Lactate dehydrogenase [Enzymatic activit y/volume] in Serum or Plasma by Lactate to pyruvate reaction 167 U/L 122-214 [facility] ID Date Data Source [id number] 03/12/2020 03:43:58 PM [facility] Name Value Range Interpretation Code Description Data Kelli rce(s) Supporting Document(s) Albumin [Mass/volume] in Serum or Plasma by Bromocresol green (BCG) dye binding method 3.0 g/dL 3.5-5.2 L [facility] al Bilirubin.total [Mass/volume] in Serum or Plasma 0.5 mg/dL <1.2 [facility] Calcium [Mass/volume] in Serum or Plasma 8.5 mg/dL 8.6-10.[address] [facility] Chloride [Moles/volume] in Serum or Plasma 102 mmol/L 98-107 [facility] Creatinine [Mass/volume] in Serum or Plasma 0.66 mg/dL 0.50-0.90 [facility] Glucose [Mass/volume] in Serum or Plasma 93 mg/dL 70-140 [facility] Alkaline phosphatase [Enzymatic activity/volume] in Serum or Plasma 76 U/L 35-104 [facility] Potassium [Moles/volume] in Serum or Plasma 3.9 mmol/L 3.4-5.1 [facility] Protein [Mass/volume] in Serum or Plasma 6.1 g/dL 6.4-8.[address] [facility] Sodium [Moles/volume] in Serum or Plasma 136 mmol/L 136-145 [facility] Aspartate aminotransferase [Enzymatic activity/volume] in Serum or Plasma 12 U/L <32 [facility] Urea nitrogen [Mass/volume] in Serum or Plasma 8 mg/dL 6-20 [facility] Osmolality of Serum or Plasma by calculation 280 mosm/kg 275-300 [facility] Creatinine/Urea nitrogen [Mass Ratio] in Serum or Plasma 12 [facility] Bicarbonate [Moles/volume] in Serum 24 mmol/L 22-29 [facility] Alanine aminotransferase [Enzymatic activity/volume] in Seru m or Plasma 7 U/L <33 [facility] Anion gap 3 in Serum or Plasma 11 mmol/L 8-15 [facility] Albumin/Globulin [Mass Ratio] in Serum or Plasma 1.0 [facility] Glomerular filtration rate/1.73 sq M pre dicted among non-blacks [Volume Rate/Area] in Serum or Plasma by Creatinine-based formula (MDRD) >[address] [facility] Glomerular filtration rate/1.73 sq M pre dicted among blacks [Volume Rate/Area] in Serum or Plasma by Creatinine-based formula (MDRD) >60 [facility] ID Date Data Source [id number] 03/12/2020 03:43:58 PM [facility] Name Value Range Interpretation Code Description Data Kelli rce(s) Supporting Document(s) Urate [Mass/volume] in Serum or Plasma 5.4 mg/dl 2.4-5.7 [facility] ID Date Data Source [id number] 03/12/2020 12:42:35 PM [facility] Name Value Range Interpretation Code Description Data Kelli rce(s) Supporting Document(s) Color of Urine [facility] Clarity of Urine [facility] Glucose [Mass/volume] in Urine by Test strip Negative [facility] Bilirubin.total [Presence] in Urine by Test strip Negative [facility] Ketones [Mass/volume] in Urine by Test strip Negative [facility] Specific gravity of Urine by Test strip 1.005-1.025 [facility] Hemoglobin [Presence] in Urine by Test strip Negative [facility] pH of Urine by Test strip 6.5 5.0-8.0 [facility] Protein [Mass/volume] in Urine by Test strip 100 mg/dL Negative [facility] Urobilinogen [Units/volume] in Urine by Test strip 0.2 {Ehrlich_U}/ dL 0.2-1.0 [facility] Nitrite [Presence] in Urine by Test strip Negative [facility] Leukocyte esterase [Presence] in Urine by Test strip Negat panda A [facility] ID Date Data Source [id number] 03/05/2020 04:27:33 PM EDT [facility] Name Value Range Interpretation Code Description Data Kelli rce(s) Supporting Document(s) Leukocytes [#/volume] in Blood by Automated count 10.4 10*3/uL 4-[address] [facility] Erythrocytes [#/volume] in Blood by Automated count 4.30 10*6/uL 4.1- 5.3 [facility] Hemoglobin [Mass/volume] in Blood 12.0 g/dL 11.5-15.5 [facility] Hematocrit [Volume Fraction] of Blood by Automated count 35.2 % 3 6-[address] [facility] Erythrocyte mean corpuscular volume [Entitic volume] by Auto mated count 81.9 fL 80-96 [facility] Erythrocyte mean corpuscular hemoglobin [Entitic mass] by Automated count 27.9 pg 27-33 [facility] Erythrocyte mean corpuscular hemoglobin concentration [Mass/volume] by Automated count 34.0 g/dL 32.0-36.0 [facility] Erythrocyte distribution width [Ratio] by Automated count 15.5 % 11.5-14.[address] [facility] Platelets [#/volume] in Blood by Automated count 155 10*3/uL 150-400 [facility] Differential cell count method - Blood [facility] Neutrophils/100 leukocytes in Blood by Automated count 74 % [facility] Lymphocytes/100 leukocytes in Blood by Automated count 15 % [facility] Monocytes/100 leukocytes in Blood by Automated count 10 % [facility] Eosinophils/100 leukocytes in Blood by Automated count 1 % [facility] Basophils/100 leukocytes in Blood by Automated count 0 % [facility] Neutrophils [#/volume] in Blood by Automated count 7.70 10*3/uL 1.8-[address] [facility] Lymphocytes [#/volume] in Blood by Automated count 1.51 10*3/uL 1.2-[address] [facility] Monocytes [#/volume] in Blood by Automated count 1.07 10*3/uL 0-0.[address] [facility] Eosinophils [#/volume] in Blood by Automated count 0.10 10*3/uL 0-0.5 [facility] Basophils [#/volume] in Blood by Automated count 0.04 10*3/uL 0-0.[address] St[address] [facility] Nucleated erythrocytes/100 leukocytes [Ratio] in Blood by Automated count 0 /100{WBCs} 0-0 [facility] ID Date Data Source [id number] 03/05/2020 02:51:34 PM T [facility] Name Value Range Interpretation Code Description Data Kelli rce(s) Supporting Document(s) Progress Note [facility] QBNNSl5rQzKMFoTh73/KOLrnFWOfl6UrKKreBWc5QVbkDFXsP3RiUBU8wH1sPCB8WItFSiCzQkWvCGW9 [facility] [file] YZT2JR0oGIHITe3+SNnutVPmyGezDKVCCjKuYrRmNLcvQQZWWo8A ID Date Data Source [id number] 03/07/2020 10:31:29 AM EDT [facility] Service Cmnt XXX-Imp : NoneMicroorganism XXX Cult : No beta hemolytic streptococci Group B isolated. For the best recovery of Group B streptococci a combined Vaginal/Rectal swab is recommended. Name Value Range Interpretation Code Description Data Kelli rce(s) Supporting Document(s) ID Date Data Source [id number] 03/05/2020 12:40:10 PM EDT [facility] Name Value Range Interpretation Code Description Data Kelli rce(s) Supporting Document(s) Color of Urine [facility] Clarity of Urine [facility] Glucose [Mass/volume] in Urine by Test strip Negative [facility] Bilirubin.total [Presence] in Urine by Test strip Negative [facility] Ketones [Mass/volume] in Urine by Test strip Negative [facility] Specific gravity of Urine by Test strip 1.025 1.005-1.025 [facility] Hemoglobin [Presence] in Urine by Test strip Negative [facility] pH of Urine by Test strip 6.0 5.0-8.0 [facility] Protein [Mass/volume] in Urine by Test strip Negative [facility] Urobilinogen [Units/volume] in Urine by Test strip 0.2 {Ehrlich_U}/ dL 0.2-1.0 [facility] Nitrite [Presence] in Urine by Test strip Negative [facility] Leukocyte esterase [Presence] in Urine by Test strip Negat panda A [facility] ID Date Data Source [id number] 02/28/2020 08:42:35 AM EDT [facility] Name Value Range Interpretation Code Description Data Kelli rce(s) Supporting Document(s) Progress Note [facility] ASRPXx0vYyCMBoPq86/GXPqpNEVvi9SlLHueGKd1QJlrKTRkM7CdBQO9zP5gIXW0KXrYMdWoUfFiIUYm lbm [file] ICAgICAgICAgICAgICAgICAgICAgICAgICAgICAgICAgICAgICAgICAgICAgICAgICAgICAgICAgICAg ICAgICAgICAgICAgICAgICAgICAgDQogICAgICAgICAgICAgICAgICAgICAgICAgICAgICAgICAgICAg ICAgICAgICAgICAgICAgICAgICAgICAgICAgICAgIC AgICAgICAgICAgICAgICAgICAgICAgICAgICAgICAgDQogICAgICAgICAgICAgICAgICAgICAgICAgIC AgICAgICAgICAgICAgICAgICAgICAgICAgICAgICAgICAgICAgICAgICAgICAgICAgICAgICAgICAgIC AgICAgICAgICAgICAgDQogICAgICAgICAgICAgICAg ICAgICAgICAgICAgICAgICAgICAgICAgICAgICAgICAgICAgICAgICAgICAgICAgICAgICAgICAgICAg ICAgICAgICAgICAgICAgICAgICAgICAgDQogICAgICAgICAgICAgICAgICAgICAgICAgICAgICAgICAg ICAgICAgICAgICAgICAgICAgICAgICAgICAgICAgIC AgICAgICAgICAgICAgICAgICAgICAgICAgICAgICAgICAgDQogICAgICAgICAgICAgICAgICAgICAgIC AgICAgICAgICAgICAgICAgICAgICAgICAgICAgICAgICAgICAgICAgICAgICAgICAgICAgICAgICAgIC AgICAgICAgICAgICAgICAgDQogICAgICAgICAgICAg ICAgICAgICAgICAgICAgICAgICAgICAgICAgICAgICAgICAgICAgICAgICAgICAgICAgICAgICAgICAg ICAgICAgICAgICAgICAgICAgICAgICAgICAgDQogICAgICAgICAgICAgICAgICAgICAgICAgICAgICAg ICAgICAgICAgICAgICAgICAgICAgICAgICAgICAgIC AgICAgICAgICAgICAgICAgICAgICAgICAgICAgICAgICAgICAgDQogICAgICAgICAgICAgICAgICAgIC AgICAgICAgICAgICAgICAgICAgICAgICAgICAgICAgICAgICAgICAgICAgICAgICAgICAgICAgICAgIC AgICAgICAgICAgICAgICAgICAgDQogICAgICAgICAg ICAgICAgICAgICAgICAgICAgICAgICAgICAgICAgICAgICAgICAgICAgICAgICAgICAgICAgICAgICAg XZYeFCRnRGTqUTVfXZRdNKNfLDBgCQLaCLEoGQRnLKs7Y6itFEZpSXIsFL0vTHb2My6+DQoNCmVuZHN0 zgIaqP6GFD9aa5FlSJvpCGVnf6GnYDg3DU7QLNOvBV drEE4UJTmfqv6QTXBuHMIzgLGOl2viKwFfZXQ7ODAqYcxhWY6YYYBwY8pqkyAfTBEbSZDQUNgyZTAXUY vrAKSBED9ATtIwW5JvdG43IHNAId7+AKzcytRfFruWZlJuCHOqu5KdALw9XX6TTKAaFmxri3QeEwKgYH TBEJhvHZ3VINQ5KLI4QXQdZt6ALMCcT617nlAoOS7C Lv7FPnWuQT6ehe5URnIpNGCnNhhOLwa2CPwfJN5PmNXsSCfXqj8pwdSqozELi3ByjzOqrEMLTRVdePMu tbIYMVKwATO9BQYVYm8sBVCqQU6vZE4bBKSaCFGoGfQtLOSKWP6VQNEgOTLomGRmRQZhOIOKRC9BAMkj VKT9FKFjoyMagPFwNShxTH8TZZZwkyFpZrEfIXKRUP o+Kt6LPO5jw7SfQPzsKRUiWP5nls0GOAaPWqCpG4P9qSMuD7A1ZDfcIi7OQNEgSADySlSdWFZUBQmpQK 1CEF8vnmV6UD6BvZQzERCmCMKuqLXxZYq7M26fjZJoCIiwJW5KPBP+Emma+Hy0IZALpBYZqSBXnMhUdLP SDMjQjW3DmL6QZz4LsZ2KsZE67kBvikkWgDApyTW7Z BB8oBPTyWZGDUN8JaMTewL4wxeSaFsByBMAVYeGyK05ufDOdDWBfGZMlGNPgNu0QRKYaW4DupqXwuHka ojJtAYUwRIMCNI7ASBhivtNafOLdwWjqNJ91ePmoDE3GHv2ZOdPyQX9ifs2ElCYgIc8XOXHqZx4UOEXp SVVkWANoHPF7VHJpJtNtFEriFSDbHUUpCNK0HDSvGA ShMQ3JAxEoNJIjSiY9UlpuRDVcSHRaca7NIJBrJVDfDEG7WgRnSHThVTIiOKnxXIErPRNnKLB0MNOpWC AwIX0ZUtQiFMHqLOV4XJpjYSXoLQDplw8BDPMrADOuQbiyMQBwWEKoSSSdCUwoEODsOOZ8XXA8ZLRxKM HbLV5DPtDpCYAiVVukJnzlHKTxEGEeec5JPDDvKPAu JCL1LpBnIABlQZDwSUtqIVIlJQT1Gmg9WIGvZDGhQQ8ODoGjUIJsQWl9VXVtLDBfDEAjbn5FOUClTQSt HNh8IbVxVJUhEYMyONxcRQPoQFSxMTT6TITbVQOsXF0FBsChSUZzISUoODEyGPOtKTVpwi4MGINoOOLm BXV8KiIuAAAgNIAcTWnpJJAxEMBfIWp1MEDxGVGsYK 8BIkMaMDIgXdS9EUCvHJGeCEOyzc6KBLVhPYInSvB3KFWnGUYqSXBhOQzfWLQlEFXpPIP7NZOnLECsTL 8IIsFkJEGdCvI2HLovAHYsABXwti7PPOYwCRRaPwa7USRjJPBpTLSeUKyfFHIuIAW5SeV4YIIbWVOrDK 0TBvFfLEGaEvD0NSYoKGNsZYTiyr7GVTGeGGVhEYe4 ZtSlGYIqKHUuEQinFCKhEGT9PSG0EKXuSSFuDJ8IOjQhRUbvUONRVtq7DZyaH8c8LJOpKc8SI9Riu3Ji TjBtGTYXSNbaKQ2bwbDpDTQtSc8BA6cAVem0VdrxHRQrQsXtRhzhZVKoNFSyBUAgHUHdEqYnQjSrGT0p KWJxPZJ0XZKmEBVlFcXfCIE4DhRcYdJ2XOWyUNCdB2 C4AmQnST9QUa3BUaC3APU8zPOpYq9IMwBkRnTIKvDtOX8IDBc= ID Date Data Source [id number] 02/27/2020 12:45:50 PM EDT [facility] Name Value Range Interpretation Code Description Data Kelli rce(s) Supporting Document(s) Color of Urine [facility] Clarity of Urine [facility] Glucose [Mass/volume] in Urine by Test strip Negative [facility] Bilirubin.total [Presence] in Urine by Test strip Negative A [facility] Ketones [Mass/volume] in Urine by Test strip Negative [facility] Specific gravity of Urine by Test strip 1.005-1.025 [facility] Hemoglobin [Presence] in Urine by Test strip Negative [facility] pH of Urine by Test strip 7.0 5.0-8.0 [facility] Protein [Mass/volume] in Urine by Test strip 30 mg/dL Negative [facility] Urobilinogen [Units/volume] in Urine by Test strip 1.0 {Ehrlich_U}/ dL 0.2-1.0 [facility] Nitrite [Presence] in Urine by Test strip Negative [facility] Leukocyte esterase [Presence] in Urine by [facility] Date Data Source [id number] 02/20/2020 01:35:53 PM EDT [facility] Name Value Range Interpretation Code Description Data Kelli rce(s) Supporting Document(s) Progress Note [facility] YBHQXt9rZoXWJoHq74/ZSDyaKXEwl0FwTSnjPAq9OCocDBFuQ4DfZBG8bZ0bDEZ5XXwWGxZkFeAaKZGl lbm [file] ID Date Data Source [id number] 02/20/2020 12:34:45 PM EDT [facility] Name Value Range Interpretation Code Description Data Kelli rce(s) Supporting Document(s) Color of Urine [facility] Clarity of Urine [facility] Glucose [Mass/volume] in Urine by Test strip Negative [facility] Bilirubin.total [Presence] in Urine by Test strip Negative [facility] Ketones [Mass/volume] in Urine by Test strip Negative [facility] Specific gravity of Urine by Test strip 1.020 1.005-1.025 [facility] Hemoglobin [Presence] in Urine by Test strip Negative [facility] pH of Urine by Test strip 7.0 5.0-8.0 [facility] Protein [Mass/volume] in Urine by Test strip Negative [facility] Urobilinogen [Units/volume] in Urine by Test strip 0.2 {Ehrlich_U}/ dL 0.2-1.0 [facility] Nitrite [Presence] in Urine by Test strip [facility] Leukocyte esterase [Presence] in Urine by Test strip Negat panda [facility] ID Date Data Source [id number] 02/13/2020 02:05:50 PM EDT [facility] Name Value Range Interpretation Code Description Data Kelli rce(s) Supporting Document(s) Progress Note [facility] PFEABc2cVmTBPdXm46/TUGpuFZRza1VsMRytSVi7NGajBPUmW2BiIXA1uC8iRHG5XXwRCsMzTuRxZLZ4 lbm VxIpmAZiSiNMLqZfjXTyQfNAfjJilitDWbKF2YhPF9LFWxE34tQYEbUMIbC6UiQREaUEM+Cd9EFEMrcE QdFH9ZUofV9S0ujxrZGr1oyQ8ugEWNX8EV1h96OYXXxmkNDBjVWelm7p3atWFCJWdcKOQY/hH2f44742 smVdTct3mAH5wdsZWljIqCNcY1xwRY//MfMUrjIAhGricelda [file] Gp3JImz9FPaLNhAmRE1TTKi= ID Date Data Source [id number] 02/13/2020 12:58:19 PM EDT [facility] Name Value Range Interpretation Code Description Data [facility](s) Supporting Document(s) Color of Urine [facility] Clarity of Urine [facility] Glucose [Mass/volume] in Urine by Test strip Negative [facility] Bilirubin.total [Presence] in Urine by Test strip Negative [facility] Ketones [Mass/volume] in Urine by Test strip Negative [facility] Specific gravity of Urine by Test strip 1.025 1.005-1.025 [facility] Hemoglobin [Presence] in Urine by Test strip Negative [facility] pH of Urine by Test strip 5.5 5.0-8.0 [facility] Protein [Mass/volume] in Urine by Test strip Negative [facility] Urobilinogen [Units/volume] in Urine by Test strip 0.2 {Ehrlich_U}/ dL 0.2-1.0 [facility] Nitrite [Presence] in Urine by Test strip Negative [facility] Leukocyte esterase [Presence] in Urine by Test strip Cuate mosqueda [facility] ID Date Data Source [id number] 02/07/2020 02:45:16 PM EDT [facility] Name Value Range Interpretation Code Description Data Kelli rce(s) Supporting Document(s) Progress Note [facility] YGXXKl6zMtPUFuRj67/UZKnpGUEoy5DzHXlkRIt4WTwjXYHwE1YlZGD9hG1bGRL1ROcNFwAuPeStKKI3 lbm [file] DgCIJpVuIF7WOQd= ID Date Data Source [id number] 02/07/2020 01:46:41 PM EDT [facility] Name Value Range Interpretation Code Description Data Kelli rce(s) Supporting Document(s) Color of Urine [facility] Clarity of Urine [facility] Glucose [Mass/volume] in Urine by Test strip Negative [facility] Bilirubin.total [Presence] in Urine by Test strip Negative [facility] Ketones [Mass/volume] in Urine by Test strip Negative [facility] Specific gravity of Urine by Test strip 1.025 1.005-1.025 [facility] Hemoglobin [Presence] in Urine by Test strip Negative [facility] pH of Urine by Test strip 6.0 5.0-8.0 [facility] Protein [Mass/volume] in Urine by Test strip 30 mg/dL Negative A [facility] Urobilinogen [Units/volume] in Urine by Test strip 0.2 {Ehrlich_U}/ dL 0.2-1.0 [facility] Nitrite [Presence] in Urine by Test strip Negative [facility] Leukocyte esterase [Presence] in Urine by Test strip Negat panda [facility] ID Date Data Source [id number] 01/23/2020 05:41:30 PM [facility] Name Value Range Interpretation Code Description Data Kelli rce(s) Supporting Document(s) Thyroxine (T4) free [Mass/volume] in Serum or Plasma 0.74 ng/dL 0.93- 1.70 [facility] ID Date Data Source [id number] 01/23/2020 05:41:30 PM [facility] Name Value Range Interpretation Code Description Data Kelli rce(s) Supporting Document(s) Lactate dehydrogenase [Enzymatic activit y/volume] in Serum or Plasma by Lactate to pyruvate reaction 134 U/L 122-214 [facility] ID Date Data Source [id number] 01/23/2020 05:41:30 PM [facility] Name Value Range Interpretation Code Description Data Kelli rce(s) Supporting Document(s) Albumin [Mass/volume] in Serum or Plasma by Bromocresol green (BCG) dye binding method 3.3 g/dL 3.5-5.2 [facility] al Bilirubin.total [Mass/volume] in Serum or Plasma 0.3 mg/dL <1.2 [facility] Calcium [Mass/volume] in Serum or Plasma 8.2 mg/dL 8.6-10.[address] [facility] Chloride [Moles/volume] in Serum or Plasma 102 mmol/L 98-107 [facility] Creatinine [Mass/volume] in Serum or Plasma 0.63 mg/dL 0.50-0.90 [facility] Glucose [Mass/volume] in Serum or Plasma 119 mg/dL 70-140 [facility] Alkaline phosphatase [Enzymatic activity/volume] in Serum or Plasma 45 U/L 35-104 [facility] Potassium [Moles/volume] in Serum or Plasma 3.5 mmol/L 3.4-5.1 [facility] Protein [Mass/volume] in Serum or Plasma 6.5 g/dL 6.4-8.3 [facility] Sodium [Moles/volume] in Serum or Plasma 134 mmol/L 136-[address] [facility] Aspartate aminotransferase [Enzymatic activity/volume] in Serum or Plasma 10 U/L <32 [facility] Urea nitrogen [Mass/volume] in Serum or Plasma 8 mg/dL 6-20 [facility] Osmolality of Serum or Plasma by calculation 278 mosm/kg 275-300 [facility] Creatinine/Urea nitrogen [Mass Ratio] in Serum or Plasma 13 [facility] Bicarbonate [Moles/volume] in Serum 21 mmol/L 22-[address] [facility] Alanine aminotransferase [Enzymatic activity/volume] in Seru m or Plasma 7 U/L <33 [facility] Anion gap 3 in Serum or Plasma 12 mmol/L 8-15 [facility] Albumin/Globulin [Mass Ratio] in Serum or Plasma 1.0 [facility] Glomerular filtration rate/1.73 sq M pre dicted among non-blacks [Volume Rate/Area] in Serum or Plasma by Creatinine-based formula (MDRD) >[address] [facility] Glomerular filtration rate/1.73 sq M pre dicted among blacks [Volume Rate/Area] in Serum or Plasma by Creatinine-based formula (MDRD) >60 [facility] ID Date Data Source [id number] 01/23/2020 05:41:30 PM EDT [facility] Name Value Range Interpretation Code Description Data Kelli rce(s) Supporting Document(s) Thyrotropin [Units/volume] in Serum or Plasma 1.600 u[IU]/mL 0.270-4. 200 [facility] ID Date Data Source [id number] 01/23/2020 05:41:30 PM [facility] Name Value Range Interpretation Code Description Data Kelli rce(s) Supporting Document(s) Urate [Mass/volume] in Serum or Plasma 4.1 mg/dl 2.4-5.7 [facility] ID Date Data Source [id number] 01/23/2020 09:01:37 PM [facility] Name Value Range Interpretation Code Description Data Kelli rce(s) Supporting Document(s) Leukocytes [#/volume] in Blood by Automated count 11.5 10*3/uL 4-[address] [facility] Erythrocytes [#/volume] in Blood by Automated count 4.18 10*6/uL 4.1- 5.3 [facility] Hemoglobin [Mass/volume] in Blood 12.3 g/dL 11.5-15.5 [facility] Hematocrit [Volume Fraction] of Blood by Automated count 34.9 % 3 6-[address] [facility] Erythrocyte mean corpuscular volume [Entitic volume] by Auto mated count 83.4 fL 80-96 [facility] Erythrocyte mean corpuscular hemoglobin [Entitic mass] by Automated count 29.4 pg 27-33 [facility] Erythrocyte mean corpuscular hemoglobin concentration [Mass/volume] by Automated count 35.3 g/dL 32.0-36.[facility] E[facility] distribution width [Ratio] by Automated count 14.1 % 11.5-14.5 [facility] Platelets [#/volume] in Blood by Automated count 139 10*3/uL 150-[address] [facility] Differential cell count method - Blood [facility] Neutrophils/100 leukocytes in Blood by Automated count 79 % [facility] Lymphocytes/100 leukocytes in Blood by Automated count 11 % [facility] Monocytes/100 leukocytes in Blood by Automated count 8 % [facility] Eosinophils/100 leukocytes in Blood by Automated count 1 % [facility] Neutrophils [#/volume] in Blood by Automated count 9.15 10*3/uL 1.8-[address] [facility] Lymphocytes [#/volume] in Blood by Automated count 1.23 10*3/uL 1.2-[address] [facility] Monocytes [#/volume] in Blood by Automated count 0.90 10*3/uL 0-0.[address] [facility] Eosinophils [#/volume] in Blood by Automated count 0.12 10*3/uL 0-0.5 [facility] Nucleated erythrocytes/100 leukocytes [Ratio] in Blood by Automated count 1 /100{WBCs} 0-[address] [facility] Promyelocytes/100 leukocytes in Blood by Manual count 1 % [facility] Promyelocytes [#/volume] in Blood by Manual count 0.12 10*3/uL 0-0 [facility] Anisocytosis [Presence] in Blood by Light microscopy [facility] Microcytes [Presence] in Blood by Light microscopy [facility] Poikilocytosis [Presence] in Blood by Light microscopy [facility] ID Date Data Source [id number] 01/23/2020 05:56:[address] [facility] Value Range Interpretation Code Description Data Kelli rce(s) Supporting Document(s) HIV 1+2 Ab+HIV1 p24 Ag [Presence] in Serum or Plasma by Immu noassay Non Reactive [facility] Negative for HIV-1 p24 antigenand HIV-1/ HIV-2 antibodies. Nolaboratory evidence of HIVinfection. ID Date Data Source [id number] 01/23/2020 05:46:[address] [facility] Value Range Interpretation Code Description Data Kelli rce(s) Supporting Document(s) Treponema pallidum Ab [Presence] in Serum Non Reactive [facility] ID Date Data Source [id number] 01/23/2020 05:33:[address] [facility] Value Range Interpretation Code Description Data Kelli rce(s) Supporting Document(s) Hemoglobin A1c/Hemoglobin.total in Blood by HPLC 4.9 % 4.0-6.0 [facility] (NOTE)<5.7% Average risk of diabetes (ADA)5.7-6.4% Increased risk of diabetes(ADA)>/= 6.5% Diagnostic for diabetes(ADA) Glucose mean value [Mass/volume] in Blood Estimated fr om glycated hemoglobin 94 mg/dL <126 [facility] ID Date Data Source [id number] 01/23/2020 05:32:[address] [facility] Value Range Interpretation Code Description Data Kelli rce(s) Supporting Document(s) Glucose [Mass/volume] in Serum or Plasma --1 hour post 50 g glucose PO 125 mg/dL <136 [facility] ID Date Data Source [id number] 01/23/2020 03:08:[address] [facility] Value Range Interpretation Code Description Data Kelli rce(s) Supporting Document(s) Progress Note [facility] BFPTTg2xZgXJYzNp55/PQKhsMAAzu8ZvKQmjTLb0VWsqAXCkI5HvWBB3yF3zTVM8LAsBLwOeAfXjLlW6 [facility] [file] AgICAgICAgICAgICAgICAgICAgICAgICAgICAgICAgICAgICAgICAgICAgICAgICAgICAgICAgICAgIC AgICAgICAgICAgICAgICAgICAgICAgICAgICAgICAg ICAgICAgDQogICAgICAgICAgICAgICAgICAgICAgICAgICAgICAgICAgICAgICAgICAgICAgICAgICAg ICAgICAgICAgICAgICAgICAgICAgICAgICAgICAgICAgICAgICAgICAgICAgICAgDQogICAgICAgICAg ICAgICAgICAgICAgICAgICAgICAgICAgICAgICAgIC AgICAgICAgICAgICAgICAgICAgICAgICAgICAgICAgICAgICAgICAgICAgICAgICAgICAgICAgICAgDQ ogICAgICAgICAgICAgICAgICAgICAgICAgICAgICAgICAgICAgICAgICAgICAgICAgICAgICAgICAgIC AgICAgICAgICAgICAgICAgICAgICAgICAgICAgICAg ICAgICAgICAgDQogICAgICAgICAgICAgICAgICAgICAgICAgICAgICAgICAgICAgICAgICAgICAgICAg ICAgICAgICAgICAgICAgICAgICAgICAgICAgICAgICAgICAgICAgICAgICAgICAgICAgDQogICAgICAg ICAgICAgICAgICAgICAgICAgICAgICAgICAgICAgIC AgICAgICAgICAgICAgICAgICAgICAgICAgICAgICAgICAgICAgICAgICAgICAgICAgICAgICAgICAgIC AgDQogICAgICAgICAgICAgICAgICAgICAgICAgICAgICAgICAgICAgICAgICAgICAgICAgICAgICAgIC AgICAgICAgICAgICAgICAgICAgICAgICAgICAgICAg ICAgICAgICAgICAgDQogICAgICAgICAgICAgICAgICAgICAgICAgICAgICAgICAgICAgICAgICAgICAg ICAgICAgICAgICAgICAgICAgICAgICAgICAgICAgICAgICAgICAgICAgICAgICAgICAgICAgDQogICAg ICAgICAgICAgICAgICAgICAgICAgICAgICAgICAgIC AgICAgICAgICAgICAgICAgICAgICAgICAgICAgICAgICAgICAgICAgICAgICAgICAgICAgICAgICAgIC AgICAgDQogICAgICAgICAgICAgICAgICAgICAgICAgICAgICAgICAgICAgICAgICAgICAgICAgICAgIC AgICAgICAgICAgICAgICAgICAgICAgICAgICAgICAg MXHbEUTlHMYcURBnOOJbRAs7R1sgMKJiIZUhBK4aJYg8Hh7+NKzIDrRmAGB8ifZdwE2ESQ1qd4QoXAar MNQqe5GdOPj5JX5ZKPKpFKyyAU3OWMtcmt2TAOQxOZJinHOGa8gcQiSnZII5HYMdTqtcSG0FDZLsQ2qs baCnGTDmXHWHRFbfTSWOIV4JKiUxY7QkuO31OAQGZj 4+QVkmzgXuGblILwG5NOIiy3SyBZz7AK9JTSXsCfbvf1XkDhtjGUUAVUpgZX4FQEX3KIW2JBUjTm6DDM WpJ105nfFvTT2YKr4LLgOpIR3cqw3CUlscCUAzZfwNEwu1RGjfYU2XaCGoAWaAek9knfGyyoSFj0Czxh WakXTQyCTurB7mADYrA3GvcWPckD3zGJASSe0iYXEz Bj4lGZ3cWNJrEDYvOlBiSCMFYU5XCDOmYTQisOYfTEArSATWVE2CWIxsIOV4DAGdzaAleRZvCZclXZ4I YXJlbnQgMjcgMCBSDQo+Jm8KNY4iv5VqBAwrPDPvFJ6wdp2TPKeSGqPyM1E4rIQaL5Q1TJgjBr3BCOMf KPIeCfExFJOZICofXZ6XUG4awlK1FA7ElDUnARLqSJ FptYNpSEn3L33ewSQdETbxKI8FISM+Emma+Lg8SFIGqPNBmSXDuPhOzLJZYYwBvT6ZgA9QNi4TsY0LeLN 15sRbuhvQdZZnyAD2PMX7bKYKhKDZHQC1ZvYGavY4qyrXwRsDeNXQJFrTbN37wpFNfXROtWTD4YTSqKe 1QSYGeM4KyqrWutUwkodAgOZQqPKXNYK0YPQtoopPv kVCknScwQI94uGosQG6JGd1PMfJuUO1qlb3ZfYUtSw8WBAXuFQ3PCGUiVEHjCEWkSNG8YKBzJyLjYUnq CKLtUPQnNDD8CPFbTQQaMU1OOdJcUEBjAaKhOmEyGMMuDEMzsa8GLUQbDZSkBmVsRnLyIBKjHAVtKWmu CAPcJZWnQQF8CYFbDMNjQO6DFcMpMZKzHXY9OJUaRQ NtIUCkia1CRETvLWXkFUasCOGbXIMkKLOkFRmaURGdBIM7Cyr0XLBnCDEuVB9HXmWeRUJrFIy6VJRhFW YnCOEapc1GAGKxBWAwMDZ0FXQqJPIjQUPnTCniKSHlUPM6UnO7INFsCILxSK5SXbXaCDUoRBn5UtTqBX QtGQHndr2RLFGlVGFuENx8DXHeGJHcMJElHNxzWFWe OUIkGKg9TUCnIUTtFZ2VEqQiATMlVXLdTBJuCYNvIQVxkv2TUOBrRNGvMIldAIMbIHDrUAFvDPnqXQMi ZGRqOIQwRDSyKVKtPP5QAvHbHBXgTmWeKDyvZHKyGFBjiu2CMUHvVCKyLuR9KKYkTGXkJJQlCLzsTEUp YLIdEuJ0KFHrTBHoYH2FWjYxSFKdFoX3ZZgnOSOvIU Zbzf9PAMDlXGEdGvr5WEFuDLRhTAYkMTaaTTOiZSLfFBLaPIXpRPJkLK8OTkNmTQGjQeV6SVUhLYOePI Mzif2RFOIlZTWzBCM3OKUfJMBbEEBcSDkbUTNrMMO3SmAbDTUeBSOlSQ5AEsOsPGEcWeC8JYHdOATfIJ Ctvv2OLCUlVUSlHjEpZMSvYHXlXAYnFLmpTZDpSBB4 SsDuJCIvLTXeQR2GUvIiPPGrOqhcWRGlVEEqEWHxjr0GcWDzsMsaqv4ADClKGa4MrWjaFNNnZGluIo6m lKGjXDEnJQRJLg4MznAhMKOrIEXVTEzmJRXaZXUzRTMuNZP1AXWqFTGvFYXcWULcVFQ1SCTsDWKvVQK3 WpS7JXBmYQGtEOitMqB7Q8R8SZNwLiY3YPs6T8EhAF E0ZDc+IK7jCFx+In6Ig8TuwzJ5qbHoRPvvHpHrIU3DVOHJF0OSVa== ID Date Data Source [id number] 01/23/2020 02:04:58 PM EDT [facility] Name Value Range Interpretation Code Description Data Kelli rce(s) Supporting Document(s) Color of Urine [facility] Clarity of Urine [facility] Glucose [Mass/volume] in Urine by Test strip Negative [facility] Bilirubin.total [Presence] in Urine by Test strip Negative A [facility] Ketones [Mass/volume] in Urine by Test strip Negative [facility] Specific gravity of Urine by Test strip 1.025 1.005-1.025 [facility] Hemoglobin [Presence] in Urine by Test strip Negative [facility] pH of Urine by Test strip 6.0 5.0-8.0 [facility] Protein [Mass/volume] in Urine by Test strip 30 mg/dL Negative [facility] Urobilinogen [Units/volume] in Urine by Test strip 0.2 {Ehrlich_U}/ dL 0.2-1.0 [facility] Nitrite [Presence] in Urine by Test strip Negative [facility] Leukocyte esterase [Presence] in Urine by Test strip Negat panda [facility] ID Date Data Source [id number] 01/09/2020 02:41:35 PM EDT [facility] Name Value Range Interpretation Code Description Data Kelli rce(s) Supporting Document(s) Progress Note [facility] TCDNJa1zYtYOTqJf03/CIDeoACOfl6NpCFlrSJg9MBddKSYhB2OdRWX8tT5eZBP1OAvQXhVoAwNyNsBp [facility] [file] 1wPWTB/W9rnZs79+ru5cFxYwYRk8ZxyMtHlJoTpaKzl0o3FcSwiTv7yLVsaIVGaKjjPcl8u8w/0K+junior software developer [file] TzEYV4JFZ3TXG4WVXyAig6AJNgY1C6Qm0xWPOBQn2+GHiowZNxnJzvWHRVZtU0ODL9AFwrKKXHBb6D ID Date Data Source [id number] 01/09/2020 01:49:35 PM EDT [facility] Name Value Range Interpretation Code Description Data Kelli rce(s) Supporting Document(s) Color of Urine [facility] Clarity of Urine [facility] Glucose [Mass/volume] in Urine by Test strip Negative [facility] Bilirubin.total [Presence] in Urine by Test strip Negative [facility] Ketones [Mass/volume] in Urine by Test strip Negative [facility] Specific gravity of Urine by Test strip 1.025 1.005-1.025 [facility] Hemoglobin [Presence] in Urine by Test strip Negative [facility] pH of Urine by Test strip 6.5 5.0-8.0 [facility] Protein [Mass/volume] in Urine by Test strip 30 mg/dL Negative A [facility] Urobilinogen [Units/volume] in Urine by Test strip 0.2 {Ehrlich_U}/ dL 0.2-1.0 [facility] Nitrite [Presence] in Urine by Test strip Negative [facility] Leukocyte esterase [Presence] in Urine by Test strip Negat panda [facility] ID Date Data Source [id number] 12/19/2019 01:56:53 PM EST [facility] Name Value Range Interpretation Code Description Data Kelli rce(s) Supporting Document(s) Progress Note [facility] EKCYAs2rWvUULlIy55/ECLlbYTCpp5EoYTxpYYk3VHqtADOtN1SaXIL2aQ4dPQJ7TBdRHjDiSfLvArK3 [facility] KwLchOMjOqZGZbTisCHrRiIGhsPcpagECeBJ2WdHT0DEUtZ54fPIHxZVEvG2RpEBP2ION+Ms3QOBNckT WgXO0LGepC1E1gvkbOQt0xeC0uDGTdOjEdM2a3bhBIsJe8NUgTdO8g0e0Cnt0gRzFVDXuyTdbRg5qit8 x/9RfUbaN2h536hVJ68+bMiBGi+cPaUuQbw2CN2c/m uh6tCY3W0/5GtMtstVnWfmWLyAPKCiy/Paola/ahnJA4qfm/0TS+CEiQttd1pCvtkQcvJddDk05vUt2hXL [file] ogICAgICAgICAgICAgICAgICAgICAgICAgICAgICAgICAgICAgICAgICAgICAgICAgICAgICAgICAgIC AgICAgICAgICAgICAgICAgICAgICAgICAgICAgICAgICAgICAgICAgDQogICAgICAgICAgICAgICAgIC AgICAgICAgICAgICAgICAgICAgICAgICAgICAgICAg ICAgICAgICAgICAgICAgICAgICAgICAgICAgICAgICAgICAgICAgICAgICAgICAgICAgDQogICAgICAg ICAgICAgICAgICAgICAgICAgICAgICAgICAgICAgICAgICAgICAgICAgICAgICAgICAgICAgICAgICAg ICAgICAgICAgICAgICAgICAgICAgICAgICAgICAgIC AgDQogICAgICAgICAgICAgICAgICAgICAgICAgICAgICAgICAgICAgICAgICAgICAgICAgICAgICAgIC AgICAgICAgICAgICAgICAgICAgICAgICAgICAgICAgICAgICAgICAgICAgDQogICAgICAgICAgICAgIC AgICAgICAgICAgICAgICAgICAgICAgICAgICAgICAg ICAgICAgICAgICAgICAgICAgICAgICAgICAgICAgICAgICAgICAgICAgICAgICAgICAgICAgDQogICAg ICAgICAgICAgICAgICAgICAgICAgICAgICAgICAgICAgICAgICAgICAgICAgICAgICAgICAgICAgICAg ICAgICAgICAgICAgICAgICAgICAgICAgICAgICAgIC AgICAgDQogICAgICAgICAgICAgICAgICAgICAgICAgICAgICAgICAgICAgICAgICAgICAgICAgICAgIC AgICAgICAgICAgICAgICAgICAgICAgICAgICAgICAgICAgICAgICAgICAgICAgDQogICAgICAgICAgIC AgICAgICAgICAgICAgICAgICAgICAgICAgICAgICAg ICAgICAgICAgICAgICAgICAgICAgICAgICAgICAgICAgICAgICAgICAgICAgICAgICAgICAgICAgDQog ICAgICAgICAgICAgICAgICAgICAgICAgICAgICAgICAgICAgICAgICAgICAgICAgICAgICAgICAgICAg ICAgICAgICAgICAgICAgICAgICAgICAgICAgICAgIC AgICAgICAgDQogICAgICAgICAgICAgICAgICAgICAgICAgICAgICAgICAgICAgICAgICAgICAgICAgIC IqTSTbJHWfMQUlTAVpLGOqXKGcLTJxZGJtMXBrVUQlKPLbRRQiQAMjSDRfGEKdOTWoQDt1L4xtOADjFQ TnGA9vCAk8Si8+OMuVHqGhGYM7upDntQ2DUB9js5Kw HGvbPMPlh9XfTIj9XB3XZSVnNKtvAQ2XNCqtgz2ZRTNbLKNmaMHOb7moYpSqAOW8IMOnBladJS2LCBEj C0ndxnVaAUBqIPBEBWkrSGAKCF2JYnNcO3HtvM88AVUEMs6+BCqzeqZoPzyOQdF4VHGdu2EoRAm6RW4Q LMUjVxthp3UlKyLjVAPXIYhlIB0PUXM4FEK4HTEvOv 6YEECkJ450ruMlFZ3FXp5MFyCzNT2qvn2DXtHpPLSqVfxZEmh0RNbpSV5MvJJxGFaXto2mrmRhgoHXb9 AkiqUzyKJIiBMknM3bVDXxE6QteNRjiB3wRFXYSo1hYODtMs9kKJ4vOBWwMBRfMjLmHDVFZU5LSXPeJQ ZvsZBlWVLgTBUTVM9JYHegXSP4MYGkxrPnzNUvDKwi VY8AQXHswiUcDwAhQKUNNRc+Ra1QOT3fi7RnRUgsDdAoIB4nhv9EIIgCPaVlN6W3sIDwA3N8TJggOp5G PSPnLSMfOsFmUTWQCRntNN5OGK6glpS9YL7NnKNnZTNrDXQlmAZmGWm5W09vsVYfBYviXG8XIKW+Emma+ Lt7MKLXoYPIaKAYlKnRkDDSDOhPqI6CtA3JVk3TzP0 OhVC52eMoxsxLrBSbaPY0XOH3oBNKuEKEADE0IhHZzlC7nuaKeMTThENLKJyWcF18kiPEzOFAzUDAnTA RaUp1GFZCgH3JlfxZgaVbbzxGiYGDtSCJLAN4PQLfopsQluVCeuThkAX19mJmoGU9FHm1FDoLnEM8ufh 1YmVQhUt9SSQUpBi0UWFAlCZReKLJxGXP2LRSpFwLb NXpdTRPwCNRoZCC8ICUeVREsVH0DQhDaOULuXdJ1YLQvAWUeHSFviq0RYMTdKFVtPfQpFwDjKDIkLJEs XEuyWBJxBATyZFK4INGjZATeNS2GObDiANKrTFTwQYSzDWUsXOMtfc9MWCUiSTNiCbJ5NCEfBXJaHDTg XUgfGNHqDGX1SzC2RKZnOATpKZ9CYtMoUYTlYZL4Jg GfARBsBMXvng4HZAHjJHDiRxN8MQMsGMKcNVOjNNweWEEbSOD6Jtd8UXOoAGWkCH0ZLdLmOJXjIJM4AY ygMBZdWXVedw1CESEyRVEoAdizEgRmGTPbWNRvQZviLLAyYBG2XXF0ELUsZSAgLG1FFoQiTNRlWXgsMT owWCIzLEPjek1ODCNbSOXgQINkLcYrLZZyNSDqXIej SIWsVUA3WUAdRVDuFQLvYO0QYkSaRAYqVxEmApGqAALdLUSyqa1LWZCoGJNmGXGvIIDlNZQdFXFtYDze RDFhFKZzPRC5YMXnFOPnWN9EUhKsBUKeYhI4ETUtIBJtCXKeoc7OSRCaNEBiZWprJEAnAYSzBRMwWCjl LNBxVVYnMAk3NVTpZASvEN1VViYpVHQwEzSgDLWhTZ KkYMDiqg6NQVQfNGWyQvu0EXYmILPsJRRlHVqeLYUqCBNzLPQpVZYwNIIiSQ3KHyKjOITsXsM4EqVrQY YdGYAiwm9VnZIzbNpewt6ERMfOVf5LiVbgCTV8WGfeUl8tgCDwOyIiFKDZVt0NarWrJTWaWUBKQMxxWC DlEOYnIcYsILRhXvDmNZi6O1GzMfAhLAFfIoVfPxG8 YlsnNkT1TOYlJQAcLVGkAkK4VramEgTiEkGbJNIuX1NbLhntJUM+QI0aQWk+Qm5Hs8ElkrC3nyQtDGeu VUNqHS2HOGTKO4LONf== ID Date Data Source [id number] 12/19/2019 01:30:29 PM [facility] Name Value Range Interpretation Code Description Data Kelli rce(s) Supporting Document(s) Color of Urine [facility] Clarity of Urine [facility] Glucose [Mass/volume] in Urine by Test strip Negative [facility] Bilirubin.total [Presence] in Urine by Test strip Negative [facility] Ketones [Mass/volume] in Urine by Test strip Negative [facility] Specific gravity of Urine by Test strip 1.025 1.005-1.025 [facility] Hemoglobin [Presence] in Urine by Test strip Negative [facility] pH of Urine by Test strip 6.5 5.0-8.0 [facility] Protein [Mass/volume] in Urine by Test strip Negative A [facility] Urobilinogen [Units/volume] in Urine by Test strip 0.2 {Ehrlich_U}/ dL 0.2-1.0 [facility] Nitrite [Presence] in Urine by Test strip Negative [facility] Leukocyte esterase [Presence] in Urine by Test strip Negat panda [facility] ID Date Data Source [id number] 11/28/2019 03:37:10 PM [facility] Name Value Range Interpretation Code Description Data Kelli rce(s) Supporting Document(s) Progress Note [facility] IAUBHm1cBaEWNlCz32/OASiyJWZbq4JaPGjsKEc7HGkpMABsZ1ViURB0eV7qQUF7ZRmHLvIhTwSqDGE7 [facility] [file] ICAgICAgICAgICAgICAgICAgICAgICAgICAgICAgICAgICAgICAgICAgICAgICAgICAgICAgICAgICAg ICAgICAgICAgICAgICAgICAgICAgICAgICAgICAgICANCiAgICAgICAgICAgICAgICAgICAgICAgICAg ICAgICAgICAgICAgICAgICAgICAgICAgICAgICAgIC AgICAgICAgICAgICAgICAgICAgICAgICAgICAgICAgICAgICAgICAgICANCiAgICAgICAgICAgICAgIC AgICAgICAgICAgICAgICAgICAgICAgICAgICAgICAgICAgICAgICAgICAgICAgICAgICAgICAgICAgIC AgICAgICAgICAgICAgICAgICAgICAgICANCiAgICAg ICAgICAgICAgICAgICAgICAgICAgICAgICAgICAgICAgICAgICAgICAgICAgICAgICAgICAgICAgICAg ICAgICAgICAgICAgICAgICAgICAgICAgICAgICAgICAgICANCiAgICAgICAgICAgICAgICAgICAgICAg ICAgICAgICAgICAgICAgICAgICAgICAgICAgICAgIC AgICAgICAgICAgICAgICAgICAgICAgICAgICAgICAgICAgICAgICAgICAgICANCiAgICAgICAgICAgIC AgICAgICAgICAgICAgICAgICAgICAgICAgICAgICAgICAgICAgICAgICAgICAgICAgICAgICAgICAgIC AgICAgICAgICAgICAgICAgICAgICAgICAgICANCiAg ICAgICAgICAgICAgICAgICAgICAgICAgICAgICAgICAgICAgICAgICAgICAgICAgICAgICAgICAgICAg ICAgICAgICAgICAgICAgICAgICAgICAgICAgICAgICAgICAgICANCiAgICAgICAgICAgICAgICAgICAg ICAgICAgICAgICAgICAgICAgICAgICAgICAgICAgIC AgICAgICAgICAgICAgICAgICAgICAgICAgICAgICAgICAgICAgICAgICAgICAgICANCiAgICAgICAgIC AgICAgICAgICAgICAgICAgICAgICAgICAgICAgICAgICAgICAgICAgICAgICAgICAgICAgICAgICAgIC AgICAgICAgICAgICAgICAgICAgICAgICAgICAgICAN CiAgICAgICAgICAgICAgICAgICAgICAgICAgICAgICAgICAgICAgICAgICAgICAgICAgICAgICAgICAg ICAgICAgICAgICAgICAgICAgICAgICAgICAgICAgICAgICAgICAgICANCjw/rFSrC7bvtJUxvnD8M6qo Ob5WAp0JFM9uw7VsDVMeTKwdemKeIurHLfDyORMiGp lJJpi9ZTcaCE2PoGNmM4PeJ1NbEEjwCN8BWXCsFJOtfUWpOONbHQKcFvJ9FUYtNOdgKJ1EzLUoKSroQD FiKFDsCzTqGBViII0QSFNfE297ipXwSx4BYb3MIlQrCF6jff2FQhXoKVWhAdrQZmd4SBmsHI1OnTWrfR VlBCYjANZWZjPtE1zzd5TyQdJnMMZJFRmoOZ9Ku7Re dCAxDQo+Fj0TFT9sm2CiXXulMHPlXA2gch3LELrPKgQfF3LcmShtCPBdl7yuNTKfAX9arSVeOIF9KUUi GJDitgQtNIDXMHSxu0DsoEnvARXKPGUqbNViAxV3IjOzPzVhCCJ0DqXkZV1uAQbkZX3SKNE7UEgoAISw WZAbI5zBUnGqXHNtCHZxhVkaSW8DUyXcL3SuqiRbbJ AyNCAwIFINCj4+EBravqOeJocNGoL5AJIbe9FrEKs6LH7IPIZaUXmlUD2BOAFsnN9qMVfbCE8OSgPiFp MeQQGZBuTaC32waVBdVOz7E4OkMvFtDPRsPjdbKKRhRGsvSgPcDALpGxOuYAbvFM2+ID4+IEntTC5TJL zrwqDvWUQuJp1KLTRoPBLmLN5jHWTvRRVwD8M0sElm EACIKqDtR5ibeaudWQ2kWMZzQ397oPghhdLaJSE6OENkXu0ZSYFjFCY4TWUmxHBkUoKzLUKTURwaDH2D mLUlHIG2nX1wRGxmSDYcAGCgA7fSDfMoiDqgRF47qFawfdTpiOZnMGx+Gy9BHO5fu7MqIGl7tlVzMTmw VVZ5DNozJWYmAWPgNMWdYIJ4ESV0AIFATeRfTZEzWY XuNTlqCBZbNMEsmv2VXGTqPZXbISNsNCNjUEXkEDGpIKijTFSvRJWnDAivWJKhDGUoIB1HBxAqSQOcNA XxEEpzHENcEADavf6HMEJnEIWwPjOiTqNeVLNkKBGgDHkvKMVlYFUuLxZuUXNbVNRuKA4GHgNwGNGuEW X4WCMzSMWcFAZorn1OZYEcQPCqPOJ5AFBzBJWpQKUp ORasOACqJKJ0IWQ9CXUuJTVlOD3TUrTdZOUwVPEqWBBmXAYzOEUmzn8SPHBbCQPnVbR6PZZuBCHzILRv XJkaNQDwLGP1SaC9ZLYpBKZuSV1XAjAxIWGuLFg4SLVpSXYlKTCdaq4FDLIpJOAuZrk5MNWhLWAgVEXr BQruPPLmGID8PQe8AQSyRNUnZX3CYhJkWWLjFSv4CC zzDZSzXWDkbt7OSBAbVCHgWQoiBTUuCCKpLSCfBVbzUDNrEXE0QFW9IQSpKKOgTX9SDrIjMPQrVcGdWZ MoXZYxDQAtnh6ZRYOdFMJzEMP7QhJgOMEfTOXgKAvxNDYiRXBiTmP4LLLnWIMtIN4SSsLoQJJaYgS0KI QoNHBqZJCuqo2ZKJRhKHTfAGjjMlIbQGGiGSAuIIgj OFDyWXVmLts2IJMhQYSbAX2NVnKhBDAuPxXsLRneUQCqTSYugd4MZQVgPRSsCkVlHeVqHYIkXGLiDYs7 dvXdkQUsVBf8PG4KC2BlilOkUhdAGu6Kf802FIQ1ULFcBl0JV1kfVt8zWYMbKGXYFy2NDRt3YfBuIUgv MjUaGKDnGaK4LmA6ERCvSOKaQtVnQUApQZL+IDxiY2 R2DFAfKdW1HVM7AuWnSTQaMWShJkBuXIGyPnLxIg3nJOOAXy5+CBitkODkbQrkDLARBdXcDkA1WWtwXX VPRg0K ID Date Data Source [id number] 11/28/2019 03:35:26 PM EST [facility] Name Value Range Interpretation Code Description Data Kelli rce(s) Supporting Document(s) Color of Urine [facility] Clarity of Urine [facility] Glucose [Mass/volume] in Urine by Test strip Negative [facility] Bilirubin.total [Presence] in Urine by Test strip [facility] Ketones [Mass/volume] in Urine by Test strip [facility] Specific gravity of Urine by Test strip 1.025 1.005-1.025 [facility] Hemoglobin [Presence] in Urine by Test strip [facility] pH of Urine by Test strip 6.5 5.0-8.0 [facility] Protein [Mass/volume] in Urine by Test strip [facility] Urobilinogen [Units/volume] in Urine by Test strip 1.0 {Ehrlich_U}/ dL 0.2-1.0 [facility] Nitrite [Presence] in Urine by Test strip Negative [facility] Leukocyte esterase [Presence] in Urine by Test strip Negat panda [facility] ID Date Data Source [id number] 11/21/2019 11:10:00 AM EST [facility] DATE OF EXAM: 11/21/2019MRI BRAIN [...] of the brain. Professional interpretation performed at [facility] .End of diagnostic report for accession: [id number] Interpreted: Cherry Georges MDTranscribed: 11/21/2019 11:06 AMSigned: 11/21/2019 11:10 AM Cherry Georges MD [facility] ACC # [id number] BILL # [id number] 2MEM Name Value Range Interpretation Code Description Data Kelli rce(s) Supporting Document(s) ID Date Data Source [id number] 11/12/2019 08:35:29 AM [facility] Name Value Range Interpretation Code Description Data Kelli rce(s) Supporting Document(s) Progress Note [facility] CTACSa3qQuPFWfXf53/TMMauYBMjx2HpUVmfHBr7XYkkJTMuB2ZzVZJ1iY9mAMB4RLmGViMbTaIlVZZa [facility] GcUorIUePhENCbFhyTSaKxTYsfJmomqNNvRM2MwLE9FWDdF59jPRPrQEBaV1WvRNHrQXW+Bc1GDQXanI JcRN0QZmkE2D3mr3bOXu/sjg1RY7Hiu87xEbe7YO7paZcNeXKZVRMx9QMjElEAuRRVOKj++5I7wWh64R rvePUnuBMUQEnFf4nc2eFFgxwnV5KPZwnc9Bxnzl9N 6bhIthopg6ThSj1w5Af4tq9BPcWs2RwRM/XsSo2dP2557j9lk5MyfmzCC3yHsvnb08oNmv6/xdmg9+mV QizGs1u5Nveygj5FxuewHpT6+xgHceciqsiVJ5oj0U2u9eFEo24ZuhlL4ea8NzZ5LuDlyLQNpdgz5SSK ICcwWbMyUgqWDpjOxX7vwXc6D+Vladislav+u3Wq7YyT27FM l3BwXIUbDKPAk6aWbO5zGkq43n2PVaQ+fMXngQaDfGslJF439JTLlwluwZG2eQVJ7MNr/NRHxxY6B0Re Qo2oi8QMULXwxArJ6NU7A00foCg9uljIbbx2BzSlaJNp8P4Tpbd2FBn3dWcSqB6hK6VgTh8uof2YPWfl 3W3kq8oXgK4+D9sAAf+7boWlNMVip44X9E80lG81qE G8ynwEWqnFy8fzPoIz3c/+rcX/e6rjtJCjTUiVC/3rz9Z/ftqTr+q8Xb6B8PaMlz/5ylc5VwnfxPEeVC Ww3ufIdy+BSBGJAeASzqyJHkQTDBwKVeW4Q4+No8ldRFpQ5XlvGf9L1zZr3f2+k07X/JLfO0qlsewcMF ci54cCY5CaXWDwJIEO5LwI0xwUjyEfwalrqwXTGvJM jSKkKoBl1zxPLFhrZnJWL5VG6Lm/WyR/gRa0M4f1KSHfYj68/h31Zir+znWNr8Qegqw5Ofzy3P3dDNyE ZrEXqe0ynA7c71tyGptF+vsoMj6Q4ZP1b0M5WT9CqjRUzrXY5c4lhfRsI9IBSNtyJyr5t/IzUpevHMZG /6gb7H9t71owpuTxdDPUd1aonMtX4jfg4wJGYrIrk+ 0A/iGkRJj7xEiXVis/DWaUBtPyXS7bbWt7kXDAgIWhSpRFmIB2gMYKTNCKBwXGLYV/sOWnTZgAl8d+BRIONES [file] ICAgICAgICAgICAgICAgICAgICAgICAgICAgICAgICAgICAgICAgICAgICAgICAgICAgICAgICAgICAg ICAgICAgICAgICAgICAgICAgICAgICAgICAgICAgICAgICAgICANCiAgICAgICAgICAgICAgICAgICAg ICAgICAgICAgICAgICAgICAgICAgICAgICAgICAgIC AgICAgICAgICAgICAgICAgICAgICAgICAgICAgICAgICAgICAgICAgICAgICAgICANCiAgICAgICAgIC AgICAgICAgICAgICAgICAgICAgICAgICAgICAgICAgICAgICAgICAgICAgICAgICAgICAgICAgICAgIC AgICAgICAgICAgICAgICAgICAgICAgICAgICAgICAN CiAgICAgICAgICAgICAgICAgICAgICAgICAgICAgICAgICAgICAgICAgICAgICAgICAgICAgICAgICAg ICAgICAgICAgICAgICAgICAgICAgICAgICAgICAgICAgICAgICAgICANCiAgICAgICAgICAgICAgICAg ICAgICAgICAgICAgICAgICAgICAgICAgICAgICAgIC AgICAgICAgICAgICAgICAgICAgICAgICAgICAgICAgICAgICAgICAgICAgICAgICAgICANCiAgICAgIC AgICAgICAgICAgICAgICAgICAgICAgICAgICAgICAgICAgICAgICAgICAgICAgICAgICAgICAgICAgIC AgICAgICAgICAgICAgICAgICAgICAgICAgICAgICAg ICANCiAgICAgICAgICAgICAgICAgICAgICAgICAgICAgICAgICAgICAgICAgICAgICAgICAgICAgICAg ICAgICAgICAgICAgICAgICAgICAgICAgICAgICAgICAgICAgICAgICAgICANCiAgICAgICAgICAgICAg ICAgICAgICAgICAgICAgICAgICAgICAgICAgICAgIC AgICAgICAgICAgICAgICAgICAgICAgICAgICAgICAgICAgICAgICAgICAgICAgICAgICAgICANCiAgIC AgICAgICAgICAgICAgICAgICAgICAgICAgICAgICAgICAgICAgICAgICAgICAgICAgICAgICAgICAgIC AgICAgICAgICAgICAgICAgICAgICAgICAgICAgICAg ICAgICANCiAgICAgICAgICAgICAgICAgICAgICAgICAgICAgICAgICAgICAgICAgICAgICAgICAgICAg ICAgICAgICAgICAgICAgICAgICAgICAgICAgICAgICAgICAgICAgICAgICAgICANCjw/tCXqX4tmfGWu xgO3W4jdIo0ANa2RYV0pa6QuDLIiWZlewdFdAivYEz BjFZLqGuvSLzf5HAskEE0QcLRcU3KqB0QfHWftKL2QOMIjHPAulCMjHBGkWZLhByP5HQHmULfcKV2EuU UoEKxhQMRkFEAiDqXhRFOzUN1RPEWhH852jdCxDq2UDa5PAhCnRS7ugd6IQbNvSPTgKfkKSbi2DEqySH 8FfVYxyBTgJHWzSDUOOkYtA1nyl7JuXwObMJPWCGbc PW1Qx0QmaVNsWLr+Gk4GUL2fc0CyGQhpXHFjGZ6llw5FZTpNItPkL5KxiTfeQWGmw2egJBPjGL6eeTZv MUG4TPOaNkUchVZYHYIvqMYzxs6epnxcXCOoCCEqIE30AlBdKwEuBAJ1PMFoLF0sBQdmVM6PFPH4JCkv KLZaMPBhZ0mLVaDzVXZbWGIzeStvCY1HVvCgL1Uiro VudCAyNCAwIFINCj4+SNzjlmJhLylAKhV8TOOkh7XlNKh5XD5SXDArGKoiDZ7HLLDleJ4aBIfpAM5DNy QhHsUgMNIRSnNhE38trWLrFVh0H6NeZnJuPVHsFbydJDMdPEsgIqViBMSfOcRrJGacDJ0+ID4+DQogIC 5JMPpzzuAnCMAvWh4UWDPkTNRrRJ1lXXSxMWBeY5S5 iBihIFKHAfHrR3mbxkbuPT5kZMEjD146dAbeipAkUEP5QWNiHi9HWSKrBXW6BISfaIEnMxAuRFHOTKee IN7IaHCwQAN6oT4sPZxqESJdAXCvB4kXIcPckGmgSG38tJxrzxYgxXCmZUo+Ro7XJJ0rs6SkARc3wkXj BXqfVJT7MAbmHPScGFKlTHMlAKZ2MBU1GWPPUwEhEY ThMFUsLMnhEHQbEASpfi9WAKEhCVAtAUYqEBGrPKWaPJReBDfwCLKxODMoEvasJRIjPLAeHG9VHuImIV IkTADuHOurNHPiCMHxnv0WIVSoGQLmEsBvVVAbTZXoPBHyTFjuICZfMVYhHSX9ZGUuKSYfVO1ZNvFjAR QdPUWfMiAvCQZgZKMebr1XWOWbKETsOLN2BxPyEIFg VSYuVYwnFYOqTOH8KaJ0XSFnPUAqPO3AIcKwGAMoHEX1EvQoCKFjVZCotd7VEICdATArHXItXjKtCJNl MXXfOCbjPUZxRNU7VSAoXPHwUULoEC6YPnSvRJHlMWM0MmKjTAGuVALdeq2XONZaEBZuAbw0TVMyXTQe CFGqCKulWFQhWLW1RmW0GQZnHTYwDO3EBiQyCSZhUI n2BdXiEMHdOCCeec5SQDFzASIaJWhuKFUsJJHzOJArBYehMYKlUYW6XNumUIBrXENzEY5UPtYfWIClYL qkRRcdBMFuRROsso7OKHKrCIDrGAU2FFAmPWBzGMHlJUpfGEPbWZPqFzEaALZyDTJeBD0IZmTgGYAvUt T2LIJnAIBsVRUogm7MQYIlMQUsSNyyLOXuSCUyBKKw PPdwZRAeVYRqNus0BLAyUGKpWZ7YQvKxBCHaAyE6QIGxLLVbCZHuqs4QQYWdCLBuBtT3FlUcLIKmUNQb SJx5ymZveLQdPLc0BC6TQ6YmuzNwMlkDOa0Qq897HMC7XBSwPc9SP4moQc0fNOLaTZWRGp9URQf8YENb DWArQFJaDZq2JVNdQCYoBkQ1BFLsOYW1JHbaIKB+ID hpXcQwUVBtYFF4WEvhHZWnTZZfLpSlOADeZFO8OVEvDq0sFIAKHm0+DQpzdGFydHhyZWYNCjIyODQxDQ mxVWUFWe3A Procedure Social History Code Duration Value Status Description Data Source(s ) Smoking 06/19/2020 12:00:00 AM EDT Patient is a former smoker completed Patient is a former smoker [facility] ([facility], [facility]) Alcohol intake 04/10/2020 12:00:00 AM EDT Current non-d ellen of alcohol (finding) completed Current non-drinker of alcohol (finding) [facility] Tobacco use and exposure 04/10/2020 12:00:00 AM EDT Never used co mpleted Never used [facility] Smoking 04/10/2020 12:00:00 AM EDT Former smoker completed Former smoker [facility] Smoking 04/03/2020 08:27:00 AM EDT Former Smoker completed Former Smoker [facility] Alcohol intake 01/23/2020 12:00:00 AM EDT Current non-d ellen of alcohol (finding) completed Current non-drinker of alcohol (finding) [facility] Smoking 01/23/2020 12:00:00 AM EDT Former smoker completed Former smoker [facility] 11/21/2019 12:00:00 AM EST Patient has never smo ked (pipe, cigarette, cigar) completed Patient has never smoked (pipe, cigarette, cigar) [facility] NT ([facility]) Vital Signs ID Date Data Source UNK Name Value Range Interpretation Code Description Data Source(s) Body mass index (BMI) [Ratio] 31.3 kg/m2 31.3 k g/m2 [facility] ([facility], [facility]) Body height 68 [in_i] 68 [in_i] [facility] ([facility], [facility]) 5'8" Body weight 206.00 [lb_av] 206.00 [lb_av] MEDEN T ([facility], [facility]) Body temperature 96.2 [degF] 96.2 [degF] [facility] ([facility], [facility]) Oxygen saturation in Arterial blood by Pulse oximetry 99 % 99 % [facility] ([facility], [facility]) Respiratory rate 12 /min 12 /min [facility] ( [facility], [facility]) Heart rate 91 /min 91 /min [facility] ([facility], [facility]) Diastolic blood pressure 90 mm[Hg] 90 mm[Hg] [facility] ([facility], [facility]) Systolic blood pressure 131 mm[Hg] 131 mm[Hg] M EDENT ([facility], [facility]) Body mass index (BMI) [Ratio] 31.3 kg/m2 31.3 k g/m2 [facility] ([facility], [facility]) Body height 68 [in_i] 68 [in_i] [facility] ([facility], [facility]) 5'8" Body weight 206.00 [lb_av] 206.00 [lb_av] MEDEN T ([facility], [facility]) Body temperature 99.6 [degF] 99.6 [degF] MEDENT ([facility], [facility]) Oxygen saturation in Arterial blood by Pulse oximetry 97 % 97 % MEDENT ([facility], [facility]) Respiratory rate 18 /min 18 /min MEDENT ( [facility], [facility]) Heart rate 129 /min 129 /min MEDENT ([facility], [facility]) Diastolic blood pressure 86 mm[Hg] 86 mm[Hg] MEDENT ([facility], [facility]) Systolic blood pressure 132 mm[Hg] 132 mm[Hg] M EDENT ([facility], [facility]) Body weight 3366 [oz_av] 3366 [oz_av] [facility]) Systolic blood pressure 129 mm[Hg] 129 mm[Hg] A THENA ([facility]) Body mass index (BMI) [Ratio] 32 kg/m2 32 kg/ m2 KRISTOPHER ([facility]) Body height 68 [in_i] 68 [in_i] KRISTOPHER ([facility]) Diastolic blood pressure 87 mm[Hg] 87 mm[Hg] KRISTOPHER ([facility]) Body weight 3366 [oz_av] 3366 [oz_av] KRISTOPHER ([facility]) Systolic blood pressure 129 mm[Hg] 129 mm[Hg] A THENA ([facility]) Body mass index (BMI) [Ratio] 32 kg/m2 32 kg/ m2 KRISTOPHER ([facility]) Body height 68 [in_i] 68 [in_i] KRISTOPHER ([facility]) Diastolic blood pressure 87 mm[Hg] 87 mm[Hg] KRISTOPHER ([facility]) Body mass index (BMI) [Ratio] 30.6 kg/m2 30.6 k g/m2 MEDENT ([facility], [facility]) Body height 68 [in_i] 68 [in_i] MEDENT ([facility], [facility]) 5'8" Body weight 201.00 [lb_av] 201.00 [lb_av] MEDEN T ([facility], [facility]) Body temperature 96.9 [degF] 96.9 [degF] MEDENT ([facility], [facility]) Oxygen saturation in Arterial blood by Pulse oximetry 96 % 96 % [facility] ([facility], [facility]) Respiratory rate 16 /min 16 /min MEDENT ( [facility], [facility]) Heart rate 98 /min 98 /min MEDENT ([facility], [facility]) Diastolic blood pressure 84 mm[Hg] 84 mm[Hg] MEDENT ([facility], [facility]) Systolic blood pressure 126 mm[Hg] 126 mm[Hg] M EDENT ([facility], [facility]) Body temperature 36.5 jazmyn Normal (applies to non-numeric results) 36.5 jazmyn [facility] Respiratory rate 18 min Normal (applies to non-numeric results) 18 min [facility] Heart rate 98 min Normal (applies to non-numeric resul ts) 98 min [facility] Diastolic blood pressure 81 mm[Hg] Normal (applies to non-numeric results) 81 mm[Hg] [facility] Systolic blood pressure 136 mm[Hg] Normal (applies t o non-numeric results) 136 mm[Hg] [facility] Body weight Measured 225 [lb_av] Normal (applies to n on-numeric results) 225 [lb_av] [facility] Body height 171.9072 cm Normal (applies to non-numeric res ults) 171.9072 cm [facility] Body mass index (BMI) [Ratio] 34.21 kg/m2 No rmal (applies to non-numeric results) 34.21 kg/m2 [facility] Body temperature 36.7 Jazmyn 36.7 Jazmyn MEDENT ( [facility]) Body temperature 98.0 [degF] 98.0 [degF] MEDENT ([facility]) Heart rate 85 /min 85 /min MEDENT ([facility]) Diastolic blood pressure 78 mm[Hg] 78 mm[Hg] MEDENT ([facility]) Systolic blood pressure 109 mm[Hg] 109 mm[Hg] M EDENT ([facility]) Body mass index (BMI) [Ratio] 31.6 kg/m2 31.6 k g/m2 MEDENT ([facility]) Body weight 208.00 [lb_av] 208.00 [lb_av] MEDEN T ([facility]) Body height 68 [in_i] 68 [in_i] MEDENT ([facility]) 5'8" ID Date Data Source [id number] 05/20/2020 10:42:41 AM [facility] Name Value Range Interpretation Code Description Data Source(s) WEIGHT RECORDED 202.8 lb 202.8 lb [facility] ID Date Data Source [id number] [facility] Interpretation Code Description Data Source(s) WEIGHT RECORDED 201 lb 201 lb [facility] ID Date Data Source [id number] 03/28/2020 10:38:18 AM [facility] Name Value Range Interpretation Code Description Data Source(s) WEIGHT RECORDED 228.2 lb 228.2 lb [facility] ID Date Data Source [id number] 03/13/2020 01:37:08 PM EDT [facility] Name Value Range Interpretation Code Description Data Source(s) WEIGHT RECORDED 233 lb 233 lb [facility] ID Date Data Source [id number] 02/28/2020 11:12:53 AM EDT [facility] Name Value Range Interpretation Code Description Data Source(s) WEIGHT RECORDED 223.13 lb 223.13 lb [facility] ID Date Data Source [id number] 02/13/2020 02:05:50 PM EDT [facility] Name Value Range Interpretation Code Description Data Source(s) WEIGHT RECORDED 220 lb 220 lb [facility] ID Date Data Source [id number] 02/08/2020 11:24:[address] [facility] Value Range Interpretation Code Description Data Source(s) WEIGHT RECORDED 220 lb 220 lb [facility] ID Date Data Source [id number] 01/24/2020 11:05:19 AM EDT [facility] Name Value Range Interpretation Code Description Data Source(s) WEIGHT RECORDED 221 lb 221 lb [facility] ID Date Data Source [id number] 01/10/2020 02:09:[address] [facility] Value Range Interpretation Code Description Data Source(s) WEIGHT RECORDED 216 lb 216 lb [facility] ID Date Data Source [id number] 12/19/2019 01:56:53 PM [facility] Value Range Interpretation Code Description Data Source(s) WEIGHT RECORDED 213 lb 213 lb [facility] ID Date Data Source [id number] 11/29/2019 10:51:11 AM [facility] Name Value Range Interpretation Code Description Data Source(s) WEIGHT RECORDED 208 lb 208 lb [facility] ID Date Data Source [id number] 11/12/2019 08:35:29 AM [facility] Value Range Interpretation Code Description Data Source(s) WEIGHT RECORDED 204 lb 204 lb [facility] Patient Treatment Plan of Care Planned Activity Planned Date Details Description Data Source (s) Prednisone 5 MG Oral Tablet 08/27/2020 12:00:[address] [facility] [place] Albuterol Sulfate HFA 108 (90 Base) MCG/ ACT Inhalation Aerosol Solution (PROVENTIL HFA) 03/26/2020 12:00:00 AM [facility] Ascorbic Acid 500 MG Oral Tablet 02/07/2020 12:00:[address] [facility] [place] ferrous sulfate 325 MG Oral Tablet 02/07/2020 12:00:[address] [facility] [place] Albuterol 0.83 MG/ML Inhalant Solution 01/24/2020 12:00:[address] [facility] [place] 200 ACTUAT Albuterol 0.09 MG/ACTUAT Dry Powder Inhaler 01/23/2020 12:00:00 AM [facility] ospital Wrist Brace/Right Medium 01/09/2020 12:00:[address] [facility] [place] Wrist Brace/Left Medium 01/09/2020 12:00:[address] [facility] [place] Ondansetron 4 MG Oral Tablet 01/09/2020 12:00:[address] [facility] [place] Omeprazole 20 MG Delayed Release Oral Capsule 11/28/2019 12:00:00 A [facility] Aspirin 81 MG Delayed Release Oral Tablet 11/06/2019 12:00:00 AM [facility] Hydroxychloroquine Sulfate 200 MG Oral Tablet 05/22/2019 12:00:00 A [facility] Aspirin 81 MG Delayed Release Oral Tablet 11/06/2018 12:00:00 AM [facility] Prednisone 5 MG Oral Tablet [facility] ([facility]) Oxycodone Hydrochloride 5 MG Oral Tablet [facility] ([facility]) Oseltamivir 75 MG Oral Capsule [facility] ([facility]) Ondansetron 4 MG Oral Tablet [facility] ([facility]) Omeprazole 20 MG Delayed Release Oral Capsule [facility] ([facility]) ferrous sulfate 324 mg (65 mg iron) tablet,delayed release [facility] ([facility]) Prednisone 5 MG Oral Tablet [facility] ([facility]) Oxycodone Hydrochloride 5 MG Oral Tablet [facility] ([facility]) Oseltamivir 75 MG Oral Capsule [facility] ([facility]) Ondansetron 4 MG Oral Tablet [facility] ([facility]) Omeprazole 20 MG Delayed Release Oral Capsule [facility] ([facility]) ferrous sulfate 324 mg (65 mg iron) tablet,delayed release [facility] ([facility])
[2020-12-25 02:03] LABS: CHLAMYDIA DNA AMPLIFICATION NEGATIVE (NEGATIVE); GC DNA AMPLIFICATION NEGATIVE (NEGATIVE)
[2020-12-25] MEDS ORDERED: VITA1CAP14 PO (02:16)
[2020-12-25] MEDS ORDERED: SYNT125T PO (02:16)
[2020-12-25] MEDS ORDERED: PRED5TA PO (02:16)
[2020-12-25] MEDS ORDERED: CETI-24 PO (02:16)
[2020-12-25] MEDS ORDERED: PROAAER10 INH (02:16)
[2020-12-25] MEDS ORDERED: ASPI-161 PO (02:16)
[2020-12-25] MEDS ORDERED: PHEN1TAB74 PO (02:16)
[2020-12-25] MEDS ORDERED: VITA500T21 PO (02:16)
[2020-12-25] MEDS ORDERED: MACR100C43 PO (02:16)
[2020-12-25] MEDS ORDERED: FERR1TAB8 PO (02:16)
[2020-12-25] MEDS ORDERED: ACET-897 PO (02:16)
[2020-12-25] MEDS ORDERED: PLAQ200T4 PO (02:16)
[2020-12-25] MEDS ORDERED: IBUP1TAB6 PO (02:16)
[2020-12-25] MEDS ORDERED: ALBU83IN INH (02:16)
[2020-12-25] MEDS ORDERED: cefTRIAXone SOD 1 GM in D5W MINI-BAG PLUS 50 ML IV ONE (03:20)
[2020-12-25 03:22] LABS: RSV AMPLIFICATION NEGATIVE (NEGATIVE)
[2020-12-25] MEDS: KETOROLAC TROMETHAMINE 10 MG TAB PO PRN ×3 (03:47→20:49)
--- OUTSIDE RECORDS SUMMARY | 2020-12-25 03:49 | CCD ---
Author Author [facility] Organization [facility] Address Unknown Phone Unavailable Care Team Providers Care Apartment Community Assistant Manager Name Role Phone Verito Feldman MALTER OPERATOR, CNM Unavailable Unavailable FeldmanVerito MALTER OPERATOR, CNM Unavailable Unavailable FeldmanVerito MALTER OPERATOR, CNM Unavailable Unavailable FeldmanVerito NP, CNM Unavailable Unavailable EfldmanVerito NP, CNM Unavailable Unavailable FeldmanVerito MALTER OPERATOR, CNM Unavailable Unavailable FeldmanVerito akhtar MALTER OPERATOR, CNM Unavailable Unavailable FeldmanVerito MALTER OPERATOR, CNM Unavailable Unavailable FeldmanVerito MALTER OPERATOR, CNM Unavailable Unavailable FeldmanVerito MALTER OPERATOR, CNM Unavailable Unavailable FeldmanVerito MALTER OPERATOR, CNM Unavailable Unavailable FeldmanVerito MALTER OPERATOR, CNM Unavailable Unavailable FeldmanVerito akhtar MALTER OPERATOR, CNM Unavailable Unavailable FeldmanVerito MALTER OPERATOR, CNM Unavailable Unavailable FeldmanVerito MALTER OPERATOR, CNM Unavailable Unavailable FeldmanVerito MALTER OPERATOR, CNM Unavailable Unavailable FeldmanVerito MALTER OPERATOR, CNM Unavailable Unavailable FeldmanVerito MALTER OPERATOR, CNM Unavailable Unavailable FeldmanVerito MALTER OPERATOR, CNM Unavailable Unavailable FeldmanVerito MALTER OPERATOR, CNM Unavailable Unavailable Feldman, M Tamara MALTER OPERATOR, CNM Unavailable Unavailable Feldman, M Tamara MALTER OPERATOR, CNM Unavailable Unavailable Feldman, M Tamara MALTER OPERATOR, CNM Unavailable Unavailable Feldman, M Tamara MALTER OPERATOR, CNM Unavailable Unavailable Feldman, M Tamara MALTER OPERATOR, CNM Unavailable Unavailable Feldman, M Tamara MALTER OPERATOR, CNM Unavailable Unavailable Feldman, M Tamara MALTER OPERATOR, CNM Unavailable Unavailable Feldman, M Tamara MALTER OPERATOR, CNM Unavailable Unavailable Feldman, M Tamara MALTER OPERATOR, CNM Unavailable Unavailable Feldman, M Tamara MALTER OPERATOR, CNM Unavailable Unavailable Feldman, M Tamara MALTER OPERATOR, CNM Unavailable Unavailable Feldman, M Tamara MALTER OPERATOR, CNM Unavailable Unavailable Feldman, M Tamara MALTER OPERATOR, CNM Unavailable Unavailable Scordo, M Kenzie PA [...] Kenzie PA Unavailable Unavailable NISH, C MARY MALTER OPERATOR Unavailable Unavailable NISH, C MARY MALTER OPERATOR Unavailable Unavailable NISH, C MARY MALTER OPERATOR Unavailable Unavailable NISH, C MARY MALTER OPERATOR Unavailable Unavailable NISH, C MARY MALTER OPERATOR Unavailable Unavailable NISH, C MARY MALTER OPERATOR Unavailable Unavailable NISH, C MARY MALTER OPERATOR Unavailable Unavailable NISH, C MARY MALTER OPERATOR Unavailable Unavailable NISH, C MARY MALTER OPERATOR Unavailable Unavailable NISH, C MARY MALTER OPERATOR Unavailable Unavailable NISH, C MARY MALTER OPERATOR Unavailable Unavailable NISH, C MARY MALTER OPERATOR Unavailable Unavailable NISH, C MARY MALTER OPERATOR Unavailable Unavailable NISH, C MARY MALTER OPERATOR Unavailable Unavailable NISH, C MARY MALTER OPERATOR Unavailable Unavailable NISH, C MARY MALTER OPERATOR Unavailable Unavailable NISH, C MARY MALTER OPERATOR Unavailable Unavailable NISH, C MARY MALTER OPERATOR Unavailable Unavailable NISH, C MARY MALTER OPERATOR Unavailable Unavailable NISH, C MARY MALTER OPERATOR Unavailable Unavailable NISH, C MARY MALTER OPERATOR Unavailable Unavailable NISH, C MARY MALTER OPERATOR Unavailable Unavailable NISH, C MARY MALTER OPERATOR Unavailable Unavailable NISH, C MARY MALTER OPERATOR Unavailable Unavailable Sanchez, Sangita BOWL ATTENDANT BOWL ATTENDANT Unavailable Unavailable FARTUN, KARINA Unavailable Unavailable AFUA, R TRISTIAN Unavailable Unavailable Daniel, F Sangita BOWL ATTENDANT-BC Unavailable Unavailable Daniel, F Sangita BOWL ATTENDANT-BC Unavailable Unavailable Daniel, F Sangita BOWL ATTENDANT-BC Unavailable Unavailable Daniel, F Sangita BOWL ATTENDANT-BC Unavailable Unavailable Sanchez, F Sangita BOWL ATTENDANT-BC Unavailable Unavailable Daniel, F Sangita BOWL ATTENDANT-BC Unavailable Unavailable Sanchez, F Sangita BOWL ATTENDANT-BC Unavailable Unavailable Daniel, F Sangita BOWL ATTENDANT-BC Unavailable Unavailable Sanchez, F Sangita BOWL ATTENDANT-BC Unavailable Unavailable Sanchez, F Sangita BOWL ATTENDANT-BC Unavailable Unavailable Sanchez, F Sangita BOWL ATTENDANT-BC Unavailable Unavailable Daniel, F Sangita BOWL ATTENDANT-BC Unavailable Unavailable Daniel, F Sangita BOWL ATTENDANT-BC Unavailable Unavailable Sanchez, F Sangita BOWL ATTENDANT-BC Unavailable Unavailable Cristopher Sanchez BOWL ATTENDANT-BC Unavailable Unavailable Cristopher Sanchez Sangita BOWL ATTENDANT-BC Unavailable Unavailable Cristopher Sanchez Sangita BOWL ATTENDANT-BC Unavailable Unavailable Cristopher Sanchez Sangita BOWL ATTENDANT-BC Unavailable Unavailable Cristopher Sanchez Sangita BOWL ATTENDANT-BC Unavailable Unavailable Cristopher Sanchez Sangita BOWL ATTENDANT-BC Unavailable Unavailable Cristopher Sanchez BOWL ATTENDANT-BC Unavailable Unavailable Cristopher Sanchez Sangita BOWL ATTENDANT-BC Unavailable Unavailable CRISTIANO SLATER MD Unavailable Unavailable [...] Unavailable CRISTIANO SLATER MD Unavailable Unavailable CRISTIANO SLTAER MD Unavailable Unavailable CRISTIANO SLATER MD Unavailable [...] Unavailable Unavailable CRISTIANO SLATER MD Unavailable Unavailable CRISTIAON SLATER MD Unavailable Unavailable CRISTIANO SLATER MD [...] ZHEN CNM Unavailable Unavailable DALIA, L MICHAEL MALTER OPERATOR Unavailable DALIA, L MICHAEL MALTER OPERATOR Unavailable DALIA, L MICHAEL MALTER OPERATOR Unavailable DALIA, L MICHAEL MALTER OPERATOR Unavailable DALIA, L MICHAEL MALTER OPERATOR Unavailable DALIA, L MICHAEL MALTER OPERATOR Unavailable DALIA, L MICHAEL MALTER OPERATOR Unavailable DALIA, L MICHAEL MALTER OPERATOR Unavailable DALIA, L MICHAEL MALTER OPERATOR Unavailable DALIA, L MICHAEL MALTER OPERATOR Unavailable DALIA, L MICHAEL MALTER OPERATOR Unavailable DALIA, L MICHAEL MALTER OPERATOR Unavailable DALIA, L MICHAEL MALTER OPERATOR Unavailable LETTIERE, A CHRISTIAN PA Unavailable Unavailable [...] MD Unavailable Unavailable ALANISTOM MD Unavailable Unavailable ALANISOTM MD Unavailable Unavailable ALANISTOM MD Unavailable Unavailable [...] is protected by Article 27-F of the [facility] Public Health law. If you continue you may have access to information: Regarding HIV / AIDS; Provided by facilities licensed or operated by the [facility] Office of Mental Health; or Provided by the [facility] Office for People With Developmental Disabilities. If such information is present, then the following [facility] mandated warning applies: This information has [...] law may result in a fine or usp sentence or both. A general authorization for the release of medical or other information is NOT sufficient authorization for further disc losure. Family History Family Member Name Family Member Gender Family Member Status Date o f Status Description Data Source(s) Unknown Female Problem [facility] ([facility]) Unknown Female Problem MEDENT ([facility]) Unknown Female Problem MEDENT ([facility] Encounters Encounter Providers Location Date Indications Data Source(s ) Outpatient Attender: HALIE SLATER MD 03/04/2021 12:00:00 A M [facility] Outpatient Attender: CHRISTIAN alvarezy 12/24/2020 04:10:00 PM EST MEDENT ([facility]) Outpatient Attender: CHRISTIAN Preston Prim kika 12/23/2020 03:35:00 PM EST MEDENT ([facility]) Kenzie Maza PA-C: [address], [place] [address], Ph. Attender: Kenzie MCKEON [facility] Medical 11/06/2020 12:00:00 AM EST KRISTOPHER ([facility]) Kenzie Maza PA-C: [address], [place] [address], Ph. Attender: Kenzie MCKEON [facility] Medical 10/17/2020 12:00:00 AM EST KRISTOPHER ([facility]) Kenzie Maza PA-C: [address] [place] [phone], Ph. Attender: Kenzie MCKEON [place] - [facility] Medical 10/17/2020 12:00:00 AM EST KRISTOPHER ([facility]) Outpatient Attender: HALIE SLATER MDReferrer: KOBE MCCRAY MD [id number] 08/27/2020 12:00:00 AM EDT Sicca syndrome, unspecified [facility] Sicca syndrome, unspecified Outpatient Attender: ROGELIO VANG 06/30/2020 12:02:08 AM EDT [facility] Outpatient Attender: VIKI wild 06/19/2020 01:10:00 PM EDT MEDENT ([facility]) Outpatient Attender: ROGELIO VANG 06/04/2020 03:59:00 PM EDT [facility] Outpatient Attender: ZHEN GILMORE CNMReferrer: Tamara Feldman NP, CASH [id number] 05/19/2020 12:00:00 AM EDT - 05/19/2020 02:00:28 PM ED T Encounter for routine follow-up [facility] Encounter for routine follow- up Outpatient Attender: MARY MOCK NPReferrer: Jazmin Feldman NP, THEA [id number] 04/14/2020 12:00:00 AM EDT - 04/14/2020 03:13:17 PM EDT [facility] Outpatient Attender: ROGELIO VANG 04/08/2020 07:36:28 PM EDT [facility] Inpatient Attender: LEON ORTEGA MD 04/03/2020 08:58:27 AM EDT [facility] Inpatient Attender: HÉCTOR DEL ANGEL MDAdmitter: HÉCTOR MARTIN MD 04/03/2020 07:36:00 AM EDT - 04/07/2020 01:37:00 PM EDT INDUCTION OF LABOR [facility] INDUCTION OF LABOR Patient discharged. Outpatient Attender: ROGELIO VANG 03/29/2020 12:10:48 AM EDT [facility] Outpatient Attender: MARY MOCK NPReferrer: Jazmin Feldman NP, CN [id number] 03/26/2020 12:00:00 AM EDT - 03/26/2020 01:43:29 PM ED T Sicca syndrome, unspecified [facility] Sicca syndrome, unspecified Outpatient Attender: TRISTIAN CAAL 03/26/2020 12:00:00 A M [facility] Outpatient 03/26/2020 12:00:00 AM [facility] Outpatient Attender: ZHEN GILMORE CNMReferrer: Tamara Feldman NP, CN [id number] 03/21/2020 12:00:00 AM T - 03/21/2020 10:45:56 AM [facility] Outpatient Attender: KARINA WILLOUGHBYAttender: JANE Lance 03/21/2020 12:00:00 AM [facility] Outpatient 03/21/2020 12:00:00 AM [facility] Outpatient Attender: ZHEN GILMORE CNMReferrer: Tamara Feldman NP, [facility] [id number] 03/19/2020 12:00:00 AM T - 03/20/2020 12:00:00 AM [facility] Outpatient Attender: TRISTIAN CAAL 03/19/2020 12:00:00 A M [facility] Outpatient 03/19/2020 12:00:00 AM [facility] Outpatient Attender: ZHEN GILMORE CNMReferrer: Tamara Feldman NP, [facility] [id number] 03/12/2020 12:00:00 AM EDT - 03/12/2020 01:56:58 PM ED T Other specified related conditions, third trimester [facility] Other specified related condit ions, third trimester Outpatient Attender: KARINA WILLOUGHBY 03/12/2020 12:00:00 AM [facility] Outpatient 03/12/2020 12:00:00 AM [facility] Outpatient Attender: MARY MOCK NPReferrer: Jazmin Feldman NP, CN [id number] 03/05/2020 12:00:00 AM EDT - 03/06/2020 12:00:00 AM [facility] Outpatient Attender: TRISTIAN CAAL 03/05/2020 12:00:00 A M [facility] Outpatient 03/05/2020 12:00:00 AM [facility] Outpatient Attender: KARINA Wright NMAttender: MARY MOCK NPReferrer: Tamara Feldman NP, CASH [id number] 02/27/2020 12:00:00 AM EDT - 02/27/2020 01:38:03 PM EDT Sicca syndrome, unspecified [facility] Sicca syndrome, unspecified Outpatient Attender: TRISTIAN CAAL 02/27/2020 12:00:00 A M [facility] Outpatient 02/27/2020 12:00:00 AM [facility] Outpatient Attender: ROGELIO VANG 02/25/2020 01:58:00 PM EDT [facility] Outpatient Attender: MARY MOCK NPReferrer: Jazmin Feldman NP, [facility] [id number] 02/20/2020 12:00:00 AM EDT - 02/20/2020 01:29:04 PM [facility] Outpatient Attender: JANE HERNANDESAttender: JONY NUÑEZ 02/20/2020 12:00:00 AM EDT Sicca syndrome, unspecified [facility] Sicca syndrome, unspecified Outpatient 02/20/2020 12:00:00 AM [facility] Outpatient Attender: ZHEN GILMORE CNMReferrer: Tamara Feldman NP, [facility] [id number] 02/13/2020 12:00:00 AM EDT - 02/13/2020 01:47:05 PM ED T Other specified related conditions, unspecified trimester [facility] Other specified related condit ions, unspecified trimester Outpatient Attender: TRISTIAN CAAL 02/13/2020 12:00:00 A M [facility] Outpatient 02/13/2020 12:00:00 AM [facility] Outpatient Attender: MICHAEL GÓMEZ NPReferrer: Tamara Feldman NP, CASH [id number] 02/07/2020 12:00:00 AM EDT - 02/07/2020 02:50:40 PM EDT Anemia complicating , third trimester [facility] Anemia complicating , [facility] Attender: KARINA WILLOUGHBYAttender: JAZMYNE LAM [facility] 12:00:00 AM [facility] Outpatient Attender: ZHEN GILMORE CNMReferrer: Tamara Feldman NP, CASH [id number] 01/23/2020 12:00:00 AM EDT - 01/23/2020 03:02:22 PM ED T Unspecified asthma, uncomplicated [facility] Unspecified asthma, uncomplicated Outpatient Attender: ROGELIO MERCADO FP 01/14/2020 10:28:01 AM EDT [facility] Outpatient Attender: MARY MOCK NPReferrer: Jazmin Feldman NP, CASH [id number] 01/09/2020 12:00:00 AM EDT - 01/09/2020 02:32:41 PM ED T Other specified related conditions, unspecified trimester [facility] Other specified related condit ions, unspecified trimester Outpatient Attender: TRISTIAN CAAL 01/09/2020 12:00:00 A M [facility] Outpatient Attender: ROGELIO VANG 12/27/2019 02:53:01 PM [facility] Outpatient Attender: ZHEN GILMORE CNMReferrer: Tamara Feldman NP, CASH [id number] 12/19/2019 12:00:00 AM EST - 12/19/2019 01:51:09 PM ES T Sicca syndrome, unspecified [facility] Sicca syndrome, unspecified Outpatient 12/13/2019 01:36:00 PM [facility] Outpatient Attender: HALIE SLATER MD 12/03/2019 12:00:00 [facility] Outpatient Attender: ZHEN GILMORE CNMReferrer: Tamara Feldman NP, CASH [id number] 11/28/2019 12:00:00 AM EST - 11/28/2019 03:32:17 PM ES T Gastro- esophageal reflux disease without esophagitis [facility] Gastro-esophageal reflux disease without esophagitis Outpatient Attender: JANE HERNANDES 11/28/2019 12:00:00 AM E [facility] Outpatient Attender: ROGELIO MERCADO FP 11/27/2019 10:50:01 AM EST [facility] Outpatient Attender: Dominick DOUGLASS 11/21/2019 10:11:00 AM E [facility] Outpatient Attender: TOM THAPA MD 11/21/2019 1 0:11:00 AM EST 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 [facility] ARNOLD-CHIARI SYNDROME WITHOUT SPINA BIF KYUNG OR HYDROCEPHALUS Outpatient Attender: Sangita Sanchez BOWL ATTENDANT-BC FP 11/07/2019 01: 47:03 PM EST [facility] Outpatient Attender: HÉCTOR DEL ANGEL MDReferrer: Ying Feldman MALTER OPERATOR, [facility] [id number] 11/06/2019 12:00:00 AM EST - 11/06/2019 01:35:45 PM ES T Other specified abnormal immunological findings in [facility] Other specified abnormal immunological f indings in serum Outpatient Attender: JANE HERNANDES 11/06/2019 12:00:00 AM E [facility] Immunizations Vaccine Date Status Description Data Source(s) New in 2012. IIV4 03/04/2020 12:00:00 AM EDT completed 03/04/20 [facility]) New in 2012. IIV4 03/04/2020 12:00:00 AM EDT completed 03/04/20 [facility]) New in 2011. IIV4 02/07/2020 12:00:00 AM EDT completed In fluenza Quad IM Pres Free (0.5 mL dose) 02/07/2020 [facility] Tdap 02/07/2020 12:00:00 AM EDT completed Tdap 02/07/2020, 07/30/2014 [facility] Medications Medication Brand Name Start Date Product Form Dose Route Admi nistrative Instructions Pharmacy Instructions Status Indications Reaction Description Data Source(s) Fluconazole 150 MG Oral Tablet Fluconazole 12/23/2020 12:00:00 AM EST ORAL active MEDENT ([facility]) Phenazopyridine hydrochloride 200 MG Delayed Release O ral Tablet Phenazopyridine HCL 12/23/2020 12:00:00 AM EST ORAL active MEDENT ([facility]) NITROFURANTOIN, MACROCRYSTALS 25 MG / Ni trofurantoin, Monohydrate 75 MG Oral Capsule [Macrobid] Macrobid 12/23/2020 12:00:00 AM EST ORAL active MEDENT ([facility]) Prednisone 5 MG Oral Tablet predniSONE 5 MG Oral Table t (DELTASONE) predniSONE 5 MG Oral Tablet (DELTASONE) 08/27/2020 12:00:00 AM EDT 5 mg Oral active Take 1 tablet by mouth daily [facility] Permethrin 50 MG/ML Topical Cream Permethrin 06/19/2020 12:00:00 AM EDT active MEDENT ([facility]) Albuterol Sulfate HFA 108 (90 Base) MCG/ ACT Inhalation Aerosol Solution (PROVENTIL HFA) 5939-0080-70 03/26/2020 12:00:00 AM EDT active [facility] ferrous sulfate 325 MG Oral Tablet Ferrous Sulfate 325 (65 Fe) MG Oral Tablet Ferrous Sulfate 325 (65 Fe) MG Oral Tablet 02/07/2020 12:00:00 AM EDT 325 mg Oral active Anemia affecting in third trimester Take 1 tablet by mouth daily [facility] Anemia affecting in third trim emily Ascorbic Acid 500 MG Oral Tablet Vitamin C 500 MG Oral Tablet (ASCORBIC ACID) Vitamin C 500 MG Oral Tablet (ASCORBIC ACID) 02/07/2020 12:00:00 AM EDT 500 mg Oral active Anemia affecting in third trimester Take 1 tablet by mouth daily [facility] Anemia affecting in third trim emily Albuterol [...] needed for Wheezing or Shortness of Breath [facility] Asthma, unspecified asthma severity, uns pecified whether [...] s every 6 (six) hours as needed [facility] 28 weeks gestation of Asthma, unspecified asthma severity, uns pecified whether complicated, unspecified whether persistent Wrist Brace/Left Medium [id number] 01/09/2020 12:00:00 AM EDT aborted Carpal tunnel syndrome during Use as d irected. O26.899 [facility] Carpal tunnel syndrome during Ondansetron 4 MG Oral Tablet Ondansetron HCl 4 MG Oral Tablet (ZOFRAN) Ondansetron HCl 4 MG Oral Tablet (ZOFRAN) 01/09/2020 12:00:00 AM EDT 4 mg Oral active Multigravida of advanced maternal age in second trimesterSjogren's syndrome, with unspecified organ involvement Take 1 ta blet by mouth every 8 (eight) hours as needed for Nausea [facility] Multigravida of advanced maternal age in second trimester Sjogren's syndrome, with unspecified org an involvement Wrist Brace/Right Medium [id number] 01/09/2020 12:00:00 AM EDT aborted Carpal tunnel syndrome during Use as d irected. O26.899 [facility] Carpal tunnel syndrome during Omeprazole 20 MG Delayed Release Oral Ca psule Omeprazole 20 MG Oral Capsule Delayed Release (PriLOSEC) Omeprazole 20 MG Oral Capsule Delayed Re lease (PriLOSEC) 11/28/2019 12:00:00 AM EST 20 mg Oral ac tive Gastroesophageal reflux disease without esophagitisMultigravida of advanced maternal age in second trimester Take 1 capsule by mouth daily [facility] Gastroesophageal reflux disease without esophagitis Multigravida of advanced maternal age in second trimester Aspirin 81 MG Delayed Release Oral Table t Aspirin EC 81 MG Oral Tablet Delayed Release Aspirin EC 81 MG Oral Tablet Delayed Release 11/06/2019 12:0 0:00 AM EST 81 mg Oral active Take 1 tablet by mouth daily [facility] Hydroxychloroquine Sulfate 200 MG Oral T ablet hydroxychloroquine (PLAQUENIL) 200 MG tablet hydroxychloroquine (PLAQUENIL) 200 MG tablet 12:00:00 AM EDT 200 mg Oral active Take 1 tablet by mouth Two Times Daily [facility] Aspirin 81 MG Delayed Release Oral Tablet aspirin EC 8 1 MG EC tablet aspirin EC 81 MG EC tablet 11/06/2018 12:00:00 AM EST 81 mg Oral ac tive Take 1 tablet by mouth daily [facility] ferrous sulfate 324 mg (65 mg iron) tablet,delayed release [id number] completed ferrous sulfate 324 MG Delayed R elease Oral Tablet [place] ([facility]) Omeprazole 20 MG Delayed Release Oral Ca psule omeprazole 20 mg capsule,delayed release TAKE 1 CAPSULE BY MOUTH ONCE DAILY omeprazole 20 mg capsule,delayed release TAKE 1 CAPSULE BY MOUTH ONCE DAILY completed omeprazole 20 MG Delayed Release Oral Capsule [facility]) Oseltamivir 75 MG Oral Capsule oseltamivir 75 mg capsu le oseltamivir 75 mg capsule completed oseltamivir 75 MG Oral Capsule [place] ([facility]) Ondansetron 4 MG Oral Tablet ondansetron HCl 4 mg tabl et ondansetron HCl 4 mg tablet completed ondansetron 4 M G Oral Tablet [place] ([facility]) Oseltamivir 75 MG Oral Capsule oseltamivir 75 mg capsu le oseltamivir 75 mg capsule completed oseltamivir 75 MG Oral Capsule [place] ([facility]) Oxycodone Hydrochloride 5 MG Oral Tablet oxycodone 5 m g tablet oxycodone 5 mg tablet completed oxycodone hydro chloride 5 MG Oral Tablet [place] ([facility]) Prednisone 5 MG Oral Tablet prednisone 5 mg tablet TAKE 1 TABLET BY MOUTH ONCE DAILY prednisone 5 mg tablet TAKE 1 TABLET BY MOUTH ONCE DAILY completed prednisone 5 MG Oral Tablet [facility] ([facility]) Oxycodone Hydrochloride 5 MG Oral Tablet oxycodone 5 m g tablet oxycodone 5 mg tablet completed oxycodone hydro chloride 5 MG Oral Tablet [place] ([facility]) Ondansetron 4 MG Oral Tablet ondansetron HCl 4 mg tabl et ondansetron HCl 4 mg tablet completed ondansetron 4 M G Oral Tablet [place] ([facility]) Prednisone 5 MG Oral Tablet prednisone 5 mg tablet TAKE 1 TABLET BY MOUTH ONCE DAILY prednisone 5 mg tablet TAKE 1 TABLET BY MOUTH ONCE DAILY completed prednisone 5 MG Oral Tablet [place] ([facility]) ferrous sulfate 324 mg (65 mg iron) tablet,delayed release [id number] completed ferrous sulfate 324 MG Delayed R elease Oral Tablet KRISTOPHER ([facility]) Omeprazole 20 MG Delayed Release Oral Ca psule omeprazole 20 mg capsule,delayed release TAKE 1 CAPSULE BY MOUTH ONCE DAILY omeprazole 20 mg capsule,delayed release TAKE 1 CAPSULE BY MOUTH ONCE DAILY completed omeprazole 20 MG Delayed Release Oral Capsule [facility]STOP[facility] ([facility]) Insurance Providers Payer name Policy type / Coverage type Policy ID Covered republican ID Covered republican's relationship to [place] Policy [place] Plan Information [facility] MCDO [id number] SP [id number] [facility] I [id number] Self [id number] Medicaid S [id number] S [id number] Managed Care - [facility] Community Plan P [id number] S [id number] MEDICAID GME [id number] S [id number] [facility] HEA [id number] S [id number] [facility] O [id number] S [id number] [facility] MCDO [id number] SP [id number] MEDICAID [id number] Medicaid S [id number] S [id number] Self Pay O UNAVAILABLE S UNAVAILA BLE Medicaid P [id number] S [id number] Managed Care BCBS P [id number] S [id number] [facility] Health Maintenance Organization (HMO) [id number] Self [id number] [facility] Health Maintenance Organization (HMO) [id number] Self [id number] [facility] MCDO [id number] SP [id number] MEDICAID M [id number] [facility] MCDO [id number] SP [id number] [facility] Health Maintenance Organization (HMO) [id number] Self [id number] [facility] Health Maintenance Organization (HMO) [id number] Self [id number] [facility] [facility] I [id number] Self [id number] [facility] Community Plan Medicaid [id number] Self [id number] [facility] MC [id number] 18 [id number] UNHC COMMUNITY PLAN MCDHMO [id number] SP [id number] Unhc Community Plan Medicaid [id number] Self [id number] Unhc Community Plan Medicaid Self [facility] Health Maintenance Organization (HMO) Self UHC Medicare Comm Plan F [id number] SELF [id number] UNHC COMMUNITY PLAN MCDHMO [id number] SP [id number] MEDICAID W [id number] Medicaid [facility] S D [id number] SELF [id number] UHC COMM PLAN EVAN W [id number] S [id number] UNHC AMERICHOICE XIX -HMO [id number] 18 [id number] MEDICAID GME W [id number] S [id number] A UHC COMM PLAN FHP W [id number] S [id number] MEDICAID M [id number] Self [id number] MEDICAID M [id number] Self [id number] UHC I [id number] Self [id number] UH I [id number] Self [id number] UNHC XIX HMO-CLINIC [id number] 18 [id number] [facility] [id number] Problems, Conditions, and Diagnoses Code Display Name Description Problem Type Effective Dates Data Source(s) 859588554 Arthropathy Arthropathy Problem 10/17/2020 12:00:00 AM HELEN SUMMERS ([facility]) [id number] Arthropathy Arthropathy Problem 10/17/2020 12:00:00 AM HELEN SUMMERS ([facility]) [id number] Asthma Asthma Problem 08/14/2020 05:52:55 PM ED T KRISTOPHER ([facility]) [id number] Asthma Asthma Problem 08/14/2020 05:52:55 PM ED T KRISTOPHER ([facility]) [id number] Clinical finding Clinical Finding Problem 019 12:00:00 AM EDT - 10/17/2020 12:00:00 AM HELEN SUMMERS ([facility]) [id number] Acute maxillary sinusitis Acute Maxillary Sinusitis Pr oblem 08/22/2019 12:00:00 AM EDT - 10/17/2020 12:00:00 AM HELEN SUMMERS ([facility]) [id number] Clinical finding Clinical Finding Problem 019 12:00:00 AM EDT - 10/17/2020 12:00:00 AM EST KRISTOPHER ([facility]) [id number] Acute maxillary sinusitis Acute Maxillary Sinusitis Pr oblem 08/22/2019 12:00:00 AM EDT - 10/17/2020 12:00:00 AM EST KRISTOPHER ([facility]) [id number] Procedure by method Procedure by Method Problem 0 07/27/2019 12:00:00 AM EDT - 10/17/2020 12:00:00 AM EST KRISTOPHER ([facility]) [id number] Dysuria Dysuria Problem 07/27/2019 12:0 0:00 AM EDT - 10/17/2020 12:00:00 AM EST KRISTOPHER ([facility]) [id number] Procedure by method Procedure by Method Problem 0 07/27/2019 12:00:00 AM EDT - 10/17/2020 12:00:00 AM EST KRISTOPHER ([facility]) [id number] Dysuria Dysuria Problem 07/27/2019 12:0 0:00 AM EDT - 10/17/2020 12:00:00 AM EST KRISTOPHER ([facility]) [id number] Clinical finding Clinical Finding Problem 013 12:00:00 AM EST - 10/17/2020 12:00:00 AM EST KRISTOPHER ([facility]) [id number] Clinical finding Clinical Finding Problem 013 12:00:00 AM EST - 10/17/2020 12:00:00 AM EST KRISTOPHER ([facility]) Z39.2 Encounter for routine follow- up Encounter for routine follow-up Diagnosis 05/19/2020 01:09:21 PM [facility] O40.9XX0 Polyhydramnios, unspecified trimester, n ot applicable or unspecified Polyhydramnios, unspecified trimester, not applicable or unspecified Diagnosis 03/26/2020 12:09:08 PM [facility] O09.529 Supervision of elderly multigravida, uns pecified trimester Supervision of elderly multigravida, unspecified trimester Diagnosis 020 12:09:08 PM [facility] O12.10 Gestational proteinuria, unspecified tri mester Gestational proteinuria, unspecified trimester Diagnosis 03/12/2020 12:11:[address] [facility] R51 Headache Headache Diagnosis 03/12/2020 12:11:[address] [facility] O26.893 Other specified related condit ions, third trimester Other specified related conditions, third trimester Diagnosis 03/12/2020 12:11:35 PM [facility] D69.6 Thrombocytopenia, unspecified Thrombocytopenia, unspec ified Diagnosis 03/06/2020 11:00:35 AM [facility] O99.119 Other diseases of the blood and blood-forming organs and certain disorders involving the immune mechanism complicating , unspecified trimester Other diseases of the blood and blood-fo rming organs and certain disorders involving the immune mechanism complicating , unspecified trimester Diagnosis 03/06/2020 11:00:35 AM [facility] Z34.90 Encounter for supervision of normal , unspecified, unspecified trimester Encounter for supervision of normal preg tiburcio, unspecified, unspecified trimester Diagnosis 02/13/2020 12:15:[address] [facility] O36.63X0 Maternal care for excessive growth, third trimester, not applicable or unspecified Maternal care for excessive growth , third trimester, not applicable or unspecified Diagnosis 02/07/2020 02:40:01 PM [facility] O99.013 Anemia complicating , third tri mester Anemia complicating , third trimester Diagnosis 02/07/2020 01:08:47 PM [facility] J45.909 Unspecified asthma, uncomplicated Unspecified as thma, uncomplicated Diagnosis 01/23/2020 02:46:06 PM [facility] E03.9 Hypothyroidism, unspecified Hypothyroidism, unspecifie d Diagnosis 01/23/2020 01:53:46 PM [facility] O99.280 Endocrine, nutritional and m etabolic diseases complicating , unspecified trimester Endocrine, nutritional and metabolic dis eases complicating , unspecified trimester Diagnosis 01/23/2020 01:53:46 PM [facility] Z3A.28 28 weeks gestation of 28 weeks gestati on of Diagnosis 01/23/2020 01:53:46 PM [facility] G56.00 Carpal tunnel syndrome, unspecified uppe r limb Carpal tunnel syndrome, unspecified upper limb Diagnosis 01/09/2020 02:26:51 PM EDT [facility] O26.899 Other specified related condit ions, unspecified trimester Other specified related conditions, unspecified trimester Diagnosis 01/09/2020 02:26:51 PM [facility] K21.9 Gastro-esophageal reflux disease without esophagitis Gastro-esophageal reflux disease without esophagitis Diagnosis 11/28/2019 12:33:38 PM [facility] O09.522 Supervision of elderly multigravida, sec ond trimester Supervision of elderly multigravida, second trimester Diagnosis 11/06/2019 01:25:36 [facility] Surgeries/Procedures Procedure Description Date Indications Data Source(s) US, thyroid 10/17/2020 12:00:00 AM EST A THENA ([facility]) US, thyroid 10/17/2020 12:00:00 AM EST A THENA ([facility]) Bilateral Tubal Ligation 04/04/2020 12:00:00 AM EDT KRISTOPHER ([facility]) Bilateral Tubal Ligation 04/04/2020 12:00:00 AM EDT [place] ([facility]) NET REPAIRER ULTRASOUND ORDER (IN OFFICE) NET REPAIRER ULTRASOUND ORDER (IN OFFICE) Routine 02/20/2020 3:08 PM EDT Sjogren's syndrome, with unspecified organ involvement 02/20/2020 07:08:02 PM EDT Sjogren's syndrome, with unspecified organ involvement [facility] Sjogren's syndrome, with unspecified org an involvement Results ID Date Data Source [id number] 12/23/2020 06:27:00 PM EST MED[facility] ([facility]) Name Value Range Interpretation Code Description Data Kelli rce(s) Supporting Document(s) Bacteria identified in Urine by Culture Laboratory test result MED[facility] ([facility]) Rx Macrobid/pyridium/fluconazole ID Date Data Source [id number] 10/17/2020 02:30:00 PM EST KRISTOPHER [facility]) Name Value Range Interpretation Code Description Data Kelli rce(s) Supporting Document(s) ferritin 10 NG/mL 8-252 normal Ferritin [place] ([facility]) ID Date Data Source [id number] 10/17/2020 02:30:00 PM EST KRISTOPHER ([facility]) Name Value Range Interpretation Code Description Data Kelli rce(s) Supporting Document(s) total 25(oh) vitamin D 20.9 NG/mL 30.0-100.0 Below low normal T otal 25(Oh) Vitamin D [place] ([facility]) ID Date Data Source [id number] 10/17/2020 02:30:00 PM EST [place] ([facility]) Name Value Range Interpretation Code Description Data Kelli rce(s) Supporting Document(s) free T4 0.93 NG/dL 0.76-1.46 normal Free T4 KRISTOPHER ([facility]) thyroid stimulating hormone 2.630 uIU/mL 0.358-3.740 normal Thyroid Stimulating Hormone [place] ([facility]) ID Date Data Source [id number] 10/17/2020 02:30:00 PM EST KRISTOPHER ([facility]) Name Value Range Interpretation Code Description Data Kelli rce(s) Supporting Document(s) percent saturation 12.0 % 13.2-45.0 Below low normal Percent Sat uration KRISTOPHER ([facility]) total iron binding capacity 393 ug/dL 250-450 normal Total Iron Binding Capacity KRISTOPHER ([facility]) iron (fe) 47 ug/dL 50-170 Below low normal Iron (Fe) [facility]) ID Date Data Source [id number] 10/17/2020 02:30:00 [facility] Name Value Range Interpretation Code Description Data Kelli rce(s) Supporting Document(s) glucose, fasting 103 mg/dL 70-100 Above high normal Glucose, Fas ting [place] ([facility]) blood urea nitrogen 13 mg/dL 7-18 normal Blood Urea Nitro gen KRISTOPHER ([facility]) creatinine for GFR 1.06 mg/dL 0.55-1.30 normal Creatinine for GF R KRISTOPHER ([facility]) sodium level 140 mEq/L 136-145 normal Sodium Level KRISTOPHER ([facility]) glomerular filtration rate > 60.0 >60 normal Glomerula r Filtration Rate KRISTOPHER ([facility]) potassium serum 4.0 mEq/L 3.5-5.1 normal Potassium Serum ATHE NA ([facility]) carbon dioxide level 29 mEq/L 21-32 normal Carbon Dioxide Level KRISTOPHER ([facility]) chloride level 104 mEq/L 98-107 normal Chloride Level KRISTOPHER ([facility]) anion gap 7 mEq/L 8-16 Below low normal Anion Gap KRISTOPHER ( [facility]) calcium level 8.8 mg/dL 8.5-10.1 normal Calcium Level KRISTOPHER ( [facility]) AST/SGOT 9 U/L 7-37 normal AST/SGOT K[facility]STOPHER ([facility]) ALT/SGPT 23 U/L 12-78 normal ALT/SGPT KRISTOPHER ([facility]) bilirubin,total 0.5 mg/dL 0.2-1.0 normal Bilirubin,total ATHE ([facility]) albumin 3.8 gm/dL 3.2-5.2 normal Albumin KRISTOPHER ([facility]) alkaline phosphatase 59 U/L 45-117 normal Alkaline Phosph atase KRISTOPHER ([facility]) total protein 7.8 gm/dL 6.4-8.2 normal Total Protein KRISTOPHER ( [facility]) albumin/globulin ratio 1.2-2.2 Below low normal Albumin /globulin Ratio KRISTOPHER ([facility]) ID Date Data Source [id number] 10/17/2020 02:30:00 PM EST KRISTOPHER ([facility]) Name Value Range Interpretation Code Description Data Kelli rce(s) Supporting Document(s) white blood count 7.8 10 4.0-10.0 normal White Blood Count KRISTOPHER ([facility]) hemoglobin 12.7 g/dL 12.0-15.5 normal Hemoglobin KRISTOPHER ([facility]) red blood count 5.26 10 4.00-5.40 normal Red Blood Count ATHE NA ([facility]) mean corpuscular hemoglobin 24.1 pg 27.0-33.0 Below low nor mal Mean Corpuscular Hemoglobin KRISTOPHER ([facility]) hematocrit 41.9 % 36.0-47.0 normal Hematocrit KRISTOPHER ([facility]) mean corpuscular volume 79.7 fL 80.0-96.0 Below low normal Mean Corpuscular Volume KRISTOPHER ([facility]) mean corpuscular HGB conc 30.3 g/dL 32.0-36.5 Below low spike l Mean Corpuscular HGB Conc KRISTOPHER ([facility]) neutrophils % 61.2 % 36.0-66.0 normal Neutrophils % KRISTOPHER ( [facility]) platelet count, automated 188 10 150-450 normal Platelet C ount, Automated KRISTOPHER ([facility]) red cell distribution width 14.6 % 11.5-14.5 Above high no rmal Red Cell Distribution Width KRISTOPHER ([facility]) lymph % 26.1 % 24.0-44.0 normal Lymph % KRISTOPHER ([facility]) mono % 9.2 % 0.0-5.0 Above high normal [place] % KRISTOPHER ([facility]) immature granulocyte % 0.3 % 0-3.0 normal Immature Gran ulocyte % KRISTOPHER ([facility]) eos % 2.4 % 0.0-3.0 normal Eos % KRISTOPHER ([facility]) baso % 0.8 % 0.0-1.0 normal Baso % KRISTOPEHR ([facility]) nucleated red blood cell % 0.0 % 0-0 normal Nucleated Red Blood Cell % KRISTOPHER ([facility]) neutrophils # 4.8 10 1.5-8.5 normal Neutrophils # KRISTOPHER ( [facility]) mono # 0.7 10 0.0-0.8 normal [place] # KRISTOPHER ([facility]) lymph # 2.0 10 1.5-5.0 normal Lymph # KRISTOPHER ([facility]) baso # 0.1 10 0.0-0.2 normal Baso # KRISTOPHER ([facility]) eos # 0.2 10 0.0-0.5 normal Eos # KRISTOPHER ([facility]) ID Date Data Source [id number] 08/27/2020 10:40:07 AM EDT [facility] Name Value Range Interpretation Code Description Data Kelli rce(s) Supporting Document(s) Progress Note [facility] XLFGMj2eQtNPOoFt31/KXFznLAYtt5LwIJizTPl6QTuvOSOoL5HvYNK3gZ5wPVS7HToCHwYkQpYqHHJ3 lbm [file] nut grader+QaI5ozsKUQxYHff9MbT7sXzQXJjrrGHzxcyK0PywKziOyuPVNJ0FxB+OV+4DXgLeoGBIHRgFe+Xo [file] ICAgICAgICAgICAgICAgICAgICAgICAgICAgICAgICAgICAgICAgICAgICAgICAgICAgICANCiAgICAg ICAgICAgICAgICAgICAgICAgICAgICAgICAgICAgIC AgICAgICAgICAgICAgICAgICAgICAgICAgICAgICAgICAgICAgICAgICAgICAgICAgICAgICAgICAgIC AgICANCiAgICAgICAgICAgICAgICAgICAgICAgICAgICAgICAgICAgICAgICAgICAgICAgICAgICAgIC AgICAgICAgICAgICAgICAgICAgICAgICAgICAgICAg ICAgICAgICAgICAgICANCiAgICAgICAgICAgICAgICAgICAgICAgICAgICAgICAgICAgICAgICAgICAg ICAgICAgICAgICAgICAgICAgICAgICAgICAgICAgICAgICAgICAgICAgICAgICAgICAgICAgICANCiAg ICAgICAgICAgICAgICAgICAgICAgICAgICAgICAgIC AgICAgICAgICAgICAgICAgICAgICAgICAgICAgICAgICAgICAgICAgICAgICAgICAgICAgICAgICAgIC AgICAgICANCiAgICAgICAgICAgICAgICAgICAgICAgICAgICAgICAgICAgICAgICAgICAgICAgICAgIC AgICAgICAgICAgICAgICAgICAgICAgICAgICAgICAg ICAgICAgICAgICAgICAgICANCiAgICAgICAgICAgICAgICAgICAgICAgICAgICAgICAgICAgICAgICAg ICAgICAgICAgICAgICAgICAgICAgICAgICAgICAgICAgICAgICAgICAgICAgICAgICAgICAgICAgICAN CiAgICAgICAgICAgICAgICAgICAgICAgICAgICAgIC AgICAgICAgICAgICAgICAgICAgICAgICAgICAgICAgICAgICAgICAgICAgICAgICAgICAgICAgICAgIC AgICAgICAgICANCiAgICAgICAgICAgICAgICAgICAgICAgICAgICAgICAgICAgICAgICAgICAgICAgIC AgICAgICAgICAgICAgICAgICAgICAgICAgICAgICAg ICAgICAgICAgICAgICAgICAgICANCiAgICAgICAgICAgICAgICAgICAgICAgICAgICAgICAgICAgICAg ICAgICAgICAgICAgICAgICAgICAgICAgICAgICAgICAgICAgICAgICAgICAgICAgICAgICAgICAgICAg ICANCjw/tWDlC2fjrATlhyJ4E7fbHi1EZk3LKI9zb4 KgWWAsQRzsdwZmQxoONhIsCPOqUboNCyb8UKwyRJ4BaOCrN9BkE5QzWIvaLS9DUYLqWKQooOXzEUDsTH StOoJ2GMEmBKrnRW9LsIMvFMlaNPZuJJGnVpRzKQZsTJAcZQGgTEAtJKGLMNElEJQuLgAbVNmtYR0Lq0 TotSY1UAa+Gm6NLH1bz5TdTNabNaLwYK3aeu7LVFsY FeBaE2PqjjE6WBE5ZHNtSd6ETJQdSQQokEVlOVKhNAUZMuYaB8LesG26JESAPf2+DQplbmRvYmoNCjM0 JCOky6VtGPd3ON2LOICfBEo2bPVmDCIsS8Srb3MqGt00BZVjIxbtDrzwtgflu56lDBq1BZVYGTAhtWZz KJ6hXF8rRGQuIXYvZkCkSBRWVP2KDXLcLMWosTAkIX GeZKQBSJ1UBLgeEGV1OCJyejGdeYEjQVgzMN3OAOVdygAwCfRuFRILHRi+Ca9THD1qh3PkNNfnPPVsID 4dzf0MUIxIWlAmF7K9wVRfA7X6CYpaMq0WHZOdFZSkRsWqAQNHFFueVS1YBX9ganF8KN3EsAFvYKIjEF OwcFOpMWg5W12lsXOsADgnPE8KREB+Emma+Rw9PKBIe OGSjAJFrXyEtBYALUlGhS6EuS1ONq6YkL0WnMS66mHqlbrOtDVuhTQ4TWH1bIBGmCGKKQL6ZlVJfiW1u zfPdSmAiWPGXWdArW53ayQNrOJQgZFTcVCIxGd4QEQJxK2OebpCbpNubqbKxXRRyAYNWRE0NTPvotbDh aGGlhVjlAK54xVrdSP4TXm9VXtZdJL6zqy5CyZOcVv 8REMPbFa8CZXSzBPPoTYYqWSQ8EHIqHiEiLCwtJPMgMQWmBMT2DWLySZDeKI0WQxTvMARiPpIoZPGwTP WgXEOtnf7MNFWsTYSfUfZuErVfPCUmONWfBKgyMCMbMDOfCUC9OGZxGUImMG8BItDuGADhFQG6FCCzCO JwTEElki2KGRSmCRXoZJL9SfRnMCWyVOTyGDidKQNe AKC7VmSlYWOnELVnQY2HYkVpOSGcVVp6SIBrZQGcEIDivi9JACEvHYVnGBt5BoXyOPKmFYYfZUpoMKUs JNSdTCjyAPCeMFEbZT1UCcTcHDFpNHD2OARzUGSqNRKyqx2NQJDgRWCcCXO9DdToRQWyUYBrJIfqFSQd IRN6IWogHTMhNKTlZJ6RKiYjLOZmSKs5JBfgFHRgTA Fwoh1IKZUoPBNbLHM1PCDgZSJxNOSqXHeeROUdVJR9FXZ6UREfWZVhBJ6CEmHpBKAdSNqqMdkvQMTfMI Uqkd5IDWWrGKCqISq0YoZxWPIsTHCoQUspGKRpWASsRSe2ZHClLIKtNR6GQdQsYPFsIhVjPgiuSJVgIW Vnqw4YAHXsMDRbURzvRiCkMWKiKKQqFOzxABYrWBZb JOYzMUKqGIAeQH9ZXwTzTHYhXzQiXGRuJZYsJLZpju2XZLOfJKRdEvU0DIVzEBIkZIJwPBieLPVoTFEa XvU3KQFdMLNoII0IPhFxRHCcEjK2UNElKMClOADuyz5HIPRcPSCrKdt6VZSpSPVmWEOtCIuyOXBoINY4 QTC3JPKmFVWxYR2PFhWuXWSjKwW3BIXoOGFaBTMawm 8ZPDJrTHEyNZG7UWLdQIIgFGLxDRmpSHSwWWX6DiS0PXEuNZVwRZ9QGoKfVDIiOcC2GFPnDSTnOLBeil 5YKDYtUUGkBfF9FaByKJOxIDCdFFbfFTYmSSS8AjC5ABEjOSXkJG7DEuRlPJFsThw8DnUmOGJrNMRaff 0GsYJnaGlbet6ZVOdDZu3MoVpuFHF1DCwsAw2xaXEh GRAiGDAYAf6LzaUkSSQwPDECKItqHNImISz6BOAqALYzHGR8Jpa8WcimNBJ7GQKzPmEvEXp6U8VeWzG1 OMbnCpB9N0PgDddjWgw4H6RmIcTmG8QzVHJmTEH3LFT+HE0mBNm+Qa2Ey3CholB4dyXxJDiyTrljCN0T NPICW9GPOk== ID Date Data Source [id number] 05/19/2020 02:04:40 PM EDT [facility] Name Value Range Interpretation Code Description Data Kelli rce(s) Supporting Document(s) Progress Note [facility] UJLXBg9dKoNFNuNy67/WUNuhWVVzz6UgWLuwHCl3MQdeZARjU4JfFEQ4nH9aDUP5JXgZXaKqBtQjKfKb lbm [file] WcBzMkG8SDVuCoZuZ8XqIw0xHPKPEa3+ELgroALhgEmxRFUBWaUaJsp7UIfrMKDCCy2I ID Date Data Source [id number] 04/14/2020 03:29:09 PM EDT [facility] Name Value Range Interpretation Code Description Data Kelli rce(s) Supporting Document(s) Progress Note [facility] YNLSKv6kOfCHZgLy91/NTYlmQLIzc6RwSEjnCYe2EHcfDIZkF3FrXXP1mU7nPDA8AShKFxNzOtCjXkW9 lbm [file] ID Date Data Source [id number] 04/05/2020 05:42:34 AM EDT [facility] Name Value Range Interpretation Code Description Data Kelli rce(s) Supporting Document(s) WBC 19.5 10*3/uL (4.1-11.0) H [facility] RBC 3.35 10*6/uL (4.00-5.40) L [facility] HGB 8.7 g/dL (12.0-16.0) L [facility] HCT 26.6 % (36.0-47.0) L [facility] MCV 79.4 fL (80.0-95.0) L [facility] MCH 26.0 pg (27.0-32.0) L [facility] MCHC 32.7 g/dL (32.0-36.0) [facility] RDW 16.6 % (10.5-14.5) H [facility] PLT 129 10*3/uL (150-450) L [facility] MPV 10.3 fL (7.1-10.7) [facility] ID Date Data Source [id number] 04/04/2020 11:09:25 AM EDT [facility] Name Value Range Interpretation Code Description Data Kelli rce(s) Supporting Document(s) WBC 23.8 10*3/uL (4.1-11.0) H [facility] RBC 3.89 10*6/uL (4.00-5.40) L [facility] HGB 10.2 g/dL (12.0-16.0) L [facility] HCT 31.1 % (36.0-47.0) L [facility] MCV 80.0 fL (80.0-95.0) [facility] MCH 26.2 pg (27.0-32.0) L [facility] MCHC 32.7 g/dL (32.0-36.0) [facility] RDW 16.5 % (10.5-14.5) H [facility] PLT 131 10*3/uL (150-450) L [facility] MPV 10.5 fL (7.1-10.7) [facility] ID Date Data Source [id number] 04/07/2020 03:00:32 PM EDT [facility] [place] [address] [address] [place] [id number]# SURGICAL PATHOLOGY REPORTPatient Name:VIVIAN ARCHEROB:1985Received:04/04/2020Accession #:[id number](s) Received: A: PlacentaB: Right fallopian tube segmentC: [...] 6.0 cm from a margin. Appearance Thin, red-montavlo to pink-montalvo, semi-translucent. Comments: The surface is [...] for microscopic examination. (1 block) jglrff/tbsProcessed at [facility], [facility], Histopathology,[address] [place] [address], [address]. Reported at [facility], [address] [place] [address], Critical access hospital.Reported: 04/07/2020Electronically Signed Out By Sarah Guzman MD [facility], [facility].This re port may include immunohistochemical or in-situ hybridizationresults. Testing was developed and the performance characteristicsdetermined by [facility] as required by CLIA '88. The FDAhas determined that approval for specific use is not necessary forclinical use. The quality of Hematoxylin and Eosin stains and asapplicable, for all immunohistochemical and/or special stains, includingpositive and negative controls, were reviewed and considered appropriate.ICD codes: O43.819 Z30.2CPT4 codes: A: 72254EL: [id number]: 92418H Name Value Range Interpretation Code Description Data Kelli rce(s) Supporting Document(s) ID Date Data Source [id number] 04/03/2020 12:03:18 PM EDT [facility] Name Value Range Interpretation Code Description Data Kelli rce(s) Supporting Document(s) TREPONEMA IGG/IGM @ (NEG) [facility] ID Date Data Source [id number] 04/03/2020 08:58:26 AM EDT [facility] Name Value Range Interpretation Code Description Data Kelli rce(s) Supporting Document(s) WBC 10.6 10*3/uL (4.1-11.0) [facility] RBC 4.36 10*6/uL (4.00-5.40) [facility] HGB 11.6 g/dL (12.0-16.0) L [facility] HCT 34.4 % (36.0-47.0) L [facility] MCV 79.0 fL (80.0-95.0) L [facility] MCH 26.6 pg (27.0-32.0) L [facility] MCHC 33.6 g/dL (32.0-36.0) [facility] RDW 16.4 % (10.5-14.5) H [facility] PLT 132 10*3/uL (150-450) L [facility] MPV 10.1 fL (7.1-10.7) [facility] ID Date Data Source [id number] 04/07/2020 01:00:22 AM EDT [facility] SPEC EXP DATE 04/06/2020CONV ERT COMMENT TWO UNIT XM ADDED DUE TO PRESENCE OR HISTORY OF ATYPICAL ANTIBODIES.PATIENT ABO/Rh O POSITIVEANTIBODY SCREEN POSITIVETESTING SITE PERFORMED AT [address] [place] [address] BANK COMMENT BLOOD TYPE CONFIRMED.ANTIBODY IDENT ALL MAJOR ALLOANTIBODIES EXCLUDED.UNIT NUMBER [id number] COMPONENT TYPE LEUKOPOOR RED CELLSUNIT DIVISION 00STATUS OF UNIT REL FROM ALLOCTRANSFUSION STATUS OK TO TRANSFUSE CROSSMATCH RESULT COMPATIBLEUNIT NUMBER [id number] COMPONENT TYPE LEUKOPOOR RED CELLSUNIT DIVISION 00STATUS OF UNIT REL FROM ALLOCTRANSFUSION STATUS OK TO TRANSFUSECROSSMATCH RESULT COMPATIBLE Name Value Range Interpretation Code Description Data Kelli rce(s) Supporting Document(s) TYPE AND SCREEN [facility] PATIENT ABO/Rh O POSITIVE ID Date Data Source [id number] 03/26/2020 03:06:33 PM EDT [facility] Name Value Range Interpretation Code Description Data Kelli rce(s) Supporting Document(s) Progress Note [facility] AKBDTk3pRgHJHyIc92/ZUCckHMTcn4MhBFilRLi7QPmgSBKaK8QfHXH3aT5xFYC8HXzYYfBmVhJzJHQ1 lbm [file] ICAgICAgICAgICAgICAgICAgICAgICAgICAgICAgIC AgICAgICAgICAgICAgICAgICAgICAgICAgICAgICAgICAgICAgICAgICAgICAgICAgICAgICAgICAgIC NkVPTvSZ3NSAMnBJKxKCVaSVRfISUxCWTdIKQtDBTuFRKsVHPkTFHvGHLeNEDdUBUgFCOwXUSfSGCuGU AgICAgICAgICAgICAgICAgICAgICAgICAgICAgICAg QCDiITIxZYCsVPQwPZKeTU7KOUEbRHCzLSDvQYNlNGGrOIQxKDCdVTClSFVlZANvYUCpMDYlBZTxLJKy COLbIUXnFFNyUROlUPZtCXKzJNFvLNHtFWNyKLGkCLKmRROfEWPyWDVwTYJyHKRyJBLkILRaVGPjXI5U ICAgICAgICAgICAgICAgICAgICAgICAgICAgICAgIC AgICAgICAgICAgICAgICAgICAgICAgICAgICAgICAgICAgICAgICAgICAgICAgICAgICAgICAgICAgIC WmMPYwSCHxNN3TJNXxHGXfCHSpBCAvQRMkCCCrHMJqROOrARMhMOXpSVUmEYUqHKRyDBIsDNAbOCOeXJ AgICAgICAgICAgICAgICAgICAgICAgICAgICAgICAg HHQfPPLkWCGwUXYnFKKqKJRlUD3ZURChGGAlFLPsDPGxNUFiNTAaTIWtOSHsUIRvEFLgIGNyBZCwRZHx ICAgICAgICAgICAgICAgICAgICAgICAgICAgICAgICAgICAgICAgICAgICAgICAgICAgICAgICAgICAg NJ5KAVToBDCbMDEaFBLnQMDgXAEdCBEyNFBuAKIsDU AgICAgICAgICAgICAgICAgICAgICAgICAgICAgICAgICAgICAgICAgICAgICAgICAgICAgICAgICAgIC MuNYLzYVZeSHQdIV6QPZNvIKWaLSVmIKUiYGQiCABbQMVqNYNfNABcTISfOEWiZKHmXRWhQRJwSISjEE AgICAgICAgICAgICAgICAgICAgICAgICAgICAgICAg AJVuBGNdAYDgBKCsWIJoIYZyGFTtWW2CVOYhCPWvPOSbLRIyTHQvSNOiHSHyURLvZLPrIKHmMYWbIYTt ICAgICAgICAgICAgICAgICAgICAgICAgICAgICAgICAgICAgICAgICAgICAgICAgICAgICAgICAgICAg CDVyOX7BCYQsIDAkYTHyXSCdELRwRRXqJSCtBGXjEQ AgICAgICAgICAgICAgICAgICAgICAgICAgICAgICAgICAgICAgICAgICAgICAgICAgICAgICAgICAgIC QtBLFlGYHxNPNxFNUjEG6FVM02rITvu7U5QOBsTW1hodk/Xo8ABWfvjrUusYIxSG2XPrNxEX8lba3JYw ZbFX3dxy4UMGbFEqRfM8Y9qOEpIPFuNEHHXjFlV33a WWqiTp76SPqeEPGhFhXyBVg8Fy4DFtEmP4fbAWNaAvA4EMRhFaM8XYDsQvNmTSxyWE9Ej6UetVUyJOz+ Ws7MCR2jt2TrGRrvQDZrKR6ykn5YOXzOXvJyL1WhtgB5CVD3RYMzUi8CGFFdQEEsjQOlYLSpCRHAUaIh R8LrvZ86VLCOMo6+TWcugeAoMayVOwS5NASik4ScAR j7HL3JCLPkLMq6cTRjFHEhN0Tdt2AfUt95ZFDnWmaeAfMakqelRGRsNzWHm8gwZIJiDJ2UMHK3FYIqAh hkVdQnESJgNRg7LYCHRHnRYvErX5Sre4AxAhK5MHOfNyEdFYrdFQZkWiK0OV25bYsyUA3RIBWwDJAaXQ 35VWR8XUDjWr1ISn6RYjKqHP0nku8WXrKsNEMqEjxI Cul5VDniLW3PgOQkH9QzcPIcd3mCMcGnB3ROFUWmABUgDg8UJNPgDpDjBVUaNPvfOP0mWJBjNNFBiZct pzT6SI6CTV2roeXyID4TQjCkDq1dCw2SKxMxS9EzB3IsORKvHRUGNDnbYS9SJGvoDR1vOX9On7UTpCKr fS1mzl4XZAMrUBJoIcdfcg3WCxitW2B6xOpxHXOlBg YiHEFWFNtlGS5AJERkQHP3DCCyLhPgTUXGKlOaX85gTS7LR6Xwt74iLrQ1UAGtPvFjTQooMP19sKhgar SryGBpkSjxGA5YTa3+LTrkpoAqRuyFKfbgSDZMIpAaObrBPgOfSDMjCFYkZLKkFmQ8XaRrJe5GSKSeIF AwMDAxNyAwMDAwMCBuDQowMDAwMDIxMjYwIDAwMDAw UP6YDqMoJMEpWhB1IJHmCVQrMEDsol9UVHKtUQCuEXF9IsPvRZJfTODpEVpkYWElDVRuVQZmNUTvTWIs VG8GKfFgZMJkYSUlCuWdYCOkHYPgpq1JHVCuKBRaXTN7CkInGKHeUWVgMDrbYBMvVIY3QPijWBDyJNKv AR2EWlPiVZWnKMS9HYOmLRPyYNBqmv7LYKBsGAMvPj KzOvBoKDDdBALiCAweVEBmIPL3JyD3DKNzTYCvVH4WJbOjGBWrVZzjIcCuLDOwKFYwbq6YNJZnEUHlRl X9BUXgRKCiNTTlWCpdFCRfTXD0BYX5BJNjNZOaHB7SJaUpPRYaZRe0HXBbPXPaWJWvtk2HXUMcFDPiPH XbXSJrMNBiEZVrRNohHYJuGPP1JMTfSLQpHUUgPS9I KxHnUSPjESy6TLMaKQGhWMKfwk5PVGHrBLDmMBxxRfQbYNSpPPCgIVyyKTDgIWYhHDD7HRDbBIIvIJ7M TwGaOJCqAyRkJqEnYHLcHPRafo6ONKLwPTVvEKPzITGtZECxBCJkXUkmWASeBPZpZaH1QJLmKCVoMK4U WhMcLMXePyFiYRnzPZYhVUCbhx7MQKGyPZIqLeF6FJ MkBFVfPPEeGJvgUPQvWXAtQlQjLNHtQTJxGT6UUqRnIZniFICFOrs8SQuzC5i5WULyYp5US5Vfh0HvTi QsYWVIMNbiZK7vqvHqGHTwYd3ID6rYHjp0ZKK2RCU2HkomFXIuYFYxF0HtM9B5XiFsLXO6VMUmAu9fMM FgUJYgJAq8SQGsVQA2MODoUQEgKnTiNUG1PapiJQGu OtXzWH6DBr1DPgV7VUU8pVEqLz2FQmA0IvJMDwMxMG1EVGy= ID Date Data Source [id number] 03/26/2020 12:55:33 PM EDT [facility] Name Value Range Interpretation Code Description Data Kelli rce(s) Supporting Document(s) Color of Urine [facility] Clarity of Urine [facility] Glucose [Mass/volume] in Urine by Test strip Negative [facility] Bilirubin.total [Presence] in Urine by Test strip Negative [facility] Ketones [Mass/volume] in Urine by Test strip Negative [facility] Specific gravity of Urine by Test strip 1.025 1.005-1.025 [facility] Hemoglobin [Presence] in Urine by Test strip Negative [facility] pH of Urine by Test strip 6.5 5.0-8.0 [facility] Protein [Mass/volume] in Urine by Test strip 30 mg/dL Negative [facility] Urobilinogen [Units/volume] in Urine by Test strip 0.2 {Ehrlich_U}/ dL 0.2-1.0 [facility] Nitrite [Presence] in Urine by Test strip Negative [facility] Leukocyte esterase [Presence] in Urine by Test strip Negat panda [facility] ID Date Data Source [id number] 03/21/2020 10:51:03 AM EDT [facility] Name Value Range Interpretation Code Description Data Kelli rce(s) Supporting Document(s) Progress Note [facility] [id number]/[id number]yZRU0wS6hIZW8VOnQEcYiLhVsGNXn lbm [file] [id number]= ID Date Data Source [id number] 03/21/2020 08:58:21 AM EDT [facility] Name Value Range Interpretation Code Description Data Kelli rce(s) Supporting Document(s) Color of Urine [facility] Clarity of Urine [facility] Glucose [Mass/volume] in Urine by Test strip Negative [facility] Bilirubin.total [Presence] in Urine by Test strip Negative [facility] Ketones [Mass/volume] in Urine by Test strip Negative [facility] Specific gravity of Urine by Test strip 1.025 1.005-1.025 [facility] Hemoglobin [Presence] in Urine by Test strip Negative [facility] pH of Urine by Test strip 6.0 5.0-8.0 [facility] Protein [Mass/volume] in Urine by Test strip 30 mg/dL Negative [facility] Urobilinogen [Units/volume] in Urine by Test strip 0.2 {Ehrlich_U}/ dL 0.2-1.0 [facility] Nitrite [Presence] in Urine by Test strip Negative [facility] Leukocyte esterase [Presence] in Urine by Test strip Negat panda [facility] ID Date Data Source [id number] 03/21/2020 08:34:06 AM EDT [facility] Name Value Range Interpretation Code Description Data Kelli rce(s) Supporting Document(s) Progress Note [facility] LALYXl0lRzUGAkKg96/RPLkfQTOit4DwPTqdYSs1IXjjXKWhS8KqVSF7rQ3bEKU0FJfHYnOmPyKfGZGt lbm [file] 31Mxin9VfvE3aErj9nic8km9UqtlJi+tcXq5t7jA52CCt1y+V891l+qt77e6fKm2a26hADAOiqch+[facility] [file] dlVwZ3OqVjCA4JVx4PBxG6IBM5tWRsCp4SJsB4JDOTBxGlVG4GTJc= ID Date Data Source [id number] 03/19/2020 05:26:34 PM [facility] Name Value Range Interpretation Code Description Data Kelli rce(s) Supporting Document(s) Lactate dehydrogenase [Enzymatic activit y/volume] in Serum or Plasma by Lactate to pyruvate reaction 148 U/L 122-214 [facility] ID Date Data Source [id number] 03/19/2020 05:26:34 PM [facility] Name Value Range Interpretation Code Description Data Kelli rce(s) Supporting Document(s) Albumin [Mass/volume] in Serum or Plasma by Bromocresol green (BCG) dye binding method 3.2 g/dL 3.5-5.2 L [facility] al Bilirubin.total [Mass/volume] in Serum or Plasma 0.4 mg/dL <1.2 [facility] Calcium [Mass/volume] in Serum or Plasma 8.6 mg/dL 8.6-10.0 [facility] Chloride [Moles/volume] in Serum or Plasma 102 mmol/L 98-107 [facility] Creatinine [Mass/volume] in Serum or Plasma 0.65 mg/dL 0.50-0.90 [facility] Glucose [Mass/volume] in Serum or Plasma 113 mg/dL 70-140 [facility] Alkaline phosphatase [Enzymatic activity/volume] in Serum or Plasma 83 U/L 35-104 [facility] Potassium [Moles/volume] in Serum or Plasma 3.5 mmol/L 3.4-5.1 [facility] Protein [Mass/volume] in Serum or Plasma 6.5 g/dL 6.4-8.3 [facility] Sodium [Moles/volume] in Serum or Plasma 133 mmol/L 136-145 L [facility] Aspartate aminotransferase [Enzymatic activity/volume] in Serum or Plasma 11 U/L <32 [facility] Urea nitrogen [Mass/volume] in Serum or Plasma 7 mg/dL 6-20 [facility] Osmolality of Serum or Plasma by calculation 275 mosm/kg 275-300 [facility] Creatinine/Urea nitrogen [Mass Ratio] in Serum or Plasma 11 [facility] Bicarbonate [Moles/volume] in Serum 20 mmol/L 22-29 L [facility] Alanine aminotransferase [Enzymatic activity/volume] in Seru m or Plasma 6 U/L <33 [facility] Anion gap 3 in Serum or Plasma 12 mmol/L 8-15 [facility] Albumin/Globulin [Mass Ratio] in Serum or Plasma 1.0 [facility] Glomerular filtration rate/1.73 sq M pre dicted among non-blacks [Volume Rate/Area] in Serum or Plasma by Creatinine-based formula (MDRD) >6 0 [facility] Glomerular filtration rate/1.73 sq M pre dicted among blacks [Volume Rate/Area] in Serum or Plasma by Creatinine-based formula (MDRD) >60 [facility] ID Date Data Source [id number] 03/19/2020 05:26:34 PM [facility] Name Value Range Interpretation Code Description Data Kelli rce(s) Supporting Document(s) Urate [Mass/volume] in Serum or Plasma 5.2 mg/dl 2.4-5.7 [facility] ID Date Data Source [id number] 03/19/2020 06:21:11 PM [facility] Name Value Range Interpretation Code Description Data Kelli rce(s) Supporting Document(s) Leukocytes [#/volume] in Blood by Automated count 11.1 10*3/uL 4-10 H [facility] Erythrocytes [#/volume] in Blood by Automated count 4.23 10*6/uL 4.1- 5.3 [facility] Hemoglobin [Mass/volume] in Blood 11.4 g/dL 11.5-15.5 [facility] Hematocrit [Volume Fraction] of Blood by Automated count 33.6 % 3 6-45 L [facility] Erythrocyte mean corpuscular volume [Entitic volume] by Auto mated count 79.4 fL 80-96 L [facility] Erythrocyte mean corpuscular hemoglobin [Entitic mass] by Automated count 27.0 pg 27-33 [facility] Erythrocyte mean corpuscular hemoglobin concentration [Mass/volume] by Automated count 34.0 g/dL 32.0-36.0 [facility] al Erythrocyte distribution width [Ratio] by Automated count 15.8 % 11.5-14.5 H [facility] Platelets [#/volume] in Blood by Automated count 132 10*3/uL 150-400 L [facility] Differential cell count method - Blood [facility] Neutrophils/100 leukocytes in Blood by Automated count 81 % [facility] Lymphocytes/100 leukocytes in Blood by Automated count 10 % [facility] Monocytes/100 leukocytes in Blood by Automated count 6 % [facility] Eosinophils/100 leukocytes in Blood by Automated count 1 % [facility] Basophils/100 leukocytes in Blood by Automated count 1 % [facility] Neutrophils [#/volume] in Blood by Automated count 9.00 10*3/uL 1.8-7 .0 H [facility] Lymphocytes [#/volume] in Blood by Automated count 1.15 10*3/uL 1.2-4 .0 L [facility] Monocytes [#/volume] in Blood by Automated count 0.63 10*3/uL 0-0.8 [facility] Eosinophils [#/volume] in Blood by Automated count 0.10 10*3/uL 0-0.5 [facility] Basophils [#/volume] in Blood by Automated count 0.10 10*3/uL 0-0.2 [facility] Metamyelocytes/100 leukocytes in Blood by Manual count 1 % [facility] Metamyelocytes [#/volume] in Blood by Manual count 0.10 10*3/uL 0-0 H [facility] ID Date Data Source [id number] 03/21/2020 06:05:[address] [facility] Value Range Interpretation Code Description Data Kelli rce(s) Supporting Document(s) Toxoplasma gondii IgM Ab [Units/volume] in Serum by Immunoassay 0.0-7.9 [facility] (NOTE) Negati ve <8.0 Equivocal 8.0 - 9.9 Positive > 9.9Performed At: [facility] [place], [place] [id number] Blanco MD Ph:[phone] ID Date Data Source [id number] 03/21/2020 06:05:[address] [facility] Value Range Interpretation Code Description Data Kelli rce(s) Supporting Document(s) [facility] (NOTE)It is presumed the patient has not been infected with and is notundergoing an acute infection with Toxoplasma. If symptoms persist,submit a new specimen after three weeks.Performed At: [facility] [place], [place] [id number] Blanco MD Ph:[phone] ID Date Data Source [id number] 03/25/2020 12:04:19 PM EDT [facility] Name Value Range Interpretation Code Description Data Kelli rce(s) Supporting Document(s) Toxoplasma gondii IgG Ab [Units/volume] in Serum or Pl asma by Immunoassay 0.25 ISR <0.91 [facility] Negative ID Date Data Source [id number] 03/26/2020 10:05:29 PM EDT [facility] Name Value Range Interpretation Code Description Data Kelli rce(s) Supporting Document(s) Herpes simplex virus 1 IgM Ab [Titer] in Serum by Immunofluorescenc e <1:10 [facility] Herpes simplex virus 2 IgM Ab [Titer] in Serum by Immunofluorescenc e <1:10 [facility] (NOTE)HSV 1 and HSV 2 share many [...] anothermedically established diagnostic product or procedure.Performed At: [facility] [id number] Mckee MD Ph:[phone] ID Date Data Source [id number] 03/28/2020 12:05:19 AM EDT [facility] Name Value Range Interpretation Code Description Data Kelli rce(s) Supporting Document(s) Parvovirus B19 DNA [Presence] in Unspeci fied specimen by Probe and target amplification method Negative [facility] (NOTE)No Parvovirus B19 DNA detected.Thi s test was developed and its performance characteristicsdetermined by [employer] It has not been cleared orapproved by the U.[place]. Food and Drug Administration. The FDA hasdetermined that such clearance or approval is not necessary. Thistest is used for clinical purposes. It should not be regarded asinvestigational or research.Performed At: [facility] [id number] Mckee MD Ph:[phone] ID Date Data Source [id number] 03/19/2020 05:24:05 PM [facility] Name Value Range Interpretation Code Description Data Kelli rce(s) Supporting Document(s) Glucose [Mass/volume] in Serum or Plasma --1 hour post 50 g glucose PO 114 mg/dL <136 [facility] ID Date Data Source [id number] 03/19/2020 12:25:[address] [facility] Value Range Interpretation Code Description Data Kelli rce(s) Supporting Document(s) Color of Urine [facility] Clarity of Urine [facility] Glucose [Mass/volume] in Urine by Test strip Negative [facility] Bilirubin.total [Presence] in Urine by Test strip Negative [facility] Ketones [Mass/volume] in Urine by Test strip Negative [facility] Specific gravity of Urine by Test strip 1.020 1.005-1.025 [facility] Hemoglobin [Presence] in Urine by Test strip [facility] pH of Urine by Test strip 7.0 5.0-8.0 [facility] Protein [Mass/volume] in Urine by Test strip 30 mg/dL Negative [facility] Urobilinogen [Units/volume] in Urine by Test strip 0.2 {Ehrlich_U}/ dL 0.2-1.0 [facility] Nitrite [Presence] in Urine by Test strip Negative [facility] Leukocyte esterase [Presence] in Urine by Test strip Negat panda [facility] ID Date Data Source [id number] 03/12/2020 07:56:[address] [facility] Value Range Interpretation Code Description Data Kelli rce(s) Supporting Document(s) Protein [Mass/volume] in Urine 36 mg/dl [facility] Creatinine [Mass/volume] in Urine 248.4 mg/dL [facility] Protein/Creatinine [Mass Ratio] in Urine 0.14 mg/mg{creat} [facility] ID Date Data Source [id number] 03/12/2020 02:14:[address] [facility] Value Range Interpretation Code Description Data Kelli rce(s) Supporting Document(s) Progress Note [facility] [id number]/[id number]TQ7vS4bLBR9TNjPPrQyMdBkNHXh lbm [file] [id number]= ID Date Data Source [id number] 03/12/2020 03:23:43 PM EDT [facility] Name Value Range Interpretation Code Description Data Kelli rce(s) Supporting Document(s) Leukocytes [#/volume] in Blood by Automated count 11.2 10*3/uL 4-10 H [facility] Erythrocytes [#/volume] in Blood by Automated count 4.08 10*6/uL 4.1- 5.3 L [facility] Hemoglobin [Mass/volume] in Blood 11.2 g/dL 11.5-15.5 L [facility] Hematocrit [Volume Fraction] of Blood by Automated count 33.1 % 3 6-45 L [facility] Erythrocyte mean corpuscular volume [Entitic volume] by Auto mated count 81.0 fL 80-96 [facility] Erythrocyte mean corpuscular hemoglobin [Entitic mass] by Automated count 27.4 pg 27-33 [facility] Erythrocyte mean corpuscular hemoglobin concentration [Mass/volume] by Automated count 33.8 g/dL 32.0-36.0 [facility] E[facility] distribution width [Ratio] by Automated count 15.5 % 11.5-14.5 H [facility] Platelets [#/volume] in Blood by Automated count 133 10*3/uL 150-400 L [facility] Differential cell count method - Blood [facility] Neutrophils/100 leukocytes in Blood by Automated count 74 % [facility] Lymphocytes/100 leukocytes in Blood by Automated count 12 % [facility] Monocytes/100 leukocytes in Blood by Automated count 11 % [facility] Eosinophils/100 leukocytes in Blood by Automated count 2 % [facility] Basophils/100 leukocytes in Blood by Automated count 1 % [facility] Neutrophils [#/volume] in Blood by Automated count 8.38 10*3/uL 1.8-7 .0 H [facility] Lymphocytes [#/volume] in Blood by Automated count 1.34 10*3/uL 1.2-4 .0 [facility] Monocytes [#/volume] in Blood by Automated count 1.25 10*3/uL 0-0.8 H [facility] Eosinophils [#/volume] in Blood by Automated count 0.17 10*3/uL 0-0.5 [facility] Basophils [#/volume] in Blood by Automated count 0.05 10*3/uL 0-0.2 [facility] Nucleated erythrocytes/100 leukocytes [Ratio] in Blood by Automated count 0 /100{WBCs} 0-0 [facility] ID Date Data Source [id number] 03/12/2020 03:43:58 PM [facility] Name Value Range Interpretation Code Description Data Kelli rce(s) Supporting Document(s) Lactate dehydrogenase [Enzymatic activit y/volume] in Serum or Plasma by Lactate to pyruvate reaction 167 U/L 122-214 [facility] ID Date Data Source [id number] 03/12/2020 03:43:58 PM [facility] Name Value Range Interpretation Code Description Data Kelli rce(s) Supporting Document(s) Albumin [Mass/volume] in Serum or Plasma by Bromocresol green (BCG) dye binding method 3.0 g/dL 3.5-5.2 L [facility] al Bilirubin.total [Mass/volume] in Serum or Plasma 0.5 mg/dL <1.2 [facility] Calcium [Mass/volume] in Serum or Plasma 8.5 mg/dL 8.6-10.0 L [facility] Chloride [Moles/volume] in Serum or Plasma 102 mmol/L 98-107 [facility] Creatinine [Mass/volume] in Serum or Plasma 0.66 mg/dL 0.50-0.90 [facility] Glucose [Mass/volume] in Serum or Plasma 93 mg/dL 70-140 [facility] Alkaline phosphatase [Enzymatic activity/volume] in Serum or Plasma 76 U/L 35-104 [facility] Potassium [Moles/volume] in Serum or Plasma 3.9 mmol/L 3.4-5.1 [facility] Protein [Mass/volume] in Serum or Plasma 6.1 g/dL 6.4-8.3 L [facility] Sodium [Moles/volume] in Serum or Plasma 136 mmol/L 136-145 [facility] Aspartate aminotransferase [Enzymatic activity/volume] in Serum or Plasma 12 U/L <32 [facility] Urea nitrogen [Mass/volume] in Serum or Plasma 8 mg/dL 6-20 [facility] Osmolality of Serum or Plasma by calculation 280 mosm/kg 275-300 [facility] Creatinine/Urea nitrogen [Mass Ratio] in Serum or Plasma 12 [facility] Bicarbonate [Moles/volume] in Serum 24 mmol/L 22-29 [facility] Alanine aminotransferase [Enzymatic activity/volume] in Seru m or Plasma 7 U/L <33 [facility] Anion gap 3 in Serum or Plasma 11 mmol/L 8-15 [facility] Albumin/Globulin [Mass Ratio] in Serum or Plasma 1.0 [facility] Glomerular filtration rate/1.73 sq M pre dicted among non-blacks [Volume Rate/Area] in Serum or Plasma by Creatinine-based formula (MDRD) >6 0 [facility] Glomerular filtration rate/1.73 sq M pre dicted among blacks [Volume Rate/Area] in Serum or Plasma by Creatinine-based formula (MDRD) >60 [facility] ID Date Data Source [id number] 03/12/2020 03:43:58 PM [facility] Name Value Range Interpretation Code Description Data Kelli rce(s) Supporting Document(s) Urate [Mass/volume] in Serum or Plasma 5.4 mg/dl 2.4-5.7 [facility] ID Date Data Source [id number] 03/12/2020 12:42:35 PM [facility] Name Value Range Interpretation Code Description Data Kelli rce(s) Supporting Document(s) Color of Urine [facility] Clarity of Urine [facility] Glucose [Mass/volume] in Urine by Test strip Negative [facility] Bilirubin.total [Presence] in Urine by Test strip Negative [facility] Ketones [Mass/volume] in Urine by Test strip Negative [facility] Specific gravity of Urine by Test strip 1.005-1.025 [facility] Hemoglobin [Presence] in Urine by Test strip Negative [facility] pH of Urine by Test strip 6.5 5.0-8.0 [facility] Protein [Mass/volume] in Urine by Test strip 100 mg/dL Negative [facility] Urobilinogen [Units/volume] in Urine by Test strip 0.2 {Ehrlich_U}/ dL 0.2-1.0 [facility] Nitrite [Presence] in Urine by Test strip Negative [facility] Leukocyte esterase [Presence] in Urine by Test strip Negat panda A [facility] ID Date Data Source [id number] 03/05/2020 04:27:33 PM EDT [facility] Name Value Range Interpretation Code Description Data Kelli rce(s) Supporting Document(s) Leukocytes [#/volume] in Blood by Automated count 10.4 10*3/uL 4-10 H [facility] Erythrocytes [#/volume] in Blood by Automated count 4.30 10*6/uL 4.1- 5.3 [facility] Hemoglobin [Mass/volume] in Blood 12.0 g/dL 11.5-15.5 [facility] Hematocrit [Volume Fraction] of Blood by Automated count 35.2 % 3 6-45 L [facility] Erythrocyte mean corpuscular volume [Entitic volume] by Auto mated count 81.9 fL 80-96 [facility] Erythrocyte mean corpuscular hemoglobin [Entitic mass] by Automated count 27.9 pg 27-33 [facility] Erythrocyte mean corpuscular hemoglobin concentration [Mass/volume] by Automated count 34.0 g/dL 32.0-36.0 [facility] Eryth[facility] distribution width [Ratio] by Automated count 15.5 % 11.5-14.5 H [facility] Platelets [#/volume] in Blood by Automated count 155 10*3/uL 150-400 [facility] Differential cell count method - Blood [facility] Neutrophils/100 leukocytes in Blood by Automated count 74 % [facility] Lymphocytes/100 leukocytes in Blood by Automated count 15 % [facility] Monocytes/100 leukocytes in Blood by Automated count 10 % [facility] Eosinophils/100 leukocytes in Blood by Automated count 1 % [facility] Basophils/100 leukocytes in Blood by Automated count 0 % [facility] Neutrophils [#/volume] in Blood by Automated count 7.70 10*3/uL 1.8-7 .0 H [facility] Lymphocytes [#/volume] in Blood by Automated count 1.51 10*3/uL 1.2-4 .0 [facility] Monocytes [#/volume] in Blood by Automated count 1.07 10*3/uL 0-0.8 H [facility] Eosinophils [#/volume] in Blood by Automated count 0.10 10*3/uL 0-0.5 [facility] Basophils [#/volume] in Blood by Automated count 0.04 10*3/uL 0-0.2 [facility] Nucleated erythrocytes/100 leukocytes [Ratio] in Blood by Automated count 0 /100{WBCs} 0-0 [facility] ID Date Data Source [id number] 03/05/2020 02:51:34 PM T [facility] Name Value Range Interpretation Code Description Data Kelli rce(s) Supporting Document(s) Progress Note [facility] [id number] [facility] [file] [id number] ID Date Data Source [id number] 03/07/2020 10:31:29 AM EDT [facility] Service Cmnt XXX-Imp : NoneMicroorganism XXX Cult : No beta hemolytic streptococci Group B isolated. For the best recovery of Group B streptococci a combined Vaginal/Rectal swab is recommended. Name Value Range Interpretation Code Description Data Kelli rce(s) Supporting Document(s) ID Date Data Source [id number] 03/05/2020 12:40:10 PM EDT [facility] Name Value Range Interpretation Code Description Data Kelli rce(s) Supporting Document(s) Color of Urine [facility] Clarity of Urine [facility] Glucose [Mass/volume] in Urine by Test strip Negative [facility] Bilirubin.total [Presence] in Urine by Test strip Negative [facility] Ketones [Mass/volume] in Urine by Test strip Negative [facility] Specific gravity of Urine by Test strip 1.025 1.005-1.025 [facility] Hemoglobin [Presence] in Urine by Test strip Negative [facility] pH of Urine by Test strip 6.0 5.0-8.0 [facility] Protein [Mass/volume] in Urine by Test strip Negative [facility] Urobilinogen [Units/volume] in Urine by Test strip 0.2 {Ehrlich_U}/ dL 0.2-1.0 [facility] Nitrite [Presence] in Urine by Test strip Negative [facility] Leukocyte esterase [Presence] in Urine by Test strip Negat panda A [facility] ID Date Data Source [id number] 02/28/2020 08:42:35 AM EDT [facility] Name Value Range Interpretation Code Description Data Kelli rce(s) Supporting Document(s) Progress Note [facility] TVEKTe2iYmAOWjOm04/IRAmuMEEol2JoTLgbOWa0JQrvOPTqZ8ZrRKC3zW0jJGH4XIiXEsJlTdIiVGWr lbm [file] ICAgICAgICAgICAgICAgICAgICAgICAgICAgICAgICAgICAgICAgICAgICAgICAgICAgICAgICAgICAg ICAgICAgICAgICAgICAgICAgICAgDQogICAgICAgICAgICAgICAgICAgICAgICAgICAgICAgICAgICAg ICAgICAgICAgICAgICAgICAgICAgICAgICAgICAgIC AgICAgICAgICAgICAgICAgICAgICAgICAgICAgICAgDQogICAgICAgICAgICAgICAgICAgICAgICAgIC AgICAgICAgICAgICAgICAgICAgICAgICAgICAgICAgICAgICAgICAgICAgICAgICAgICAgICAgICAgIC AgICAgICAgICAgICAgDQogICAgICAgICAgICAgICAg ICAgICAgICAgICAgICAgICAgICAgICAgICAgICAgICAgICAgICAgICAgICAgICAgICAgICAgICAgICAg ICAgICAgICAgICAgICAgICAgICAgICAgDQogICAgICAgICAgICAgICAgICAgICAgICAgICAgICAgICAg ICAgICAgICAgICAgICAgICAgICAgICAgICAgICAgIC AgICAgICAgICAgICAgICAgICAgICAgICAgICAgICAgICAgDQogICAgICAgICAgICAgICAgICAgICAgIC AgICAgICAgICAgICAgICAgICAgICAgICAgICAgICAgICAgICAgICAgICAgICAgICAgICAgICAgICAgIC AgICAgICAgICAgICAgICAgDQogICAgICAgICAgICAg ICAgICAgICAgICAgICAgICAgICAgICAgICAgICAgICAgICAgICAgICAgICAgICAgICAgICAgICAgICAg ICAgICAgICAgICAgICAgICAgICAgICAgICAgDQogICAgICAgICAgICAgICAgICAgICAgICAgICAgICAg ICAgICAgICAgICAgICAgICAgICAgICAgICAgICAgIC AgICAgICAgICAgICAgICAgICAgICAgICAgICAgICAgICAgICAgDQogICAgICAgICAgICAgICAgICAgIC AgICAgICAgICAgICAgICAgICAgICAgICAgICAgICAgICAgICAgICAgICAgICAgICAgICAgICAgICAgIC AgICAgICAgICAgICAgICAgICAgDQogICAgICAgICAg ICAgICAgICAgICAgICAgICAgICAgICAgICAgICAgICAgICAgICAgICAgICAgICAgICAgICAgICAgICAg OVDoMAGxSFArADZrNEEaTWJsXVJuABTxNIIrYCKjLRv9V8xyTZGyTFSzVK0kCNw8Ob0+DQoNCmVuZHN0 ooAwpZ6LBD5hk4LqVYjsFHAju4FqYCn3ME4OFTPaDI udQX7FFAerfo3ZDTTfBZHffPRAm4ebCoAiNLL0IBQcXywhNJ1JCGEhD9irxoTsYWYyCXGKFJdgKBJRCH eoGQLNVW5CCkGfD9WpaF98TNXUPc1+KKqxbuCwRzlUMkGzJQNil7UbSJy4SG0XZIIaChdts2PgOoRpYD FMQIccMU8HCZL7QAR4WNOuHh6IDEQkY150zxTtKR6C Rg4RGsRtGN6ukq5XUmNhEDYpJcqJBiq9PTsvHG2SySLeILgBnn3sgvWnonAIq9YpzoFzvOGKXUPnpRLe jyWKVOUaKMT7KWUPAc7cBGZpTM9jCP8dGCTsJTWqVqQuHTDNBJ7XSGRsTERtwFEuEYDyFYNLAY8EBBgi EZD7NRZqjdSqsEQvBXmqXD2NCUQsugKiXtMvBIKDPF o+Ly4HWI4wh3BgMTykWLNqDB7duw2FLKiMBzCnG3Y4pMAmH6A0IQfmMb8HCVTbEPKfKcRnBNHSSDvxTW 2OUW1dazQ9MU9XfLDdECUeWTJeuAPzJWt0F85ixVWfZXvkEN1TTUK+Emma+Kc7WUOKfPBIvVBIjRsPoAR JIEdTvW0TlT7BNs9XuJ3IkFP35sTeyaeRdKPwcEZ6F DP8oYPZiJDZIER2AdYHafD2crfUuKsIcQLNGNeFpV19xvTZgYXFtOYQlCSOyDm7KOKFaS5WzglWlqLce znCtFEBzZBPHNN0RPWokghIliWCcnDlhJI23nJqoAK5SVg2XXgKtBJ8hdt9HvEIdUy9OJPBpDv4PVTUb KONhKRJhISH7EBUqXcDnHHnbIJDjQYLaEIK6FZJhYH UsBR4UGhNwXRDaVxR2AvjcEBHxUOGtls1SBINlSJNbMSI5RjXeLIVhAELvZMrjZJTrNEYoUTM8HOBnGA HpPV9LVwEhJDKaRCP0HEdoHATtNCRrre2DUPXbZMBfAzqiDAUxMITvSBLeUXydDWZkKKT3CQV5IAUiPW CkMQ7AQlNcDBFnRLsuGohlVLCjANDmcp2WNZWoYGXl YPO8CuKjIUXyHHFwLHlyACErGFZ2Ypm2YDUzOZWoPQ6ERpEfTTBfJWi6BBZyPOImTEYmpk9HHWCtHYOd MRx3FfOvBJRhVVRqJRyxQBRoXJWqKIA0UGFeYTFcGO6YVqIvMVYoKFJyNPFcFKSiSLUyem0WTJTmHRNr GDO4LoRvNJEhKYAlCUevMMQcXDQkPLy4LDEqOQIgYF 9CNxDuZRIeJbE7XOIpVRCiTOHdnb0PLMTgUOHtHwA2ODWsISRlYJWoIRsfAGLhZACsWWG8FPMvEEMdYP 2TBxLcOOBxIsX6ARcuCSQmIWHsfl3IXJCmZCUcSrd2THNiYFSoTRRtSPvaQVTmIWA9XpX4WGDnAVWaQD 8VMgDfIDWkSzB5VKCsDBBdSCBdeh9BDHYrFYZzNNa2 JdNmDHKgYJStHEjgXPIxWCK7GVR6WDOhIIIfEW1YYdLzZOwpUBPBDjh9DElxE2z3DPJnCu2SR3Hkl2Gh NoYvGUQOUOeeAI6tciCnTQSdNs5KJ3tAUld7BytbFBPcEhDxUoqcFMLtMDCjLIBkCOZzJnKeQdUpXY6m XOAnWFK9MOMdXBVoClKsUTK5RqAnWyF6TTHcBTPbU0 T1BcTaEO0RBv3IXxS3AMG2vDEwYr7HLsKaFyKCJjWtJE9LEXj= ID Date Data Source [id number] 02/27/2020 12:45:50 PM EDT [facility] Name Value Range Interpretation Code Description Data Kelli rce(s) Supporting Document(s) Color of Urine [facility] Clarity of Urine [facility] Glucose [Mass/volume] in Urine by Test strip Negative [facility] Bilirubin.total [Presence] in Urine by Test strip Negative A [facility] Ketones [Mass/volume] in Urine by Test strip Negative [facility] Specific gravity of Urine by Test strip 1.005-1.025 [facility] Hemoglobin [Presence] in Urine by Test strip Negative [facility] pH of Urine by Test strip 7.0 5.0-8.0 [facility] Protein [Mass/volume] in Urine by Test strip 30 mg/dL Negative [facility] Urobilinogen [Units/volume] in Urine by Test strip 1.0 {Ehrlich_U}/ dL 0.2-1.0 [facility] Nitrite [Presence] in Urine by Test strip Negative [facility] Leukocyte esterase [Presence] [facility] [id number] 02/20/2020 01:35:53 PM EDT [facility] Name Value Range Interpretation Code Description Data Kelli rce(s) Supporting Document(s) Progress Note [facility] XVQWQp7dVtLHFjHl49/NXLxjMJAko7VtDKgcHJa7BGzmKXPlZ3AfINC4lS6mDQQ8NDbSJiClZoXfDRPr lbm [file] ID Date Data Source [id number] 02/20/2020 12:34:45 PM EDT [facility] Name Value Range Interpretation Code Description Data Kelli rce(s) Supporting Document(s) Color of Urine [facility] Clarity of Urine [facility] Glucose [Mass/volume] in Urine by Test strip Negative [facility] Bilirubin.total [Presence] in Urine by Test strip Negative [facility] Ketones [Mass/volume] in Urine by Test strip Negative [facility] Specific gravity of Urine by Test strip 1.020 1.005-1.025 [facility] Hemoglobin [Presence] in Urine by Test strip Negative [facility] pH of Urine by Test strip 7.0 5.0-8.0 [facility] Protein [Mass/volume] in Urine by Test strip Negative [facility] Urobilinogen [Units/volume] in Urine by Test strip 0.2 {Ehrlich_U}/ dL 0.2-1.0 [facility] Nitrite [Presence] in Urine by Test strip [facility] Leukocyte esterase [Presence] in Urine by Test strip Negat panda [facility] ID Date Data Source [id number] 02/13/2020 02:05:50 PM EDT [facility] Name Value Range Interpretation Code Description Data Kelli rce(s) Supporting Document(s) Progress Note [facility] OLOALm9gMpOXSaKl92/NWCpbHOEwk6EaYZchOCv4YVlzOWKlG3VwLUU2bV3lHMD3RJcRQcAaYlMoJYX3 lbm NjChcOTyNiJXGhWrnYElDlWByuXcjsuAOzFP1DcCA3HMKfU86cSNBzRXPkY8IcJFLxWHZ+Ns0WUEGuaS AsDW4LVrtE4G3yaaqLCi9fvP0ypCAPT1IS8x49VJOSudbUPNiFTtse2k4fePGCOGibHJHI/yX9r76072 jgXyLmo4aLR7nnoUUupVkUTcI2zlWX//MfMUrjIAhGricelda [file] Ht0MGes5JNdCUgYcEI9MFFe= ID Date Data Source [id number] 02/13/2020 12:58:19 PM EDT [facility] Name Value Range Interpretation Code Description Data [facility](s) Supporting Document(s) Color of Urine [facility] Clarity of Urine [facility] Glucose [Mass/volume] in Urine by Test strip Negative [facility] Bilirubin.total [Presence] in Urine by Test strip Negative [facility] Ketones [Mass/volume] in Urine by Test strip Negative [facility] Specific gravity of Urine by Test strip 1.025 1.005-1.025 [facility] Hemoglobin [Presence] in Urine by Test strip Negative [facility] pH of Urine by Test strip 5.5 5.0-8.0 [facility] Protein [Mass/volume] in Urine by Test strip Negative [facility] Urobilinogen [Units/volume] in Urine by Test strip 0.2 {Ehrlich_U}/ dL 0.2-1.0 [facility] Nitrite [Presence] in Urine by Test strip Negative [facility] Leukocyte esterase [Presence] in Urine by Test strip Cuate mosqueda Praveen [facility] ID Date Data Source [id number] 02/07/2020 02:45:16 PM EDT [facility] Name Value Range Interpretation Code Description Data Kelli rce(s) Supporting Document(s) Progress Note [facility] EGTQQy5gPjTIDgZy87/OHQokUFIky8CqYTjqVCv8CIxmMQCvL0GpRXW6eY8nYMA3BIuCRgVtXgZiLNX2 lbm [file] PfPZCbNmUZ6PKJk= ID Date Data Source [id number] 02/07/2020 01:46:41 PM EDT [facility] Name Value Range Interpretation Code Description Data Kelli rce(s) Supporting Document(s) Color of Urine [facility] Clarity of Urine [facility] Glucose [Mass/volume] in Urine by Test strip Negative [facility] Bilirubin.total [Presence] in Urine by Test strip Negative [facility] Ketones [Mass/volume] in Urine by Test strip Negative [facility] Specific gravity of Urine by Test strip 1.025 1.005-1.025 [facility] Hemoglobin [Presence] in Urine by Test strip Negative [facility] pH of Urine by Test strip 6.0 5.0-8.0 [facility] Protein [Mass/volume] in Urine by Test strip 30 mg/dL Negative A [facility] Urobilinogen [Units/volume] in Urine by Test strip 0.2 {Ehrlich_U}/ dL 0.2-1.0 [facility] Nitrite [Presence] in Urine by Test strip Negative [facility] Leukocyte esterase [Presence] in Urine by Test strip Negat panda [facility] ID Date Data Source [id number] 01/23/2020 05:41:30 PM [facility] Name Value Range Interpretation Code Description Data Kelli rce(s) Supporting Document(s) Thyroxine (T4) free [Mass/volume] in Serum or Plasma 0.74 ng/dL 0.93- 1.70 [facility] ID Date Data Source [id number] 01/23/2020 05:41:30 PM [facility] Name Value Range Interpretation Code Description Data Kelli rce(s) Supporting Document(s) Lactate dehydrogenase [Enzymatic activit y/volume] in Serum or Plasma by Lactate to pyruvate reaction 134 U/L 122-214 [facility] ID Date Data Source [id number] 01/23/2020 05:41:30 PM [facility] Name Value Range Interpretation Code Description Data Kelli rce(s) Supporting Document(s) Albumin [Mass/volume] in Serum or Plasma by Bromocresol green (BCG) dye binding method 3.3 g/dL 3.5-5.2 [facility] Bilirubin.total [Mass/volume] in Serum or Plasma 0.3 mg/dL <1.2 [facility] Calcium [Mass/volume] in Serum or Plasma 8.2 mg/dL 8.6-10.0 L [facility] Chloride [Moles/volume] in Serum or Plasma 102 mmol/L 98-107 [facility] Creatinine [Mass/volume] in Serum or Plasma 0.63 mg/dL 0.50-0.90 [facility] Glucose [Mass/volume] in Serum or Plasma 119 mg/dL 70-140 [facility] Alkaline phosphatase [Enzymatic activity/volume] in Serum or Plasma 45 U/L 35-104 [facility] Potassium [Moles/volume] in Serum or Plasma 3.5 mmol/L 3.4-5.1 [facility] Protein [Mass/volume] in Serum or Plasma 6.5 g/dL 6.4-8.3 [facility] Sodium [Moles/volume] in Serum or Plasma 134 mmol/L 136-145 L [facility] Aspartate aminotransferase [Enzymatic activity/volume] in Serum or Plasma 10 U/L <32 [facility] Urea nitrogen [Mass/volume] in Serum or Plasma 8 mg/dL 6-20 [facility] Osmolality of Serum or Plasma by calculation 278 mosm/kg 275-300 [facility] Creatinine/Urea nitrogen [Mass Ratio] in Serum or Plasma 13 [facility] Bicarbonate [Moles/volume] in Serum 21 mmol/L 22-29 L [facility] Alanine aminotransferase [Enzymatic activity/volume] in Seru m or Plasma 7 U/L <33 [facility] Anion gap 3 in Serum or Plasma 12 mmol/L 8-15 [facility] Albumin/Globulin [Mass Ratio] in Serum or Plasma 1.0 [facility] Glomerular filtration rate/1.73 sq M pre dicted among non-blacks [Volume Rate/Area] in Serum or Plasma by Creatinine-based formula (MDRD) >6 0 [facility] Glomerular filtration rate/1.73 sq M pre dicted among blacks [Volume Rate/Area] in Serum or Plasma by Creatinine-based formula (MDRD) >60 [facility] ID Date Data Source [id number] 01/23/2020 05:41:30 PM EDT [facility] Name Value Range Interpretation Code Description Data Kelli rce(s) Supporting Document(s) Thyrotropin [Units/volume] in Serum or Plasma 1.600 u[IU]/mL 0.270-4. 200 [facility] ID Date Data Source [id number] 01/23/2020 05:41:30 PM [facility] Name Value Range Interpretation Code Description Data Kelli rce(s) Supporting Document(s) Urate [Mass/volume] in Serum or Plasma 4.1 mg/dl 2.4-5.7 [facility] ID Date Data Source [id number] 01/23/2020 09:01:37 PM [facility] Name Value Range Interpretation Code Description Data Kelli rce(s) Supporting Document(s) Leukocytes [#/volume] in Blood by Automated count 11.5 10*3/uL 4-10 H [facility] Erythrocytes [#/volume] in Blood by Automated count 4.18 10*6/uL 4.1- 5.3 [facility] Hemoglobin [Mass/volume] in Blood 12.3 g/dL 11.5-15.5 [facility] Hematocrit [Volume Fraction] of Blood by Automated count 34.9 % 3 6-45 L [facility] Erythrocyte mean corpuscular volume [Entitic volume] by Auto mated count 83.4 fL 80-96 [facility] Erythrocyte mean corpuscular hemoglobin [Entitic mass] by Automated count 29.4 pg 27-33 [facility] Erythrocyte mean corpuscular hemoglobin concentration [Mass/volume] by Automated count 35.3 g/dL 32.0-36.0 [facility] distribution width [Ratio] by Automated count 14.1 % 11.5-14.5 [facility] Platelets [#/volume] in Blood by Automated count 139 10*3/uL 150-400 L [facility] Differential cell count method - Blood [facility] Neutrophils/100 leukocytes in Blood by Automated count 79 % [facility] Lymphocytes/100 leukocytes in Blood by Automated count 11 % [facility] Monocytes/100 leukocytes in Blood by Automated count 8 % [facility] Eosinophils/100 leukocytes in Blood by Automated count 1 % [facility] Neutrophils [#/volume] in Blood by Automated count 9.15 10*3/uL 1.8-7 .0 H [facility] Lymphocytes [#/volume] in Blood by Automated count 1.23 10*3/uL 1.2-4 .0 [facility] Monocytes [#/volume] in Blood by Automated count 0.90 10*3/uL 0-0.8 H [facility] Eosinophils [#/volume] in Blood by Automated count 0.12 10*3/uL 0-0.5 [facility] Nucleated erythrocytes/100 leukocytes [Ratio] in Blood by Automated count 1 /100{WBCs} 0-0 H [facility] Promyelocytes/100 leukocytes in Blood by Manual count 1 % [facility] Promyelocytes [#/volume] in Blood by Manual count 0.12 10*3/uL 0-0 [facility] Anisocytosis [Presence] in Blood by Light microscopy [facility] Microcytes [Presence] in Blood by Light microscopy [facility] Poikilocytosis [Presence] in Blood by Light microscopy [facility] ID Date Data Source [id number] 01/23/2020 05:56:38 PM EDT [facility] Value Range Interpretation Code Description Data Kelli rce(s) Supporting Document(s) HIV 1+2 Ab+HIV1 p24 Ag [Presence] in Serum or Plasma by Immu noassay Non Reactive [facility] Negative for HIV-1 p24 antigenand HIV-1/ HIV-2 antibodies. Nolaboratory evidence of HIVinfection. ID Date Data Source [id number] 01/23/2020 05:46:50 PM EDT [facility] Value Range Interpretation Code Description Data Kelli rce(s) Supporting Document(s) Treponema pallidum Ab [Presence] in Serum Non Reactive [facility] ID Date Data Source [id number] 01/23/2020 05:33:30 PM EDT [facility] Value Range Interpretation Code Description Data Kelli rce(s) Supporting Document(s) Hemoglobin A1c/Hemoglobin.total in Blood by HPLC 4.9 % 4.0-6.0 [facility] (NOTE)<5.7% Average risk of diabetes (ADA)5.7-6.4% Increased risk of diabetes(ADA)>/= 6.5% Diagnostic for diabetes(ADA) Glucose mean value [Mass/volume] in Blood Estimated fr om glycated hemoglobin 94 mg/dL <126 [facility] ID Date Data Source [id number] 01/23/2020 05:32:50 PM T [facility] Value Range Interpretation Code Description Data Kelli rce(s) Supporting Document(s) Glucose [Mass/volume] in Serum or Plasma --1 hour post 50 g glucose PO 125 mg/dL <136 [facility] ID Date Data Source [id number] 01/23/2020 03:08:53 PM EDT [facility] Value Range Interpretation Code Description Data Kelli rce(s) Supporting Document(s) Progress Note [facility] CQMIRq4tKgFFJtTs42/NRFycOQWnr9UkTOuvDFn5YFrrSBIeN5ToXBP9jN7wLKB4ENxAHgFiRaYmHfA5 [facility] [file] AgICAgICAgICAgICAgICAgICAgICAgICAgICAgICAgICAgICAgICAgICAgICAgICAgICAgICAgICAgIC AgICAgICAgICAgICAgICAgICAgICAgICAgICAgICAg ICAgICAgDQogICAgICAgICAgICAgICAgICAgICAgICAgICAgICAgICAgICAgICAgICAgICAgICAgICAg ICAgICAgICAgICAgICAgICAgICAgICAgICAgICAgICAgICAgICAgICAgICAgICAgDQogICAgICAgICAg ICAgICAgICAgICAgICAgICAgICAgICAgICAgICAgIC AgICAgICAgICAgICAgICAgICAgICAgICAgICAgICAgICAgICAgICAgICAgICAgICAgICAgICAgICAgDQ ogICAgICAgICAgICAgICAgICAgICAgICAgICAgICAgICAgICAgICAgICAgICAgICAgICAgICAgICAgIC AgICAgICAgICAgICAgICAgICAgICAgICAgICAgICAg ICAgICAgICAgDQogICAgICAgICAgICAgICAgICAgICAgICAgICAgICAgICAgICAgICAgICAgICAgICAg ICAgICAgICAgICAgICAgICAgICAgICAgICAgICAgICAgICAgICAgICAgICAgICAgICAgDQogICAgICAg ICAgICAgICAgICAgICAgICAgICAgICAgICAgICAgIC AgICAgICAgICAgICAgICAgICAgICAgICAgICAgICAgICAgICAgICAgICAgICAgICAgICAgICAgICAgIC AgDQogICAgICAgICAgICAgICAgICAgICAgICAgICAgICAgICAgICAgICAgICAgICAgICAgICAgICAgIC AgICAgICAgICAgICAgICAgICAgICAgICAgICAgICAg ICAgICAgICAgICAgDQogICAgICAgICAgICAgICAgICAgICAgICAgICAgICAgICAgICAgICAgICAgICAg ICAgICAgICAgICAgICAgICAgICAgICAgICAgICAgICAgICAgICAgICAgICAgICAgICAgICAgDQogICAg ICAgICAgICAgICAgICAgICAgICAgICAgICAgICAgIC AgICAgICAgICAgICAgICAgICAgICAgICAgICAgICAgICAgICAgICAgICAgICAgICAgICAgICAgICAgIC AgICAgDQogICAgICAgICAgICAgICAgICAgICAgICAgICAgICAgICAgICAgICAgICAgICAgICAgICAgIC AgICAgICAgICAgICAgICAgICAgICAgICAgICAgICAg SBXyUHCpQUJbYKLjHENeFWc8M7twYSXaAPSkPN0gPVo1Zx0+WReHJjDyZMD3jfGihB5TTC8kn9IiTSwl DZXet3OiPDb4GA0SFEOhTXuvZV6GIGuyyh6IVUQtYWVwqRWPh2qiDaRlYDV1VWDqNwekPH6AOZPwD6rp imTdDMNvMINTXCbdYZEJFV0FFdEbC5FfwU94DUYNZs 4+RWmkulXrDscDQeF7YYXsy2SrDAk2GL2DIAIhEkddy3SpPfpfXSNKXRcpXN0SKBV9GFM6PPScXf9INF XxD986drVaFY3TIw3QMuXvGX0ljp7IWcqaOJQvOkdJHcm2ICirNW5NgNDyMGdVzs1bioHpahCJy7Zsgm EqqQVItPXuvA2lQWStC9YgfRCabT5iBFTFJe0nFRAj Gm5xVH8lTOFeEPHnDdAgNMOTYG9FARZdZXCiwBZrHNLkVXFKPZ5TBPlsVVJ6DCDvzbJkcBUrNYcxEV4P YXJlbnQgMjcgMCBSDQo+Is1FKO8ak1KzWKiqXHJpES0kxi9SUSxQOlFuW0I9fCVgB1Z8FFskQl2LRRAn FIRzRbOuPHZKVGqpKF7JNF9oibF0CE1NqKWlEPXfRO DtrOTrQZn3A15vsJKuFVqeGO5SLVZ+Emma+Xy0FOZEtYKUdCXAwHzTuVCVKVtNxY7MtM9AZx4StA8VlYS 06hJcsmuCvKTffHF1KJY1pXEMiMSSMGP2EcGGjiC7dtuPfOfOhQMMJXiKpY80pwAAxPOCdGWQ2JUSnUy 3NONGqN8WsvlGypSkbkdTcAEPqFNGDSI2ZESvrvmAp qRFhzKtjRU80qDakCY8GMp7LScNzNM6crf1DeNNsXg7LUPGbUA7NINHtBUEuKTCdJBO2YXQaLxIwKXys ARNwCYGwOUR7GNXoODClAZ6NKxZuBZSxLeZdIpCiFIVuTHVjbz4QPQYqAHYvVaJfLkXnXRBiJMNoNZdu HICvWDFkYEW8YIYsJKMuKT4ETmIlYFSfOIO2NTHqRU GrRXUndv8BQXDuIZQsXDncKBAwOKOxQZCzNHrxWQRmXSS9Tkg4HLNqVPCaAS0NPuOgPMUvUZh4ICDrQY LoMTByiq6RYNCmWRJzTGC9UOGvIGPqCRLnFRtjIXLiASE0JqI5ADUyCWBgLL1ASsStDVHjZFc6EcJuAW KiIPNpqa6TMKNuHXPwGSt1IWUmCEDbIIJqDYuvNIHv KCFxMEt4PPPzILHdAV2HDkMqASChUMYxAEPwDVQtCJBihy7THCSfRBWuRKpyWBBxKOZeOWRsBRhgMITi QWXhVSVqIWNxUCHaTG2WMbRrLUHgObXcQOqgQSZhPBMvoc1UNHJcDIQpMwD0ESAoHRAiSYHuBTfzTKQb LWWnCeF2RJZbGPXcPN8QKnDbDTYqJoC5RFwwGYFwLD Pywr4BUDMyRWYpUlt1MDNuONPkCWMoVBxmXREaYJBiKPJkPWRhNHJbDC7PUtPnSCDdQfD6OKTfNZBzRT Nqvj9RZSArNNAdDSU0OANzTFHfVCJeHEyfNFJmRRW7GtSxBGUzGZTiFX1TGrWwWAHgMfV0VIMeEXZcOV Bjwk5UODInCOMwRlGoNWIzYHRvTPCjKKolNUMqPGP8 LmJlGONpWZDqXE6IQrRhDUPqIgijZOJbSUKhHYUbxy7JqJMijLxtyj3EEXgDUp3NdEonMINrZBpbWe7k cFFwYJBtLHUJQd0EepWhKISaHMZNKKwnIHLuOCBbHFPrRDX7PJBaEOFwTPGyXQHzJVX7NZIgBAOdNUZ4 JlR7YFKpSPDqZEopRqI2F1X5MXXtQfV0WKk1F9VcBP E0ZDc+RQ5fNGw+Nv0Cd8LarzY8nxKsLLqjXqBdND7VRTXXX6YYQk== ID Date Data Source [id number] 01/23/2020 02:04:58 PM EDT [facility] Name Value Range Interpretation Code Description Data Kelli rce(s) Supporting Document(s) Color of Urine [facility] Clarity of Urine [facility] Glucose [Mass/volume] in Urine by Test strip Negative [facility] Bilirubin.total [Presence] in Urine by Test strip Negative A [facility] Ketones [Mass/volume] in Urine by Test strip Negative [facility] Specific gravity of Urine by Test strip 1.025 1.005-1.025 [facility] Hemoglobin [Presence] in Urine by Test strip Negative [facility] pH of Urine by Test strip 6.0 5.0-8.0 [facility] Protein [Mass/volume] in Urine by Test strip 30 mg/dL Negative [facility] Urobilinogen [Units/volume] in Urine by Test strip 0.2 {Ehrlich_U}/ dL 0.2-1.0 [facility] Nitrite [Presence] in Urine by Test strip Negative [facility] Leukocyte esterase [Presence] in Urine by Test strip Negat panda [facility] ID Date Data Source [id number] 01/09/2020 02:41:35 PM EDT [facility] Name Value Range Interpretation Code Description Data Kelli rce(s) Supporting Document(s) Progress Note [facility] OVJIRt1fHxDIMxZo17/WVKnyLVDnt8HeNUuoHAv3RZxiAKEjT4KhQGK7rV7nOEW7RWfKGaSaRhEmCgCg [facility] [file] 1wPWTB/G8fjHu44+bf6oEbWxELj3JrpZmMzHbJlnJld7m2XzJdrPu4jUStcNQTrXbgJob2t6x/0K+coal chemist [file] VuZHB0VZO1AOH2YTCuPfl3FJGuE9Z6Ff5eAQXCGf4+QKrolFWluLidPWKMWcA0PZC2ZTdnZBTSGg9Y ID Date Data Source [id number] 01/09/2020 01:49:35 PM EDT [facility] Name Value Range Interpretation Code Description Data Kelli rce(s) Supporting Document(s) Color of Urine [facility] Clarity of Urine [facility] Glucose [Mass/volume] in Urine by Test strip Negative [facility] Bilirubin.total [Presence] in Urine by Test strip Negative [facility] Ketones [Mass/volume] in Urine by Test strip Negative [facility] Specific gravity of Urine by Test strip 1.025 1.005-1.025 [facility] Hemoglobin [Presence] in Urine by Test strip Negative [facility] pH of Urine by Test strip 6.5 5.0-8.0 [facility] Protein [Mass/volume] in Urine by Test strip 30 mg/dL Negative A [facility] Urobilinogen [Units/volume] in Urine by Test strip 0.2 {Ehrlich_U}/ dL 0.2-1.0 [facility] Nitrite [Presence] in Urine by Test strip Negative [facility] Leukocyte esterase [Presence] in Urine by Test strip Negat panda [facility] ID Date Data Source [id number] 12/19/2019 01:56:53 PM EST [facility] Name Value Range Interpretation Code Description Data Kelli rce(s) Supporting Document(s) Progress Note [facility] JNVDEt4tDyDRRtZb32/QOXlcTARyy5XzSZtpPVi3IOknBWIfG5OiVBM4rT9mNMU8CXsJBmMwDmCxOtR1 [facility] CeRuqJBgHsIIWhMulSJkCqBAujAfimwURkUQ0TaTT4BRAwO77iVDCwUTPuH4QxTMY1NNC+Pq1OEJXgeO VaRW4FCuaH0F6yzkvTLk8rrX0bOQEsFjErR4q0iuCYgNl6PPgJqM8n6z1Uel9sRzXFHGwcNnjAq9ugb9 x/5PaBbmT5e922kWF88+bMiBGi+hDxXsBxm8LH1b/m vk0hLI3R6/5GtMtstVnWfmWLyAPKCiy/Paola/mhnTL6gup/0TS+LBrEqzh9wDutrNslLgfGk12oOf1yLW [file] ogICAgICAgICAgICAgICAgICAgICAgICAgICAgICAgICAgICAgICAgICAgICAgICAgICAgICAgICAgIC AgICAgICAgICAgICAgICAgICAgICAgICAgICAgICAgICAgICAgICAgDQogICAgICAgICAgICAgICAgIC AgICAgICAgICAgICAgICAgICAgICAgICAgICAgICAg ICAgICAgICAgICAgICAgICAgICAgICAgICAgICAgICAgICAgICAgICAgICAgICAgICAgDQogICAgICAg ICAgICAgICAgICAgICAgICAgICAgICAgICAgICAgICAgICAgICAgICAgICAgICAgICAgICAgICAgICAg ICAgICAgICAgICAgICAgICAgICAgICAgICAgICAgIC AgDQogICAgICAgICAgICAgICAgICAgICAgICAgICAgICAgICAgICAgICAgICAgICAgICAgICAgICAgIC AgICAgICAgICAgICAgICAgICAgICAgICAgICAgICAgICAgICAgICAgICAgDQogICAgICAgICAgICAgIC AgICAgICAgICAgICAgICAgICAgICAgICAgICAgICAg ICAgICAgICAgICAgICAgICAgICAgICAgICAgICAgICAgICAgICAgICAgICAgICAgICAgICAgDQogICAg ICAgICAgICAgICAgICAgICAgICAgICAgICAgICAgICAgICAgICAgICAgICAgICAgICAgICAgICAgICAg ICAgICAgICAgICAgICAgICAgICAgICAgICAgICAgIC AgICAgDQogICAgICAgICAgICAgICAgICAgICAgICAgICAgICAgICAgICAgICAgICAgICAgICAgICAgIC AgICAgICAgICAgICAgICAgICAgICAgICAgICAgICAgICAgICAgICAgICAgICAgDQogICAgICAgICAgIC AgICAgICAgICAgICAgICAgICAgICAgICAgICAgICAg ICAgICAgICAgICAgICAgICAgICAgICAgICAgICAgICAgICAgICAgICAgICAgICAgICAgICAgICAgDQog ICAgICAgICAgICAgICAgICAgICAgICAgICAgICAgICAgICAgICAgICAgICAgICAgICAgICAgICAgICAg ICAgICAgICAgICAgICAgICAgICAgICAgICAgICAgIC AgICAgICAgDQogICAgICAgICAgICAgICAgICAgICAgICAgICAgICAgICAgICAgICAgICAgICAgICAgIC QgJPVrDBEiMBAiWWWzGOZuBSRoXZKgRZWzPLUhBKSsPDIsEDXzJWUyBEXnFYUkEYDcWEc4X0pyDXLrJZ XoYM3eRXo7Gs7+UJeLWkSbCQB2ueTubA3NAR6ig4Ur QYivBFXag6QcWOh5ZX6NQEVvLWxaLE1FYStccw7TPFRjCGIqbUNAp4khVzSsMUN0WDNjOeitYL3HPKOd P1opsiRwJXYeVHDTBGorCGKRZQ4SAaEfM4KmeJ20EBAGJk2+IPavkiZuDsuEMyZ2RHVsc2ThWCz3IH4C CCEuHeorr4SqKlFbOWMPUSktUM9FTLF5ZYS7UUFvSg 0UYDCzR065ukGpFS8ANi6VVdYgSW4nqj0LOoIxLVWwDivGBgc7SVdyAZ4ByPPrSTtQdd7pxwVjsjDEq8 TsbvOlxEBGuSJaiD5jAWOzV5RjlZGheQ7vDXSHCr4fMUWoQb8hWM6yOGEmRHOkCmBlKGNGNG7JFPScDK PgjFGqZRMgFAKOZK3IYLnzQDX2JNDqvtTjxDZiFKbn TB7QGPJzaoUtFwDgCGGYFLt+Vf1AMD1of1XaTOpeWcEqLM9pur2EELmGJsOxZ9O7dWItT3A8ZMffEy9A MBRuZZAvHxHiBWXALOjhZT9SCO1ljaK7YK7GlSWsROKfWVGtnOOlXFg2I92vuSXaRMeqME8KJEN+Emma+ Nx1UDAClTUFiQQBuOwJyHRVRLtGiY6PgO0VCl7RkB2 CvEV76qQoidrFdQVimNF9ESZ5bJMJoQRZREC8TjXAdxA1bqrQlBEJtNPCQNjOcC17iuRZxQSYfZEOjXJ LvDy5YTSTyO6QcxhVezMprxbNtYNEySRTGQS9AFKzkzfZsdVJpaLagRU31iIrmTK5JPx4DKmKePQ7bcc 6IlZAdNu8JAGYqZb2OMCJnQTDsTKWbHWX1HZQyMsYa KDybVEZzEDTdBJQ4UJAlYXWsNE3RXvKvFUStKmR0WWIzKAIcNMLkor0NKFWdAFElSeZuBcSlXJTmFCFt XVseKTLlMYTwSMD3OBIqEMPoOA7MYtSsEYYkPTLfEQQlQVDoNSOgmv5LDCBjBRAnUuI0QQHoPEYxDRWg HZbzCTMhPNF4QxV7DQUgYAWqGJ0VNqGeGZWwJDS5Hm UuHTItRCRwxk6QJEFvMLFdHtG3DIKlEBOeHIDfSHfaUSDgVKX6Fqh0XTZzKVQoRT6ZElBjMJNfLUD0BP kgJISxXPHvph2FMRPmNIBkBomaZeKhKBRuXHHoLQbvQNPpAEX3EIT3XTUdJLBbSF6JYiYoVLNoBOalMF qhXRKdTGAhts4EHYDnBMHkKQVzOgBhBHAbBBEkGAyy IBTrFNP2BJAaEBZmRLKtBU5MAdCdQFLqAzDbWrAlQMJgOAEwqf2FVMOuZPWoRIQoPUSyWMRuOKUgSCxv IYWpSKPcQFP4ASHrOBMoOC3UEeTfXUSeNyX6UAElOFMtGQKxpw9IWNVsRNVfQTuiZMWrVWPzTHJyCWtv MSQuOFSmTWz8UOKmVKPsTB3IUxIrWZOyHqArHTRpXH IqTEFoaj3YSZYjQDZnLzm0KROeHYHoEUZaWAudLQDvDGLeUULbBSIoUIVfOC8OIqVtZSZxSrL5ZwCaYQ OdSHSbco8UxIGqyOzhqi5TRPdZEk3XaFxdZCM3APcfIf4nxKWwBeYbSIXBYa4SayXpPNKiTJLLIYxuTV GqEXRdRyXgQREmIxFwYPn2I8ZhMoHbTVHiYmCkFkX9 AaygCnI0VRJuXYKyMEHyJiU2VenqAxCgYpYyJBMtT0KrGcscKCJ+SM7eJPj+Kj9Ul1NoctC6apFeJBzn RTDrYB1NCHVND1FRBj== ID Date Data Source [id number] 12/19/2019 01:30:29 PM [facility] Name Value Range Interpretation Code Description Data Kelli rce(s) Supporting Document(s) Color of Urine [facility] Clarity of Urine [facility] Glucose [Mass/volume] in Urine by Test strip Negative [facility] Bilirubin.total [Presence] in Urine by Test strip Negative [facility] Ketones [Mass/volume] in Urine by Test strip Negative [facility] Specific gravity of Urine by Test strip 1.025 1.005-1.025 [facility] Hemoglobin [Presence] in Urine by Test strip Negative [facility] pH of Urine by Test strip 6.5 5.0-8.0 [facility] Protein [Mass/volume] in Urine by Test strip Negative A [facility] Urobilinogen [Units/volume] in Urine by Test strip 0.2 {Ehrlich_U}/ dL 0.2-1.0 [facility] Nitrite [Presence] in Urine by Test strip Negative [facility] Leukocyte esterase [Presence] in Urine by Test strip Negat panda [facility] ID Date Data Source [id number] 11/28/2019 03:37:10 PM [facility] Name Value Range Interpretation Code Description Data Kelli rce(s) Supporting Document(s) Progress Note [facility] NIZUUa7mVmLHIwSe52/KICipSAXyk2IlICpdBAc7MYteRUKyM7UeYDS1uH1oFUY2NSfWHsOuLsWsCPE3 [facility] [file] ICAgICAgICAgICAgICAgICAgICAgICAgICAgICAgICAgICAgICAgICAgICAgICAgICAgICAgICAgICAg ICAgICAgICAgICAgICAgICAgICAgICAgICAgICAgICANCiAgICAgICAgICAgICAgICAgICAgICAgICAg ICAgICAgICAgICAgICAgICAgICAgICAgICAgICAgIC AgICAgICAgICAgICAgICAgICAgICAgICAgICAgICAgICAgICAgICAgICANCiAgICAgICAgICAgICAgIC AgICAgICAgICAgICAgICAgICAgICAgICAgICAgICAgICAgICAgICAgICAgICAgICAgICAgICAgICAgIC AgICAgICAgICAgICAgICAgICAgICAgICANCiAgICAg ICAgICAgICAgICAgICAgICAgICAgICAgICAgICAgICAgICAgICAgICAgICAgICAgICAgICAgICAgICAg ICAgICAgICAgICAgICAgICAgICAgICAgICAgICAgICAgICANCiAgICAgICAgICAgICAgICAgICAgICAg ICAgICAgICAgICAgICAgICAgICAgICAgICAgICAgIC AgICAgICAgICAgICAgICAgICAgICAgICAgICAgICAgICAgICAgICAgICAgICANCiAgICAgICAgICAgIC AgICAgICAgICAgICAgICAgICAgICAgICAgICAgICAgICAgICAgICAgICAgICAgICAgICAgICAgICAgIC AgICAgICAgICAgICAgICAgICAgICAgICAgICANCiAg ICAgICAgICAgICAgICAgICAgICAgICAgICAgICAgICAgICAgICAgICAgICAgICAgICAgICAgICAgICAg ICAgICAgICAgICAgICAgICAgICAgICAgICAgICAgICAgICAgICANCiAgICAgICAgICAgICAgICAgICAg ICAgICAgICAgICAgICAgICAgICAgICAgICAgICAgIC AgICAgICAgICAgICAgICAgICAgICAgICAgICAgICAgICAgICAgICAgICAgICAgICANCiAgICAgICAgIC AgICAgICAgICAgICAgICAgICAgICAgICAgICAgICAgICAgICAgICAgICAgICAgICAgICAgICAgICAgIC AgICAgICAgICAgICAgICAgICAgICAgICAgICAgICAN CiAgICAgICAgICAgICAgICAgICAgICAgICAgICAgICAgICAgICAgICAgICAgICAgICAgICAgICAgICAg ICAgICAgICAgICAgICAgICAgICAgICAgICAgICAgICAgICAgICAgICANCjw/pBSiR7tjtBUomoL8X0wg Ni9JHn8EIY6wt3IoHYTiNKpeyfRtEmrPPyInEEUxMe mIToz7JTjlUG5TpHOzB2IvZ7OwWAclHQ8PRQUaIACrnDXxHYSoTQTeBcV6HCLkANlsBZ0XqGAtTXveLY RuXNFjVaXdYPWkYX9RFUItB495jlMlUn6HHb5NEkWaNO0emu9KZeWoILUfOyrGXkx8NJwcBW1WkLImbO YqGJUeDZEETySfZ2yho5AbIsRpPBDKWNtqVX0Yi7Jh dCAxDQo+Hu9YSM6fr7QoIRofHETkFK9bry3QQXwDIfDrS2ErnMciIEIkc8hpROOzXC0uaNVvYIV7JWQu ZTVgczYgKHAGSCDjp9GceYymNBLEYVWvxZGpGsE1ToAoQgOlEGD9MzYwEN7tEKvqPW1TCVX3COyoEOGs XKTbL2eYUoAjVQGhPKLddJnnVB6KLbVkL0XruvQodW AyNCAwIFINCj4+KQfcxuKnSweAPnG7CCSbx1SgSQz7YS0RWQXhDIudTJ9HHOVyjJ8uHCmiJF3EZhJqPu KnUKLOJoOeZ07tsNRwXIy8M6NiGcBjGPIvPulcQXDkLTtbGiLvLSAhBbDqHMzcQT0+ID4+FKlfZC3ZMS fjexZuDEYiDs1UFVJiGSViVW6mKQDoUGTcJ8E6pDct PMTEIhDeE8yufvviOR7jXHXvQ591fLyunnNgAIU5FDVgTk1EQEJhBDP7BXYsxKMtEtYmLHYOUHrhIK6C jOKxHIJ7pH8uQKmsVRImHMGtI0zCWvJhsSbwVF73cGilccXwdPIwKMi+Sg1CZC1tf0JsBYh6zoAhRUsp MPV3LLssDYRnJTNfGNBzRMM7CAE1JCSJXaIhCMHoVE VtFIeuGCAbPXDfay9JFIKyNCUfTTDqZOLuHCGyAWUmNOgeHQObPPLoQMauBROcQMRyZA1PBfBrBSRaOM JdFAqsTBXtYLBijl8TYCUxIVXpMgUhUpPyDRGpHCKiPBmsLQQyOTNuQlJiMYLkTMPnQT9AVzRpKHKxBQ B7OWVkKWXrCEJfnk1ZBVFxCHUyJCK1VFLtFCDiUCCm QEauVJRsFSF8FXA8MMCwAXBxVO4IVmZyKSNbVMJkMFGmYBUwGJUnpb1KGKUfAHJhAvD2BKZkHOTeETYj OWcwGNVtLGW3VeP6DOOzKONuZB7MPdKvTSDaLZh0ANYgXRMpWEWhur7EABXmZFSpYgx8LJTsLPIlFAJi VSfeDIGqXVP9RAd9MWMtZMEhCG5GIbZcNPYsSKf3LL vhLGHcJCIkgr5HNNWbNLXsSAbzCSDkGWNsSHWsKPtaVREiMEX1AAG2LQXfPFJlIB5KHeVgXDSgMtBrCM UwSEHjQUUnqy6QBIMrRLWsOOL3AsErCDZnJBBjFBuuXFFiFYKjCkU3EEYlFHVrMZ4TBvOtYABvGcK9RN OaWMNxMLBjgu5ZKGAbULKeSBufOdIvUMQyCKLcROqq YMMpRRHyApv8LOHxSECxNU9NVcSrRPGfJwEwYOqyOBUnDQHztv2NVLHfYXPzEhQtVyUjKREzLFDwGJw2 siBmoYWmOQe1AZ3TM8KnfgGtTgsUSc4Kj874NDG8MXJsAb4MS6csFv1xEEWxZXAHPx6JUJd8UjHnYBzh OuQdIEQfPmO7AtX0LZDsPAFbRmAtPOUeXZV+IDxiY2 R4LGBrFiG5GON9AdWwBRTgARBfNtObLPZoLxXeAg7fXPVSUa0+BHjcdXKutFcvVQYOCiSkXoM0MZltNG VPRg0K ID Date Data Source [id number] 11/28/2019 03:35:26 PM EST [facility] Name Value Range Interpretation Code Description Data Kelli rce(s) Supporting Document(s) Color of Urine [facility] Clarity of Urine [facility] Glucose [Mass/volume] in Urine by Test strip Negative [facility] Bilirubin.total [Presence] in Urine by Test strip [facility] Ketones [Mass/volume] in Urine by Test strip [facility] Specific gravity of Urine by Test strip 1.025 1.005-1.025 [facility] Hemoglobin [Presence] in Urine by Test strip [facility] pH of Urine by Test strip 6.5 5.0-8.0 [facility] Protein [Mass/volume] in Urine by Test strip [facility] Urobilinogen [Units/volume] in Urine by Test strip 1.0 {Ehrlich_U}/ dL 0.2-1.0 [facility] Nitrite [Presence] in Urine by Test strip Negative [facility] Leukocyte esterase [Presence] in Urine by Test strip Negat panda [facility] ID Date Data Source [id number] 11/21/2019 11:10:00 AM EST [facility] [...] of the brain. Professional interpretation performed at [facility] .End of diagnostic report for accession: [id number] Interpreted: Cherry Georges MDTranscribed: 11/21/2019 11:06 AMSigned: 11/21/2019 11:10 AM Cherry Georges MD [facility] ACC # [id number] BILL # [id number] 2MEM Name Value Range Interpretation Code Description Data Kelli rce(s) Supporting Document(s) ID Date Data Source [id number] 11/12/2019 08:35:29 AM [facility] Name Value Range Interpretation Code Description Data Kelli rce(s) Supporting Document(s) Progress Note [facility] JXPJNp9bLtMPPwYb05/VLJnhZYXzw4AtUXtwBEs6YSinSLDlS6VsFKM2oT6eVPY8UWwEWwHdMpRwCSJj [facility] XzWlkHEgThEXEiSwqQNnYqGRyqQwhsiWQrRP3QyCI4QTYmR90rXVUhCGPmM9NnMMXgMLL+Ld4VHMOrzN TqQK3KTxaP9Z9si4yIAs/lfo6FD8Dhs13cUay0PJ9keAbAgWSMOSZd8QJvDwIOdQWIVJk++9M8mAc59M ajoGMxaJVJGViTi4ns2wCInikmM4LRSzxy1Fphdg9T 2irEercuu7YbYt7n1Az3pk0ZOyUa2QyZP/SfRf4qF8864d2hm7NpxcrDL1fFvjco40yMia2/xdmg9+mV XypVg2v6Ramznp4RatcyNlK7+raEwarjfgnMR3po5M9p6lBGk51RgonO8rf5HiV4VqAegSXCzeyb8LNS VYscVaYjMlnUByrGnS9azMp7T+Vladislav+t7Gf0DoT66AH h1MxXBFdEZDGl2zZhE8iZwt88l3PNoA+fGCvxWjOvCvdBK729WOKqnfviSL9aUWA9SKx/VBBgbV5I2Hm Uz0lb6LVBBUpwYkV8JG8K94gtXf6cefSryu8RoGzcKFg6R6Wikd7STb2jTwYhW3qI5CqBd6dwg2HRUuv 3H7jj5kFeC6+D9sAAf+5kjJgEIGfs00Z1B91hZ27mJ H6qfbLSckXg4mcIpZg7j/+rcX/b7qorOZoSLjHI/3rz9Z/ftqTr+x1Jt8M5NaZik/6pxb8JfrsrBOuNG Uo0sfGzw+PMNEDXlZEeyvFWdTNOMrRFvQ4D8+Kh7qkRDbL5WofDs1S8sLs0k7+k07X/QNuV2gsjuxjDJ ik73xED5JxDRLsALPY0TbO7xjRwfLzqsevvjDHQoPU zJMlNtQl8rtXSSsyNaQCZ5OF5Uq/WyR/iNu7K1p4ZWNdSt20/h31Zir+awUDq9Qvfye9Bsxs4L1yFMkN BbTXwy0zgL6v68leSuiA+ajzSf8Q9SA6b5S4VU1BivVHrwIM4h9hoiIcN3NHGJluIfn4o/IzUpevHMZG /1kr0G8y61rgnnOacITMc1ekcLtP0jlw9rRZQkDoq+ 0A/hBmEOo8jVdOGad/HSkPFiRzWA6ccYu3nZDEbBRpKcUOjER1mQRHURVVQnEZNTF/gJYeDAvWb9w+BRIONES [file] ICAgICAgICAgICAgICAgICAgICAgICAgICAgICAgICAgICAgICAgICAgICAgICAgICAgICAgICAgICAg ICAgICAgICAgICAgICAgICAgICAgICAgICAgICAgICAgICAgICANCiAgICAgICAgICAgICAgICAgICAg ICAgICAgICAgICAgICAgICAgICAgICAgICAgICAgIC AgICAgICAgICAgICAgICAgICAgICAgICAgICAgICAgICAgICAgICAgICAgICAgICANCiAgICAgICAgIC AgICAgICAgICAgICAgICAgICAgICAgICAgICAgICAgICAgICAgICAgICAgICAgICAgICAgICAgICAgIC AgICAgICAgICAgICAgICAgICAgICAgICAgICAgICAN CiAgICAgICAgICAgICAgICAgICAgICAgICAgICAgICAgICAgICAgICAgICAgICAgICAgICAgICAgICAg ICAgICAgICAgICAgICAgICAgICAgICAgICAgICAgICAgICAgICAgICANCiAgICAgICAgICAgICAgICAg ICAgICAgICAgICAgICAgICAgICAgICAgICAgICAgIC AgICAgICAgICAgICAgICAgICAgICAgICAgICAgICAgICAgICAgICAgICAgICAgICAgICANCiAgICAgIC AgICAgICAgICAgICAgICAgICAgICAgICAgICAgICAgICAgICAgICAgICAgICAgICAgICAgICAgICAgIC AgICAgICAgICAgICAgICAgICAgICAgICAgICAgICAg ICANCiAgICAgICAgICAgICAgICAgICAgICAgICAgICAgICAgICAgICAgICAgICAgICAgICAgICAgICAg ICAgICAgICAgICAgICAgICAgICAgICAgICAgICAgICAgICAgICAgICAgICANCiAgICAgICAgICAgICAg ICAgICAgICAgICAgICAgICAgICAgICAgICAgICAgIC AgICAgICAgICAgICAgICAgICAgICAgICAgICAgICAgICAgICAgICAgICAgICAgICAgICAgICANCiAgIC AgICAgICAgICAgICAgICAgICAgICAgICAgICAgICAgICAgICAgICAgICAgICAgICAgICAgICAgICAgIC AgICAgICAgICAgICAgICAgICAgICAgICAgICAgICAg ICAgICANCiAgICAgICAgICAgICAgICAgICAgICAgICAgICAgICAgICAgICAgICAgICAgICAgICAgICAg ICAgICAgICAgICAgICAgICAgICAgICAgICAgICAgICAgICAgICAgICAgICAgICANCjw/gGGcJ7lmvXVm tzC2J6edHa1AAc7SYT0hq6CeLTGpPWtivpMdNzoEWm VxTJUhVdtXDbm1KRpsAC2NoKIjJ5IcR9XoYNytSN6UVLWcYUJvhGTfZZFvLKWdCpX3GYCoIIjpUT1PuB VmYOpjHEHyBCEyMmArDQKjGP5EQRJxM393jhRaOp1CMy9UZwUjTM0zyc9AZlJaVYYeSisOXgj3YBukUN 0GpKBzxJZiYRXzZMBRVuYcW7xql8XeUvDaQTXFFZnn SU2Oa5GqrWImEPl+Jc3UUQ0ml9WlQCmxKLHrNP2suh7UCYhHNaGgL5LjkIecIUYwa0ceLXSzWW4wlNLf JZV4EPQeNoYxlORWFDLpiHQcqz0bjzphPEIqIGExMH14GnAxOnXxZBI0BACkMF5wYYkcDI4LION2JRix ENEeJRFnB3uLGqGaSGEqRWLseHxxJK7QRvChR3Ffng VudCAyNCAwIFINCj4+FYplqtNzJlvRLnX7SGRiy6TbFRn0ML8BPSMrNYyjLI3OWBBtuL9bUIwsVD9WXj UdWgQvOSAXVzNdC42bkBNpZHq6B3FnIdUkQNBhNdzgVCShSVryNrZsIPKyDvNnGPsdIA9+ID4+DQogIC 9FBCtqxcPoSNMpNy1PCNFbYAGcLM1zXXUsCQJlE3Q5 eBwmXDZWOaLyP9nsdjetID8cZSSsQ819vWjrviXgIAW3SWNtYk7WRUZgJGM0NHUpyRTqOjQtUEUPISzf RU7TmGXaQGI9jX5yTHwkUDWnSESeN6uRNdTuyNqqDM56yUgxweLqnKFnVOf+Yn5YOX6zi5NgSRr8usYu QOdeALQ4OMzpIQCmXMPdJFQiAPC2IXM8KNPHSiOiKY ExMXZzSCdbYMDxRENety5GIKYaBTAmYSKaYVOyIBWhHRSrQOjvYWVoILOoAdfhXINyQWSuSW6KJvDsOA QnKQGwGHcgHYEbXVEcxa4VLXDaSJQeVjFaGKTgSXTrYPBkLDerPPHmZUCeGLO1PHCyKKNbPB8SXnKiOS IiOMScLiRqULClOBIjrm9NTZYlBCFrFNE3CzDvIFMh TCEiDWbtYWWvTEJ6FqR0BEOhPNLbUJ4GDgAhFSHtUZQ8ZiYlZEYeJYPjnm2SIOYkBTBhRYIrNbQiUYWg JXUnFUkiEKTsGJU3LHFdPXJmIETaTJ7SIoTwSWBwCKG6OoTuFODuTNRiax2QVWJkAMLdGcf6HNYbLEBj XXSxSCihXZIpTCQ2IwH0JRMwFIKkGH0SEjXvRERaCZ y6FcWfBPRaIRXgbs6SOZKaNJXtHExjSALjYHZdIVDjUIpqRXCvXXZ6STphOWIoHCAzDO0EEmGfMZEbVO pqLQsaMGAvUWCrdh5EHHDrADPzRYB6BOSkODUvQRRmQUivRFRpXNMbSmOeVGCgDIDdAP6RJtCeQPEqBq T9XWSsKAZaGUJdvx6EOPGfGWFpCBnxTCJqBLMiQSQy PAcdDGCwTFXlIlx6YKYeZGDmCU7YYdQfDHHeCoV7JDAwWAMkFFSaok8NZTOlVAKhQaH3PzPlTLDhPSTg ZKe0gvEbkLHhTNu3LH6IQ7GxaxOaTgxTVa1Xt430YDF2SWBjDk2NK0htHc2hAIYkFFMVJu3JXUv4WEXw OGOfMJVkYYk3AZAdSMUzYoS9HYBvYMQ7JSlhPGA+ID sbOuXoPHJiFEY9PQhzQVOmDVMuYwPkCFLhAAJ1PXWaTt4fWXVTHm5+DQpzdGFydHhyZWYNCjIyODQxDQ slWGFIEa4M Procedure Social History Code Duration Value Status Description Data Source(s ) Smoking 06/19/2020 12:00:00 AM EDT Patient is a former smoker completed Patient is a former smoker [facility] ([facility] Alcohol intake 04/10/2020 12:00:00 AM EDT Current non-d ellen of alcohol (finding) completed Current non-drinker of alcohol (finding) [facility] Tobacco use and exposure 04/10/2020 12:00:00 AM EDT Never used co mpleted Never used [facility] Smoking 04/10/2020 12:00:00 AM EDT Former smoker completed Former smoker [facility] Smoking 04/03/2020 08:27:00 AM EDT Former Smoker completed Former Smoker [facility] Alcohol intake 01/23/2020 12:00:00 AM EDT Current non-d ellen of alcohol (finding) completed Current non-drinker of alcohol (finding) [facility] Smoking 01/23/2020 12:00:00 AM EDT Former smoker completed Former smoker [facility] 11/21/2019 12:00:00 AM EST Patient has never smo ked (pipe, cigarette, cigar) completed Patient has never smoked (pipe, cigarette, cigar) [facility] NT ([facility]) Vital Signs ID Date Data Source UNK Name Value Range Interpretation Code Description Data Source(s) Body mass index (BMI) [Ratio] 31.3 kg/m2 31.3 k g/m2 [facility] ([facility]) Body height 68 [in_i] 68 [in_i] [facility] ([facility]) 5'8" Body weight 206.00 [lb_av] 206.00 [lb_av] [facility] T ([facility]) Body temperature 96.2 [degF] 96.2 [degF] [facility] ([facility]) Oxygen saturation in Arterial blood by Pulse oximetry 99 % 99 % [facility] ([facility]) Respiratory rate 12 /min 12 /min [facility] ( [facility]) Heart rate 91 /min 91 /min [facility] ([facility]) Diastolic blood pressure 90 mm[Hg] 90 mm[Hg] [facility] ([facility]) Systolic blood pressure 131 mm[Hg] 131 mm[Hg] M ED[facility] ([facility]) Body mass index (BMI) [Ratio] 31.3 kg/m2 31.3 k g/m2 [facility] ([facility]) Body height 68 [in_i] 68 [in_i] [facility] ([facility]) 5'8" Body weight 206.00 [lb_av] 206.00 [lb_av] MED[facility] T ([facility]) Body temperature 99.6 [degF] 99.6 [degF] [facility] ([facility]) Oxygen saturation in Arterial blood by Pulse oximetry 97 % 97 % [facility] ([facility]) Respiratory rate 18 /min 18 /min [facility] ( [facility]) Heart rate 129 /min 129 /min [facility] ([facility]) Diastolic blood pressure 86 mm[Hg] 86 mm[Hg] [facility] ([facility]) Systolic blood pressure 132 mm[Hg] 132 mm[Hg] M EDENT ([facility]) Body weight 3366 [oz_av] 3366 [oz_av] [facility]) Systolic blood pressure 129 mm[Hg] 129 mm[Hg] A THENA ([facility]) Body mass index (BMI) [Ratio] 32 kg/m2 32 kg/ m2 KRISTOPHER ([facility]) Body height 68 [in_i] 68 [in_i] KRISTOPHER ([facility]) Diastolic blood pressure 87 mm[Hg] 87 mm[Hg] KRISTOPHER ([facility]) Body weight 3366 [oz_av] 3366 [oz_av] KRISTOPHER ([facility]) Systolic blood pressure 129 mm[Hg] 129 mm[Hg] A THENA ([facility]) Body mass index (BMI) [Ratio] 32 kg/m2 32 kg/ m2 K[facility]STOP[facility] ([facility]) Body height 68 [in_i] 68 [in_i] K[facility]STOP[facility] ([facility]) Diastolic blood pressure 87 mm[Hg] 87 mm[Hg] K[facility]STOPHER ([facility]) Body mass index (BMI) [Ratio] 30.6 kg/m2 30.6 k g/m2 [facility] ([facility]) Body height 68 [in_i] 68 [in_i] [facility] ([facility]) 5'8" Body weight 201.00 [lb_av] 201.00 [lb_av] MEDEN T ([facility]) Body temperature 96.9 [degF] 96.9 [degF] [facility] ([facility]) Oxygen saturation in Arterial blood by Pulse oximetry 96 % 96 % [facility]) Respiratory rate 16 /min 16 /min [facility] ( [facility]) Heart rate 98 /min 98 /min [facility] ([facility]) Diastolic blood pressure 84 mm[Hg] 84 mm[Hg] [facility] ([facility]) Systolic blood pressure 126 mm[Hg] 126 mm[Hg] M EDENT ([facility]) Body temperature 36.5 jazmyn Normal (applies to non-numeric results) 36.5 jazmyn [facility] Respiratory rate 18 min Normal (applies to non-numeric results) 18 min [facility] Heart rate 98 min Normal (applies to non-numeric resul ts) 98 min [facility] Diastolic blood pressure 81 mm[Hg] Normal (applies to non-numeric results) 81 mm[Hg] [facility] Systolic blood pressure 136 mm[Hg] Normal (applies t o non-numeric results) 136 mm[Hg] [facility] Body weight Measured 225 [lb_av] Normal (applies to n on-numeric results) 225 [lb_av] [facility] Body height 171.9072 cm Normal (applies to non-numeric res ults) 171.9072 cm [facility] Body mass index (BMI) [Ratio] 34.21 kg/m2 No rmal (applies to non-numeric results) 34.21 kg/m2 [facility] Body temperature 36.7 Jazmyn 36.7 Jazmyn [facility] ( [facility]) Body temperature 98.0 [degF] 98.0 [degF] [facility] ([facility]) Heart rate 85 /min 85 /min [facility] ([facility]) Diastolic blood pressure 78 mm[Hg] 78 mm[Hg] [facility] ([facility]) Systolic blood pressure 109 mm[Hg] 109 mm[Hg] M EDENT ([facility]) Body mass index (BMI) [Ratio] 31.6 kg/m2 31.6 k g/m2 [facility] ([facility]) Body weight 208.00 [lb_av] 208.00 [lb_av] MEDEN T ([facility]) Body height 68 [in_i] 68 [in_i] [facility] ([facility]) 5'8" ID Date Data Source [id number] 05/20/2020 10:42:41 AM [facility] Name Value Range Interpretation Code Description Data Source(s) WEIGHT RECORDED 202.8 lb 202.8 lb [facility] ID Date Data Source [id number] [facility] Interpretation Code Description Data Source(s) WEIGHT RECORDED 201 lb 201 lb [facility] ID Date Data Source [id number] 03/28/2020 10:38:18 AM [facility] Name Value Range Interpretation Code Description Data Source(s) WEIGHT RECORDED 228.2 lb 228.2 lb [facility] ID Date Data Source [id number] 03/13/2020 01:37:08 PM EDT [facility] Name Value Range Interpretation Code Description Data Source(s) WEIGHT RECORDED 233 lb 233 lb [facility] ID Date Data Source [id number] 02/28/2020 11:12:53 AM EDT [facility] Name Value Range Interpretation Code Description Data Source(s) WEIGHT RECORDED 223.13 lb 223.13 lb [facility] ID Date Data Source [id number] 02/13/2020 02:05:50 PM EDT [facility] Name Value Range Interpretation Code Description Data Source(s) WEIGHT RECORDED 220 lb 220 lb [facility] ID Date Data Source [id number] 02/08/2020 11:24:32 AM EDT [facility] Value Range Interpretation Code Description Data Source(s) WEIGHT RECORDED 220 lb 220 lb [facility] ID Date Data Source [id number] 01/24/2020 11:05:19 AM EDT [facility] Name Value Range Interpretation Code Description Data Source(s) WEIGHT RECORDED 221 lb 221 lb [facility] ID Date Data Source [id number] 01/10/2020 02:09:20 PM EDT [facility] Value Range Interpretation Code Description Data Source(s) WEIGHT RECORDED 216 lb 216 lb [facility] ID Date Data Source [id number] 12/19/2019 01:56:53 PM [facility] Value Range Interpretation Code Description Data Source(s) WEIGHT RECORDED 213 lb 213 lb [facility] ID Date Data Source [id number] 11/29/2019 10:51:11 AM [facility] Name Value Range Interpretation Code Description Data Source(s) WEIGHT RECORDED 208 lb 208 lb [facility] ID Date Data Source [id number] 11/12/2019 08:35:29 AM [facility] Value Range Interpretation Code Description Data Source(s) WEIGHT RECORDED 204 lb 204 lb [facility] Patient Treatment Plan of Care Planned Activity Planned Date Details Description Data Source (s) Prednisone 5 MG Oral Tablet 08/27/2020 12:00:00 AM [facility] Albuterol Sulfate HFA 108 (90 Base) MCG/ ACT Inhalation Aerosol Solution (PROVENTIL HFA) 03/26/2020 12:00:00 AM [facility] Ascorbic Acid 500 MG Oral Tablet 02/07/2020 12:00:00 AM [facility] ferrous sulfate 325 MG Oral Tablet 02/07/2020 12:00:00 AM [facility] Albuterol 0.83 MG/ML Inhalant Solution 01/24/2020 12:00:00 AM [facility] 200 ACTUAT Albuterol 0.09 MG/ACTUAT Dry Powder Inhaler 01/23/2020 12:00:00 AM [facility] ospital Wrist Brace/Right Medium 01/09/2020 12:00:00 AM [facility] Wrist Brace/Left Medium 01/09/2020 12:00:00 AM [facility] Ondansetron 4 MG Oral Tablet 01/09/2020 12:00:00 AM [facility] Omeprazole 20 MG Delayed Release Oral Capsule 11/28/2019 12:00:00 [facility] Aspirin 81 MG Delayed Release Oral Tablet 11/06/2019 12:00:00 AM [facility] Hydroxychloroquine Sulfate 200 MG Oral Tablet 05/22/2019 12:00:00 A [facility] Aspirin 81 MG Delayed Release Oral Tablet 11/06/2018 12:00:00 AM [facility] Prednisone 5 MG Oral Tablet KRISTOPHER ([facility]) Oxycodone Hydrochloride 5 MG Oral Tablet [facility] ([facility]) Oseltamivir 75 MG Oral Capsule [facility]STOP[facility] ([facility]) Ondansetron 4 MG Oral Tablet [facility] ([facility]) Omeprazole 20 MG Delayed Release Oral Capsule [facility]STOP[facility] ([facility]) ferrous sulfate 324 mg (65 mg iron) tablet,delayed release [facility]STOP[facility] ([facility]) Prednisone 5 MG Oral Tablet KRISTOPHER ([facility]) Oxycodone Hydrochloride 5 MG Oral Tablet KRISTOPHER ([facility]) Oseltamivir 75 MG Oral Capsule KRISTOPHER ([facility]) Ondansetron 4 MG Oral Tablet KRISTOPHER ([facility]) Omeprazole 20 MG Delayed Release Oral Capsule KRISTOPHER ([facility]) ferrous sulfate 324 mg (65 mg iron) tablet,delayed release KRISTOPHER ([facility])
[2020-12-25] MEDS ORDERED: ALBUTEROL 90 MCG/ACT 8GM HFA INHALER INH PRN (05:35)
[2020-12-25] MEDS ORDERED: CETIRIZINE (ZyrTEC) 10 MG TAB PO PRN (05:35)
[2020-12-25] MEDS ORDERED: ALBUTEROL SULFATE 2.5 MG/0.5 ML INH NEB SOLN INH PRN (05:35)
[2020-12-25] MEDS ORDERED: predniSONE 5 MG TAB PO PRN (05:35)
[2020-12-25] MEDS: NS 1,000 ML IV SCH ×2 (05:38→16:15)
--- NOTE | 2020-12-25 05:40 | HPEPDOC ---
[facility] Medical History & Physical Date of Admission Dec 25, 2020 Date of Service: Dec 25, 2020 Primary Care Physician: ALFONSO GORMAN Attending Physician: TRISTIN COLLINS MD History and Physical TIME OF SERVICE: 150am CHIEF COMPLAINT: abdominal pain HISTORY OF PRESENT ILLNESS: This 35 yr old [id number] presented w c/o 3 day in duration cramping lower abdominal pain; she went to an urgent care center two times, was told that she has a UTI and started on Macrobid and Pyridium, but today the pain was so severe that she decided to come to the hospital for evaluation. Her LMP was on Dec 02. She also reported having fevers and nausea. She denies having any abnormal vaginal discharge or a history of STIs and has only had one sexual partner. After her last child was born via she has had mild pain with intercourse. Imaging studies showed possible right sided hydrosalpinx or pyosalpinx and left hydrosalpinx; discussed the case with Elvia Lozano who reported that the patient will be seen in the morning. 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 HOME MEDICATIONS: Please see below. PHYSICAL EXAMINATION: Vital Signs Date Time Temp Pulse Resp B/P (MAP) Pulse Ox O2 Delivery O2 Flow Rate FiO2 12/24/20 19:17 98.7 91 16 180/102 (128) 98 Room Air GENERAL APPEARANCE: well nourished /well developed HEENT: EOMI CARDIOVASCULAR: RRR/NMRG LUNGS: CTAB on RA ABDOMEN: distended / tender with percussion MUSCULOSKELETAL: ROMIx 4 INTEGUMENT: not flushed NEUROLOGICAL:CN 2-12 intact / speech not dysarthric PSYCHIATRIC: A&Ox 3 LABORATORY DATA: 12/24/20 20:23 12/24/20 20:24 Immature Granulocyte % (Auto) 0.5, Neutrophils (%) (Auto) 81.5H, Lymphocytes (%) (Auto) 8.8L, Monocytes (%) (Auto) 8.1H, Eosinophils (%) (Auto) 0.9, Basophils (%) (Auto) 0.2, Neutrophils # (Auto) 11.5H, Lymphocytes # (Auto) 1.3L, Monocytes # (Auto) 1.2H, Eosinophils # (Auto) 0.1, Basophils # (Auto) 0.0, Nucleated Red Blood Cells % (auto) 0.0 12/24/20 20:24: Urine Color FUNMILAYO, Urine Appearance CLEAR, Urine pH 5.0, Urine Specific [place] 1.038, Urine Protein 2+H, Urine Glucose (UA) NEGATIVE, Urine Ketones NEGATIVE, Urine Blood NEGATIVE, Urine Nitrite POSITIVEH, Urine Bilirubin 1+H, Urine Urobilinogen 4.0H, Urine Leukocyte Esterase NEGATIVE, Urine WBC (Auto) 5H, Urine RBC (Auto) 7H, Urine Hyaline Casts (Auto) 0, Urine Bacteria (Auto) NEGATIVE, Urine Squamous Epithelial Cells 7, Urine Mucus (Auto) SMALL, Urine Sperm (Auto) , Anion Gap 5L, Glomerular Filtration Rate > 60.0, Calcium Level 8.6, Total Bilirubin 0.7, Direct Bilirubin 0.2, Aspartate Amino Transf (AST/SGOT) 5L, Alanine Aminotransferase (ALT/SGPT) 17, Alkaline Phosphatase 48, Total Protein 7.5, Albumin 3.6, Albumin/Globulin Ratio 0.9L, Lipase 83, Human Chorionic Gonadotropin, Qual NEGATIVE 12/25/20 00:28: Chlamydia trachomatis DNA (KRISTAN) NEGATIVE, Neisseria gonorrhoeae DNA (KRISTAN) NEGATIVE, Trichomonas vaginalis (PCR) NOT DETECTED 12/25/20 02:33: Coronavirus (COVID-19)(PCR) NEGATIVE, Influenza Type A (RT-PCR) NEGATIVE, Influenza Type B (RT-PCR) NEGATIVE, Respiratory Syncytial Virus (PCR) NEGATIVE IMAGING: CT abd/pelvis IMPRESSION: 1. Splenomegaly. 2. Prominent bilateral ovaries with numerous small follicles insists, the right is larger than the left and appears more lobulated, with a possible tubular area of fluid, question hydrosalpinx or pyosalpinx. US pelvis IMPRESSION: 1. Large dilated tubular structure in the right adnexa oncerning for hydrosalpinx or pyosalpinx. 2. Possible hydrosalpinx on the left. Evaluation is limited by bowel gas. MICROBIOLOGY: Pending.. ASSESSMENT: is a 35 yr old w a hx of Sjgren Hypothyroidism and obesity who presented w c/o severe abdominal pain despite tx for a UTI; her UA was positive while imaging studies showed possible hydrosalpinx and pyosalpinx; she will be admitted for management of abdominal pain pending Gyne eval. PLAN: 1 Abdominal pain STI screen neg Plan: Toradol PO 2 UTI Plan: Levofloxacin & Pyridine 3 Possible hydrosalpinx and pyosalpinx Plan: I also discussed the case with Elvia Lozano CNA who will see the patient this morning and call the talent acquisition coordinator hospitalist cell with additional recommendations 4 Hypothyroidism Levothyroxine 5 Sjgren Prednisone and Plaquenil Dispo: home after less than 2 midnights stay Home Medications Scheduled Ascorbic Acid (Vitamin C with Dea Hips) 500 Mg Tablet, 500 MG PO DAILY Aspirin (Aspirin EC) 81 Mg Tablet.dr, 81 MG PO DAILY Cholecalciferol (Vitamin D3) (Vitamin D3) 250 Mcg Capsule, 250 MCG PO DAILY Ferrous Sulfate (Ferrous Sulfate) 325 Mg Tablet, 325 MG PO BID Hydroxychloroquine Sulfate (Plaquenil) 200 Mg Tablet, 200 MG PO BID Levothyroxine Sodium (Synthroid) 125 Mcg Tablet, 125 MCG PO DAILY Nitrofurantoin Monohyd/M-Cryst (Macrobid 100 mg Capsule) 100 Mg Capsule, 100 MG PO BID STARTED 12/23/20 Phenazopyridine HCl (Phenazopyridine HCl) 200 Mg Tablet, 200 MG PO TID STARTED 12/23/20 Scheduled PRN Acetaminophen (Tylenol Extra Strength) 500 Mg Tablet, 1,000 MG PO Q6H PRN for PAIN Albuterol Sulf (Albuterol Sulfate) 2.5 Mg/3 Ml Vial.neb, 2.5 MG INH Q6H PRN for SHORTNESS OF BREATH Albuterol Sulfate (Proair Hfa) 8.5 Gm Hfa.aer.ad, 2 PUFF INH Q6H PRN for SHORTNESS OF BREATH Cetirizine HCl (Cetirizine HCl) 10 Mg Tablet, 10 MG PO DAILY PRN for ALLERGIES Ibuprofen (Ibuprofen) 600 Mg Tablet, 600 MG PO Q6H PRN for PAIN Prednisone (Prednisone) 5 Mg Tablet, 5 MG PO DAILY PRN for PAIN Allergies Coded Allergies: No Known Allergies (Verified , 12/07/19) A-FIB/CHADSVASC A-FIB History Current/History of A-Fib/PAF?: No Current PO Anticoag Therapy: No TRISTIN COLLINS MD Dec 25, 2020 05:40
[2020-12-25 06:00] VITALS: BP 125/71
[2020-12-25] MEDS ORDERED: LevoFLOXacin 500 MG TABLET PO SCH (06:00)
[2020-12-25] MEDS: LEVOTHYROXINE 125MCG TABLET (0.125MG) PO SCH (06:41)
[2020-12-25] MEDS ORDERED: ASCORBIC ACID 500 MG TAB PO SCH (09:00)
[2020-12-25] MEDS ORDERED: FERROUS SULFATE 325MG TAB PO SCH (09:00)
[2020-12-25] MEDS: HYDROXYCHLOROQUINE 200 MG TAB PO SCH ×2 (09:02→20:48)
[2020-12-25 14:00] VITALS: BP 126/72
[2020-12-25] MEDS: metroNIDAZOLE 500 MG in IV 1 EA IV SCH (16:15)
[2020-12-25] MEDS: ACETAMINOPHEN 500 MG TAB PO PRN (16:16)
[2020-12-25 16:37] LABS: BASO % 0.3 % (0.0-1.0); EOS # 0.1 10^3/uL (0.0-0.5); EOS % 0.8 % (0.0-3.0); HEMATOCRIT 35.2 % (36.0-47.0); HEMOGLOBIN 10.8 g/dl (12.0-15.5); LYMPH # 1.5 10^3/uL (1.5-5.0); LYMPH % 13.3 % (24.0-44.0); MEAN CORPUSCULAR HEMOGLOBIN 25.2 pg (27.0-33.0); MEAN CORPUSCULAR HGB CONC 30.7 g/dl (32.0-36.5); MEAN CORPUSCULAR VOLUME 82.2 fl (80.0-96.0); NEUTROPHILS # 8.8 10^3/uL (1.5-8.5); NEUTROPHILS % 76.3 % (36.0-66.0); PLATELET COUNT, AUTOMATED 164 10^3/uL (150-450); RED BLOOD COUNT 4.28 10^6/uL (4.00-5.40); WHITE BLOOD COUNT 11.5 10^3/uL (4.0-10.0)
[2020-12-25 17:08] LABS: BLOOD UREA NITROGEN 14 MG/DL (7-18); CALCIUM LEVEL 8.8 MG/DL (8.5-10.1); CARBON DIOXIDE LEVEL 27 MEQ/L (21-32); CHLORIDE LEVEL 110 MEQ/L (98-107); CREATININE FOR GFR 0.92 MG/DL (0.55-1.30); GLOMERULAR FILTRATION RATE > 60.0 (>60); GLUCOSE, FASTING 106 MG/DL (70-100); POTASSIUM SERUM 3.8 MEQ/L (3.5-5.1); SODIUM LEVEL 140 MEQ/L (136-145)
[2020-12-25 22:00] VITALS: BP 122/73
[2020-12-26] MEDS: metroNIDAZOLE 500 MG in IV 1 EA IV SCH ×3 (00:35→16:34)
[2020-12-26] MEDS: cefTRIAXone SOD 1 GM in D5W MINI-BAG PLUS 50 ML IV SCH (02:35)
[2020-12-26] MEDS: NS 1,000 ML IV SCH (02:39)
[2020-12-26] MEDS: ACETAMINOPHEN 500 MG TAB PO PRN ×2 (05:35→20:29)
[2020-12-26] MEDS: LEVOTHYROXINE 125MCG TABLET (0.125MG) PO SCH (05:35)
[2020-12-26 06:00] VITALS: BP 114/69
[2020-12-26] MEDS: HYDROXYCHLOROQUINE 200 MG TAB PO SCH ×2 (08:07→20:29)
[2020-12-26] MEDS: LACTOBACILLUS ACIDOPHILUS CAP (BACID) PO SCH (08:07)
[2020-12-26 09:26] LABS: BASO % 0.3 % (0.0-1.0); EOS # 0.1 10^3/uL (0.0-0.5); EOS % 1.9 % (0.0-3.0); HEMATOCRIT 33.5 % (36.0-47.0); HEMOGLOBIN 10.3 g/dl (12.0-15.5); LYMPH # 1.3 10^3/uL (1.5-5.0); LYMPH % 18.9 % (24.0-44.0); MEAN CORPUSCULAR HEMOGLOBIN 25.5 pg (27.0-33.0); MEAN CORPUSCULAR HGB CONC 30.7 g/dl (32.0-36.5); MEAN CORPUSCULAR VOLUME 82.9 fl (80.0-96.0); MONO # 0.7 10^3/uL (0.0-0.8); MONO % 10.5 % (2.0-8.0); NEUTROPHILS # 4.8 10^3/uL (1.5-8.5); PLATELET COUNT, AUTOMATED 149 10^3/uL (150-450); RED BLOOD COUNT 4.04 10^6/uL (4.00-5.40)
--- NOTE | 2020-12-26 09:35 | IPNPDOC ---
Subjective Date Seen The patient was seen on 12/26/20. Subjective Chief Complaint/HPI S: 35yo who presented with lower abdominal pain, primarily located in RLQ. Workup in the ER c/w right sided pyosalpinx/TOA (see below). She was admitted for IV antibiotics and pain control. Since her admission and the initiation of antibiotics, her pain has significantly improved. States she has had chronic pain in RLQ ever since her PLTCS / BTL. Pain was exacerbated, unprovoked for 24-48 hours prior to her ER presentation. She has had similar acute exacerbations of pain over the past several weeks/months, but had not sought med ical attention in the hospital until now. Also complains of abnormal uterine bleeding / heavy menstruation. She is hoping to have a hysterectomy in the near future PMH: Sjorgens, Hypothyrodism, Obesity SH: LTCS/BTL, no other abdominal surgeries VSS/afebrile Abd: soft,nt,nd, no guarding / rebound tenderness. Ext: no c/c/e Pelvic deferred for now. IMAGING: CT abd/pelvis IMPRESSION: 1. Splenomegaly. 2. Prominent bilateral ovaries with numerous small follicles insists, the right is larger than the left and appears more lobulated, with a possible tubular area of fluid, question hydrosalpinx or pyosalpinx. US pelvis IMPRESSION: 1. Large dilated tubular structure in the right adnexa on cerning for hydrosalpinx or pyosalpinx. 2. Possible hydrosalpinx on the left. Evaluation is limited by bowel gas. A/P: 35 yo with Right pyosalpinx/TOA. h/o AUB. Clinically improving. -Continue IV antibiotics until tomorrow -Transition to PO antibiotics as outpatient -Close outpatient BALLO[facility] ARTIST follow up to be scheduled; info submitted for RALH/oBS -Anticipate D/c tomorrow. Amanda Merlos, DO Assessment /Plan Plan/VTE VTE Prophylaxis Ordered?: Yes VTE Exclusion Mechanical Proph: Low Risk for VTE VTE Exclusion Pharmacological: At Low Risk for VTE (SCD's on/functioning) VS, I&O, 24H, Fishbone Vital Signs/I&O Vital Signs Date Time Temp Pulse Resp B/P (MAP) Pulse Ox O2 Delivery O2 Flow Rate FiO2 12/26/20 06:00 98.5 86 18 114/69 (84) 97 Room Air I&O- Last 24 Hours up to 6 AM 12/26/20 06:00 Intake Total 4565 ml Output Total 1975 ml Balance 2590 ml Laboratory Data 24H LABS Laboratory Tests 2 12/25/20 11:34: Lab Scanned Report Miscellaneous Lab 12/25/20 16:15: Immature Granulocyte % (Auto) 0.3, Neutrophils (%) (Auto) 76.3H, Lymphocytes (%) (Auto) 13.3L, Monocytes (%) (Auto) 9.0H, Eosinophils (%) (Auto) 0.8, Basophils (%) (Auto) 0.3, Neutrophils # (Auto) 8.8H, Lymphocytes # (Auto) 1.5, Monocytes # (Auto) 1.0H, Eosinophils # (Auto) 0.1, Basophils # (Auto) 0.0, Nucleated Red Blood Cells % (auto) 0.0, Anion Gap 3L, Glomerular Filtration Rate > 60.0, Calcium Level 8.8, C-Reactive Protein, Quantitative 11.60H CBC/BMP Laboratory Tests 12/25/20 16:15 Microbiology Microbiology 12/25/20 Wet Prep - Final, Complete 12/24/20 Urine Culture, Received Pending VIKI MERLOS DO Dec 26, 2020 09:35
[2020-12-26] MEDS ORDERED: DOXY100T27 PO (09:40)
[2020-12-26] MEDS ORDERED: FLAG500T PO (09:40)
[2020-12-26 10:00] VITALS: BP 133/87
[2020-12-26 10:01] LABS: BLOOD UREA NITROGEN 15 MG/DL (7-18); C REACTIVE PROTEIN QUANTITATIV 7.65 MG/DL (0.00-0.30); CALCIUM LEVEL 8.1 MG/DL (8.5-10.1); CARBON DIOXIDE LEVEL 27 MEQ/L (21-32); CHLORIDE LEVEL 112 MEQ/L (98-107); GLOMERULAR FILTRATION RATE > 60.0 (>60); GLUCOSE, FASTING 88 MG/DL (70-100); POTASSIUM SERUM 3.9 MEQ/L (3.5-5.1); SODIUM LEVEL 143 MEQ/L (136-145)
[2020-12-26] MEDS: IBUPROFEN 800 MG TAB PO PRN (13:05)
--- NOTE | 2020-12-26 13:17 | IPNPDOC ---
Subjective Date Seen The patient was seen on 12/26/20. Subjective Chief Complaint/HPI Reports that pain is much less today and now its more localized to robles right lower quadrant and not all over. She did have some diarrhea x2. Good appetite, no fever or chills. Objective Physical Examination General Exam: Positive: Alert, No Acute Distress Eye Exam: Positive: PERRLA, Conjunctiva & lids normal, EOMI; Negative: Sclera icteric ENT Exam: Positive: Atraumatic, Mucous membr. moist/pink, Pharynx Normal Neck Exam: Positive: Supple; Negative: JVD, thyromegaly Chest Exam: Positive: Clear to auscultation, Normal air movement Heart Exam: Positive: Rate Normal, Regular Rhythm, Normal S1, Normal S2; Negative: Murmurs, Rubs Telemetry: Positive: No significant arrhythmia Abdomen Exam: Positive: BS Hyperactive, Soft, Tenderness (right lower quadrant with mild localized rebound), Other (No guarding or rigidity,no generalized prisca toneal signs. ) Female Exam: Positive: Nl Ext Genitalia; Negative: Lesions, Discharge, Odor, Tenderness Extremity Exam: Negative: Clubbing, Cyanosis, Edema Skin Exam: Positive: Nl turgor and temperature; Negative: Rash, Breakdown Neuro Exam: Positive: Normal Speech, Cranial Nerves 3-12 NL, Reflexes 2+ Psych Exam: Positive: Mental status NL, Mood NL, Oriented x 3 Assessment /Plan Assessment is a 35 yr old w a hx of Sjgren Hypothyroidism and obesity who presented w c/o severe abdominal pain despite tx for a UTI; her UA was positive while imaging studies showed possible hydrosalpinx and pyosalpinx; she will be admitted for management of abdominal pain pending Gyne eval. Right pyosalpinx/TOA CT abd/pelvis IMPRESSION: 1. Splenomegaly. 2. Prominent bilateral ovaries with numerous small follicles insists, the right is larger than the left and appears more lobulated, with a possible tubular area of fluid, question hydrosalpinx or pyosalpinx. US pelvis IMPRESSION: 1. Large dilated tubular structure in the right adnexa oncerning for hydrosalpinx or pyosalpinx. 2. Possible hydrosalpinx on the left. Evaluation is limited by bowel gas. will continue ceftrixone and flagyl Seen by Dr Merlos Hypothyroidism Levothyroxine Sjgren Prednisone and Plaquenil Plan/VTE VTE Prophylaxis Ordered?: Yes VTE Exclusion Mechanical Proph: Low Risk for VTE VTE Exclusion Pharmacological: At Low Risk for VTE (SCD's on/functioning) VS, I&O, 24H, Fishbone Vital Signs/I&O Vital Signs Date Time Temp Pulse Resp B/P (MAP) Pulse Ox O2 Delivery O2 Flow Rate FiO2 12/26/20 10:00 96.9 79 18 133/87 (102) 98 Room Air I&O- Last 24 Hours up to 6 AM 12/26/20 06:00 Intake Total 4565 ml Output Total 1975 ml Balance 2590 ml Laboratory Data 24H LABS Laboratory Tests 2 12/25/20 16:15: Immature Granulocyte % (Auto) 0.3, Neutrophils (%) (Auto) 76.3H, Lymphocytes (%) (Auto) 13.3L, Monocytes (%) (Auto) 9.0H, Eosinophils (%) (Auto) 0.8, Basophils (%) (Auto) 0.3, Neutrophils # (Auto) 8.8H, Lymphocytes # (Auto) 1.5, Monocytes # (Auto) 1.0H, Eosinophils # (Auto) 0.1, Basophils # (Auto) 0.0, Nucleated Red Blood Cells % (auto) 0.0, Anion Gap 3L, Glomerular Filtration Rate > 60.0, Calcium Level 8.8, C-Reactive Protein, Quantitative 11.60H 12/26/20 08:50: Immature Granulocyte % (Auto) 0.4, Neutrophils (%) (Auto) 68.0H, Lymphocytes (%) (Auto) 18.9L, Monocytes (%) (Auto) 10.5H, Eosinophils (%) (Auto) 1.9, Basophils (%) (Auto) 0.3, Neutrophils # (Auto) 4.8, Lymphocytes # (Auto) 1.3L, Monocytes # (Auto) 0.7, Eosinophils # (Auto) 0.1, Basophils # (Auto) 0.0, Nucleated Red Blood Cells % (auto) 0.0, Anion Gap 4L, Glomerular Filtration Rate > 60.0, Calcium Level 8.1L, C-Reactive Protein, Quantitative 7.65H CBC/BMP Laboratory Tests 12/25/20 16:15 12/26/20 08:50 Microbiology Microbiology 12/25/20 Wet Prep - Final, Complete 12/24/20 Urine Culture, Received Pending GENEVIEVE ERICKSON MD Dec 26, 2020 13:17
[2020-12-26 18:00] VITALS: BP 139/88
[2020-12-26 22:00] VITALS: BP 122/75
[2020-12-26] MEDS: KETOROLAC TROMETHAMINE 10 MG TAB PO PRN (22:35)
[2020-12-27] MEDS: cefTRIAXone SOD 1 GM in D5W MINI-BAG PLUS 50 ML IV SCH (03:45)
[2020-12-27] MEDS: LEVOTHYROXINE 125MCG TABLET (0.125MG) PO SCH (05:35)
[2020-12-27 06:00] VITALS: BP 123/72
[2020-12-27] MEDS: LACTOBACILLUS ACIDOPHILUS CAP (BACID) PO SCH (09:37)
[2020-12-27] MEDS: metroNIDAZOLE 500 MG in IV 1 EA IV SCH ×3 (09:37)
[2020-12-27] MEDS: HYDROXYCHLOROQUINE 200 MG TAB PO SCH (09:37)
[2020-12-27] MEDS: IBUPROFEN 800 MG TAB PO PRN (09:38)
--- NOTE | 2020-12-27 15:50 | DS.PDOC ---
Discharge Summary General Date of Admission Dec 25, 2020 at 01:39 Date of Discharge 12/27/20 Discharge Summary PROCEDURES: None DISCHARGE DIAGNOSIS: RIght sided Pyosalpinx and Tuboovarian abscess. SECONDARY DIAGNOSIS: Sjogren's syndrome Hypothyroidism Obesity Hospital Course: is a 35 yr old w a hx of Sjgren Hypothyroidism and obesity who presented w c/o severe abdominal pain despite tx for a UTI; her UA was positive while imaging studies showed possible hydrosalpinx and pyosalpinx; she was admitted for management of abdominal pain pending Gyne eval. She was seen by Dr Merlos from [facility] and reccomended 3 days of IV antibiotics then home with oral antibiotics. Right pyosalpinx and Tuboovarin abscess. CT abd/pelvis IMPRESSION: 1. Splenomegaly. 2. Prominent bilateral ovaries with numerous small follicles insists, the right is larger than the left and appears more lobulated, with a possible tubular area of fluid, question hydrosalpinx or pyosalpinx. US pelvis IMPRESSION: 1. Large dilated tubular structure in the right adnexa oncerning for hydrosalpinx or pyosalpinx. 2. Possible hydrosalpinx on the left. Evaluation is limited by bowel gas. discharged with doxycycline and metronidazole. Hypothyroidism Levothyroxine Sjgren Prednisone and Plaquenil Physical Exam: Vitals: As below General Exam: Positive: Alert, No Acute Distress Eye Exam: Positive: PERRLA, Conjunctiva & lids normal, EOMI; Negative: Sclera icteric ENT Exam: Positive: Atraumatic, Mucous membr. moist/pink, Pharynx Normal Neck Exam: Positive: Supple; Negative: JVD, thyromegaly Chest Exam: Positive: Clear to auscultation, Normal air movement Heart Exam: Positive: Rate Normal, Regular Rhythm, Normal S1, Normal S2; Negative: Murmurs, Rubs Telemetry: Positive: No significant arrhythmia Abdomen Exam: Positive: BS Hyperactive, Soft, Tenderness (right lower quadrant with mild localized rebound), Other (No guarding or rigidity,no generalized peritoneal signs. ) Female Exam: Positive: Nl Ext Genitalia; Negative: Lesions, Discharge, Odor, Tenderness Extremity Exam: Negative: Clubbing, Cyanosis, Edema Skin Exam: Positive: Nl turgor and temperature; Negative: Rash, Breakdown Neuro Exam: Positive: Normal Speech, Cranial Nerves 3-12 NL, Reflexes 2+ Psych Exam: Positive: Mental status NL, Mood NL, Oriented x 3 Allergies: See below Discharge Medications : See below LABS : As below Radiology: CT abd/pelvis IMPRESSION: 1. Splenomegaly. 2. Prominent bilateral ovaries with numerous small follicles insists, the right is larger than the left and appears more lobulated, with a possible tubular area of fluid, question hydrosalpinx or pyosalpinx. US pelvis IMPRESSION: 1. Large dilated tubular structure in the right adnexa oncerning for hydrosalpinx or pyosalpinx. 2. Possible hydrosalpinx on the left. Evaluation is limited by bowel gas. Diet: Regular Activity: as tolerated Disposition: Home DISPOSITION: Home, Self-Care. DISCHARGE INSTRUCTIONS: Dr Merlos in 1 week DISCHARGE CONDITION: [Stable]. TIME SPENT ON DISCHARGE: 35 minutes. Vital Signs/I&Os Vital Signs Date Time Temp Pulse Resp B/P (MAP) Pulse Ox O2 Delivery O2 Flow Rate FiO2 12/27/20 06:00 97.1 71 18 123/72 (89) 99 Room Air I&O- Last 24 Hours up to 6 AM 12/27/20 06:00 Intake Total 3055 ml Output Total 2900 ml Balance 155 ml Microbiology Microbiology 12/25/20 Wet Prep - Final, Complete 12/24/20 Urine Culture - Final, Complete Discharge Medications Scheduled Ascorbic Acid (Vitamin C with Dea Hips) 500 Mg Tablet, 500 MG PO DAILY, (Re ported) Cholecalciferol (Vitamin D3) (Vitamin D3) 250 Mcg Capsule, 250 MCG PO DAILY, (Reported) Doxycycline Monohydrate (Doxycycline Monohydrate) 100 Mg Tablet, 1 TAB PO BID Ferrous Sulfate (Ferrous Sulfate) 325 Mg Tablet, 325 MG PO BID, (Reported) Hydroxychloroquine Sulfate (Plaquenil) 200 Mg Tablet, 200 MG PO BID, (Reported) Levothyroxine Sodium (Synthroid) 125 Mcg Tablet, 125 MCG PO DAILY, (Reported) Metronidazole (Flagyl) 500 Mg Tablet, 1 TAB PO BID Scheduled PRN Acetaminophen (Tylenol Extra Strength) 500 Mg Tablet, 1,000 MG PO Q6H PRN for PAIN, (Reported) Albuterol Sulf (Albuterol Sulfate) 2.5 Mg/3 Ml Vial.neb, 2.5 MG INH Q6H PRN for SHORTNESS OF BREATH, (Reported) Albuterol Sulfate (Proair Hfa) 8.5 Gm Hfa.aer.ad, 2 PUFF INH Q6H PRN for SHORT NESS OF BREATH, (Reported) Cetirizine HCl (Cetirizine HCl) 10 Mg Tablet, 10 MG PO DAILY PRN for ALLERGIES, (Reported) Ibuprofen (Ibuprofen) 600 Mg Tablet, 600 MG PO Q6H PRN for PAIN, (Reported) Prednisone (Prednisone) 5 Mg Tablet, 5 MG PO DAILY PRN for PAIN, (Reported) Allergies Coded Allergies: No Known Allergies (Verified , 12/07/19) GENEVIEVE ERICKSON MD Dec 27, 2020 15:50
== END 2020-12-27 11:35 | disposition home or self-care (01) | DRG 531 ==
LOC: M ED 19:17 → M ED INP 12-25 01:39 → M MSPAV 12-25 05:30
PROVIDERS: ADMIT Internal Medicine; ATTEND Internal Medicine Nephrology
DX: N70.93 Salpingitis and oophoritis, unspecified (principal); Q87.19 Other congenital malformation syndromes predominantly associated with short stature; M35.00 Sjogren syndrome, unspecified; N39.0 Urinary tract infection, site not specified; E03.9 Hypothyroidism, unspecified; E66.9 Obesity, unspecified; Z79.899 Other long term (current) drug therapy; Z79.82 Long term (current) use of aspirin

== ENCOUNTER → 2021-01-20 | Outpatient (REF) | payer OTHER ==
[~2021-01-20] MED LIST changes: +ACET-683 PO; +ACET-897 PO; +ALBU83IN INH; +ASPI-161 PO; +DOXY100T27 PO; +FERR1TAB8 PO; +FERR325T18; +FLAG500T PO; +IBUP-1022 PO; +IBUP1TAB6 PO; +LEVO125T4; +MACR100C43 PO; +NITR100C2; +PHEN-501; +PHEN1TAB74 PO; +PRED5TA PO; +PROAAER10 INH; +SYNT125T PO; +VITA1CAP14 PO; +VITA500T21; +VITA500T21 PO
[2021-01-20 10:49] LABS: HEMATOCRIT 40.1 % (36.0-47.0); HEMOGLOBIN 12.6 g/dl (12.0-15.5); MEAN CORPUSCULAR HEMOGLOBIN 25.7 pg (27.0-33.0); MEAN CORPUSCULAR HGB CONC 31.4 g/dl (32.0-36.5); MEAN CORPUSCULAR VOLUME 81.8 fl (80.0-96.0); PLATELET COUNT, AUTOMATED 152 10^3/uL (150-450); WHITE BLOOD COUNT 6.2 10^3/uL (4.0-10.0)
== END ==
LOC: M PLALAB 08:43
PROVIDERS: ATTEND Obstetrics & Gynecology
DX: N70.93 Salpingitis and oophoritis, unspecified (principal)

== ENCOUNTER → 2021-01-20 | Outpatient (REF) | payer OTHER | LOC: M SFHCWAGY 14:23 | PROVIDERS: ATTEND Obstetrics & Gynecology | DX: N93.9 Abnormal uterine and vaginal bleeding, unspecified (principal) ==

== ENCOUNTER → 2021-01-27 | Outpatient (REF) | payer OTHER ==
[2021-01-27 17:16] LABS: BASO % 0.6 % (0.0-1.0); EOS # 0.1 10^3/uL (0.0-0.5); EOS % 1.9 % (0.0-3.0); HEMATOCRIT 39.8 % (36.0-47.0); HEMOGLOBIN 12.6 g/dl (12.0-15.5); LYMPH % 29.1 % (24.0-44.0); MEAN CORPUSCULAR HEMOGLOBIN 25.9 pg (27.0-33.0); MEAN CORPUSCULAR HGB CONC 31.7 g/dl (32.0-36.5); MEAN CORPUSCULAR VOLUME 81.9 fl (80.0-96.0); MONO # 0.8 10^3/uL (0.0-0.8); MONO % 11.8 % (2.0-8.0); NEUTROPHILS # 3.8 10^3/uL (1.5-8.5); NEUTROPHILS % 56.3 % (36.0-66.0); PLATELET COUNT, AUTOMATED 184 10^3/uL (150-450); RED BLOOD COUNT 4.86 10^6/uL (4.00-5.40); WHITE BLOOD COUNT 6.7 10^3/uL (4.0-10.0)
[2021-01-27 17:45] LABS: BLOOD UREA NITROGEN 13 MG/DL (7-18); CALCIUM LEVEL 8.9 MG/DL (8.5-10.1); CARBON DIOXIDE LEVEL 30 MEQ/L (21-32); CHLORIDE LEVEL 106 MEQ/L (98-107); CREATININE FOR GFR 0.78 MG/DL (0.55-1.30); FERRITIN 13 NG/ML (8-252); GLOMERULAR FILTRATION RATE > 60.0 (>60); GLUCOSE, FASTING 84 MG/DL (70-100); IRON (FE) 30 UG/DL (50-170); PERCENT SATURATION 8.8 % (13.2-45.0); POTASSIUM SERUM 4.2 MEQ/L (3.5-5.1); SODIUM LEVEL 139 MEQ/L (136-145); TOTAL 25(OH) VITAMIN D 16.5 NG/ML (30.0-100.0); TOTAL IRON BINDING CAPACITY 341 UG/DL (250-450)
== END ==
LOC: M LAB REF 16:29
PROVIDERS: ATTEND Physician Assistant
DX: Z01.818 Encounter for other preprocedural examination (principal); M81.0 Age-related osteoporosis without current pathological fracture

== ENCOUNTER → 2021-02-04 | Outpatient (CLI) | payer OTHER ==
[~2021-02-04] MED LIST changes: +DOK1CAP7 PO; +IBUP80TA PO; +PERCOCET PO
== END ==
LOC: M LABSMTC 10:45
PROVIDERS: ATTEND Anesthesiology
DX: Z01.812 Encounter for preprocedural laboratory examination (principal)

== ENCOUNTER 2021-02-09 06:58 | Day surgery (SDC) | payer OTHER ==
[~2021-02-09] VITALS: Ht 172.7 cm; Wt 98.4 kg
[~2021-02-09 06:58] MED LIST changes: -DOK1CAP7 PO; -IBUP80TA PO; +LEVOTHYROXINE 125MCG TABLET (0.125MG) PO SCH; -PERCOCET PO
[2021-02-09] MEDS ORDERED: ceFAZolin SOD 2 GM in IV 1 EA IV ONE (07:00)
[2021-02-09] MEDS ORDERED: LR 1,000 ML IV ONE (07:00)
[2021-02-09] MEDS ORDERED: BUPIVACAINE HCL 0.25% 30ML VIAL As Ordered ONE ×2 (07:18→08:20)
[2021-02-09] MEDS ORDERED: METHYLENE BLUE 0.5% (5MG/ML) 10 ML AMP (PROVAYBLUE) As Ordered ONE ×2 (07:19→08:20)
[2021-02-09 07:34] LABS: HEMATOCRIT 40.3 % (36.0-47.0); HEMOGLOBIN 12.7 g/dl (12.0-15.5); MEAN CORPUSCULAR HEMOGLOBIN 25.8 pg (27.0-33.0); MEAN CORPUSCULAR HGB CONC 31.5 g/dl (32.0-36.5); MEAN CORPUSCULAR VOLUME 81.9 fl (80.0-96.0); PLATELET COUNT, AUTOMATED 178 10^3/uL (150-450); RED BLOOD COUNT 4.92 10^6/uL (4.00-5.40); WHITE BLOOD COUNT 6.1 10^3/uL (4.0-10.0)
[2021-02-09 07:49] LABS: HCG, SERUM QUALITATIVE NEGATIVE (NEGATIVE)
[2021-02-09] MEDS ORDERED: MIDAZOLAM INJ 2MG/2ML VIAL (J2250 PER 1MG) As Ordered ONE (07:53)
[2021-02-09] MEDS ORDERED: LIDOCAINE 2% 100MG/5ML SDV (FOR ANES.) As Ordered ONE (07:53)
[2021-02-09] MEDS ORDERED: fentaNYL 250 MCG/5 ML INJECTION (J3010) As Ordered ONE (07:53)
[2021-02-09] MEDS ORDERED: ROCURONIUM BROMIDE 50 MG/5 ML VIAL As Ordered ONE ×2 (07:53→09:07)
[2021-02-09] MEDS ORDERED: propofoL 200 MG/20 ML VIAL As Ordered ONE (07:53)
[2021-02-09] MEDS ORDERED: SCOPOLAMINE 1MG TRANSDERMAL PATCH As Ordered ONE (08:27)
[2021-02-09] MEDS ORDERED: dexameTHASONE 4 MG/ML 1ML VIAL (J1100 PER 1MG) As Ordered ONE (08:51)
[2021-02-09] MEDS ORDERED: DOCUSATE SODIUM 100MG CAPSULE PO SCH (09:00)
[2021-02-09] MEDS ORDERED: HYDROXYCHLOROQUINE 200 MG TAB PO SCH (09:00)
[2021-02-09] MEDS ORDERED: ACETAMINOPHEN 1000MG 100ML IV BTL (OFIRMEV) (J0131 PER 10MG) As Ordered ONE (09:04)
[2021-02-09] MEDS ORDERED: ONDANSETRON 4MG/2ML VIAL As Ordered ONE (09:07)
[2021-02-09] MEDS ORDERED: KETOROLAC 60MG 2ML VIAL As Ordered ONE (09:07)
[2021-02-09] MEDS ORDERED: METOCLOPRAMIDE INJ 10MG/2ML VIAL (J2765 PER 1) As Ordered ONE (09:07)
[2021-02-09] MEDS ORDERED: HYDROmorphone HCL 2 MG/ML 1ML VIAL (J1170) As Ordered ONE (09:08)
[2021-02-09] MEDS ORDERED: SUGAMMADEX SODIUM 500 MG/5 ML VIAL (BRIDION) As Ordered ONE (09:38)
[2021-02-09] MEDS ORDERED: LR 1,000 ML IV SCH ×2 (10:50→11:00)
[2021-02-09] MEDS ORDERED: CETIRIZINE (ZyrTEC) 10 MG TAB PO PRN (10:50)
[2021-02-09] MEDS ORDERED: ALBUTEROL SULFATE 2.5 MG/0.5 ML INH NEB SOLN INH PRN (10:50)
[2021-02-09] MEDS ORDERED: ONDANSETRON 4MG/2ML VIAL IV PRN ×2 (10:50→11:00)
[2021-02-09] MEDS ORDERED: PERCOCET 5MG/325MG TAB PO PRN ×2 (10:50)
--- NOTE | 2021-02-09 10:53 | ROOPDOC ---
[facility] Report Of Operation Report of Operation DATE OF PROCEDURE: 02/09/2021 PREPROCEDURE DIAGNOSES: Abnormal uterine bleeding, chronic pelvic pain. POSTPROCEDURE DIAGNOSES: Same. PROCEDURE: Robotic-assisted total laparoscopic hysterectomy, bilateral salpingectomy, lysis of adhesions cystoscopy SURGEON: Masnoor Merlos D.O. FACOG ACCOUNTS CLERK: Mary Reynaga ANESTHESIA: General endotracheal. ESTIMATED BLOOD LOSS: Approximately 200 mL. FLUIDS REPLACED: 1200 mL LR URINE OUTPUT: 300 mL COMPLICATIONS: None. FINDINGS: Normal-appearing ovaries bilaterally. Uterus was approximately 10 centimeters in greatest dimension. Severe pelvic adhesions, particularly involving the omentum and anterior abdominal wall and lower uterine segment and bladder. Cystoscopy: Bilateral ureteral orifice efflux, no bladder injury/suture material. PREOPERATIVE ANTIBIOTIC PROPHYLAXIS: Ancef 2 g IV 1. SPECIMEN(S): Uterus w/ cervix, bilateral distal fallopian tubes DESCRIPTION OF PROCEDURE: The patient was counseled, consented on the respective benefits, indications, alternatives of procedure. Informed consent was obtained. She was taken to the operating room with an IV running. She was placed on the operating table in dorsal supine position. Gen. anesthesia was administered and the airway was secured without any difficulty. She was placed in the low lithotomy position. . She was prepared and draped in the normal sterile fashion. A time out was performed per protocol. A Riddle catheter was placed under sterile conditions. A sterile speculum was placed resulting in good visualization of the cervix. A single-tooth tenaculum was used to grasp the anterior lip cervix. The cervix was sequentially dilated with Morris dilators. A V-Care uterine manipulator was placed without any difficulty. The single-tooth tenaculum was removed, as well as the speculum. A sterile glove switch was performed. Attention was turned to the abdomen. A 2mm incision was made in the umbilicus, and through this incision a Veress needle was inserted into the intraperitoneal cavity. Intraperitoneal placement was confirmed with ease of flow of normal saline, positive drop test, no return on aspiration, and an opening pressure of less than 10 mmHg upon initial insufflation. The abdomen was insufflated with 2 L of gas. The Veress needle was removed. A supraumbilical 8 mm incision was made. Through this incision, the robotic trochar/cannula was inserted into the intraperitoneal cavity under direct visualization. No incidental bleeding nor injury was noted. Patient was placed in 30 Trendelenburg. The right and left trocars/cannulas were placed on both the right and left side through 8 mm incisions, guided by laparoscopic visualization. No incidental bleeding nor injury was noted. The robot was docked in typical fashion. The instruments were inserted, guided by laparoscopic visualization. My attention was turned to the robotic console. The anterior abdominal wall to omental adhesions were taken down using the vessel sealer. Using the vessel sealer device, the right and left fallopian tubes were amputated. Adhesiolysis was also performed in this process. The fallopian tubes were brought through the assist-port cannula without any difficulty. The right utero-ovarian lig ament and right round ligament were sequentially clamped, coagulated and transected with the vessel sealer device. The vesicouterine peritoneum was dissected with the vessel sealer device to create the bladder flap, thus mobilizing the lower uterine segment and cervix off of the bladder. This involved an extensive amount of adhesiolysis. The right uterine vasculature was sequentially clamped, coagulated and transected above the colpotomy cup. The left utero-ovarian ligament and left round ligament were sequentially clamped, coagulated and transected with the vessel sealer device. The remainder of the bladder flap was dissected using the vessel sealer device and blunt dissection. The left uterine vasculature was sequentially clamped, coagulated and transected above the colpotomy cup. The outline of the entire V- care colpotomy cup was able to be delineated. Excellent blanching of the uterus was noted. A circumferential colpotomy was performed using the da Leopoldo monopolar adriana, following the contour of the cup. The amputated cervix and uterus were brought through the colpotomy into and out of the vagina, intact as one unit. The colpotomy was closed with the V-lock barbed suture in running fashion, thus creating the vaginal cuff. Excellent hemostasis was noted throughout the steps above. Yossi was placed over the vaginal cuff to ensure hemostasis. The instruments were removed from the abdomen and the robot was un-docked. The gas was released from the abdomen and the patient was taken out of Trendelenburg. I re-scrubbed, and attention was turned to the pelvis. The Riddle catheter was removed. The cystoscope was placed transurethrally into the bladder and normal saline was instilled. No bladder injury/suture material was noted. IV methylene blue had been administered by anesthesia and bilateral UO efflux was confirmed. The fluid was drained out of the bladder through the cystoscope device, then the cystoscope was removed. The vagina was copiously irrigated. A sterile digital vaginal exam revealed no significant bleeding and an intact vaginal cuff. A sterile glove switch was performed. The da Leopoldo cannulas were removed. The skin incisions were closed with 4-0 Monocryl in subcuticular fashion. Sponge, needle and instrument counts were correct per protocol. The patient tolerated the entire procedure very well. She was transferred to the PACU in good and stable condition. DO JUAN Gross JONATHAN R. DO Feb 09, 2021 10:53
[2021-02-09] MEDS ORDERED: MEPERIDINE INJ 25 MG/ML VIAL (J2175) IV PRN (11:00)
[2021-02-09] MEDS ORDERED: oxyCODONE 5MG TAB PO PRN (11:00)
[2021-02-09] MEDS ORDERED: METOCLOPRAMIDE INJ 10MG/2ML VIAL (J2765 PER 1) IV PRN (11:00)
[2021-02-09] MEDS ORDERED: fentaNYL 100 MCG/2 ML INJECTION (J3010) IV PRN (11:00)
[2021-02-09] MEDS ORDERED: PERCOCET PO (13:07)
[2021-02-09] MEDS ORDERED: IBUP80TA PO (13:07)
[2021-02-09] MEDS ORDERED: DOK1CAP7 PO (13:07)
[2021-02-09 14:15] VITALS: BP 111/74
[2021-02-09 15:45] VITALS: BP 112/64
[2021-02-09] MEDS ORDERED: KETOROLAC 30 MG/ML 1ML VIAL IV SCH (16:30)
[2021-02-10] MEDS ORDERED: IBUPROFEN 800 MG TAB PO SCH (12:30)
== END 2021-02-09 17:30 | disposition home or self-care (01) ==
LOC: M SDC 06:58 → M MSPAV 14:14 → M SDC 17:30
PROVIDERS: ATTEND Obstetrics & Gynecology
DX: N93.9 Abnormal uterine and vaginal bleeding, unspecified (principal); N72 Inflammatory disease of cervix uteri; R10.2 Pelvic and perineal pain; E03.9 Hypothyroidism, unspecified; F41.9 Anxiety disorder, unspecified; J45.909 Unspecified asthma, uncomplicated; Z79.51 Long term (current) use of inhaled steroids; Z79.899 Other long term (current) drug therapy; Q07.00 Arnold-Chiari syndrome without spina bifida or hydrocephalus
CPT/HCPCS: 36415; 58571; 84703; 85027; 86850; 86900; 86901; 88307; 96374; J0131; J0690; J1100; J1170; J1885; J2250; J2405; J2765; J3010; Q9968; S2900

== ENCOUNTER → 2021-02-13 | Outpatient (REF) | payer OTHER ==
[~2021-02-13] MED LIST changes: +DOK1CAP7 PO; +IBUP80TA PO; -LEVOTHYROXINE 125MCG TABLET (0.125MG) PO SCH; +PERCOCET PO
[2021-02-13 17:36] LABS: BASO % 0.5 % (0.0-1.0); EOS # 0.3 10^3/uL (0.0-0.5); EOS % 3.1 % (0.0-3.0); HEMATOCRIT 38.5 % (36.0-47.0); HEMOGLOBIN 11.8 g/dl (12.0-15.5); LYMPH # 1.9 10^3/uL (1.5-5.0); MEAN CORPUSCULAR HEMOGLOBIN 25.4 pg (27.0-33.0); MEAN CORPUSCULAR HGB CONC 30.6 g/dl (32.0-36.5); MONO # 0.7 10^3/uL (0.0-0.8); MONO % 7.8 % (2.0-8.0); NEUTROPHILS # 5.9 10^3/uL (1.5-8.5); NEUTROPHILS % 66.3 % (36.0-66.0); PLATELET COUNT, AUTOMATED 173 10^3/uL (150-450); RED BLOOD COUNT 4.64 10^6/uL (4.00-5.40); WHITE BLOOD COUNT 8.8 10^3/uL (4.0-10.0)
== END ==
LOC: M PLALAB 15:34
PROVIDERS: ATTEND Advanced Practice Midwife
DX: Z09 Encounter for follow-up examination after completed treatment for conditions other than malignant neoplasm (principal)

== ENCOUNTER → 2021-02-16 | Outpatient (REF) | payer OTHER ==
[2021-02-16 14:15] LABS: APPEARANCE, URINE CLEAR (CLEAR); BACTERIA, URINE AUTO 2+ (NEGATIVE); BILIRUBIN, URINE AUTO NEGATIVE (NEGATIVE); BLOOD, URINE BLOOD NEGATIVE (NEGATIVE); COLOR, URINE YELLOW (YELLOW); GLUCOSE, URINE (UA) AUTO NEGATIVE (NEGATIVE); KETONE, URINE AUTO NEGATIVE (NEGATIVE); LEUKOCYTE ESTERASE, URINE AUTO NEGATIVE (NEGATIVE); MUCUS, URINE SMALL (NEGATIVE); NITRITE, URINE AUTO NEGATIVE (NEGATIVE); PROTEIN, URINE AUTO NEGATIVE (NEGATIVE); RBC, URINE AUTO 0 /HPF (0-3); SPECIFIC GRAVITY URINE AUTO 1.019 (1.002-1.035); SQUAMOUS EPITHELIAL CELL UR AU 12 /HPF (0-6); UROBILINOGEN, URINE AUTO 0.2 mg/dL (0.0-2.0); WBC, URINE AUTO 1 /HPF (0-3)
[2021-02-16 14:25] LABS: HEMATOCRIT 42.2 % (36.0-47.0); HEMOGLOBIN 13.2 g/dl (12.0-15.5); MEAN CORPUSCULAR HGB CONC 31.3 g/dl (32.0-36.5); MEAN CORPUSCULAR VOLUME 83.1 fl (80.0-96.0); PLATELET COUNT, AUTOMATED 212 10^3/uL (150-450); RED BLOOD COUNT 5.08 10^6/uL (4.00-5.40); WHITE BLOOD COUNT 8.8 10^3/uL (4.0-10.0)
[2021-02-16 16:42] LABS: ALT/SGPT 20 U/L (12-78); BILIRUBIN,TOTAL 0.5 MG/DL (0.2-1.0); BLOOD UREA NITROGEN 15 MG/DL (7-18); CALCIUM LEVEL 9.1 MG/DL (8.5-10.1); CARBON DIOXIDE LEVEL 28 MEQ/L (21-32); CHLORIDE LEVEL 107 MEQ/L (98-107); GLOMERULAR FILTRATION RATE > 60.0 (>60); GLUCOSE, FASTING 106 MG/DL (70-100); POTASSIUM SERUM 4.4 MEQ/L (3.5-5.1); SODIUM LEVEL 139 MEQ/L (136-145); TOTAL PROTEIN 7.8 GM/DL (6.4-8.2)
== END ==
LOC: M PLALAB 11:53
PROVIDERS: ATTEND Obstetrics & Gynecology
DX: Z48.816 Encounter for surgical aftercare following surgery on the genitourinary system (principal)

== ENCOUNTER → 2021-03-19 | Outpatient (CLI) | payer OTHER ==
--- NOTE | 2021-03-20 07:13 | REP ---
INDICATION: PAIN IN PELVIS,. RIGHT LOWER QUAD PAIN COMPARISON: 12/24/2020 TECHNIQUE: Transabdominal pelvic ultrasound with color Doppler evaluation of the ovaries. FINDINGS: Bladder is unremarkable and measures 6.1 x 7.5 x 4.9 cm. Patient is noted to be status post hysterectomy. No pelvic fluid or adnexal mass lesion. Right ovary is not visualized likely due to significant bowel gas obscuring the right hemipelvis. Left ovary appears normal and measures 3.1 x 2.0 x 2.6 cm (RI 0.48). IMPRESSION: Prior hysterectomy. Right ovary not visualized. Left ovary appears normal. <Electronically signed by Agustin Santoro > 03/20/21 [id number]
== END ==
LOC: M RAD 13:07
PROVIDERS: ATTEND Physician Assistant
DX: R10.2 Pelvic and perineal pain (principal); Z90.79 Acquired absence of other genital organ(s)

== ENCOUNTER → 2021-03-20 | Outpatient (CLI) | payer OTHER ==
--- NOTE | 2021-03-20 16:15 | REP ---
INDICATION: POSTOPERATIVE PAIN. COMPARISON: 12/24/2020 the latest prior TECHNIQUE: Limited noncontrast enhanced standard helical technique without intravenous or oral bowel preparatory contrast administration FINDINGS: The lung bases are clear and unchanged. Although seen in limited fashion, the liver, spleen, pancreas, gallbladder, adrenal glands, and kidneys are unchanged. There is mild splenomegaly. The bowel loops and the mesenteries are essentially unchanged. The appendix is well visualized and again seen to be within normal limits.There is no free fluid or free air. There are bilateral pelvic phleboliths. Limited evaluation of the abdominal aorta and para-regions show no abnormalities or significant changes from the prior exam. There is mild dilatation of the left gonadal vein. This is unchanged. There is no significant change in appearance of the osseous structures. IMPRESSION: Limited exam, as described above, showing no evidence of acute disease <Electronically signed by Holger English > 03/20/21 [id number]
== END ==
LOC: M RAD 14:23
PROVIDERS: ATTEND Obstetrics & Gynecology
DX: R10.2 Pelvic and perineal pain (principal)

== ENCOUNTER → 2021-05-28 | Outpatient (CLI) | payer OTHER ==
--- NOTE | 2021-05-28 16:29 | REP ---
INDICATION: PAIN. COMPARISON: Comparison radiographs are from November 22, 2013.. TECHNIQUE: Four views. AP and frogleg views of each hip are provided. FINDINGS: Femoral heads are smooth and rounded. Hip joint spaces are preserved. There is mild dystrophic calcification in the superior acetabular margin on the left consistent with a early degenerative change. This is visible on CT images from December 24, 2020 and is unchanged. No chondrocalcinosis or periarticular calcifications seen on the right. No joint space narrowing. No bony destructive lesion is seen. IMPRESSION: There is mild chondrocalcinosis on the left at the superior acetabular margin consistent with early degenerative change. Otherwise negative. <Electronically signed by Tex Pacheco > 05/28/21 [id number]
== END ==
LOC: M WUC 16:01
PROVIDERS: ATTEND Physician Assistant
DX: M25.552 Pain in left hip (principal)

== ENCOUNTER → 2021-10-28 | Outpatient (CLI) | payer OTHER ==
[~2021-10-28] MED LIST changes: +DOK1CAP4 PO; -DOK1CAP7 PO
--- NOTE | 2021-10-31 12:01 | ECHO ---
ECHOCARDIOGRAM DATE OF PROCEDURE: 10/28/2021 Age: 36 Gender: Female Height: 173 cm Weight: 94 kg REFERRING PHYSICIAN: Lindy Simmons M.D. PATIENT LOCATION: Outpatient REASON FOR THIS STUDY: History of COVID-19 2D MEASUREMENTS: IVS 1.1 cm LV 4.0 cm LVPW 1.1 cm LA 3.5 cm Aorta 2.8 cm DOPPLER MEASURMENTS: Peak velocity across the tricuspid valve 1.8 m/s 2D COMMENTS: 1. Normal left ventricular size, wall thickness, and normal global left ventricular systolic function. The estimated left ventricular systolic ejection fraction is 60%-65%. 2. Normal left atrium. Normal right atrium and right ventricle. 3. The atrial septum appeared to be normal without evidence of defect or shunt. 4. Normal aortic root. 5. No pericardial effusion seen. 6. The aortic valve, mitral valve, and tricuspid valve appeared to be normal. The pulmonic valve and proximal pulmonary artery branches were not well visualized. 7. The inferior vena cava subjectively appeared to be normal in size. DOPPLER: Only trace tricuspid regurgitation detected. The calculated pulmonary artery systolic pressure was normal. IMPRESSION: 1. Normal global left ventricular systolic function. 2. Trace tricuspid regurgitation with a normal calculated pulmonary artery systolic pressure. 3. This study was technically limited due to poor acoustic window secondary to body habitus.
== END ==
LOC: M CARPUL 10:14
PROVIDERS: ATTEND Pediatrics
DX: Z86.16 Personal history of COVID-19 (principal)

== ENCOUNTER → 2021-10-28 | Outpatient (CLI) | payer OTHER ==
--- NOTE | 2021-10-28 15:08 | REP ---
INDICATION: PLEURODYNIA COMPARISON: 05/16/2018 TECHNIQUE: PA and lateral. FINDINGS: The mediastinum and cardiac silhouette are normal. The lung clark are clear and without acute consolidation, effusion, or pneumothorax. The skeletal structures are intact and normal. IMPRESSION: No acute cardiopulmonary process. <Electronically signed by Agustin Santoro > 10/28/21 [id number]
== END ==
LOC: M WUC 14:36
PROVIDERS: ATTEND Physician Assistant
DX: R07.81 Pleurodynia (principal)

== ENCOUNTER 2022-01-10 11:15 | Emergency (ER) | payer OTHER ==
[~2022-01-10] VITALS: Ht 172.7 cm; Wt 100.1 kg
[2022-01-10 11:51] LABS: BASO % 0.6 % (0.0-1.0); EOS # 0.1 10^3/uL (0.0-0.5); EOS % 2.1 % (0.0-3.0); HEMATOCRIT 43.2 % (36.0-47.0); LYMPH # 1.8 10^3/uL (1.5-5.0); LYMPH % 28.8 % (24.0-44.0); MEAN CORPUSCULAR HEMOGLOBIN 27.2 pg (27.0-33.0); MEAN CORPUSCULAR HGB CONC 32.4 g/dl (32.0-36.5); MEAN CORPUSCULAR VOLUME 83.9 fl (80.0-96.0); MONO # 0.6 10^3/uL (0.0-0.8); MONO % 10.3 % (2.0-8.0); NEUTROPHILS # 3.6 10^3/uL (1.5-8.5); NEUTROPHILS % 57.7 % (36.0-66.0); PLATELET COUNT, AUTOMATED 181 10^3/uL (150-450); RED BLOOD COUNT 5.15 10^6/uL (4.00-5.40); WHITE BLOOD COUNT 6.2 10^3/uL (4.0-10.0)
[2022-01-10] MEDS ORDERED: NS 1,000 ML IV ONE (11:55)
[2022-01-10] MEDS ORDERED: ONDANSETRON 4MG/2ML VIAL IV ONE (11:55)
[2022-01-10] MEDS ORDERED: KETOROLAC 30 MG/ML 1ML VIAL IV ONE (11:55)
[2022-01-10 12:12] LABS: ALBUMIN 3.8 GM/DL (3.2-5.2); BILIRUBIN,DIRECT 0.1 MG/DL (0.0-0.2); BILIRUBIN,TOTAL 0.4 MG/DL (0.2-1.0); TOTAL PROTEIN 7.5 GM/DL (6.4-8.2)
[2022-01-10] MEDS ORDERED: MORPHINE 4 MG/ML 1ML VIAL/SYRINGE (J2270) IV ONE (14:50)
[2022-01-10] MEDS ORDERED: NITROFURANTOIN (MACROBID) 100 MG CAP PO ONE (15:20)
[2022-01-10] MEDS ORDERED: MACR100C43 PO (15:25)
[2022-01-10 15:31] VITALS: BP 135/79
== END 2022-01-10 15:36 | disposition home or self-care (01) ==
LOC: M ED 11:15
DX: N39.0 Urinary tract infection, site not specified (principal); J45.909 Unspecified asthma, uncomplicated; Z87.442 Personal history of urinary calculi; Z79.51 Long term (current) use of inhaled steroids; Z79.899 Other long term (current) drug therapy
CPT/HCPCS: 36415; 74176; 76856; 80047; 80076; 81001; 83690; 85025; 87086; 93976; 96361; 96374; 96375; 99284; J1885; J2270; J2405

== ENCOUNTER → 2022-02-16 | Outpatient (CLI) | payer OTHER | LOC: M WHC 15:44 | PROVIDERS: ATTEND Pediatrics | DX: R19.00 Intra-abdominal and pelvic swelling, mass and lump, unspecified site (principal) ==

== ENCOUNTER → 2022-08-05 | Outpatient (CLI) | payer OTHER ==
[~2022-08-05] MED LIST changes: +ALBU2.5V10 INH; +ALBU2.5V10 NEB; +ALBU6.7H6 INH; -ALBU83IN INH; -ALBU83IN NEB; -PROV108A INH
[2022-08-05 15:16] LABS: HEPATITIS B SURFACE ANTIBODY POSITIVE (POSITIVE); HEPATITIS B SURFACE ANTIGEN NEGATIVE (NEGATIVE); HEPATITIS C VIRUS ABY INDEX < 0.0 INDEX (<0.8)
== END ==
LOC: M LAB 13:23
PROVIDERS: ATTEND Internal Medicine Rheumatology
DX: Z51.81 Encounter for therapeutic drug level monitoring (principal); Z79.899 Other long term (current) drug therapy

== ENCOUNTER 2023-02-21 18:40 | Emergency (ER) | payer OTHER ==
[~2023-02-21] VITALS: Ht 172.7 cm; Wt 100.5 kg
[~2023-02-21 18:40] MED LIST changes: -KETO10TAB PO; -ONDA4TAB6 PO
[2023-02-21] MEDS ORDERED: NS 1,000 ML IV ONE (22:45)
[2023-02-21] MEDS ORDERED: KETOROLAC 30 MG/ML 1ML VIAL IV ONE (22:45)
[2023-02-21] MEDS ORDERED: ONDANSETRON 4MG 2ML VIAL IV ONE (22:55)
[2023-02-21 23:04] LABS: BASO # 0.1 10^3/uL (0.0-0.2); BASO % 0.7 % (0.0-1.0); EOS # 0.2 10^3/uL (0.0-0.5); EOS % 2.8 % (0.0-3.0); HEMATOCRIT 41.3 % (36.0-47.0); HEMOGLOBIN 13.5 g/dl (12.0-15.5); LYMPH # 1.9 10^3/uL (1.5-5.0); LYMPH % 23.2 % (24.0-44.0); MEAN CORPUSCULAR HEMOGLOBIN 28.2 pg (27.0-33.0); MEAN CORPUSCULAR HGB CONC 32.7 g/dl (32.0-36.5); MEAN CORPUSCULAR VOLUME 86.2 fl (80.0-96.0); MONO # 0.8 10^3/uL (0.0-0.8); MONO % 9.2 % (2.0-8.0); NEUTROPHILS # 5.3 10^3/uL (1.5-8.5); NEUTROPHILS % 63.6 % (36.0-66.0); PLATELET COUNT, AUTOMATED 158 10^3/uL (150-450); RED BLOOD COUNT 4.79 10^6/uL (4.00-5.40); WHITE BLOOD COUNT 8.4 10^3/uL (4.0-10.0)
[2023-02-21 23:34] LABS: ALBUMIN 3.5 G/DL (3.2-5.2); BILIRUBIN,DIRECT 0.2 MG/DL (<0.4); BILIRUBIN,TOTAL 0.4 MG/DL (0.3-1.2); TOTAL PROTEIN 6.8 G/DL (5.7-8.2)
[2023-02-21] MEDS ORDERED: ISOVUE-370 76% 100ML VIAL As Ordered ONE (23:34)
[2023-02-22] MEDS ORDERED: KETO10TAB PO (01:59)
[2023-02-22] MEDS ORDERED: ONDA4TAB6 PO (01:59)
[2023-02-22 02:24] VITALS: BP 127/85
== END 2023-02-22 02:52 | disposition home or self-care (01) ==
LOC: M ED 18:40
DX: N83.291 Other ovarian cyst, right side (principal); F41.9 Anxiety disorder, unspecified; J45.909 Unspecified asthma, uncomplicated; M32.9 Systemic lupus erythematosus, unspecified; E03.9 Hypothyroidism, unspecified; F10.10 Alcohol abuse, uncomplicated; Z87.42 Personal history of other diseases of the female genital tract; Z87.442 Personal history of urinary calculi; Z79.52 Long term (current) use of systemic steroids; Z79.83 Long term (current) use of bisphosphonates; Z79.899 Other long term (current) drug therapy
CPT/HCPCS: 74177; 76856; 80047; 80076; 81001; 83690; 85025; 93976; 96374; 96375; 99284; J1885; J2405; Q9967

== ENCOUNTER → 2023-02-21 | Outpatient (REF) | payer OTHER ==
[~2023-02-21] MED LIST changes: +KETO10TAB PO; +ONDA4TAB6 PO
== END ==
LOC: M LAB REF 09:37
PROVIDERS: ATTEND Physician Assistant
DX: R10.813 Right lower quadrant abdominal tenderness (principal)

== ENCOUNTER → 2023-03-14 | Outpatient (CLI) | payer OTHER ==
[~2023-03-14] MED LIST changes: +BENL200I SC; +COLA100C5 PO; +KETO10TAB PO; +ONDA4TAB6 PO; +PERC5TAB12 PO
== END ==
LOC: M WHC 12:01
PROVIDERS: ATTEND Obstetrics & Gynecology
DX: N83.201 Unspecified ovarian cyst, right side (principal)

== ENCOUNTER 2023-03-17 11:08 | Day surgery (SDC) | payer OTHER ==
[~2023-03-17] VITALS: Ht 172.7 cm; Wt 99.8 kg
[~2023-03-17 11:08] MED LIST changes: -COLA100C5 PO; -PERC5TAB12 PO
[2023-03-17] MEDS ORDERED: MIDAZOLAM INJ 2MG/2ML VIAL As Ordered ONE (11:26)
[2023-03-17] MEDS ORDERED: fentaNYL 100 MCG/2 ML INJECTION As Ordered ONE (11:26)
[2023-03-17] MEDS ORDERED: SUGAMMADEX SODIUM 500 MG/5 ML VIAL (BRIDION) As Ordered ONE (11:27)
[2023-03-17] MEDS ORDERED: propofoL 200 MG/20 ML VIAL As Ordered ONE ×2 (11:27→12:58)
[2023-03-17] MEDS ORDERED: ONDANSETRON 4MG 2ML VIAL As Ordered ONE (11:27)
[2023-03-17] MEDS ORDERED: LIDOCAINE 2% 100MG/5ML SDV (FOR ANES.) As Ordered ONE (11:27)
[2023-03-17] MEDS ORDERED: KETOROLAC 60MG 2ML VIAL As Ordered ONE (11:27)
[2023-03-17] MEDS ORDERED: ACETAMINOPHEN 1000MG 100ML IV BAG As Ordered ONE (11:29)
[2023-03-17] MEDS ORDERED: LR 1,000 ML IV SCH ×2 (11:30→15:20)
[2023-03-17] MEDS ORDERED: SCOPOLAMINE 1MG TRANSDERMAL PATCH TOP ONE (11:35)
[2023-03-17 11:41] LABS: HEMOGLOBIN 14.6 g/dl (12.0-15.5); MEAN CORPUSCULAR HEMOGLOBIN 28.2 pg (27.0-33.0); MEAN CORPUSCULAR HGB CONC 33.2 g/dl (32.0-36.5); MEAN CORPUSCULAR VOLUME 84.9 fl (80.0-96.0); PLATELET COUNT, AUTOMATED 188 10^3/uL (150-450); RED BLOOD COUNT 5.18 10^6/uL (4.00-5.40); WHITE BLOOD COUNT 7.8 10^3/uL (4.0-10.0)
[2023-03-17] MEDS ORDERED: ROCURONIUM BROMIDE 50MG/5ML VIAL As Ordered ONE ×2 (12:56→14:02)
[2023-03-17] MEDS ORDERED: BUPIVACAINE HCL 0.25% 30ML VIAL As Ordered ONE (13:13)
[2023-03-17] MEDS ORDERED: HYDROmorphone HCL 2MG/ML 1ML VIAL As Ordered ONE (13:52)
[2023-03-17] MEDS ORDERED: ceFAZolin 2 GM/D5W 50 ML IV BAG As Ordered ONE (14:22)
[2023-03-17] MEDS ORDERED: fentaNYL 100 MCG/2 ML INJECTION IV PRN (15:20)
[2023-03-17] MEDS ORDERED: ONDANSETRON 4MG 2ML VIAL IV PRN (15:20)
[2023-03-17] MEDS ORDERED: oxyCODONE 5MG TAB PO PRN (15:20)
[2023-03-17] MEDS ORDERED: PERC5TAB12 PO (15:44)
[2023-03-17] MEDS ORDERED: IBUP80TA PO (15:45)
[2023-03-17] MEDS ORDERED: COLA100C5 PO (15:46)
[2023-03-17] MEDS ORDERED: ONDA4TAB6 PO (15:47)
[2023-03-17] MEDS ORDERED: METOCLOPRAMIDE INJ 10MG/2ML VIAL IV PRN (16:20)
[2023-03-17] MEDS: HYDROMORPHONE HCL 0.5 MG/ 0.5 ML SYRINGE IV PRN ×2 (16:26→16:33)
[2023-03-17 19:30] VITALS: BP 126/77
== END 2023-03-17 19:35 | disposition home or self-care (01) ==
LOC: M SDC 11:08
PROVIDERS: ATTEND Obstetrics & Gynecology
DX: N83.01 Follicular cyst of right ovary (principal); K66.0 Peritoneal adhesions (postprocedural) (postinfection); E03.9 Hypothyroidism, unspecified; D64.9 Anemia, unspecified; M35.00 Sjogren syndrome, unspecified; M32.9 Systemic lupus erythematosus, unspecified; F41.9 Anxiety disorder, unspecified; Z79.899 Other long term (current) drug therapy
CPT/HCPCS: 36415; 58661; 85027; 86850; 86900; 86901; 88305; J0131; J0690; J1100; J1170; J1885; J2250; J2405; J2765; J3010; S2900

== ENCOUNTER 2023-07-11 08:11 | Emergency (ER) | payer MEDICAID, OTHER ==
[~2023-07-11] VITALS: Ht 172.7 cm; Wt 100.2 kg
[~2023-07-11 08:11] MED LIST changes: +COLA100C5 PO; +PERC5TAB12 PO
[2023-07-11] MEDS ORDERED: KETO10TAB PO (11:33)
[2023-07-11] MEDS ORDERED: METH-1165 PO (11:33)
[2023-07-11 11:47] VITALS: BP 136/90; TEMP 98; O2SAT 96
== END 2023-07-11 11:49 | disposition home or self-care (01) ==
LOC: M ED 08:11
DX: M62.838 Other muscle spasm (principal); J45.909 Unspecified asthma, uncomplicated; E03.9 Hypothyroidism, unspecified; F41.9 Anxiety disorder, unspecified; Z79.83 Long term (current) use of bisphosphonates; Z79.52 Long term (current) use of systemic steroids; Z79.899 Other long term (current) drug therapy

== ENCOUNTER → 2024-01-30 | Outpatient (REF) | payer OTHER ==
[~2024-01-30] MED LIST changes: -ASPI-161 PO; +ASPI-615 PO; +METH-1165 PO
[2024-01-30 18:27] LABS: BASO % 0.5 % (0.0-1.0); EOS # 0.2 10^3/uL (0.0-0.5); EOS % 2.3 % (0.0-3.0); HEMATOCRIT 43.8 % (36.0-47.0); HEMOGLOBIN 14.2 g/dl (12.0-15.5); LYMPH # 1.4 10^3/uL (1.5-5.0); LYMPH % 21.9 % (24.0-44.0); MEAN CORPUSCULAR HEMOGLOBIN 28.7 pg (27.0-33.0); MEAN CORPUSCULAR HGB CONC 32.4 g/dl (32.0-36.5); MEAN CORPUSCULAR VOLUME 88.5 fl (80.0-96.0); MONO # 0.6 10^3/uL (0.0-0.8); MONO % 8.7 % (2.0-8.0); NEUTROPHILS # 4.3 10^3/uL (1.5-8.5); NEUTROPHILS % 66.4 % (36.0-66.0); PLATELET COUNT, AUTOMATED 176 10^3/uL (150-450); RED BLOOD COUNT 4.95 10^6/uL (4.00-5.40); WHITE BLOOD COUNT 6.5 10^3/uL (4.0-10.0)
[2024-01-30 18:48] LABS: THYROID STIMULATING HORMONE 2.472 uIU/ML (0.55-4.78)
[2024-01-30 18:49] LABS: ALBUMIN 3.8 G/DL (3.2-5.2); ALKALINE PHOSPHATASE 49 U/L (46-116); ALT/SGPT 18 U/L (7.0-40); AST/SGOT 10 U/L (<34); BILIRUBIN,TOTAL 0.6 MG/DL (0.3-1.2); BLOOD UREA NITROGEN 14 MG/DL (9-23); CALCIUM LEVEL 9.2 MG/DL (8.5-10.1); CARBON DIOXIDE LEVEL 26 MMOL/L (20-31); CHLORIDE LEVEL 104 MMOL/L (98-107); CHOLESTEROL LEVEL 149 MG/DL (<200); CHOLESTEROL RISK RATIO 4.25 (<5); CREATININE FOR GFR 0.88 MG/DL (0.55-1.30); GLOMERULAR FILTRATION RATE > 60.0 (>60); GLUCOSE, FASTING 97 MG/DL (60-100); LDL CHOLESTEROL 58.8 MG/DL (<100); POTASSIUM SERUM 3.9 MMOL/L (3.5-5.1); SODIUM LEVEL 139 MMOL/L (136-145); TOTAL 25(OH) VITAMIN D 19.6 NG/ML (20.0-100.0); TOTAL PROTEIN 7.2 G/DL (5.7-8.2); TRIGLYCERIDES LEVEL 276 MG/DL (<150)
[2024-01-30 19:27] LABS: HEMOGLOBIN A1c 5.1 % (4.0-6.0)
== END ==
LOC: M LAB REF 17:02
PROVIDERS: ATTEND Nurse Practitioner Family
DX: E66.9 Obesity, unspecified (principal); E55.9 Vitamin D deficiency, unspecified

== ENCOUNTER → 2024-03-05 | Outpatient (CLI) | payer OTHER | LOC: M PLAIMG 13:10 | PROVIDERS: ATTEND Nurse Practitioner Family | DX: R91.1 Solitary pulmonary nodule (principal) ==

== ENCOUNTER → 2024-04-09 | Outpatient (CLI) | payer OTHER ==
[~2024-04-09] MED LIST changes: +ONDA-282 PO; -ONDA4TAB6 PO
== END ==
LOC: M CARPUL 13:11
PROVIDERS: ATTEND Nurse Practitioner Family
DX: J45.909 Unspecified asthma, uncomplicated (principal)

== ENCOUNTER → 2024-05-10 | Outpatient (CLI) | payer OTHER | LOC: M WHC 13:52 | PROVIDERS: ATTEND Nurse Practitioner Family | DX: Z13.820 Encounter for screening for osteoporosis (principal) ==

== ENCOUNTER → 2024-05-30 | Outpatient (CLI) | payer OTHER | LOC: M WHC 11:03 | PROVIDERS: ATTEND Nurse Practitioner Family | DX: Z12.31 Encounter for screening mammogram for malignant neoplasm of breast (principal); N63.21 Unspecified lump in the left breast, upper outer quadrant ==

== ENCOUNTER → 2024-06-15 | Outpatient (REF) | payer OTHER ==
[2024-06-15 13:34] LABS: CHOLESTEROL RISK RATIO 4.45 (<5); HDL CHOLESTEROL 38.6 MG/DL (>40); LDL CHOLESTEROL 112.2 MG/DL (<100); NON-HDL-C 133.4 MG/DL
== END ==
LOC: M LAB REF 12:35
PROVIDERS: ATTEND Nurse Practitioner Family
DX: R79.89 Other specified abnormal findings of blood chemistry (principal)

== ENCOUNTER → 2024-06-24 | Outpatient (CLI) | payer OTHER | LOC: M RAD 14:15 | PROVIDERS: ATTEND Nurse Practitioner Family | DX: M79.672 Pain in left foot (principal) ==

== ENCOUNTER → 2024-11-15 | Outpatient (REF) | payer OTHER ==
[2024-11-16 14:53] LABS: CHOLESTEROL RISK RATIO 4.58 (<5); HDL CHOLESTEROL 47.3 MG/DL (>40); LDL CHOLESTEROL 148.3 MG/DL (<100); NON-HDL-C 169.7 MG/DL
== END ==
LOC: M LAB REF 12:41
PROVIDERS: ATTEND Nurse Practitioner Family
DX: E78.5 Hyperlipidemia, unspecified (principal)

== ENCOUNTER → 2025-02-21 | Outpatient (REF) | payer OTHER ==
[2025-02-21 18:19] LABS: BASO % 0.4 % (0.0-1.0); EOS # 0.1 10^3/uL (0.0-0.5); EOS % 0.7 % (0.0-3.0); HEMATOCRIT 44.2 % (36.0-47.0); HEMOGLOBIN 14.8 g/dl (12.0-15.5); LYMPH # 1.5 10^3/uL (1.5-5.0); LYMPH % 16.4 % (24.0-44.0); MEAN CORPUSCULAR HEMOGLOBIN 29.2 pg (27.0-33.0); MEAN CORPUSCULAR HGB CONC 33.5 g/dl (32.0-36.5); MEAN CORPUSCULAR VOLUME 87.4 fl (80.0-96.0); MONO # 0.8 10^3/uL (0.0-0.8); MONO % 8.2 % (2.0-8.0); NEUTROPHILS # 6.9 10^3/uL (1.5-8.5); NEUTROPHILS % 74.1 % (36.0-66.0); PLATELET COUNT, AUTOMATED 179 10^3/uL (150-450); RED BLOOD COUNT 5.06 10^6/uL (4.00-5.40); WHITE BLOOD COUNT 9.4 10^3/uL (4.0-10.0)
[2025-02-21 18:43] LABS: BILIRUBIN,TOTAL 0.7 MG/DL (0.3-1.2); CHOLESTEROL RISK RATIO 4.54 (<5); CREATININE FOR GFR 0.97 MG/DL (0.55-1.30); GLOMERULAR FILTRATION RATE 75.3 (>58); LDL CHOLESTEROL 115.4 MG/DL (<100); MAGNESIUM LEVEL 1.8 MG/DL (1.8-2.4); POTASSIUM SERUM 4.2 MMOL/L (3.5-5.1); TOTAL PROTEIN 7.4 G/DL (5.7-8.2)
[2025-02-21 18:45] LABS: THYROID STIMULATING HORMONE 1.388 uIU/ML (0.55-4.78); TOTAL 25(OH) VITAMIN D 26.8 NG/ML (20.0-100.0)
[2025-02-21 19:03] LABS: HEMOGLOBIN A1c 4.9 % (4.0-6.0)
== END ==
LOC: M LAB REF 16:44
PROVIDERS: ATTEND Nurse Practitioner Family
DX: E66.9 Obesity, unspecified (principal); E55.9 Vitamin D deficiency, unspecified

== ENCOUNTER → 2025-03-06 | Outpatient (REF) | payer OTHER | LOC: M LAB REF 11:32 | PROVIDERS: ATTEND Nurse Practitioner Family | DX: R39.9 Unspecified symptoms and signs involving the genitourinary system (principal) ==

== ENCOUNTER → 2025-05-09 | Outpatient (REF) | payer OTHER ==
[2025-05-09 19:07] LABS: BASO # 0.1 10^3/uL (0.0-0.2); BASO % 0.7 % (0.0-1.0); EOS # 0.1 10^3/uL (0.0-0.5); EOS % 1.6 % (0.0-3.0); LYMPH # 1.5 10^3/uL (1.5-5.0); LYMPH % 19.2 % (24.0-44.0); MONO # 0.8 10^3/uL (0.0-0.8); MONO % 10.0 % (2.0-8.0); NEUTROPHILS # 5.2 10^3/uL (1.5-8.5); NEUTROPHILS % 68.2 % (36.0-66.0); PLATELET COUNT, AUTOMATED 144 10^3/uL (150-450)
[2025-05-09 19:17] LABS: C REACTIVE PROTEIN QUANTITATIV < 0.50 MG/DL (<1.0); CALCIUM LEVEL 9.0 MG/DL (8.5-10.1); CARBON DIOXIDE LEVEL 24 MMOL/L (20-31); CHLORIDE LEVEL 107 MMOL/L (98-107); CREATININE FOR GFR 1.01 MG/DL (0.55-1.30); GLOMERULAR FILTRATION RATE 71.7 (>58); POTASSIUM SERUM 4.1 MMOL/L (3.5-5.1); SODIUM LEVEL 143 MMOL/L (136-145)
[2025-05-09 19:19] LABS: FREE T4 1.09 NG/DL (0.89-1.76)
[2025-05-09 19:20] LABS: ERYTHROCYTE SEDIMENTATION RATE 14 mm/hr (0-20)
== END ==
LOC: M LAB REF 17:39
PROVIDERS: ATTEND Physician Assistant
DX: R49.9 Unspecified voice and resonance disorder (principal)

== ENCOUNTER → 2025-06-07 | Outpatient (CLI) | payer OTHER ==
[~2025-06-07] MED LIST changes: +ASCO500T72; +ASCO500T72 PO; -IBUP-1022 PO; -IBUP1TAB6 PO; +IBUP600T42 PO; +SFHIBU600 PO; -VITA500T21; -VITA500T21 PO
== END ==
LOC: M WHC 14:31
PROVIDERS: ATTEND Physician Assistant
DX: R49.9 Unspecified voice and resonance disorder (principal); E04.1 Nontoxic single thyroid nodule

== ENCOUNTER → 2025-07-16 | Outpatient (CLI) | payer OTHER ==
[~2025-07-16] MED LIST changes: +ISOVUE-370 76% 100 ML VIAL As Ordered ONE
== END ==
LOC: M RAD 09:00
PROVIDERS: ATTEND Physician Assistant
DX: R49.9 Unspecified voice and resonance disorder (principal)
CPT/HCPCS: 70491; Q9967